=== PATIENT | female | born 1955 | race Caucasian/White ===

== ENCOUNTER 2024-08-21 20:14 | Inpatient (IN) | payer MEDICARE, SELFPAY ==
[2024-08-21 22:00] VITALS: BP 147/74; PULSE 80; RESP 16; TEMP 36; O2SAT 95; BMI 28.9
[2024-08-21] MEDS: hydrOXYzine HCL 25 MG TABLET PO (23:09)
[2024-08-21] MEDS: traZODone HCL 50 MG TABLET PO (23:09)
[2024-08-21] MEDS: Acetaminophen 325 MG TABLET 650 MG PO (23:10)
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
[2024-08-22] MEDS: LORazepam 1 MG TABLET PO (04:49)
--- NOTE | 2024-08-22 06:00 | PC.NURSE ---
Patient delusional becoming agitated saying the demons are trying to make her vomit so that she will choke and stop breathing. Provider contacted and order obtained for Ativan 1mg PO. Given with + effect. Patient incontinent of urine, bed and clothing soaked, this was after sitting on the toilet for an extended period of time, Patient reports the demons were holding her down and she couldn't urinate on the toilet. Lying in bed @ present. Will continue to monitor.
[2024-08-22 08:15] LABS: MANUAL DIFF FLAG NO
[2024-08-22 08:18] LABS: Basophils Absolute Auto 0.1 X10*3/uL (0.0-0.2); Eosinophils Absolute Auto 0.2 X10*3/uL (0.0-0.4); Eosinophils Percent Auto 2.6 % (0-4); Hematocrit 39.6 % (37.0-47.0); Hemoglobin 13.7 g/dl (12.0-16.0); Imm Gran Abs Auto 0.01 X10*3/uL (0.00-0.03); Imm Gran Pct Auto 0.2 % (0.0-0.4); Lymphocytes Absolute Auto 1.3 X10*3/uL (1.2-4.9); Lymphocytes Percent Auto 22.8 % (20-40); Mean Corpuscular HGB Conc 34.6 g/dl (31.0-35.0); Mean Corpuscular Hemoglobin 34.1 pg (27.0-33.0); Mean Corpuscular Volume 98.5 fL (80.0-98.0); Mean Platelet Volume 9.8 fL (9.4-12.3); Monocytes Absolute Auto 0.7 X10*3/uL (0.1-1.2); Monocytes Percent Auto 11.6 % (2-11); Neutrophils Absolute Auto 3.6 x10*3/uL (2.0-8.3); Neutrophils Percent Auto 61.8 % (45-73); Platelet Count 291 X10*3/uL (160-400); Red Blood Count 4.02 X10*6/uL (4.20-5.50); Red Cell Distribution Width 12.3 % (11.0-16.0); White Blood Count 5.9 X10*3/uL (4.8-10.8)
[2024-08-22 08:34] LABS: Estimated Average Glucose 114 mg/dL; Hemoglobin A1C 123.7162 umol/L; Hemoglobin A1c % 5.6 % (<6.0)
[2024-08-22 08:40] LABS: Alanine Aminotransferase 32 U/L (0-31); Alkaline Phosphatase 76 U/L (39-117); Anion Gap 12 (12-20); Aspartate Amino Transferase 27 U/L (5-31); Bilirubin Direct 0.2 mg/dL (0.0-0.5); Bilirubin Total 0.4 mg/dL (0.0-1.0); Blood Urea Nitrogen 18 mg/dL (9-16); Calcium 9.7 mg/dL (8.4-10.2); Carbon Dioxide 24 mmol/L (22-29); Chloride 106 mmol/L (96-108); Cholesterol 128 mg/dL (<200); Creatinine Clr Calc Pharmacy 78.1; Estimated Glomerular Filt Rate > 60; Glucose Fasting 116 mg/dL (60-99); HDL Cholesterol 42 mg/dL (>40); LDL Cholesterol Calculated 69 mg/dL (<100); Potassium 3.5 mmol/L (3.3-5.1); Sodium 138 mmol/L (135-145); Total Protein 7.1 g/dL (6.5-8.0); Triglycerides 85 mg/dL (<150)
[2024-08-22 08:54] LABS: Free T4 (Free Thyroxine) 1.26 ng/dL (0.71-1.85); Thyroid Stimulating Hormone 0.57 uIU/mL (0.32-4.0)
[2024-08-22 09:07] VITALS: BP 141/74; PULSE 89; RESP 17; TEMP 36; O2SAT 96
[2024-08-22 09:08] LABS: Folate 14.7 ng/mL (> or = 4.0); Vitamin B12 973 pg/mL (200-900)
[2024-08-22] MEDS: buPROPion HCL 75 MG TABLET PO (10:00)
[2024-08-22] MEDS: Apixaban 5 MG TABLET PO ×2 (10:00→20:45)
[2024-08-22] MEDS: Gabapentin 100 MG CAPSULE PO ×3 (10:00→20:45)
[2024-08-22] MEDS: carvediloL 25 MG TABLET PO ×2 (10:01→20:47)
[2024-08-22] MEDS: amLODIPine Besylate 5 MG TABLET PO (10:01)
[2024-08-22] MEDS: amantadine HCL 100 MG CAPSULE PO (10:01)
[2024-08-22] MEDS: hydroCHLOROthiazide 25 MG TABLET PO (10:02)
[2024-08-22] MEDS: valACYclovir HCL 500 MG TABLET PO (10:02)
[2024-08-22] MEDS: lisinopriL 40 MG TABLET PO (10:04)
[2024-08-22] MEDS: ARIPiprazole 15 MG TABLET PO (10:18)
[2024-08-22] MEDS: hydrOXYzine HCL 25 MG TABLET PO ×2 (15:09→20:45)
--- NOTE | 2024-08-22 18:49 | HO.PSYADMNOT ---
HPI Date of Service: 08/22/24 Chief Complaint: Unspecified Psychosis HPI Narrative: per [facility] records, pt with h/o bipolar disorder, COPD, HTN, obesity, paroxysmal afib, was admitted to medical service 07/29 for encephalopathy. per family report she had been taking her medications as pre usual and had been in her usual state of health until being diagnosed with UTI and being started on nitrofurantoin (07/21). since then she has become confused and paranoid. on 08/20 [facility] consult F/U, pt was religiously preoccupied and talking about the boogie man, the devil, and a staff person who carries a bull whip and who would be coming to crack [her] back with the whip. reported she could hear people chattering in [place]. at some point also reported she possesses superpowers. she reported poor sleep due to fears of being killed by the devil. on attempted interview by MD, pt declined to be interviewed. the remainder of the information in this evaluation is taken from the woefully wanting records provided by [facility] (no initial psych consult provided, no initial ED note provided). Past Psychiatric History: bipolar disorder Medical Evaluation Reviewed: Yes [facility] Medical History (Updated 08/22/24 @ 22:07 by Suresh Jauregui MD) Hallucinations Anxiety Bipolar disorder Urinary tract infection Urinary retention Incontinence Obesity Constipation COPD (chronic obstructive pulmonary disease) Coronary artery disease Atrial fibrillation Family History: per [facility] records, none. 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 alcohol - none currently Trauma History: unknown Diagnostics Vital Signs (24Hr): Vital Signs - 24 hr 08/21/24 22:00 08/22/24 09:07 Temperature 96.8 F 96.8 F Pulse Rate 80 89 Respiratory Rate 16 17 Blood Pressure 147/74 H 141/74 H Pulse Oximetry 95 96 Oxygen Delivery Method Room Air Room Air BMI result Body Mass Index 28.9 Labs 08/22/24 08:00 08/22/24 08:00 Labs: Laboratory Results - last 48 hr 08/22/24 08:00 WBC 5.9 RBC 4.02 L Hgb 13.7 Hct 39.6 MCV 98.5 H MCH 34.1 H MCHC 34.6 RDW 12.3 Plt Count 291 MPV 9.8 Immature Gran % (Auto) 0.2 Neut % (Auto) 61.8 Lymph % (Auto) 22.8 [place] % (Auto) 11.6 H Eos % (Auto) 2.6 Baso % (Auto) 1.0 Lymph # (Auto) 1.3 [place] # (Auto) 0.7 Eos # (Auto) 0.2 Baso # (Auto) 0.1 Abs Immat Gran (auto) 0.01 Absolute Neuts (auto) 3.6 Absolute Nucleated RBC 0.000 Nucleated RBC % (auto) 0.0 Sodium 138 Potassium 3.5 Chloride 106 Carbon Dioxide 24 Anion Gap 12 BUN 18 H Creatinine 0.72 Estim Creat Clear Calc 78.1 Estimated GFR > 60 Fasting Glucose 116 H Estimat Average Glucose 114 Hemoglobin A1c % 5.6 Calcium 9.7 Total Bilirubin 0.4 Direct Bilirubin 0.2 AST 27 ALT 32 H Alkaline Phosphatase 76 Total Protein 7.1 Albumin 4.0 Triglycerides 85 Cholesterol 128 LDL Cholesterol, Calc 69 HDL Cholesterol 42 Vitamin B12 973 H Folate 14.7 TSH 0.57 Free T4 1.26 Meds/Allergies Meds Home Medications ?Medication ?Instructions ?Recorded ?Confirmed ?Type albuterol sulfate 90 mcg/actuation 90 mcg inhalation Q4H PRN 08/22/24 08/22/24 History aerosol inhaler sob/wheezing amantadine HCl 100 mg capsule 100 mg PO DAILY 08/22/24 08/22/24 History amlodipine 5 mg tablet 5 mg PO DAILY 08/22/24 08/22/24 History apixaban 5 mg tablet (Eliquis) 5 mg PO BID 08/22/24 08/22/24 History aripiprazole 15 mg tablet 15 mg PO DAILY 08/22/24 08/22/24 History bupropion HCl 75 mg tablet 75 mg PO DAILY 08/22/24 08/22/24 History carvedilol 25 mg tablet 25 mg PO BID 08/22/24 08/22/24 History chlorthalidone 25 mg tablet 25 mg PO DAILY 08/22/24 08/22/24 History clonidine HCl 0.2 mg tablet 0.2 mg PO BID 08/22/24 08/22/24 History gabapentin 100 mg capsule 100 mg PO TID 08/22/24 08/22/24 History lisinopril 40 mg tablet 40 mg PO DAILY 08/22/24 08/22/24 History simvastatin 10 mg tablet 10 mg PO BEDTIME 08/22/24 08/22/24 History tamsulosin 0.4 mg capsule 0.4 mg PO DAILY 08/22/24 08/22/24 History valacyclovir 500 mg tablet 500 mg PO DAILY 08/22/24 08/22/24 History Allergies Allergies Allergy/AdvReac Type Severity Reaction Status Date / Time Penicillins [PCN] Allergy Severe Anaphylaxis Verified 08/22/24 04:12 bee venom protein (honey bee) Allergy Anaphylaxis Verified 08/22/24 04:04 codeine Allergy Unknown Verified 08/22/24 04:07 Iodinated Contrast Media Allergy Numbness Verified 08/22/24 04:11 [Contrast Dye] lanolin Allergy Rash Verified 08/22/24 04:11 latex Allergy Rash Verified 08/22/24 04:11 Sulfa (Sulfonamide Allergy Unknown Verified 08/22/24 04:11 Antibiotics) tramadol AdvReac Nausea and Verified 08/22/24 04:11 Vomiting Mental Status Exam Mental Status Exam Narrative: lying in bed resting. declined interview. adequately dressed and groomed in [facility]. not cooperative. no PMA/PMR. speech terse, nml rate, decr amount, nml loudness. thoughts linear and logical in brief interaction. affect constricted, normo-intense, non-labile. mood, SI/HI/AVH unable to be assessed. Assessment & Plan Assessment & Plan (1) Delirium: Status: Acute Code(s): R41.0 - Disorientation, unspecified (2) Unspecified psychosis: Status: Acute Code(s): F29 - Unspecified psychosis not due to a substance or known physiological condition Plan continue medications from [facility]. hospitalist consult. observation, supportive care. Patient educated on: other Reason for continued inpatient stay Substantial Risk for: inability to function Statement Statement: I have reviewed the history and physical and performed a pertinent examination on my patient. No changes have occurred unless specified. If the History and Physical was not performed prior to admission, the Hospitalist's service will be consulted for completing the admission physical. Time Spent With Patient Time: Total time managing care of this patient today _55___ minutes.
[2024-08-22 20:00] VITALS: BP 140/70; PULSE 94; RESP 18; TEMP 36.1; O2SAT 99
[2024-08-22] MEDS: Acetaminophen 325 MG TABLET 650 MG PO (20:45)
[2024-08-22] MEDS: traZODone HCL 50 MG TABLET PO (20:45)
[2024-08-22] MEDS: Tamsulosin HCL 0.4 MG CAPSULE PO (20:45)
[2024-08-22] MEDS: Atorvastatin Calcium 10 MG TABLET PO (20:45)
[2024-08-22] MEDS: Albuterol Sulfate 90 MCG 8 GM INHALER 1 PUFF INHALE (20:54)
[2024-08-23 07:50] VITALS: BP 128/74; PULSE 80; RESP 18; TEMP 36.6; O2SAT 98
[2024-08-23] MEDS: hydroCHLOROthiazide 25 MG TABLET PO (08:27)
[2024-08-23] MEDS: amLODIPine Besylate 5 MG TABLET PO (08:27)
[2024-08-23] MEDS: valACYclovir HCL 500 MG TABLET PO (08:27)
[2024-08-23] MEDS: amantadine HCL 100 MG CAPSULE PO (08:27)
[2024-08-23] MEDS: buPROPion HCL 75 MG TABLET PO (08:27)
[2024-08-23] MEDS: carvediloL 25 MG TABLET PO ×2 (08:27→20:34)
[2024-08-23] MEDS: ARIPiprazole 15 MG TABLET PO (08:28)
[2024-08-23] MEDS: lisinopriL 40 MG TABLET PO (08:28)
[2024-08-23] MEDS: Apixaban 5 MG TABLET PO ×2 (08:28→20:33)
[2024-08-23] MEDS: Gabapentin 100 MG CAPSULE PO ×3 (08:28→20:34)
[2024-08-23] MEDS: hydrOXYzine HCL 25 MG TABLET PO ×2 (11:13→20:34)
--- NOTE | 2024-08-23 15:03 | P.PNPSI_ITS ---
Subjective Subjective Date of Service: 08/23/24 Reason For Visit: Unspecified Psychosis Interim History: lying in bed, c/o severe anxiety, reports panic attack earlier this morning. wearing sunglasses in a dimly lit room. states she is anxious about light. per staff, appears to have fungal infection in intertriginous spaces. Mental Status Exam Mental Status Exam Narrative: lying in bed resting. adequately dressed and groomed in [place]. cooperative. no PMA/PMR. speech terse, nml rate, decr amount, nml loudness. thoughts linear and illogical. affect constricted, normo-intense, non-labile. mood anxious, no SI/HI/AVH expressed. Diagnostics Vital Signs (24Hr): Vital Signs - 24 hr 08/22/24 20:00 08/23/24 07:50 Temperature 97 F 97.9 F Pulse Rate 94 80 Respiratory Rate 18 18 Blood Pressure 140/70 H 128/74 Pulse Oximetry 99 98 Oxygen Delivery Method Room Air Room Air BMI result Body Mass Index 28.9 Labs 08/22/24 08:00 08/22/24 08:00 Labs: Laboratory Results - last 48 hr 08/22/24 08:00 WBC 5.9 RBC 4.02 L Hgb 13.7 Hct 39.6 MCV 98.5 H MCH 34.1 H MCHC 34.6 RDW 12.3 Plt Count 291 MPV 9.8 Immature Gran % (Auto) 0.2 Neut % (Auto) 61.8 Lymph % (Auto) 22.8 [place] % (Auto) 11.6 H Eos % (Auto) 2.6 Baso % (Auto) 1.0 Lymph # (Auto) 1.3 [place] # (Auto) 0.7 Eos # (Auto) 0.2 Baso # (Auto) 0.1 Abs Immat Gran (auto) 0.01 Absolute Neuts (auto) 3.6 Absolute Nucleated RBC 0.000 Nucleated RBC % (auto) 0.0 Sodium 138 Potassium 3.5 Chloride 106 Carbon Dioxide 24 Anion Gap 12 BUN 18 H Creatinine 0.72 Estim Creat Clear Calc 78.1 Estimated GFR > 60 Fasting Glucose 116 H Estimat Average Glucose 114 Hemoglobin A1c % 5.6 Calcium 9.7 Total Bilirubin 0.4 Direct Bilirubin 0.2 AST 27 ALT 32 H Alkaline Phosphatase 76 Total Protein 7.1 Albumin 4.0 Triglycerides 85 Cholesterol 128 LDL Cholesterol, Calc 69 HDL Cholesterol 42 Vitamin B12 973 H Folate 14.7 TSH 0.57 Free T4 1.26 Medications Medications Current Medications Acetaminophen (Acetaminophen 325 Mg Tablet) 650 mg PO Q6H PRN PRN Reason: Headache/Pain Mild Scale (1-3) Last Admin: 08/22/24 20:45 Dose: 650 mg Al Hydroxide/Mg Hydroxide (Magnesium Hydrox/Alum Hydrox 30 Ml Oral.Susp) 30 ml PO Q6H PRN PRN Reason: Heartburn/Nausea Albuterol Sulfate (Albuterol Sulfate 90 Mcg 8 Gm Inhaler) 1 puff INHALE RQ4H PRN PRN Reason: Shortness of Breath Last Admin: 08/22/24 20:54 Dose: 1 puff Amantadine HCl (Amantadine Hcl 100 Mg Capsule) 100 mg PO DAILY COUNT INCLUDES THE [facility] Last Admin: 08/23/24 08:27 Dose: 100 mg Amlodipine Besylate (Amlodipine Besylate 5 Mg Tablet) 5 mg PO DAILY COUNT INCLUDES THE [facility]; Protocol Last Admin: 08/23/24 08:27 Dose: 5 mg Apixaban (Apixaban 5 Mg Tablet) 5 mg PO BID COUNT INCLUDES THE [facility] Last Admin: 08/23/24 08:28 Dose: 5 mg Aripiprazole (Aripiprazole 15 Mg Tablet) 15 mg PO DAILY COUNT INCLUDES THE [facility] Last Admin: 08/23/24 08:28 Dose: 15 mg Atorvastatin Calcium (Atorvastatin Calcium 10 Mg Tablet) 10 mg PO BEDTIME COUNT INCLUDES THE [facility] Last Admin: 08/22/24 20:45 Dose: 10 mg Bupropion HCl (Bupropion Hcl 75 Mg Tablet) 75 mg PO DAILY COUNT INCLUDES THE [facility] Last Admin: 08/23/24 08:27 Dose: 75 mg Carvedilol (Carvedilol 25 Mg Tablet) 25 mg PO BID COUNT INCLUDES THE [facility]; Protocol Last Admin: 08/23/24 08:27 Dose: 25 mg Gabapentin (Gabapentin 100 Mg Capsule) 100 mg PO TID COUNT INCLUDES THE [facility] Last Admin: 08/23/24 14:34 Dose: 100 mg Hydrochlorothiazide (Hydrochlorothiazide 25 Mg Tablet) 25 mg PO DAILY COUNT INCLUDES THE [facility]; Protocol Last Admin: 08/23/24 08:27 Dose: 25 mg Hydroxyzine HCl (Hydroxyzine Hcl 25 Mg Tablet) 25 mg PO Q6H PRN PRN Reason: Anxiety Last Admin: 08/23/24 11:13 Dose: 25 mg Lisinopril (Lisinopril 40 Mg Tablet) 40 mg PO DAILY COUNT INCLUDES THE [facility]; Protocol Last Admin: 08/23/24 08:28 Dose: 40 mg Magnesium Hydroxide (Milk Of Magnesia 30 Ml Oral.Susp) 30 ml PO DAILY PRN PRN Reason: Constipation Nystatin (Nystatin Powder 15 Gm Bottle) 1 appl TOPICAL BID COUNT INCLUDES THE [facility]; Protocol Last Admin: 08/23/24 14:04 Dose: Not Given Tamsulosin HCl (Tamsulosin Hcl 0.4 Mg Capsule) 0.4 mg PO BEDTIME ROB Last Admin: 08/22/24 20:45 Dose: 0.4 mg Trazodone HCl (Trazodone Hcl 50 Mg Tablet) 50 mg PO BEDTIME MRX1 PRN PRN Reason: Insomnia Last Admin: 08/22/24 20:45 Dose: 50 mg Valacyclovir HCl (Valacyclovir Hcl 500 Mg Tablet) 500 mg PO DAILY COUNT INCLUDES THE [facility] Last Admin: 08/23/24 08:27 Dose: 500 mg Allergies Allergies Allergy/AdvReac Type Severity Reaction Status Date / Time Penicillins [PCN] Allergy Severe Anaphylaxis Verified 08/22/24 04:12 bee venom protein (honey bee) Allergy Anaphylaxis Verified 08/22/24 04:04 codeine Allergy Unknown Verified 08/22/24 04:07 Iodinated Contrast Media Allergy Numbness Verified 08/22/24 04:11 [Contrast Dye] lanolin Allergy Rash Verified 08/22/24 04:11 latex Allergy Rash Verified 08/22/24 04:11 Sulfa (Sulfonamide Allergy Unknown Verified 08/22/24 04:11 Antibiotics) tramadol AdvReac Nausea and Verified 08/22/24 04:11 Vomiting Assessment & Plan Assessment & Plan (1) Delirium: Status: Acute Code(s): R41.0 - Disorientation, unspecified (2) Unspecified psychosis: Status: Acute Code(s): F29 - Unspecified psychosis not due to a substance or known physiological condition Plan 08/22: continue medications from [facility]. hospitalist consult. observation, supportive care. 08/23: continue current mgmt. PRNs for anxiety. hospitalist consult pending. Reason for continued inpatient stay Substantial Risk for: inability to function Time Spent With Patient Time: Total time managing care of this patient today ____ minutes.
[2024-08-23 18:22] LABS: Appearance Urine Clear; Color Urine Yellow; Glucose Urine UA Negative (Negative); Leukocyte Esterase Urine Moderate (2+) (Negative); Nitrite Urine Negative (Negative); PH 5.5 (5.0-9.0); Specific Gravity - Urine 1.015 (1.005-1.025); UMIC TRIGGER UACC YES; Urine Blood Moderate (2+) (Negative); Urine Ketones Negative (Negative); Urine Protein Negative (Neg-Trace)
[2024-08-23 18:34] LABS: Bacteria Urine None Seen (None Seen); Granular Casts Urine Present; Hyaline Casts Urine >20 /LPF (0-2); UACC Culture Trigger YES
[2024-08-23 20:00] VITALS: BP 122/90; PULSE 80; RESP 18; TEMP 36.1; O2SAT 97
[2024-08-23] MEDS: Atorvastatin Calcium 10 MG TABLET PO (20:33)
[2024-08-23] MEDS: Acetaminophen 325 MG TABLET 650 MG PO (20:34)
[2024-08-23] MEDS: Tamsulosin HCL 0.4 MG CAPSULE PO (20:34)
[2024-08-23] MEDS: traZODone HCL 50 MG TABLET PO (20:34)
[2024-08-24 08:05] VITALS: BP 141/79; PULSE 96; RESP 18; TEMP 36.6; O2SAT 96
[2024-08-24] MEDS: valACYclovir HCL 500 MG TABLET PO (08:22)
[2024-08-24] MEDS: Apixaban 5 MG TABLET PO ×2 (08:22→20:57)
[2024-08-24] MEDS: buPROPion HCL 75 MG TABLET PO (08:22)
[2024-08-24] MEDS: amantadine HCL 100 MG CAPSULE PO (08:22)
[2024-08-24] MEDS: Gabapentin 100 MG CAPSULE PO ×3 (08:22→20:57)
[2024-08-24] MEDS: carvediloL 25 MG TABLET PO ×2 (08:23→20:57)
[2024-08-24] MEDS: amLODIPine Besylate 5 MG TABLET PO (08:23)
[2024-08-24] MEDS: lisinopriL 40 MG TABLET PO (08:23)
[2024-08-24] MEDS: hydroCHLOROthiazide 25 MG TABLET PO (08:23)
[2024-08-24] MEDS: ARIPiprazole 15 MG TABLET PO (08:23)
[2024-08-24] MEDS: Nystatin Powder 15 GM BOTTLE 1 APPL TOPICAL (08:29)
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
[2024-08-24] MEDS: hydrOXYzine HCL 25 MG TABLET PO ×2 (09:34→21:49)
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
[2024-08-24 20:00] VITALS: BP 115/57; PULSE 84; RESP 18; TEMP 36.2; O2SAT 97
[2024-08-24] MEDS: HaloperidoL 5 MG TABLET PO (20:57)
[2024-08-24] MEDS: traZODone HCL 50 MG TABLET PO ×2 (20:57→23:36)
[2024-08-24] MEDS: Atorvastatin Calcium 10 MG TABLET PO (20:57)
[2024-08-24] MEDS: Tamsulosin HCL 0.4 MG CAPSULE PO (20:57)
[2024-08-24] MEDS: Acetaminophen 325 MG TABLET 650 MG PO (21:49)
[2024-08-25 08:00] VITALS: RESP 16
--- NOTE | 2024-08-25 09:27 | HO.PSYCHPN ---
Subjective Subjective Date of Service: 08/25/24 Reason For Visit: Unspecified Psychosis Subjective Notes: Conditional Voluntary Interim History: Pt slept about 7hrs. She has been up in the morning, self dialoguing very paranoid and suspicious. She initially yelled at this contract technical writer and refused to speak with me stating you're full of shit, don't come close to me, I know what you are doing. Later in the day, pt appeared calmer and agreed to medication she declined in the morning. Pt tells this contract technical writer that she is afraid people are trying to take away her special rogers. She reports she has a very high IQ, 181 She reports she is also able to levitate and she hear what others are talking about in other building. She reports there are 2 women who are harrasing her and ask her to join he devil, which she refuses to do but reports does not know how to stop them. She denies SI/HI. She reports she used to live with . She reports she had a psychiatrist in the community but does not remember the name. Diagnostics Vital Signs (24Hr): Vital Signs - 24 hr 08/24/24 20:00 Temperature 97.1 F Pulse Rate 84 Respiratory Rate 18 Blood Pressure 115/57 L Pulse Oximetry 97 Oxygen Delivery Method Room Air BMI result Body Mass Index 28.9 Labs 08/22/24 08:00 08/22/24 08:00 Labs: Laboratory Results - last 48 hr 08/23/24 17:36 Urine Color Yellow Urine Appearance Clear Urine pH 5.5 Ur Specific [place] 1.015 Urine Protein Negative Urine Glucose (UA) Negative Urine Ketones Negative Urine Blood Moderate (2+) H Urine Nitrite Negative Ur Leukocyte Esterase Moderate (2+) H Urine RBC 11-20 H Urine WBC 11-20 H Ur Squamous Epith Cells 3-5 Urine Bacteria None Seen Hyaline Casts >20 Granular Casts Present Medications Medications Current Medications Acetaminophen (Acetaminophen 325 Mg Tablet) 650 mg PO Q6H PRN PRN Reason: Headache/Pain Mild Scale (1-3) Last Admin: 08/24/24 21:49 Dose: 650 mg Al Hydroxide/Mg Hydroxide (Magnesium Hydrox/Alum Hydrox 30 Ml Oral.Susp) 30 ml PO Q6H PRN PRN Reason: Heartburn/Nausea Albuterol Sulfate (Albuterol Sulfate 90 Mcg 8 Gm Inhaler) 1 puff INHALE RQ4H PRN PRN Reason: Shortness of Breath Last Admin: 08/22/24 20:54 Dose: 1 puff Amantadine HCl (Amantadine Hcl 100 Mg Capsule) 100 mg PO DAILY [facility] Last Admin: 08/24/24 08:22 Dose: 100 mg Amlodipine Besylate (Amlodipine Besylate 5 Mg Tablet) 5 mg PO DAILY [facility]; Protocol Last Admin: 08/24/24 08:23 Dose: 5 mg Apixaban (Apixaban 5 Mg Tablet) 5 mg PO BID [facility] Last Admin: 08/24/24 20:57 Dose: 5 mg Aripiprazole (Aripiprazole 15 Mg Tablet) 15 mg PO DAILY [facility] Last Admin: 08/24/24 08:23 Dose: 15 mg Atorvastatin Calcium (Atorvastatin Calcium 10 Mg Tablet) 10 mg PO BEDTIME [facility] Last Admin: 08/24/24 20:57 Dose: 10 mg Bupropion HCl (Bupropion Hcl 75 Mg Tablet) 75 mg PO DAILY [facility] Last Admin: 08/24/24 08:22 Dose: 75 mg Carvedilol (Carvedilol 25 Mg Tablet) 25 mg PO BID [facility]; Protocol Last Admin: 08/24/24 20:57 Dose: 25 mg Gabapentin (Gabapentin 100 Mg Capsule) 100 mg PO TID [facility] Last Admin: 08/24/24 20:57 Dose: 100 mg Haloperidol (Haloperidol 5 Mg Tablet) 5 mg PO BEDTIME [facility] Last Admin: 08/24/24 20:57 Dose: 5 mg Hydrochlorothiazide (Hydrochlorothiazide 25 Mg Tablet) 25 mg PO DAILY [facility]; Protocol Last Admin: 08/24/24 08:23 Dose: 25 mg Hydroxyzine HCl (Hydroxyzine Hcl 25 Mg Tablet) 25 mg PO Q6H PRN PRN Reason: Anxiety Last Admin: 08/24/24 21:49 Dose: 25 mg Lisinopril (Lisinopril 40 Mg Tablet) 40 mg PO DAILY [facility]; Protocol Last Admin: 08/24/24 08:23 Dose: 40 mg Magnesium Hydroxide (Milk Of Magnesia 30 Ml Oral.Susp) 30 ml PO DAILY PRN PRN Reason: Constipation Nystatin (Nystatin Powder 15 Gm Bottle) 1 appl TOPICAL BID [facility]; Protocol Last Admin: 08/24/24 21:31 Dose: Not Given Tamsulosin HCl (Tamsulosin Hcl 0.4 Mg Capsule) 0.4 mg PO BEDTIME [facility] Last Admin: 08/24/24 20:57 Dose: 0.4 mg Trazodone HCl (Trazodone Hcl 50 Mg Tablet) 50 mg PO BEDTIME MRX1 PRN PRN Reason: Insomnia Last Admin: 08/24/24 23:36 Dose: 50 mg Valacyclovir HCl (Valacyclovir Hcl 500 Mg Tablet) 500 mg PO DAILY [facility] Last Admin: 08/24/24 08:22 Dose: 500 mg Allergies Allergies Allergy/AdvReac Type Severity Reaction Status Date / Time Penicillins [PCN] Allergy Severe Anaphylaxis Verified 08/22/24 04:12 bee venom protein (honey bee) Allergy Anaphylaxis Verified 08/22/24 04:04 codeine Allergy Unknown Verified 08/22/24 04:07 Iodinated Contrast Media Allergy Numbness Verified 08/22/24 04:11 [Contrast Dye] lanolin Allergy Rash Verified 08/22/24 04:11 latex Allergy Rash Verified 08/22/24 04:11 Sulfa (Sulfonamide Allergy Unknown Verified 08/22/24 04:11 Antibiotics) tramadol AdvReac Nausea and Verified 08/22/24 04:11 Vomiting Assessment & Plan Assessment & Plan (1) Medical clearance for psychiatric admission: Status: Acute Code(s): Z00.8 - Encounter for other general examination Assessment and Plan: 69 yo f with a pmhx significant for bipolar, HTN, anemia, chronic hyponatremia (baseline 132-136), paroxysmal a fib on eliquis, COPD, CAD, urinary retention, admitted to [facility] for psychosis after being treated for a UTI with nitrofurantion on 07/21/24. Transferred here from [facility]. Refused to meet to discuss medical history and clearance for the floor. She stated, get out before I scream . bipolar/psychosis/mood disorder - plan per psych HTN - continue amlodipine 5mg QD, carvidelol 25mg BID, lisinopril 40mg QD anemia - H+H stable chronic hyponatremia - Na normal here, avoid chlorthalidone in prev med list p. a fib - continue eliquis and carvidelol UTI - negative cx 08/22 here, no tx needed at this time (2) Unspecified psychosis: Status: Acute Code(s): F29 - Unspecified psychosis not due to a substance or known physiological condition (3) Delirium: Status: Acute Code(s): R41.0 - Disorientation, unspecified (4) Schizoaffective disorder: Status: Acute Code(s): F25.9 - Schizoaffective disorder, unspecified Plan 08/22: continue medications from [facility]. hospitalist consult. observation, supportive care. 08/23: continue current mgmt. PRNs for anxiety. hospitalist consult pending. 08/24: psychotic, aggressive. add haldol 5 QHS and haldol 2 mg PRNs. medical consult appreciated. collateral from family. 08/25 pt presents with paranoid/persecutory delusions, auditory hallucinations and some grandiose delusions of having special power. will dc wellbutrin as it exacerbates psychosis. will increase haldol 5mg po qhs and will add 2.5mg po daily. increase abilify 20mg po daily. seems like amantadine for parkinsonian symptoms-wih higher potency antipsychotic like haldol will add low dose cogentin. Noted UA- shows UTI, will start ceftin 250mg po BID x 7 days. Pending collateral information. Reason for continued inpatient stay Substantial Risk for: inability to function Time Spent With Patient Time: Total time managing care of this patient today ____ minutes.
[2024-08-25] MEDS: Gabapentin 100 MG CAPSULE PO ×2 (13:35→20:56)
[2024-08-25] MEDS: ARIPiprazole 15 MG TABLET PO (13:35)
[2024-08-25 15:40] VITALS: BP 99/55; PULSE 71; RESP 18; TEMP 36; O2SAT 96
[2024-08-25 20:00] VITALS: BP 116/57; PULSE 93; RESP 18; TEMP 36; O2SAT 94
[2024-08-25] MEDS: Atorvastatin Calcium 10 MG TABLET PO (20:55)
[2024-08-25] MEDS: carvediloL 25 MG TABLET PO (20:55)
[2024-08-25] MEDS: HaloperidoL 5 MG TABLET PO (20:56)
[2024-08-25] MEDS: Benztropine Mesylate 0.5 MG TABLET PO (20:56)
[2024-08-25] MEDS: Apixaban 5 MG TABLET PO (20:56)
[2024-08-25] MEDS: traZODone HCL 50 MG TABLET PO (20:56)
[2024-08-25] MEDS: Tamsulosin HCL 0.4 MG CAPSULE PO (20:56)
[2024-08-25] MEDS: cefuroxime axetiL 250 MG TABLET PO (20:56)
[2024-08-25] MEDS: hydrOXYzine HCL 25 MG TABLET PO (20:56)
[2024-08-26 08:42] VITALS: BP 131/60; PULSE 98; RESP 18; TEMP 36.4; O2SAT 95
[2024-08-26] MEDS: cefuroxime axetiL 250 MG TABLET PO (08:45)
[2024-08-26] MEDS: Apixaban 5 MG TABLET PO ×2 (08:45→20:18)
[2024-08-26] MEDS: hydroCHLOROthiazide 25 MG TABLET PO (08:45)
[2024-08-26] MEDS: Gabapentin 100 MG CAPSULE PO ×3 (08:45→20:18)
[2024-08-26] MEDS: Benztropine Mesylate 0.5 MG TABLET PO (08:45)
[2024-08-26] MEDS: amLODIPine Besylate 5 MG TABLET PO (08:46)
[2024-08-26] MEDS: carvediloL 25 MG TABLET PO ×2 (08:46→20:17)
[2024-08-26] MEDS: valACYclovir HCL 500 MG TABLET PO (08:46)
[2024-08-26] MEDS: ARIPiprazole 20 MG TABLET PO (08:46)
[2024-08-26] MEDS: lisinopriL 40 MG TABLET PO (08:46)
[2024-08-26] MEDS: HaloperidoL 0.5 MG TABLET 2.5 MG PO (08:47)
[2024-08-26] MEDS: Nystatin Powder 15 GM BOTTLE 1 APPL TOPICAL (08:49)
--- NOTE | 2024-08-26 09:03 | HO.PSYCHPN ---
Subjective Subjective Date of Service: 08/26/24 Reason For Visit: Unspecified Psychosis Subjective Notes: Conditional Voluntary Interim History: Pt slept most of the night. She is less hostile and paranoid towards staff here but continues to be distressed and overwhelmed by degree of visual and auditory hallucinations of women who she reports look like devils, and are trying to hurt her. She reports today voices telling her to find name that rhythms with purple. She is repeating out loud purple, purple hoping voices will stop. She denies SI/HI. Medication Compliance: Yes Side effects from medications: Yes (EPS) Review of Systems Review of Systems Yes Unobtainable due to mental status Mental Status Exam Mental Status Exam Narrative: Appearance: wearing hospital gown, fair hygiene, wearing sunglasses, in NAD Behavior: less guarded towards this sign writer letterer or painter Psychomotor: bilat cogwheel and rigidity. Speech: clear, normal rate/rhythm/volume, spontaneous TP: mostly linear TC: hearing voices of women who are telling her to join [employer]. Mood: not good Affect: constricted SI: denies HI: denies VH/AH: hearing voices of women, seeing them- which she describes as having patches on eyes and scary looking Delusion: paranoid, persecutory delusions Insight/judgment: limited x 2. Memory/cog: alert, oriented x 3. Diagnostics Vital Signs (24Hr): Vital Signs - 24 hr 08/25/24 15:40 08/25/24 20:00 08/26/24 08:42 Temperature 96.8 F 96.8 F 97.5 F Pulse Rate 71 93 98 Respiratory Rate 18 18 18 Blood Pressure 99/55 L 116/57 L 131/60 Pulse Oximetry 96 94 95 Oxygen Delivery Method Room Air Room Air Room Air BMI result Body Mass Index 28.9 Labs 08/22/24 08:00 08/22/24 08:00 Medications Medications Current Medications Acetaminophen (Acetaminophen 325 Mg Tablet) 650 mg PO Q6H PRN PRN Reason: Headache/Pain Mild Scale (1-3) Last Admin: 08/24/24 21:49 Dose: 650 mg Al Hydroxide/Mg Hydroxide (Magnesium Hydrox/Alum Hydrox 30 Ml Oral.Susp) 30 ml PO Q6H PRN PRN Reason: Heartburn/Nausea Albuterol Sulfate (Albuterol Sulfate 90 Mcg 8 Gm Inhaler) 1 puff INHALE RQ4H PRN PRN Reason: Shortness of Breath Last Admin: 08/22/24 20:54 Dose: 1 puff Amlodipine Besylate (Amlodipine Besylate 5 Mg Tablet) 5 mg PO DAILY [facility]; Protocol Last Admin: 08/26/24 08:46 Dose: 5 mg Apixaban (Apixaban 5 Mg Tablet) 5 mg PO BID [facility] Last Admin: 08/26/24 08:45 Dose: 5 mg Aripiprazole (Aripiprazole 20 Mg Tablet) 20 mg PO DAILY [facility] Last Admin: 08/26/24 08:46 Dose: 20 mg Atorvastatin Calcium (Atorvastatin Calcium 10 Mg Tablet) 10 mg PO BEDTIME [facility] Last Admin: 08/25/24 20:55 Dose: 10 mg Benztropine Mesylate (Benztropine Mesylate 0.5 Mg Tablet) 0.5 mg PO BID [facility] Last Admin: 08/26/24 08:45 Dose: 0.5 mg Carvedilol (Carvedilol 25 Mg Tablet) 25 mg PO BID [facility]; Protocol Last Admin: 08/26/24 08:46 Dose: 25 mg Cefuroxime Axetil (Cefuroxime Axetil 250 Mg Tablet) 250 mg PO Q12H [facility] Stop: 09/01/24 09:01 Last Admin: 08/26/24 08:45 Dose: 250 mg Gabapentin (Gabapentin 100 Mg Capsule) 100 mg PO TID [facility] Last Admin: 08/26/24 08:45 Dose: 100 mg Haloperidol (Haloperidol 5 Mg Tablet) 5 mg PO BEDTIME [facility] Last Admin: 08/25/24 20:56 Dose: 5 mg Haloperidol (Haloperidol 0.5 Mg Tablet) 2.5 mg PO DAILY [facility] Last Admin: 08/26/24 08:47 Dose: 2.5 mg Hydrochlorothiazide (Hydrochlorothiazide 25 Mg Tablet) 25 mg PO DAILY [facility]; Protocol Last Admin: 08/26/24 08:45 Dose: 25 mg Hydroxyzine HCl (Hydroxyzine Hcl 25 Mg Tablet) 25 mg PO Q6H PRN PRN Reason: Anxiety Last Admin: 08/25/24 20:56 Dose: 25 mg Lisinopril (Lisinopril 40 Mg Tablet) 40 mg PO DAILY [facility]; Protocol Last Admin: 08/26/24 08:46 Dose: 40 mg Magnesium Hydroxide (Milk Of Magnesia 30 Ml Oral.Susp) 30 ml PO DAILY PRN PRN Reason: Constipation Nystatin (Nystatin Powder 15 Gm Bottle) 1 appl TOPICAL BID [facility]; Protocol Last Admin: 08/26/24 08:49 Dose: 1 appl Tamsulosin HCl (Tamsulosin Hcl 0.4 Mg Capsule) 0.4 mg PO BEDTIME [facility] Last Admin: 08/25/24 20:56 Dose: 0.4 mg Trazodone HCl (Trazodone Hcl 50 Mg Tablet) 50 mg PO BEDTIME MRX1 PRN PRN Reason: Insomnia Last Admin: 08/25/24 20:56 Dose: 50 mg Valacyclovir HCl (Valacyclovir Hcl 500 Mg Tablet) 500 mg PO DAILY [facility] Last Admin: 08/26/24 08:46 Dose: 500 mg Allergies Allergies Allergy/AdvReac Type Severity Reaction Status Date / Time Penicillins [PCN] Allergy Severe Anaphylaxis Verified 08/22/24 04:12 bee venom protein (honey bee) Allergy Anaphylaxis Verified 08/22/24 04:04 codeine Allergy Unknown Verified 08/22/24 04:07 Iodinated Contrast Media Allergy Numbness Verified 08/22/24 04:11 [Contrast Dye] lanolin Allergy Rash Verified 08/22/24 04:11 latex Allergy Rash Verified 08/22/24 04:11 Sulfa (Sulfonamide Allergy Unknown Verified 08/22/24 04:11 Antibiotics) tramadol AdvReac Nausea and Verified 08/22/24 04:11 Vomiting Assessment & Plan Assessment & Plan (1) Schizoaffective disorder: Status: Acute Code(s): F25.9 - Schizoaffective disorder, unspecified Plan 08/22: continue medications from [facility]. hospitalist consult. observation, supportive care. 08/23: continue current mgmt. PRNs for anxiety. hospitalist consult pending. 08/24: psychotic, aggressive. add haldol 5 QHS and haldol 2 mg PRNs. medical consult appreciated. collateral from family. 08/25 pt presents with paranoid/persecutory delusions, auditory hallucinations and some grandiose delusions of having special power. will dc wellbutrin as it exacerbates psychosis. will increase haldol 5mg po qhs and will add 2.5mg po daily. increase abilify 20mg po daily. seems like amantadine for parkinsonian symptoms-wih higher potency antipsychotic like haldol will add low dose cogentin. Noted UA- shows UTI, will start ceftin 250mg po BID x 7 days. Pending collateral information. 08/26- pt with significant bilat cogwheel and rigidity with haldol. will d/c haldol, although risperidone also high potency antipsychotic will switch to risperidone. will continue abilify for now. Reason for continued inpatient stay Substantial Risk for: inability to function Time Spent With Patient Time: Total time managing care of this patient today ____ minutes.
[2024-08-26] MEDS: Acetaminophen 325 MG TABLET 650 MG PO ×2 (09:10→20:18)
[2024-08-26] MEDS: clonazePAM 0.5 MG TABLET PO (10:53)
[2024-08-26] MEDS: Benztropine Mesylate 1 MG TABLET PO (10:53)
[2024-08-26 11:40] LABS: COVID-19 Test Negative (Negative); IDNOW Serial# 152EDE1D
[2024-08-26 20:00] VITALS: BP 127/59; PULSE 83; RESP 18; TEMP 36.6; O2SAT 96
[2024-08-26] MEDS: traZODone HCL 50 MG TABLET PO (20:17)
[2024-08-26] MEDS: Atorvastatin Calcium 10 MG TABLET PO (20:18)
[2024-08-26] MEDS: Tamsulosin HCL 0.4 MG CAPSULE PO (20:18)
[2024-08-26] MEDS: risperiDONE 1 MG TABLET PO (20:18)
[2024-08-27 08:00] VITALS: RESP 18
--- NOTE | 2024-08-27 09:14 | HO.PSYCHPN ---
Subjective Subjective Date of Service: 08/27/24 Reason For Visit: Unspecified Psychosis Subjective Notes: Conditional Voluntary Interim History: Pt slept through the night. This morning she presents as increasingly more paranoid, hearing voices and distress about it. She declined medications in the morning. She is more suspicious about this field underwriter, stating you lied to me, you're in a different team. She reports hearing voices of daughter, who she believes has been locked in a room here on the unit. She keep yelling her daughter's name, telling her to come out and promising she will protected with her special rogers. She denies SI/HI. Medication Compliance: Intermittent Side effects from medications: No Attending Groups: No Mental Status Exam Mental Status Exam Narrative: Appearance: wearing hospital gown, fair hygiene, wearing sunglasses, in NAD Behavior: less guarded towards this field underwriter Psychomotor: bilat cogwheel and rigidity. Speech: clear, normal rate/rhythm/volume, spontaneous TP: mostly linear TC: hearing voices of women who are telling her to join [employer]. Mood: not good Affect: constricted SI: denies HI: denies VH/AH: hearing voices of women, seeing them- which she describes as having patches on eyes and scary looking Delusion: paranoid, persecutory delusions Insight/judgment: limited x 2. Memory/cog: alert, oriented x 3. Diagnostics Vital Signs (24Hr): Vital Signs - 24 hr 08/26/24 20:00 Temperature 98 F Pulse Rate 83 Respiratory Rate 18 Blood Pressure 127/59 L Pulse Oximetry 96 Oxygen Delivery Method Room Air BMI result Body Mass Index 28.9 Labs 08/22/24 08:00 08/22/24 08:00 Labs: Laboratory Results - last 48 hr 08/26/24 11:05 COVID-19 (LEXY) Negative COVID-19 Clin Com See Note Medications Medications Current Medications Acetaminophen (Acetaminophen 325 Mg Tablet) 650 mg PO Q6H PRN PRN Reason: Headache/Pain Mild Scale (1-3) Last Admin: 08/26/24 20:18 Dose: 650 mg Al Hydroxide/Mg Hydroxide (Magnesium Hydrox/Alum Hydrox 30 Ml Oral.Susp) 30 ml PO Q6H PRN PRN Reason: Heartburn/Nausea Albuterol Sulfate (Albuterol Sulfate 90 Mcg 8 Gm Inhaler) 1 puff INHALE RQ4H PRN PRN Reason: Shortness of Breath Last Admin: 08/22/24 20:54 Dose: 1 puff Amlodipine Besylate (Amlodipine Besylate 5 Mg Tablet) 5 mg PO DAILY [facility]; Protocol Last Admin: 08/26/24 08:46 Dose: 5 mg Apixaban (Apixaban 5 Mg Tablet) 5 mg PO BID [facility] Last Admin: 08/26/24 20:18 Dose: 5 mg Aripiprazole (Aripiprazole 20 Mg Tablet) 20 mg PO DAILY [facility] Last Admin: 08/26/24 08:46 Dose: 20 mg Atorvastatin Calcium (Atorvastatin Calcium 10 Mg Tablet) 10 mg PO BEDTIME [facility] Last Admin: 08/26/24 20:18 Dose: 10 mg Carvedilol (Carvedilol 25 Mg Tablet) 25 mg PO BID [facility]; Protocol Last Admin: 08/26/24 20:17 Dose: 25 mg Gabapentin (Gabapentin 100 Mg Capsule) 100 mg PO TID [facility] Last Admin: 08/26/24 20:18 Dose: 100 mg Hydrochlorothiazide (Hydrochlorothiazide 25 Mg Tablet) 25 mg PO DAILY [facility]; Protocol Last Admin: 08/26/24 08:45 Dose: 25 mg Hydroxyzine HCl (Hydroxyzine Hcl 25 Mg Tablet) 25 mg PO Q6H PRN PRN Reason: Anxiety Last Admin: 08/25/24 20:56 Dose: 25 mg Lisinopril (Lisinopril 40 Mg Tablet) 40 mg PO DAILY [facility]; Protocol Last Admin: 08/26/24 08:46 Dose: 40 mg Magnesium Hydroxide (Milk Of Magnesia 30 Ml Oral.Susp) 30 ml PO DAILY PRN PRN Reason: Constipation Nystatin (Nystatin Powder 15 Gm Bottle) 1 appl TOPICAL BID [facility]; Protocol Last Admin: 08/26/24 20:18 Dose: Not Given Risperidone (Risperidone 1 Mg Tablet) 1 mg PO BID [facility] Last Admin: 08/26/24 20:18 Dose: 1 mg Tamsulosin HCl (Tamsulosin Hcl 0.4 Mg Capsule) 0.4 mg PO BEDTIME [facility] Last Admin: 08/26/24 20:18 Dose: 0.4 mg Trazodone HCl (Trazodone Hcl 50 Mg Tablet) 50 mg PO BEDTIME MRX1 PRN PRN Reason: Insomnia Last Admin: 08/26/24 20:17 Dose: 50 mg Valacyclovir HCl (Valacyclovir Hcl 500 Mg Tablet) 500 mg PO DAILY [facility] Last Admin: 08/26/24 08:46 Dose: 500 mg Allergies Allergies Allergy/AdvReac Type Severity Reaction Status Date / Time Penicillins [PCN] Allergy Severe Anaphylaxis Verified 08/22/24 04:12 bee venom protein (honey bee) Allergy Anaphylaxis Verified 08/22/24 04:04 codeine Allergy Unknown Verified 08/22/24 04:07 Iodinated Contrast Media Allergy Numbness Verified 08/22/24 04:11 [Contrast Dye] lanolin Allergy Rash Verified 08/22/24 04:11 latex Allergy Rash Verified 08/22/24 04:11 Sulfa (Sulfonamide Allergy Unknown Verified 08/22/24 04:11 Antibiotics) tramadol AdvReac Nausea and Verified 08/22/24 04:11 Vomiting Assessment & Plan Assessment & Plan (1) Schizoaffective disorder: Status: Acute Code(s): F25.9 - Schizoaffective disorder, unspecified Plan 08/22: continue medications from [facility]. hospitalist consult. observation, supportive care. 08/23: continue current mgmt. PRNs for anxiety. hospitalist consult pending. 08/24: psychotic, aggressive. add haldol 5 QHS and haldol 2 mg PRNs. medical consult appreciated. collateral from family. 08/25 pt presents with paranoid/persecutory delusions, auditory hallucinations and some grandiose delusions of having special power. will dc wellbutrin as it exacerbates psychosis. will increase haldol 5mg po qhs and will add 2.5mg po daily. increase abilify 20mg po daily. seems like amantadine for parkinsonian symptoms-wih higher potency antipsychotic like haldol will add low dose cogentin. Noted UA- shows UTI, will start ceftin 250mg po BID x 7 days. Pending collateral information. 08/26- pt with significant bilat cogwheel and rigidity with haldol. will d/c haldol, although risperidone also high potency antipsychotic will switch to risperidone. will continue abilify for now. 08/27 increased risperidone 2mg po BID. continue abilify 20mg po daily. Reason for continued inpatient stay Substantial Risk for: inability to function Time Spent With Patient Time: Total time managing care of this patient today ____ minutes.
[2024-08-27] MEDS: ARIPiprazole 20 MG TABLET PO (15:57)
[2024-08-27] MEDS: Gabapentin 100 MG CAPSULE PO ×2 (15:57→20:51)
[2024-08-27] MEDS: clonazePAM 0.5 MG TABLET PO ×2 (15:57→20:51)
[2024-08-27 20:00] VITALS: BP 137/65; PULSE 86; RESP 18; TEMP 36; O2SAT 97
[2024-08-27] MEDS: risperiDONE 2 MG TABLET PO (20:51)
[2024-08-27] MEDS: Atorvastatin Calcium 10 MG TABLET PO (20:51)
[2024-08-27] MEDS: traZODone HCL 50 MG TABLET PO ×2 (20:51→23:37)
[2024-08-27] MEDS: carvediloL 25 MG TABLET PO (20:51)
[2024-08-27] MEDS: Apixaban 5 MG TABLET PO (20:51)
[2024-08-27] MEDS: Tamsulosin HCL 0.4 MG CAPSULE PO (20:51)
[2024-08-27] MEDS: Acetaminophen 325 MG TABLET 650 MG PO (23:36)
[2024-08-27] MEDS: hydrOXYzine HCL 25 MG TABLET PO (23:37)
[2024-08-28 08:00] VITALS: BP 130/64; PULSE 82; RESP 18; TEMP 36.9; O2SAT 97
[2024-08-28 09:00] VITALS: BP 130/64; PULSE 82
[2024-08-28] MEDS: carvediloL 25 MG TABLET PO ×2 (09:00→21:15)
[2024-08-28 09:01] VITALS: BP 130/64
[2024-08-28] MEDS: lisinopriL 40 MG TABLET PO (09:01)
[2024-08-28] MEDS: valACYclovir HCL 500 MG TABLET PO (09:01)
[2024-08-28] MEDS: clonazePAM 0.5 MG TABLET PO ×2 (09:01→21:15)
[2024-08-28] MEDS: amLODIPine Besylate 5 MG TABLET PO (09:01)
[2024-08-28] MEDS: Gabapentin 100 MG CAPSULE PO ×3 (09:01→21:15)
[2024-08-28] MEDS: hydroCHLOROthiazide 25 MG TABLET PO (09:01)
[2024-08-28] MEDS: Apixaban 5 MG TABLET PO ×2 (09:02→21:14)
[2024-08-28] MEDS: risperiDONE 2 MG TABLET PO ×2 (09:02→21:15)
[2024-08-28] MEDS: ARIPiprazole 20 MG TABLET PO (09:02)
[2024-08-28] MEDS: Nystatin Powder 15 GM BOTTLE 1 APPL TOPICAL (09:06)
--- NOTE | 2024-08-28 10:08 | HO.PSYCHPN ---
Subjective Subjective Date of Service: 08/28/24 Reason For Visit: Unspecified Psychosis Subjective Notes: Conditional Voluntary Interim History: Pt slept through the night. She continues to present internally preoccupied. Hearing voices, paranoid. She has accepted medications, refused only sporadically. No behavioral concerns. Medication Compliance: Intermittent Side effects from medications: Yes (mild parkinsonism) Review of Systems Review of Systems Yes Unobtainable due to mental status Mental Status Exam Mental Status Exam Narrative: Appearance: wearing hospital gown, fair hygiene, wearing sunglasses, in NAD Behavior: less guarded towards this television script writer Psychomotor: bilat cogwheel and rigidity. Speech: clear, normal rate/rhythm/volume, spontaneous TP: mostly linear TC: hearing voices of women who are telling her to join [employer]. Mood: not good Affect: constricted SI: denies HI: denies VH/AH: hearing voices of women, seeing them- which she describes as having patches on eyes and scary looking Delusion: paranoid, persecutory delusions Insight/judgment: limited x 2. Memory/cog: alert, oriented x 3. Diagnostics Vital Signs (24Hr): Vital Signs - 24 hr 08/27/24 20:00 08/28/24 08:00 08/28/24 09:00 Temperature 96.8 F 98.4 F Pulse Rate 86 82 82 Respiratory Rate 18 18 Blood Pressure 137/65 130/64 130/64 Pulse Oximetry 97 97 Oxygen Delivery Method Room Air Room Air 08/28/24 09:01 08/28/24 09:01 08/28/24 09:01 Temperature Pulse Rate Respiratory Rate Blood Pressure 130/64 130/64 130/64 Pulse Oximetry Oxygen Delivery Method BMI result Body Mass Index 28.9 Labs 08/22/24 08:00 08/22/24 08:00 Labs: Laboratory Results - last 48 hr 08/26/24 11:05 COVID-19 (LEXY) Negative COVID-19 Clin Com See Note Medications Medications Current Medications Acetaminophen (Acetaminophen 325 Mg Tablet) 650 mg PO Q6H PRN PRN Reason: Headache/Pain Mild Scale (1-3) Last Admin: 08/27/24 23:36 Dose: 650 mg Al Hydroxide/Mg Hydroxide (Magnesium Hydrox/Alum Hydrox 30 Ml Oral.Susp) 30 ml PO Q6H PRN PRN Reason: Heartburn/Nausea Albuterol Sulfate (Albuterol Sulfate 90 Mcg 8 Gm Inhaler) 1 puff INHALE RQ4H PRN PRN Reason: Shortness of Breath Last Admin: 08/22/24 20:54 Dose: 1 puff Amlodipine Besylate (Amlodipine Besylate 5 Mg Tablet) 5 mg PO DAILY [facility]; Protocol Last Admin: 08/28/24 09:01 Dose: 5 mg Apixaban (Apixaban 5 Mg Tablet) 5 mg PO BID [facility] Last Admin: 08/28/24 09:02 Dose: 5 mg Aripiprazole (Aripiprazole 20 Mg Tablet) 20 mg PO DAILY [facility] Last Admin: 08/28/24 09:02 Dose: 20 mg Atorvastatin Calcium (Atorvastatin Calcium 10 Mg Tablet) 10 mg PO BEDTIME [facility] Last Admin: 08/27/24 20:51 Dose: 10 mg Carvedilol (Carvedilol 25 Mg Tablet) 25 mg PO BID [facility]; Protocol Last Admin: 08/28/24 09:00 Dose: 25 mg Clonazepam (Clonazepam 0.5 Mg Tablet) 0.5 mg PO BID [facility] Last Admin: 08/28/24 09:01 Dose: 0.5 mg Gabapentin (Gabapentin 100 Mg Capsule) 100 mg PO TID [facility] Last Admin: 08/28/24 09:01 Dose: 100 mg Hydrochlorothiazide (Hydrochlorothiazide 25 Mg Tablet) 25 mg PO DAILY [facility]; Protocol Last Admin: 08/28/24 09:01 Dose: 25 mg Hydroxyzine HCl (Hydroxyzine Hcl 25 Mg Tablet) 25 mg PO Q6H PRN PRN Reason: Anxiety Last Admin: 08/27/24 23:37 Dose: 25 mg Lisinopril (Lisinopril 40 Mg Tablet) 40 mg PO DAILY [facility]; Protocol Last Admin: 08/28/24 09:01 Dose: 40 mg Magnesium Hydroxide (Milk Of Magnesia 30 Ml Oral.Susp) 30 ml PO DAILY PRN PRN Reason: Constipation Nystatin (Nystatin Powder 15 Gm Bottle) 1 appl TOPICAL BID [facility]; Protocol Last Admin: 08/28/24 09:06 Dose: 1 appl Risperidone (Risperidone 2 Mg Tablet) 2 mg PO BID [facility] Last Admin: 08/28/24 09:02 Dose: 2 mg Tamsulosin HCl (Tamsulosin Hcl 0.4 Mg Capsule) 0.4 mg PO BEDTIME [facility] Last Admin: 08/27/24 20:51 Dose: 0.4 mg Trazodone HCl (Trazodone Hcl 50 Mg Tablet) 50 mg PO BEDTIME MRX1 PRN PRN Reason: Insomnia Last Admin: 08/27/24 23:37 Dose: 50 mg Valacyclovir HCl (Valacyclovir Hcl 500 Mg Tablet) 500 mg PO DAILY [facility] Last Admin: 08/28/24 09:01 Dose: 500 mg Allergies Allergies Allergy/AdvReac Type Severity Reaction Status Date / Time Penicillins [PCN] Allergy Severe Anaphylaxis Verified 08/22/24 04:12 bee venom protein (honey bee) Allergy Anaphylaxis Verified 08/22/24 04:04 codeine Allergy Unknown Verified 08/22/24 04:07 Iodinated Contrast Media Allergy Numbness Verified 08/22/24 04:11 [Contrast Dye] lanolin Allergy Rash Verified 08/22/24 04:11 latex Allergy Rash Verified 08/22/24 04:11 Sulfa (Sulfonamide Allergy Unknown Verified 08/22/24 04:11 Antibiotics) tramadol AdvReac Nausea and Verified 08/22/24 04:11 Vomiting Assessment & Plan Assessment & Plan (1) Schizoaffective disorder: Status: Acute Code(s): F25.9 - Schizoaffective disorder, unspecified Plan 08/22: continue medications from [facility]. hospitalist consult. observation, supportive care. 08/23: continue current mgmt. PRNs for anxiety. hospitalist consult pending. 08/24: psychotic, aggressive. add haldol 5 QHS and haldol 2 mg PRNs. medical consult appreciated. collateral from family. 08/25 pt presents with paranoid/persecutory delusions, auditory hallucinations and some grandiose delusions of having special power. will dc wellbutrin as it exacerbates psychosis. will increase haldol 5mg po qhs and will add 2.5mg po daily. increase abilify 20mg po daily. seems like amantadine for parkinsonian symptoms-wih higher potency antipsychotic like haldol will add low dose cogentin. Noted UA- shows UTI, will start ceftin 250mg po BID x 7 days. Pending collateral information. 08/26- pt with significant bilat cogwheel and rigidity with haldol. will d/c haldol, although risperidone also high potency antipsychotic will switch to risperidone. will continue abilify for now. 08/27 increased risperidone 2mg po BID. continue abilify 20mg po daily. 08/28 continue tx. Reason for continued inpatient stay Substantial Risk for: inability to function Time Spent With Patient Time: Total time managing care of this patient today ____ minutes.
[2024-08-28] MEDS: Acetaminophen 325 MG TABLET 650 MG PO (15:00)
[2024-08-28 20:00] VITALS: BP 144/70; PULSE 91; RESP 18; TEMP 36; O2SAT 99
[2024-08-28] MEDS: Atorvastatin Calcium 10 MG TABLET PO (21:14)
[2024-08-28] MEDS: Tamsulosin HCL 0.4 MG CAPSULE PO (21:15)
[2024-08-28] MEDS: traZODone HCL 50 MG TABLET PO (21:15)
--- NOTE | 2024-08-29 06:34 | P.PNPSI_ITS ---
Subjective Subjective Date of Service: 08/29/24 Reason For Visit: Unspecified Psychosis Interim History: The nursing staff reported the patient had been visible in the unit, self dialogue in, paranoid. On interview the patient remains distressful and paranoid. We are going to increase Risperdal. She had EPS with Haldol in the past Mental Status Exam Mental Status Exam Patient Appearance: Appropriate Patient Orientation: Person and Situation Level of Consciousness: Awake Patient Behavior: Guarded and Passive Mood Description: Withdrawn Affect Description: Constricted Patient Cognition Impaired: Yes Ability to Follow Directions: Fair Speech Pattern: Impoverished Hallucinations: Auditory Delusions: Paranoid Ideation Thought Process: Distracted and Slowed Thinking Thought Content: positive for [place] and positive for Poverty of Content Judgement: Poor Diagnostics Vital Signs (24Hr): Vital Signs - 24 hr 08/28/24 08:00 08/28/24 09:00 08/28/24 09:01 Temperature 98.4 F Pulse Rate 82 82 Respiratory Rate 18 Blood Pressure 130/64 130/64 130/64 Pulse Oximetry 97 Oxygen Delivery Method Room Air 08/28/24 09:01 08/28/24 09:01 08/28/24 20:00 Temperature 96.8 F Pulse Rate 91 Respiratory Rate 18 Blood Pressure 130/64 130/64 144/70 H Pulse Oximetry 99 Oxygen Delivery Method Room Air BMI result Body Mass Index 28.9 Labs 08/22/24 08:00 08/22/24 08:00 Medications Medications Current Medications Acetaminophen (Acetaminophen 325 Mg Tablet) 650 mg PO Q6H PRN PRN Reason: Headache/Pain Mild Scale (1-3) Last Admin: 08/28/24 15:00 Dose: 650 mg Al Hydroxide/Mg Hydroxide (Magnesium Hydrox/Alum Hydrox 30 Ml Oral.Susp) 30 ml PO Q6H PRN PRN Reason: Heartburn/Nausea Albuterol Sulfate (Albuterol Sulfate 90 Mcg 8 Gm Inhaler) 1 puff INHALE RQ4H PRN PRN Reason: Shortness of Breath Last Admin: 08/22/24 20:54 Dose: 1 puff Amlodipine Besylate (Amlodipine Besylate 5 Mg Tablet) 5 mg PO DAILY [facility]; Protocol Last Admin: 08/28/24 09:01 Dose: 5 mg Apixaban (Apixaban 5 Mg Tablet) 5 mg PO BID [facility] Last Admin: 08/28/24 21:14 Dose: 5 mg Aripiprazole (Aripiprazole 20 Mg Tablet) 20 mg PO DAILY [facility] Last Admin: 08/28/24 09:02 Dose: 20 mg Atorvastatin Calcium (Atorvastatin Calcium 10 Mg Tablet) 10 mg PO BEDTIME [facility] Last Admin: 08/28/24 21:14 Dose: 10 mg Carvedilol (Carvedilol 25 Mg Tablet) 25 mg PO BID [facility]; Protocol Last Admin: 08/28/24 21:15 Dose: 25 mg Clonazepam (Clonazepam 0.5 Mg Tablet) 0.5 mg PO BID [facility] Last Admin: 08/28/24 21:15 Dose: 0.5 mg Gabapentin (Gabapentin 100 Mg Capsule) 100 mg PO TID [facility] Last Admin: 08/28/24 21:15 Dose: 100 mg Hydrochlorothiazide (Hydrochlorothiazide 25 Mg Tablet) 25 mg PO DAILY [facility]; Protocol Last Admin: 08/28/24 09:01 Dose: 25 mg Hydroxyzine HCl (Hydroxyzine Hcl 25 Mg Tablet) 25 mg PO Q6H PRN PRN Reason: Anxiety Last Admin: 08/27/24 23:37 Dose: 25 mg Lisinopril (Lisinopril 40 Mg Tablet) 40 mg PO DAILY [facility]; Protocol Last Admin: 08/28/24 09:01 Dose: 40 mg Magnesium Hydroxide (Milk Of Magnesia 30 Ml Oral.Susp) 30 ml PO DAILY PRN PRN Reason: Constipation Nystatin (Nystatin Powder 15 Gm Bottle) 1 appl TOPICAL BID [facility]; Protocol Last Admin: 08/28/24 21:20 Dose: Not Given Risperidone (Risperidone 2 Mg Tablet) 2 mg PO BID [facility] Last Admin: 08/28/24 21:15 Dose: 2 mg Tamsulosin HCl (Tamsulosin Hcl 0.4 Mg Capsule) 0.4 mg PO BEDTIME [facility] Last Admin: 08/28/24 21:15 Dose: 0.4 mg Trazodone HCl (Trazodone Hcl 50 Mg Tablet) 50 mg PO BEDTIME MRX1 PRN PRN Reason: Insomnia Last Admin: 08/28/24 21:15 Dose: 50 mg Valacyclovir HCl (Valacyclovir Hcl 500 Mg Tablet) 500 mg PO DAILY [facility] Last Admin: 08/28/24 09:01 Dose: 500 mg Allergies Allergies Allergy/AdvReac Type Severity Reaction Status Date / Time Penicillins [PCN] Allergy Severe Anaphylaxis Verified 08/22/24 04:12 bee venom protein (honey bee) Allergy Anaphylaxis Verified 08/22/24 04:04 codeine Allergy Unknown Verified 08/22/24 04:07 Iodinated Contrast Media Allergy Numbness Verified 08/22/24 04:11 [Contrast Dye] lanolin Allergy Rash Verified 08/22/24 04:11 latex Allergy Rash Verified 08/22/24 04:11 Sulfa (Sulfonamide Allergy Unknown Verified 08/22/24 04:11 Antibiotics) tramadol AdvReac Nausea and Verified 08/22/24 04:11 Vomiting Assessment & Plan Assessment & Plan (1) Schizoaffective disorder: Status: Acute Code(s): F25.9 - Schizoaffective disorder, unspecified Plan 08/22: [facility]. hospitalist consult. observation, supportive care. 08/23: continue current mgmt. PRNs for anxiety. hospitalist consult pending. 08/24: psychotic, aggressive. add haldol 5 QHS and haldol 2 mg PRNs. medical consult appreciated. collateral from family. 08/25 pt presents with paranoid/persecutory delusions, auditory hallucinations and some grandiose delusions of having special power. will dc wellbutrin as it exacerbates psychosis. will increase haldol 5mg po qhs and will add 2.5mg po daily. increase abilify 20mg po daily. seems like amantadine for parkinsonian symptoms-wih higher potency antipsychotic like haldol will add low dose cogentin. Noted UA- shows UTI, will start ceftin 250mg po BID x 7 days. Pending collateral information. 08/26- pt with significant bilat cogwheel and rigidity with haldol. will d/c haldol, although risperidone also high potency antipsychotic will switch to risperidone. will continue abilify for now. 08/27 increased risperidone 2mg po BID. continue abilify 20mg po daily. 08/28 we are going to increase Risperdal to 2 mg in the morning and 3 mg at night we will assess for EPS tomorrow morning. Reason for continued inpatient stay Substantial Risk for: inability to function, rapid decompensation and med/psych decompensation Time Spent With Patient Time: Total time managing care of this patient today __20__ minutes.
[2024-08-29 08:00] VITALS: BP 112/61; PULSE 79; RESP 18; TEMP 36; O2SAT 97
[2024-08-29 09:21] VITALS: BP 112/61; PULSE 79
[2024-08-29] MEDS: hydroCHLOROthiazide 25 MG TABLET PO (09:21)
[2024-08-29] MEDS: Gabapentin 100 MG CAPSULE PO ×3 (09:21→20:40)
[2024-08-29] MEDS: Apixaban 5 MG TABLET PO ×2 (09:21→20:39)
[2024-08-29] MEDS: carvediloL 25 MG TABLET PO ×2 (09:21→20:40)
[2024-08-29 09:22] VITALS: BP 112/61
[2024-08-29] MEDS: amLODIPine Besylate 5 MG TABLET PO (09:22)
[2024-08-29] MEDS: ARIPiprazole 20 MG TABLET PO (09:22)
[2024-08-29] MEDS: lisinopriL 40 MG TABLET PO (09:22)
[2024-08-29] MEDS: valACYclovir HCL 500 MG TABLET PO (09:22)
[2024-08-29] MEDS: risperiDONE 2 MG TABLET PO (09:23)
[2024-08-29] MEDS: clonazePAM 0.5 MG TABLET PO ×2 (09:23→20:40)
[2024-08-29] MEDS: Nystatin Powder 15 GM BOTTLE 1 APPL TOPICAL ×2 (09:30→20:40)
[2024-08-29] MEDS: Acetaminophen 325 MG TABLET 650 MG PO (10:53)
[2024-08-29 20:00] VITALS: BP 100/68; PULSE 84; RESP 18; TEMP 36; O2SAT 97
[2024-08-29] MEDS: Atorvastatin Calcium 10 MG TABLET PO (20:39)
[2024-08-29] MEDS: risperiDONE 3 MG TABLET PO (20:40)
[2024-08-29] MEDS: traZODone HCL 50 MG TABLET PO (20:41)
[2024-08-29] MEDS: Tamsulosin HCL 0.4 MG CAPSULE PO (20:41)
--- NOTE | 2024-08-30 06:22 | P.PNPSI_ITS ---
Subjective Subjective Date of Service: 08/30/24 Reason For Visit: Unspecified Psychosis Subjective Notes: Conditional Voluntary Interim History: The nursing staff reported the patient was compliant with risperidone 2 mg in the morning and 3 at night. She needed encouragement to take her medications. On interview the patient remains disorganized at times but easily redirectable. Mental Status Exam Mental Status Exam Patient Appearance: Appropriate Patient Orientation: Person Level of Consciousness: Awake Patient Behavior: Guarded and Passive Mood Description: Withdrawn Affect Description: Constricted Patient Cognition Impaired: Yes Ability to Follow Directions: Fair Speech Pattern: Clear Hallucinations: None Delusions: Paranoid Ideation Thought Process: Distracted Thought Content: positive for [place] and positive for Poverty of Content Judgement: Poor Diagnostics Vital Signs (24Hr): Vital Signs - 24 hr 08/29/24 08:00 08/29/24 09:21 08/29/24 09:21 Temperature 96.8 F Pulse Rate 79 79 Respiratory Rate 18 Blood Pressure 112/61 112/61 112/61 Pulse Oximetry 97 Oxygen Delivery Method Room Air 08/29/24 09:22 08/29/24 09:22 08/29/24 20:00 Temperature 96.8 F Pulse Rate 84 Respiratory Rate 18 Blood Pressure 112/61 112/61 100/68 Pulse Oximetry 97 Oxygen Delivery Method Room Air BMI result Body Mass Index 28.9 Labs 08/22/24 08:00 08/22/24 08:00 Medications Medications Current Medications Acetaminophen (Acetaminophen 325 Mg Tablet) 650 mg PO Q6H PRN PRN Reason: Headache/Pain Mild Scale (1-3) Last Admin: 08/29/24 10:53 Dose: 650 mg Al Hydroxide/Mg Hydroxide (Magnesium Hydrox/Alum Hydrox 30 Ml Oral.Susp) 30 ml PO Q6H PRN PRN Reason: Heartburn/Nausea Albuterol Sulfate (Albuterol Sulfate 90 Mcg 8 Gm Inhaler) 1 puff INHALE RQ4H PRN PRN Reason: Shortness of Breath Last Admin: 08/22/24 20:54 Dose: 1 puff Amlodipine Besylate (Amlodipine Besylate 5 Mg Tablet) 5 mg PO DAILY [facility]; Protocol Last Admin: 08/29/24 09:22 Dose: 5 mg Apixaban (Apixaban 5 Mg Tablet) 5 mg PO BID [facility] Last Admin: 08/29/24 20:39 Dose: 5 mg Aripiprazole (Aripiprazole 20 Mg Tablet) 20 mg PO DAILY [facility] Last Admin: 08/29/24 09:22 Dose: 20 mg Atorvastatin Calcium (Atorvastatin Calcium 10 Mg Tablet) 10 mg PO BEDTIME ROB Last Admin: 08/29/24 20:39 Dose: 10 mg Carvedilol (Carvedilol 25 Mg Tablet) 25 mg PO BID [facility]; Protocol Last Admin: 08/29/24 20:40 Dose: 25 mg Clonazepam (Clonazepam 0.5 Mg Tablet) 0.5 mg PO BID ROB Last Admin: 08/29/24 20:40 Dose: 0.5 mg Gabapentin (Gabapentin 100 Mg Capsule) 100 mg PO TID ROB Last Admin: 08/29/24 20:40 Dose: 100 mg Hydrochlorothiazide (Hydrochlorothiazide 25 Mg Tablet) 25 mg PO DAILY [facility]; Protocol Last Admin: 08/29/24 09:21 Dose: 25 mg Hydroxyzine HCl (Hydroxyzine Hcl 25 Mg Tablet) 25 mg PO Q6H PRN PRN Reason: Anxiety Last Admin: 08/27/24 23:37 Dose: 25 mg Lisinopril (Lisinopril 40 Mg Tablet) 40 mg PO DAILY [facility]; Protocol Last Admin: 08/29/24 09:22 Dose: 40 mg Magnesium Hydroxide (Milk Of Magnesia 30 Ml Oral.Susp) 30 ml PO DAILY PRN PRN Reason: Constipation Nystatin (Nystatin Powder 15 Gm Bottle) 1 appl TOPICAL BID [facility]; Protocol Last Admin: 08/29/24 20:40 Dose: 1 appl Risperidone (Risperidone 2 Mg Tablet) 2 mg PO DAILY [facility] Last Admin: 08/29/24 09:23 Dose: 2 mg Risperidone (Risperidone 3 Mg Tablet) 3 mg PO BEDTIME ROB Last Admin: 08/29/24 20:40 Dose: 3 mg Tamsulosin HCl (Tamsulosin Hcl 0.4 Mg Capsule) 0.4 mg PO BEDTIME ROB Last Admin: 08/29/24 20:41 Dose: 0.4 mg Trazodone HCl (Trazodone Hcl 50 Mg Tablet) 50 mg PO BEDTIME MRX1 PRN PRN Reason: Insomnia Last Admin: 08/29/24 20:41 Dose: 50 mg Valacyclovir HCl (Valacyclovir Hcl 500 Mg Tablet) 500 mg PO DAILY [facility] Last Admin: 08/29/24 09:22 Dose: 500 mg Allergies Allergies Allergy/AdvReac Type Severity Reaction Status Date / Time Penicillins [PCN] Allergy Severe Anaphylaxis Verified 08/22/24 04:12 bee venom protein (honey bee) Allergy Anaphylaxis Verified 08/22/24 04:04 codeine Allergy Unknown Verified 08/22/24 04:07 Iodinated Contrast Media Allergy Numbness Verified 08/22/24 04:11 [Contrast Dye] lanolin Allergy Rash Verified 08/22/24 04:11 latex Allergy Rash Verified 08/22/24 04:11 Sulfa (Sulfonamide Allergy Unknown Verified 08/22/24 04:11 Antibiotics) tramadol AdvReac Nausea and Verified 08/22/24 04:11 Vomiting Assessment & Plan Assessment & Plan (1) Schizoaffective disorder: Status: Acute Code(s): F25.9 - Schizoaffective disorder, unspecified Plan 08/22: continue medications from [facility]. hospitalist consult. observation, supportive care. 08/23: continue current mgmt. PRNs for anxiety. hospitalist consult pending. 08/24: psychotic, aggressive. add haldol 5 QHS and haldol 2 mg PRNs. medical consult appreciated. collateral from family. 08/25 pt presents with paranoid/persecutory delusions, auditory hallucinations and some grandiose delusions of having special power. will dc wellbutrin as it exacerbates psychosis. will increase haldol 5mg po qhs and will add 2.5mg po daily. increase abilify 20mg po daily. seems like amantadine for parkinsonian symptoms-wih higher potency antipsychotic like haldol will add low dose cogentin. Noted UA- shows UTI, will start ceftin 250mg po BID x 7 days. Pending collateral information. 08/26- pt with significant bilat cogwheel and rigidity with haldol. will d/c haldol, although risperidone also high potency antipsychotic will switch to risperidone. will continue abilify for now. 08/27 increased risperidone 2mg po BID. continue abilify 20mg po daily. 08/29 we are going to increase Risperdal to 2 mg in the morning and 3 mg at night we will assess for EPS tomorrow morning. 08/30 continue same treatment Reason for continued inpatient stay Substantial Risk for: inability to function, rapid decompensation and med/psych decompensation Time Spent With Patient Time: Total time managing care of this patient today _20___ minutes.
[2024-08-30] MEDS: Gabapentin 100 MG CAPSULE PO ×3 (10:27→20:19)
[2024-08-30 10:28] VITALS: BP 123/58; PULSE 95; RESP 18; TEMP 36.2; O2SAT 95
[2024-08-30] MEDS: carvediloL 25 MG TABLET PO ×2 (10:28→20:19)
[2024-08-30] MEDS: ARIPiprazole 20 MG TABLET PO (10:28)
[2024-08-30] MEDS: clonazePAM 0.5 MG TABLET PO ×2 (10:28→20:20)
[2024-08-30] MEDS: Apixaban 5 MG TABLET PO ×2 (10:29→20:19)
[2024-08-30] MEDS: lisinopriL 40 MG TABLET PO (10:29)
[2024-08-30] MEDS: hydroCHLOROthiazide 25 MG TABLET PO (10:30)
[2024-08-30] MEDS: valACYclovir HCL 500 MG TABLET PO (10:30)
[2024-08-30] MEDS: amLODIPine Besylate 5 MG TABLET PO (10:30)
[2024-08-30] MEDS: risperiDONE 2 MG TABLET PO (10:30)
[2024-08-30] MEDS: Nystatin Powder 15 GM BOTTLE 1 APPL TOPICAL ×2 (10:31→20:20)
[2024-08-30 20:00] VITALS: BP 104/57; PULSE 79; RESP 18; TEMP 36; O2SAT 97
[2024-08-30] MEDS: Atorvastatin Calcium 10 MG TABLET PO (20:19)
[2024-08-30] MEDS: risperiDONE 3 MG TABLET PO (20:20)
[2024-08-30] MEDS: Tamsulosin HCL 0.4 MG CAPSULE PO (20:20)
[2024-08-30] MEDS: traZODone HCL 50 MG TABLET PO (20:20)
[2024-08-30] MEDS: Acetaminophen 325 MG TABLET 650 MG PO (20:20)
--- NOTE | 2024-08-31 11:26 | PC.NURSE ---
Pt refused morning vitals and meds. Dr Abby MD made aware.
[2024-08-31] MEDS: Gabapentin 100 MG CAPSULE PO ×2 (14:44→20:16)
--- NOTE | 2024-08-31 16:36 | HO.PSYCHPN ---
Subjective Subjective Date of Service: 08/31/24 Reason For Visit: Unspecified Psychosis Subjective Notes: Conditional Voluntary Interim History: Pt intermittantky refusing meds feels she does not need or has side effects Medication Compliance: No Mental Status Exam Mental Status Exam Patient Appearance: Appropriate Patient Orientation: Person Level of Consciousness: Awake Patient Behavior: Guarded and Passive Mood Description: Withdrawn Affect Description: Constricted Patient Cognition Impaired: Yes Ability to Follow Directions: Fair Speech Pattern: Clear Hallucinations: None Delusions: Paranoid Ideation Thought Process: Distracted Thought Content: positive for [place] and positive for Poverty of Content Judgement: Poor Diagnostics Vital Signs (24Hr): Vital Signs - 24 hr 08/30/24 20:00 Temperature 96.8 F Pulse Rate 79 Respiratory Rate 18 Blood Pressure 104/57 L Pulse Oximetry 97 Oxygen Delivery Method Room Air BMI result Body Mass Index 28.9 Labs 08/22/24 08:00 08/22/24 08:00 Medications Medications Current Medications Acetaminophen (Acetaminophen 325 Mg Tablet) 650 mg PO Q6H PRN PRN Reason: Headache/Pain Mild Scale (1-3) Last Admin: 08/30/24 20:20 Dose: 650 mg Al Hydroxide/Mg Hydroxide (Magnesium Hydrox/Alum Hydrox 30 Ml Oral.Susp) 30 ml PO Q6H PRN PRN Reason: Heartburn/Nausea Albuterol Sulfate (Albuterol Sulfate 90 Mcg 8 Gm Inhaler) 1 puff INHALE RQ4H PRN PRN Reason: Shortness of Breath Last Admin: 08/22/24 20:54 Dose: 1 puff Amlodipine Besylate (Amlodipine Besylate 5 Mg Tablet) 5 mg PO DAILY [facility]; Protocol Last Admin: 08/31/24 09:48 Dose: Not Given Apixaban (Apixaban 5 Mg Tablet) 5 mg PO BID [facility] Last Admin: 08/31/24 09:48 Dose: Not Given Aripiprazole (Aripiprazole 20 Mg Tablet) 20 mg PO DAILY [facility] Last Admin: 08/31/24 09:49 Dose: Not Given Atorvastatin Calcium (Atorvastatin Calcium 10 Mg Tablet) 10 mg PO BEDTIME [facility] Last Admin: 08/30/24 20:19 Dose: 10 mg Carvedilol (Carvedilol 25 Mg Tablet) 25 mg PO BID [facility]; Protocol Last Admin: 08/31/24 09:50 Dose: Not Given Clonazepam (Clonazepam 0.5 Mg Tablet) 0.5 mg PO BID [facility] Last Admin: 08/31/24 09:49 Dose: Not Given Gabapentin (Gabapentin 100 Mg Capsule) 100 mg PO TID ROB Last Admin: 08/31/24 14:44 Dose: 100 mg Hydrochlorothiazide (Hydrochlorothiazide 25 Mg Tablet) 25 mg PO DAILY [facility]; Protocol Last Admin: 08/31/24 09:44 Dose: Not Given Hydroxyzine HCl (Hydroxyzine Hcl 25 Mg Tablet) 25 mg PO Q6H PRN PRN Reason: Anxiety Last Admin: 08/27/24 23:37 Dose: 25 mg Lisinopril (Lisinopril 40 Mg Tablet) 40 mg PO DAILY [facility]; Protocol Last Admin: 08/31/24 09:44 Dose: Not Given Magnesium Hydroxide (Milk Of Magnesia 30 Ml Oral.Susp) 30 ml PO DAILY PRN PRN Reason: Constipation Nystatin (Nystatin Powder 15 Gm Bottle) 1 appl TOPICAL BID [facility]; Protocol Last Admin: 08/31/24 09:44 Dose: Not Given Risperidone (Risperidone 2 Mg Tablet) 2 mg PO DAILY [facility] Last Admin: 08/31/24 09:50 Dose: Not Given Risperidone (Risperidone 3 Mg Tablet) 3 mg PO BEDTIME ROB Last Admin: 08/30/24 20:20 Dose: 3 mg Tamsulosin HCl (Tamsulosin Hcl 0.4 Mg Capsule) 0.4 mg PO BEDTIME ROB Last Admin: 08/30/24 20:20 Dose: 0.4 mg Trazodone HCl (Trazodone Hcl 50 Mg Tablet) 50 mg PO BEDTIME MRX1 PRN PRN Reason: Insomnia Last Admin: 08/30/24 20:20 Dose: 50 mg Valacyclovir HCl (Valacyclovir Hcl 500 Mg Tablet) 500 mg PO DAILY [facility] Last Admin: 08/31/24 09:50 Dose: Not Given Allergies Allergies Allergy/AdvReac Type Severity Reaction Status Date / Time Penicillins [PCN] Allergy Severe Anaphylaxis Verified 08/22/24 04:12 bee venom protein (honey bee) Allergy Anaphylaxis Verified 08/22/24 04:04 codeine Allergy Unknown Verified 08/22/24 04:07 Iodinated Contrast Media Allergy Numbness Verified 08/22/24 04:11 [Contrast Dye] lanolin Allergy Rash Verified 08/22/24 04:11 latex Allergy Rash Verified 08/22/24 04:11 Sulfa (Sulfonamide Allergy Unknown Verified 08/22/24 04:11 Antibiotics) tramadol AdvReac Nausea and Verified 08/22/24 04:11 Vomiting Assessment & Plan Assessment & Plan (1) Schizoaffective disorder: Status: Acute Code(s): F25.9 - Schizoaffective disorder, unspecified Plan 08/22: continue medications from [facility]. hospitalist consult. observation, supportive care. 08/23: continue current mgmt. PRNs for anxiety. hospitalist consult pending. 08/24: psychotic, aggressive. add haldol 5 QHS and haldol 2 mg PRNs. medical consult appreciated. collateral from family. 08/25 pt presents with paranoid/persecutory delusions, auditory hallucinations and some grandiose delusions of having special power. will dc wellbutrin as it exacerbates psychosis. will increase haldol 5mg po qhs and will add 2.5mg po daily. increase abilify 20mg po daily. seems like amantadine for parkinsonian symptoms-wih higher potency antipsychotic like haldol will add low dose cogentin. Noted UA- shows UTI, will start ceftin 250mg po BID x 7 days. Pending collateral information. 08/26- pt with significant bilat cogwheel and rigidity with haldol. will d/c haldol, although risperidone also high potency antipsychotic will switch to risperidone. will continue abilify for now. 08/27 increased risperidone 2mg po BID. continue abilify 20mg po daily. 08/29 we are going to increase Risperdal to 2 mg in the morning and 3 mg at night we will assess for EPS tomorrow morning. 08/30 continue same treatment 08/31/24 isolated withdrawn woukld consider mcneal Reason for continued inpatient stay Substantial Risk for: inability to function, rapid decompensation and med/psych decompensation Time Spent With Patient Time: Total time managing care of this patient today ____ minutes.
[2024-08-31] MEDS: Nystatin Powder 15 GM BOTTLE 1 APPL TOPICAL (16:37)
[2024-08-31 20:00] VITALS: BP 136/68; PULSE 88; RESP 18; TEMP 36.8; O2SAT 98
[2024-08-31] MEDS: Atorvastatin Calcium 10 MG TABLET PO (20:13)
[2024-08-31] MEDS: Apixaban 5 MG TABLET PO (20:13)
[2024-08-31] MEDS: carvediloL 25 MG TABLET PO (20:16)
[2024-08-31] MEDS: clonazePAM 0.5 MG TABLET PO (20:16)
[2024-08-31] MEDS: traZODone HCL 50 MG TABLET PO (20:16)
[2024-08-31] MEDS: risperiDONE 3 MG TABLET PO (20:17)
[2024-08-31] MEDS: Tamsulosin HCL 0.4 MG CAPSULE PO (20:17)
[2024-08-31] MEDS: Acetaminophen 325 MG TABLET 650 MG PO (20:32)
[2024-09-01 07:59] VITALS: BP 112/53; PULSE 99; RESP 20; TEMP 36.8; O2SAT 97
[2024-09-01] MEDS: Apixaban 5 MG TABLET PO ×2 (08:03→20:34)
[2024-09-01] MEDS: hydroCHLOROthiazide 25 MG TABLET PO (08:03)
[2024-09-01] MEDS: ARIPiprazole 20 MG TABLET PO (08:03)
[2024-09-01] MEDS: clonazePAM 0.5 MG TABLET PO (08:03)
[2024-09-01] MEDS: carvediloL 25 MG TABLET PO ×2 (08:03→20:31)
[2024-09-01] MEDS: risperiDONE 2 MG TABLET PO (08:03)
[2024-09-01] MEDS: lisinopriL 40 MG TABLET PO (08:04)
[2024-09-01] MEDS: amLODIPine Besylate 5 MG TABLET PO (08:04)
[2024-09-01] MEDS: valACYclovir HCL 500 MG TABLET PO (08:05)
[2024-09-01] MEDS: Nystatin Powder 15 GM BOTTLE 1 APPL TOPICAL ×2 (08:05→20:34)
[2024-09-01] MEDS: Gabapentin 100 MG CAPSULE PO ×3 (08:05→20:31)
--- NOTE | 2024-09-01 08:43 | HO.PSYCHPN ---
Subjective Subjective Date of Service: 09/01/24 Reason For Visit: Unspecified Psychosis Subjective Notes: Conditional Voluntary Interim History: Pt slept about 6 hrs. She continues to present with severe paranoid delusions and hallucinations, fearful that someone may be trying to harm her children. Also thinking devil trying to steal her rogers. She declined medications in the morning but later asked for them. Family meeting held to discuss changes in medications, including d/c abilify keeping risperidone and adding depakote. Medication Compliance: Intermittent Side effects from medications: No Attending Groups: No Review of Systems Review of Systems Yes Unobtainable due to mental status Mental Status Exam Mental Status Exam Narrative: Appearance: wearing hospital gown, fair hygiene, wearing sunglasses, in NAD Behavior: less guarded towards this specifications writer Psychomotor: bilat cogwheel and rigidity. Speech: clear, normal rate/rhythm/volume, spontaneous TP: mostly linear TC: hearing voices of women who are telling her to join [employer]. Mood: not good Affect: constricted SI: denies HI: denies VH/AH: hearing voices of women, seeing them- which she describes as having patches on eyes and scary looking Delusion: paranoid, persecutory delusions Insight/judgment: limited x 2. Memory/cog: alert, oriented x 3. Diagnostics Vital Signs (24Hr): Vital Signs - 24 hr 08/31/24 20:00 09/01/24 07:59 Temperature 98.2 F 98.2 F Pulse Rate 88 99 Respiratory Rate 18 20 Blood Pressure 136/68 112/53 L Pulse Oximetry 98 97 Oxygen Delivery Method Room Air BMI result Body Mass Index 28.9 Labs 08/22/24 08:00 09/01/24 17:27 Medications Medications Current Medications Acetaminophen (Acetaminophen 325 Mg Tablet) 650 mg PO Q6H PRN PRN Reason: Headache/Pain Mild Scale (1-3) Last Admin: 08/31/24 20:32 Dose: 650 mg Al Hydroxide/Mg Hydroxide (Magnesium Hydrox/Alum Hydrox 30 Ml Oral.Susp) 30 ml PO Q6H PRN PRN Reason: Heartburn/Nausea Albuterol Sulfate (Albuterol Sulfate 90 Mcg 8 Gm Inhaler) 1 puff INHALE RQ4H PRN PRN Reason: Shortness of Breath Last Admin: 08/22/24 20:54 Dose: 1 puff Amlodipine Besylate (Amlodipine Besylate 5 Mg Tablet) 5 mg PO DAILY [facility]; Protocol Last Admin: 09/01/24 08:04 Dose: 5 mg Apixaban (Apixaban 5 Mg Tablet) 5 mg PO BID [facility] Last Admin: 09/01/24 08:03 Dose: 5 mg Aripiprazole (Aripiprazole 20 Mg Tablet) 20 mg PO DAILY [facility] Last Admin: 09/01/24 08:03 Dose: 20 mg Atorvastatin Calcium (Atorvastatin Calcium 10 Mg Tablet) 10 mg PO BEDTIME ROB Last Admin: 08/31/24 20:13 Dose: 10 mg Carvedilol (Carvedilol 25 Mg Tablet) 25 mg PO BID [facility]; Protocol Last Admin: 09/01/24 08:03 Dose: 25 mg Clonazepam (Clonazepam 0.5 Mg Tablet) 0.5 mg PO BID [facility] Last Admin: 09/01/24 08:03 Dose: 0.5 mg Gabapentin (Gabapentin 100 Mg Capsule) 100 mg PO TID ROB Last Admin: 09/01/24 08:05 Dose: 100 mg Hydrochlorothiazide (Hydrochlorothiazide 25 Mg Tablet) 25 mg PO DAILY [facility]; Protocol Last Admin: 09/01/24 08:03 Dose: 25 mg Hydroxyzine HCl (Hydroxyzine Hcl 25 Mg Tablet) 25 mg PO Q6H PRN PRN Reason: Anxiety Last Admin: 08/27/24 23:37 Dose: 25 mg Lisinopril (Lisinopril 40 Mg Tablet) 40 mg PO DAILY [facility]; Protocol Last Admin: 09/01/24 08:04 Dose: 40 mg Magnesium Hydroxide (Milk Of Magnesia 30 Ml Oral.Susp) 30 ml PO DAILY PRN PRN Reason: Constipation Nystatin (Nystatin Powder 15 Gm Bottle) 1 appl TOPICAL BID [facility]; Protocol Last Admin: 09/01/24 08:05 Dose: 1 appl Risperidone (Risperidone 2 Mg Tablet) 2 mg PO DAILY [facility] Last Admin: 09/01/24 08:03 Dose: 2 mg Risperidone (Risperidone 3 Mg Tablet) 3 mg PO BEDTIME ROB Last Admin: 08/31/24 20:17 Dose: 3 mg Tamsulosin HCl (Tamsulosin Hcl 0.4 Mg Capsule) 0.4 mg PO BEDTIME ROB Last Admin: 08/31/24 20:17 Dose: 0.4 mg Trazodone HCl (Trazodone Hcl 50 Mg Tablet) 50 mg PO BEDTIME MRX1 PRN PRN Reason: Insomnia Last Admin: 08/31/24 20:16 Dose: 50 mg Valacyclovir HCl (Valacyclovir Hcl 500 Mg Tablet) 500 mg PO DAILY [facility] Last Admin: 09/01/24 08:05 Dose: 500 mg Allergies Allergies Allergy/AdvReac Type Severity Reaction Status Date / Time Penicillins [PCN] Allergy Severe Anaphylaxis Verified 08/22/24 04:12 bee venom protein (honey bee) Allergy Anaphylaxis Verified 08/22/24 04:04 codeine Allergy Unknown Verified 08/22/24 04:07 Iodinated Contrast Media Allergy Numbness Verified 08/22/24 04:11 [Contrast Dye] lanolin Allergy Rash Verified 08/22/24 04:11 latex Allergy Rash Verified 08/22/24 04:11 Sulfa (Sulfonamide Allergy Unknown Verified 08/22/24 04:11 Antibiotics) tramadol AdvReac Nausea and Verified 08/22/24 04:11 Vomiting Assessment & Plan Assessment & Plan (1) Schizoaffective disorder: Status: Acute Code(s): F25.9 - Schizoaffective disorder, unspecified Plan 08/22: continue medications from [facility]. hospitalist consult. observation, supportive care. 08/23: continue current mgmt. PRNs for anxiety. hospitalist consult pending. 08/24: psychotic, aggressive. add haldol 5 QHS and haldol 2 mg PRNs. medical consult appreciated. collateral from family. 08/25 pt presents with paranoid/persecutory delusions, auditory hallucinations and some grandiose delusions of having special power. will dc wellbutrin as it exacerbates psychosis. will increase haldol 5mg po qhs and will add 2.5mg po daily. increase abilify 20mg po daily. seems like amantadine for parkinsonian symptoms-wih higher potency antipsychotic like haldol will add low dose cogentin. Noted UA- shows UTI, will start ceftin 250mg po BID x 7 days. Pending collateral information. 08/26- pt with significant bilat cogwheel and rigidity with haldol. will d/c haldol, although risperidone also high potency antipsychotic will switch to risperidone. will continue abilify for now. 08/27 increased risperidone 2mg po BID. continue abilify 20mg po daily. 08/29 we are going to increase Risperdal to 2 mg in the morning and 3 mg at night we will assess for EPS tomorrow morning. 08/30 continue same treatment 08/31/24 isolated withdrawn would consider mcneal 09/01/2024 d/c abilify, continue risperidone, add depakote 250mg po daily and 500mg po qhs. Reason for continued inpatient stay Substantial Risk for: inability to function Time Spent With Patient Time: Total time managing care of this patient today ____ minutes.
[2024-09-01] MEDS: LORazepam 1 MG TABLET PO (12:06)
[2024-09-01 18:01] LABS: Alanine Aminotransferase 35 U/L (0-31); Albumin Level 4.4 g/dL (3.5-5.0); Alkaline Phosphatase 90 U/L (39-117); Anion Gap 16 (12-20); Aspartate Amino Transferase 46 U/L (5-31); Bilirubin Total 0.4 mg/dL (0.0-1.0); Blood Urea Nitrogen 22 mg/dL (9-16); Calcium 10.4 mg/dL (8.4-10.2); Carbon Dioxide 29 mmol/L (22-29); Chloride 97 mmol/L (96-108); Creatinine Clr Calc Pharmacy 61.1; Estimated Glomerular Filt Rate > 60; Glucose Random 118 mg/dL (60-115); Potassium 3.9 mmol/L (3.3-5.1); Sodium 138 mmol/L (135-145); Total Protein 7.9 g/dL (6.5-8.0)
[2024-09-01 20:00] VITALS: BP 112/65; PULSE 100; RESP 20; TEMP 36.9; O2SAT 95
[2024-09-01 20:31] VITALS: BP 112/65; PULSE 100
[2024-09-01] MEDS: Divalproex Sodium 500 MG TABLET.DR PO (20:31)
[2024-09-01] MEDS: traZODone HCL 50 MG TABLET PO (20:34)
[2024-09-01] MEDS: Atorvastatin Calcium 10 MG TABLET PO (20:34)
[2024-09-01] MEDS: hydrOXYzine HCL 25 MG TABLET PO (20:34)
[2024-09-01] MEDS: risperiDONE 3 MG TABLET PO (20:34)
[2024-09-01] MEDS: Tamsulosin HCL 0.4 MG CAPSULE PO (20:35)
[2024-09-02] MEDS: traZODone HCL 50 MG TABLET PO ×2 (03:17→20:21)
[2024-09-02] MEDS: hydrOXYzine HCL 25 MG TABLET PO ×3 (03:18→20:21)
[2024-09-02 08:00] VITALS: BP 115/57; PULSE 85; RESP 18; TEMP 36.2; O2SAT 95
[2024-09-02] MEDS: Nystatin Powder 15 GM BOTTLE 1 APPL TOPICAL ×2 (10:31→20:26)
[2024-09-02] MEDS: Gabapentin 100 MG CAPSULE PO ×3 (11:10→20:22)
[2024-09-02 11:11] VITALS: BP 115/57
[2024-09-02] MEDS: amLODIPine Besylate 5 MG TABLET PO (11:11)
[2024-09-02] MEDS: valACYclovir HCL 500 MG TABLET PO (11:11)
[2024-09-02 11:12] VITALS: BP 115/57
[2024-09-02] MEDS: lisinopriL 40 MG TABLET PO (11:12)
[2024-09-02] MEDS: Apixaban 5 MG TABLET PO ×2 (11:12→20:21)
[2024-09-02] MEDS: risperiDONE 2 MG TABLET PO (11:12)
[2024-09-02 11:13] VITALS: BP 115/57; PULSE 84
[2024-09-02] MEDS: carvediloL 25 MG TABLET PO ×2 (11:13→20:22)
[2024-09-02] MEDS: hydroCHLOROthiazide 25 MG TABLET PO (11:13)
[2024-09-02] MEDS: Divalproex Sodium 250 MG TABLET.DR PO (11:15)
--- NOTE | 2024-09-02 11:39 | HO.PSYCHPN ---
Subjective Subjective Date of Service: 09/02/24 Reason For Visit: Unspecified Psychosis Subjective Notes: Conditional Voluntary Interim History: Pt slept through the night. She took night time medication but this morning initially declined them, later agreed to take them. She continues to hear voices, very paranoid and suspicious and also paranoid about the staff. She tells this designer/writer she can't trust me anymore. She does continue to talk with this designer/writer and eventually does agree to the medications. Pt has been seen self dialoguing. Less intrusive but still very symptomatic. Diagnostics Vital Signs (24Hr): Vital Signs - 24 hr 09/01/24 20:00 09/01/24 20:31 09/02/24 08:00 Temperature 98.4 F 97.1 F Pulse Rate 100 100 85 Respiratory Rate 20 18 Blood Pressure 112/65 112/65 115/57 L Pulse Oximetry 95 95 Oxygen Delivery Method Room Air Room Air 09/02/24 11:11 09/02/24 11:12 09/02/24 11:13 Temperature Pulse Rate Respiratory Rate Blood Pressure 115/57 L 115/57 L 115/57 L Pulse Oximetry Oxygen Delivery Method 09/02/24 11:13 Temperature Pulse Rate 84 Respiratory Rate Blood Pressure 115/57 L Pulse Oximetry Oxygen Delivery Method BMI result Body Mass Index 28.9 Labs 08/22/24 08:00 09/01/24 17:27 Labs: Laboratory Results - last 48 hr 09/01/24 17:27 Hold Purple Top SEE NOTE Sodium 138 Potassium 3.9 Chloride 97 Carbon Dioxide 29 Anion Gap 16 BUN 22 H Creatinine 0.92 Estim Creat Clear Calc 61.1 Estimated GFR > 60 Random Glucose 118 H Calcium 10.4 H D Total Bilirubin 0.4 AST 46 H ALT 35 H Alkaline Phosphatase 90 Total Protein 7.9 Albumin 4.4 Hold Yellow Top See Note Medications Medications Current Medications Acetaminophen (Acetaminophen 325 Mg Tablet) 650 mg PO Q6H PRN PRN Reason: Headache/Pain Mild Scale (1-3) Last Admin: 08/31/24 20:32 Dose: 650 mg Al Hydroxide/Mg Hydroxide (Magnesium Hydrox/Alum Hydrox 30 Ml Oral.Susp) 30 ml PO Q6H PRN PRN Reason: Heartburn/Nausea Albuterol Sulfate (Albuterol Sulfate 90 Mcg 8 Gm Inhaler) 1 puff INHALE RQ4H PRN PRN Reason: Shortness of Breath Last Admin: 08/22/24 20:54 Dose: 1 puff Amlodipine Besylate (Amlodipine Besylate 5 Mg Tablet) 5 mg PO DAILY [facility]; Protocol Last Admin: 09/02/24 11:11 Dose: 5 mg Apixaban (Apixaban 5 Mg Tablet) 5 mg PO BID ROB Last Admin: 09/02/24 11:12 Dose: 5 mg Atorvastatin Calcium (Atorvastatin Calcium 10 Mg Tablet) 10 mg PO BEDTIME [facility] Last Admin: 09/01/24 20:34 Dose: 10 mg Carvedilol (Carvedilol 25 Mg Tablet) 25 mg PO BID [facility]; Protocol Last Admin: 09/02/24 11:13 Dose: 25 mg Divalproex Sodium (Divalproex Sodium 500 Mg Tablet.Dr) 500 mg PO BEDTIME ROB Last Admin: 09/01/24 20:31 Dose: 500 mg Divalproex Sodium (Divalproex Sodium 250 Mg Tablet.Dr) 250 mg PO DAILY [facility] Last Admin: 09/02/24 11:15 Dose: 250 mg Gabapentin (Gabapentin 100 Mg Capsule) 100 mg PO TID ROB Last Admin: 09/02/24 11:10 Dose: 100 mg Hydrochlorothiazide (Hydrochlorothiazide 25 Mg Tablet) 25 mg PO DAILY [facility]; Protocol Last Admin: 09/02/24 11:13 Dose: 25 mg Hydroxyzine HCl (Hydroxyzine Hcl 25 Mg Tablet) 25 mg PO Q6H PRN PRN Reason: Anxiety Last Admin: 09/02/24 03:18 Dose: 25 mg Lisinopril (Lisinopril 40 Mg Tablet) 40 mg PO DAILY [facility]; Protocol Last Admin: 09/02/24 11:12 Dose: 40 mg Magnesium Hydroxide (Milk Of Magnesia 30 Ml Oral.Susp) 30 ml PO DAILY PRN PRN Reason: Constipation Nystatin (Nystatin Powder 15 Gm Bottle) 1 appl TOPICAL BID ROB; Protocol Last Admin: 09/02/24 10:31 Dose: 1 appl Risperidone (Risperidone 2 Mg Tablet) 2 mg PO DAILY [facility] Last Admin: 09/02/24 11:12 Dose: 2 mg Risperidone (Risperidone 3 Mg Tablet) 3 mg PO BEDTIME ROB Last Admin: 09/01/24 20:34 Dose: 3 mg Tamsulosin HCl (Tamsulosin Hcl 0.4 Mg Capsule) 0.4 mg PO BEDTIME ROB Last Admin: 09/01/24 20:35 Dose: 0.4 mg Trazodone HCl (Trazodone Hcl 50 Mg Tablet) 50 mg PO BEDTIME MRX1 PRN PRN Reason: Insomnia Last Admin: 09/02/24 03:17 Dose: 50 mg Valacyclovir HCl (Valacyclovir Hcl 500 Mg Tablet) 500 mg PO DAILY [facility] Last Admin: 09/02/24 11:11 Dose: 500 mg Allergies Allergies Allergy/AdvReac Type Severity Reaction Status Date / Time Penicillins [PCN] Allergy Severe Anaphylaxis Verified 08/22/24 04:12 bee venom protein (honey bee) Allergy Anaphylaxis Verified 08/22/24 04:04 codeine Allergy Unknown Verified 08/22/24 04:07 Iodinated Contrast Media Allergy Numbness Verified 08/22/24 04:11 [Contrast Dye] lanolin Allergy Rash Verified 08/22/24 04:11 latex Allergy Rash Verified 08/22/24 04:11 Sulfa (Sulfonamide Allergy Unknown Verified 08/22/24 04:11 Antibiotics) tramadol AdvReac Nausea and Verified 08/22/24 04:11 Vomiting Assessment & Plan Assessment & Plan (1) Schizoaffective disorder: Status: Acute Code(s): F25.9 - Schizoaffective disorder, unspecified Plan 08/22: continue medications from [facility]. hospitalist consult. observation, supportive care. 08/23: continue current mgmt. PRNs for anxiety. hospitalist consult pending. 08/24: psychotic, aggressive. add haldol 5 QHS and haldol 2 mg PRNs. medical consult appreciated. collateral from family. 08/25 pt presents with paranoid/persecutory delusions, auditory hallucinations and some grandiose delusions of having special power. will dc wellbutrin as it exacerbates psychosis. will increase haldol 5mg po qhs and will add 2.5mg po daily. increase abilify 20mg po daily. seems like amantadine for parkinsonian symptoms-wih higher potency antipsychotic like haldol will add low dose cogentin. Noted UA- shows UTI, will start ceftin 250mg po BID x 7 days. Pending collateral information. 08/26- pt with significant bilat cogwheel and rigidity with haldol. will d/c haldol, although risperidone also high potency antipsychotic will switch to risperidone. will continue abilify for now. 08/27 increased risperidone 2mg po BID. continue abilify 20mg po daily. 08/29 we are going to increase Risperdal to 2 mg in the morning and 3 mg at night we will assess for EPS tomorrow morning. 08/30 continue same treatment 08/31/24 isolated withdrawn would consider mcneal 09/01/2024 d/c abilify, continue risperidone, add depakote 250mg po daily and 500mg po qhs. 09/02 continue tx. Reason for continued inpatient stay Substantial Risk for: inability to function Time Spent With Patient Time: Total time managing care of this patient today ____ minutes.
[2024-09-02] MEDS: Acetaminophen 325 MG TABLET 650 MG PO (15:25)
[2024-09-02 20:00] VITALS: BP 98/57; PULSE 79; RESP 16; TEMP 36.4; O2SAT 98
[2024-09-02] MEDS: Tamsulosin HCL 0.4 MG CAPSULE PO (20:21)
[2024-09-02] MEDS: risperiDONE 3 MG TABLET PO (20:21)
[2024-09-02] MEDS: Divalproex Sodium 500 MG TABLET.DR PO (20:21)
[2024-09-02 20:22] VITALS: BP 98/57; PULSE 79
[2024-09-02] MEDS: Atorvastatin Calcium 10 MG TABLET PO (20:22)
[2024-09-03] MEDS: traZODone HCL 50 MG TABLET PO (01:12)
[2024-09-03 13:37] VITALS: BP 130/65; PULSE 80; RESP 18; TEMP 36.8; O2SAT 97
[2024-09-03] MEDS: valACYclovir HCL 500 MG TABLET PO (13:37)
[2024-09-03] MEDS: lisinopriL 40 MG TABLET PO (13:38)
[2024-09-03] MEDS: risperiDONE 2 MG TABLET PO (13:38)
[2024-09-03] MEDS: Apixaban 5 MG TABLET PO (13:38)
[2024-09-03] MEDS: carvediloL 25 MG TABLET PO (13:39)
[2024-09-03] MEDS: Gabapentin 100 MG CAPSULE PO (13:39)
[2024-09-03] MEDS: hydroCHLOROthiazide 25 MG TABLET PO (13:39)
--- NOTE | 2024-09-03 17:56 | P.PNPSI_ITS ---
Subjective Subjective Date of Service: 09/03/24 Reason For Visit: Unspecified Psychosis Subjective Notes: Conditional Voluntary Interim History: Pt slept through the night. In the morning, increased paranoid delusions, hearing voices, talking back to them. She declined medications in the morning but later agreed to take them. She is guarded with this typewriter repairer and asked to go away after asking for secrete code. May consider switching to prolixin given limited therapeutic benefit with risperidone 5mg/day after almost 2 weeks. Review of Systems Review of Systems Yes Unobtainable due to mental status Mental Status Exam Mental Status Exam Narrative: Appearance: wearing hospital gown, fair hygiene, wearing sunglasses, in NAD Behavior: less guarded towards this typewriter repairer Psychomotor: bilat cogwheel and rigidity. Speech: clear, normal rate/rhythm/volume, spontaneous TP: mostly linear TC: hearing voices of women who are telling her to join [employer]. Mood: not good Affect: constricted SI: denies HI: denies VH/AH: hearing voices of women, seeing them- which she describes as having patches on eyes and scary looking Delusion: paranoid, persecutory delusions Insight/judgment: limited x 2. Memory/cog: alert, oriented x 3. Diagnostics Vital Signs (24Hr): Vital Signs - 24 hr 09/02/24 20:00 09/02/24 20:22 09/03/24 13:37 Temperature 97.6 F 98.2 F Pulse Rate 79 79 80 Respiratory Rate 16 18 Blood Pressure 98/57 L 98/57 L 130/65 Pulse Oximetry 98 97 Oxygen Delivery Method Room Air Room Air BMI result Body Mass Index 28.9 Labs 08/22/24 08:00 09/01/24 17:27 Labs: Laboratory Results - last 48 hr 09/01/24 17:27 Sodium 138 Potassium 3.9 Chloride 97 Carbon Dioxide 29 Anion Gap 16 BUN 22 H Creatinine 0.92 Estim Creat Clear Calc 61.1 Estimated GFR > 60 Random Glucose 118 H Calcium 10.4 H D Total Bilirubin 0.4 AST 46 H ALT 35 H Alkaline Phosphatase 90 Total Protein 7.9 Albumin 4.4 Hold Yellow Top See Note Medications Medications Current Medications Acetaminophen (Acetaminophen 325 Mg Tablet) 650 mg PO Q6H PRN PRN Reason: Headache/Pain Mild Scale (1-3) Last Admin: 09/02/24 15:25 Dose: 650 mg Al Hydroxide/Mg Hydroxide (Magnesium Hydrox/Alum Hydrox 30 Ml Oral.Susp) 30 ml PO Q6H PRN PRN Reason: Heartburn/Nausea Albuterol Sulfate (Albuterol Sulfate 90 Mcg 8 Gm Inhaler) 1 puff INHALE RQ4H PRN PRN Reason: Shortness of Breath Last Admin: 08/22/24 20:54 Dose: 1 puff Amlodipine Besylate (Amlodipine Besylate 5 Mg Tablet) 5 mg PO DAILY [facility]; Protocol Last Admin: 09/03/24 10:49 Dose: Not Given Apixaban (Apixaban 5 Mg Tablet) 5 mg PO BID [facility] Last Admin: 09/03/24 13:38 Dose: 5 mg Atorvastatin Calcium (Atorvastatin Calcium 10 Mg Tablet) 10 mg PO BEDTIME [facility] Last Admin: 09/02/24 20:22 Dose: 10 mg Carvedilol (Carvedilol 25 Mg Tablet) 25 mg PO BID [facility]; Protocol Last Admin: 09/03/24 13:39 Dose: 25 mg Divalproex Sodium (Divalproex Sodium 500 Mg Tablet.Dr) 500 mg PO BEDTIME [facility] Last Admin: 09/02/24 20:21 Dose: 500 mg Divalproex Sodium (Divalproex Sodium 250 Mg Tablet.Dr) 250 mg PO DAILY [facility] Last Admin: 09/03/24 10:50 Dose: Not Given Fluphenazine HCl (Fluphenazine Hcl 5 Mg Tablet) 5 mg PO BID [facility] Gabapentin (Gabapentin 100 Mg Capsule) 100 mg PO TID [facility] Last Admin: 09/03/24 14:53 Dose: Not Given Hydrochlorothiazide (Hydrochlorothiazide 25 Mg Tablet) 25 mg PO DAILY [facility]; Protocol Last Admin: 09/03/24 13:39 Dose: 25 mg Hydroxyzine HCl (Hydroxyzine Hcl 25 Mg Tablet) 25 mg PO Q6H PRN PRN Reason: Anxiety Last Admin: 09/02/24 20:21 Dose: 25 mg Lisinopril (Lisinopril 40 Mg Tablet) 40 mg PO DAILY [facility]; Protocol Last Admin: 09/03/24 13:38 Dose: 40 mg Magnesium Hydroxide (Milk Of Magnesia 30 Ml Oral.Susp) 30 ml PO DAILY PRN PRN Reason: Constipation Nystatin (Nystatin Powder 15 Gm Bottle) 1 appl TOPICAL BID [facility]; Protocol Last Admin: 09/03/24 10:51 Dose: Not Given Tamsulosin HCl (Tamsulosin Hcl 0.4 Mg Capsule) 0.4 mg PO BEDTIME [facility] Last Admin: 09/02/24 20:21 Dose: 0.4 mg Trazodone HCl (Trazodone Hcl 50 Mg Tablet) 50 mg PO BEDTIME MRX1 PRN PRN Reason: Insomnia Last Admin: 09/03/24 01:12 Dose: 50 mg Valacyclovir HCl (Valacyclovir Hcl 500 Mg Tablet) 500 mg PO DAILY [facility] Last Admin: 09/03/24 13:37 Dose: 500 mg Allergies Allergies Allergy/AdvReac Type Severity Reaction Status Date / Time Penicillins [PCN] Allergy Severe Anaphylaxis Verified 08/22/24 04:12 bee venom protein (honey bee) Allergy Anaphylaxis Verified 08/22/24 04:04 codeine Allergy Unknown Verified 08/22/24 04:07 Iodinated Contrast Media Allergy Numbness Verified 08/22/24 04:11 [Contrast Dye] lanolin Allergy Rash Verified 08/22/24 04:11 latex Allergy Rash Verified 08/22/24 04:11 Sulfa (Sulfonamide Allergy Unknown Verified 08/22/24 04:11 Antibiotics) tramadol AdvReac Nausea and Verified 08/22/24 04:11 Vomiting Assessment & Plan Assessment & Plan (1) Schizoaffective disorder: Status: Acute Code(s): F25.9 - Schizoaffective disorder, unspecified Plan 08/22: continue medications from [facility]. hospitalist consult. observation, supportive care. 08/23: continue current mgmt. PRNs for anxiety. hospitalist consult pending. 08/24: psychotic, aggressive. add haldol 5 QHS and haldol 2 mg PRNs. medical consult appreciated. collateral from family. 08/25 pt presents with paranoid/persecutory delusions, auditory hallucinations and some grandiose delusions of having special power. will dc wellbutrin as it exacerbates psychosis. will increase haldol 5mg po qhs and will add 2.5mg po daily. increase abilify 20mg po daily. seems like amantadine for parkinsonian symptoms-wih higher potency antipsychotic like haldol will add low dose cogentin. Noted UA- shows UTI, will start ceftin 250mg po BID x 7 days. Pending collateral information. 10/16- pt with significant bilat cogwheel and rigidity with haldol. will d/c haldol, although risperidone also high potency antipsychotic will switch to risperidone. will continue abilify for now. 08/27 increased risperidone 2mg po BID. continue abilify 20mg po daily. 08/29 we are going to increase Risperdal to 2 mg in the morning and 3 mg at night we will assess for EPS tomorrow morning. 08/30 continue same treatment 08/31/24 isolated withdrawn would consider mcneal 09/01/2024 d/c abilify, continue risperidone, add depakote 250mg po daily and 500mg po qhs. 09/02 continue tx. 09/03 switch risperidone to prolixin 5mg po BID, continue depakote. will check depakote level in few days with ammonia and lft. Reason for continued inpatient stay Substantial Risk for: inability to function Time Spent With Patient Time: Total time managing care of this patient today ____ minutes.
[2024-09-03 20:00] VITALS: RESP 18
[2024-09-04] MEDS: traZODone HCL 50 MG TABLET PO ×2 (01:47→20:52)
[2024-09-04] MEDS: hydrOXYzine HCL 25 MG TABLET PO ×2 (01:47→17:46)
[2024-09-04] MEDS: Acetaminophen 325 MG TABLET 650 MG PO ×2 (06:42→16:19)
[2024-09-04 07:55] VITALS: BP 128/58; PULSE 87; RESP 18; TEMP 36.9; O2SAT 96
[2024-09-04] MEDS: lisinopriL 40 MG TABLET PO (09:43)
[2024-09-04] MEDS: fluPHENAZine HCl 5 MG TABLET PO ×2 (09:44→20:53)
[2024-09-04] MEDS: hydroCHLOROthiazide 25 MG TABLET PO (09:44)
[2024-09-04] MEDS: Gabapentin 100 MG CAPSULE PO (09:45)
[2024-09-04] MEDS: Apixaban 5 MG TABLET PO ×2 (09:45→20:53)
[2024-09-04] MEDS: amLODIPine Besylate 5 MG TABLET PO (09:45)
[2024-09-04] MEDS: carvediloL 25 MG TABLET PO ×2 (09:45→20:52)
[2024-09-04] MEDS: valACYclovir HCL 500 MG TABLET PO (09:45)
[2024-09-04] MEDS: Divalproex Sodium 250 MG TABLET.DR PO (09:53)
[2024-09-04] MEDS: Gabapentin 100 MG CAPSULE 200 MG PO ×2 (14:32→20:52)
[2024-09-04] MEDS: Lidocaine 4 % Patch ADH..PATCH 1 PATCH TRANSDERMA (14:33)
--- NOTE | 2024-09-04 18:31 | P.PNPSI_ITS ---
Subjective Subjective Date of Service: 09/04/24 Reason For Visit: Unspecified Psychosis Subjective Notes: Conditional Voluntary Interim History: Pt slept through the night. She was talking to someone who is not there. She was slightly calmer, but continued with paranoid delusions. She denies SI/HI. discussed with son switching to prolixin. Review of Systems Review of Systems Yes Unobtainable due to mental status Mental Status Exam Mental Status Exam Narrative: Appearance: wearing hospital gown, fair hygiene, wearing sunglasses, in NAD Behavior: less guarded towards this sheet writer Psychomotor: bilat cogwheel and rigidity. Speech: clear, normal rate/rhythm/volume, spontaneous TP: mostly linear TC: hearing voices of women who are telling her to join [employer] Mood: not good Affect: constricted SI: denies HI: denies VH/AH: hearing voices of women, seeing them- which she describes as having patches on eyes and scary looking Delusion: paranoid, persecutory delusions Insight/judgment: limited x 2. Memory/cog: alert, oriented x 3. Diagnostics Vital Signs (24Hr): Vital Signs - 24 hr 09/03/24 20:00 09/04/24 07:55 Temperature 98.4 F Pulse Rate 87 Respiratory Rate 18 18 Blood Pressure 128/58 L Pulse Oximetry 96 Oxygen Delivery Method Room Air BMI result Body Mass Index 28.9 Labs 08/22/24 08:00 09/01/24 17:27 Medications Medications Current Medications Acetaminophen (Acetaminophen 325 Mg Tablet) 650 mg PO Q6H PRN PRN Reason: Headache/Pain Mild Scale (1-3) Last Admin: 09/04/24 16:19 Dose: 650 mg Al Hydroxide/Mg Hydroxide (Magnesium Hydrox/Alum Hydrox 30 Ml Oral.Susp) 30 ml PO Q6H PRN PRN Reason: Heartburn/Nausea Albuterol Sulfate (Albuterol Sulfate 90 Mcg 8 Gm Inhaler) 1 puff INHALE RQ4H PRN PRN Reason: Shortness of Breath Last Admin: 08/22/24 20:54 Dose: 1 puff Amlodipine Besylate (Amlodipine Besylate 5 Mg Tablet) 5 mg PO DAILY [facility]; Protocol Last Admin: 09/04/24 09:45 Dose: 5 mg Apixaban (Apixaban 5 Mg Tablet) 5 mg PO BID [facility] Last Admin: 09/04/24 09:45 Dose: 5 mg Atorvastatin Calcium (Atorvastatin Calcium 10 Mg Tablet) 10 mg PO BEDTIME [facility] Last Admin: 09/03/24 20:31 Dose: Not Given Benztropine Mesylate (Benztropine Mesylate 0.5 Mg Tablet) 0.5 mg PO BID ROB Carvedilol (Carvedilol 25 Mg Tablet) 25 mg PO BID [facility]; Protocol Last Admin: 09/04/24 09:45 Dose: 25 mg Clonazepam (Clonazepam 0.5 Mg Tablet) 0.5 mg PO BID [facility] Divalproex Sodium (Divalproex Sodium 500 Mg Tablet.Dr) 500 mg PO BEDTIME [facility] Last Admin: 09/03/24 20:32 Dose: Not Given Divalproex Sodium (Divalproex Sodium 250 Mg Tablet.Dr) 250 mg PO DAILY [facility] Last Admin: 09/04/24 09:53 Dose: 250 mg Fluphenazine HCl (Fluphenazine Hcl 5 Mg Tablet) 5 mg PO BID [facility] Last Admin: 09/04/24 09:44 Dose: 5 mg Gabapentin (Gabapentin 100 Mg Capsule) 200 mg PO TID [facility] Last Admin: 09/04/24 14:32 Dose: 200 mg Hydrochlorothiazide (Hydrochlorothiazide 25 Mg Tablet) 25 mg PO DAILY [facility]; Protocol Last Admin: 09/04/24 09:44 Dose: 25 mg Hydroxyzine HCl (Hydroxyzine Hcl 25 Mg Tablet) 25 mg PO Q6H PRN PRN Reason: Anxiety Last Admin: 09/04/24 17:46 Dose: 25 mg Lidocaine (Lidocaine 4 % Patch Adh..Patch) 1 patch TRANSDERMA DAILY [facility]; Protocol Last Admin: 09/04/24 14:33 Dose: 1 patch Lisinopril (Lisinopril 40 Mg Tablet) 40 mg PO DAILY [facility]; Protocol Last Admin: 09/04/24 09:43 Dose: 40 mg Magnesium Hydroxide (Milk Of Magnesia 30 Ml Oral.Susp) 30 ml PO DAILY PRN PRN Reason: Constipation Nystatin (Nystatin Powder 15 Gm Bottle) 1 appl TOPICAL BID [facility]; Protocol Last Admin: 09/04/24 09:53 Dose: Not Given Tamsulosin HCl (Tamsulosin Hcl 0.4 Mg Capsule) 0.4 mg PO BEDTIME [facility] Last Admin: 09/03/24 20:32 Dose: Not Given Trazodone HCl (Trazodone Hcl 50 Mg Tablet) 50 mg PO BEDTIME MRX1 PRN PRN Reason: Insomnia Last Admin: 09/04/24 01:47 Dose: 50 mg Valacyclovir HCl (Valacyclovir Hcl 500 Mg Tablet) 500 mg PO DAILY [facility] Last Admin: 09/04/24 09:45 Dose: 500 mg Allergies Allergies Allergy/AdvReac Type Severity Reaction Status Date / Time Penicillins [PCN] Allergy Severe Anaphylaxis Verified 08/22/24 04:12 bee venom protein (honey bee) Allergy Anaphylaxis Verified 08/22/24 04:04 codeine Allergy Unknown Verified 08/22/24 04:07 Iodinated Contrast Media Allergy Numbness Verified 08/22/24 04:11 [Contrast Dye] lanolin Allergy Rash Verified 08/22/24 04:11 latex Allergy Rash Verified 08/22/24 04:11 Sulfa (Sulfonamide Allergy Unknown Verified 08/22/24 04:11 Antibiotics) tramadol AdvReac Nausea and Verified 08/22/24 04:11 Vomiting Assessment & Plan Assessment & Plan (1) Schizoaffective disorder: Status: Acute Code(s): F25.9 - Schizoaffective disorder, unspecified Plan 08/22: continue medications from [facility]. hospitalist consult. observation, supportive care. 08/23: continue current mgmt. PRNs for anxiety. hospitalist consult pending. 08/24: psychotic, aggressive. add haldol 5 QHS and haldol 2 mg PRNs. medical consult appreciated. collateral from family. 08/25 pt presents with paranoid/persecutory delusions, auditory hallucinations and some grandiose delusions of having special power. will dc wellbutrin as it exacerbates psychosis. will increase haldol 5mg po qhs and will add 2.5mg po daily. increase abilify 20mg po daily. seems like amantadine for parkinsonian symptoms-wih higher potency antipsychotic like haldol will add low dose cogentin. Noted UA- shows UTI, will start ceftin 250mg po BID x 7 days. Pending collateral information. 08/26- pt with significant bilat cogwheel and rigidity with haldol. will d/c haldol, although risperidone also high potency antipsychotic will switch to risperidone. will continue abilify for now. 08/27 increased risperidone 2mg po BID. continue abilify 20mg po daily. 08/29 we are going to increase Risperdal to 2 mg in the morning and 3 mg at night we will assess for EPS tomorrow morning. 08/30 continue same treatment 08/31/24 isolated withdrawn would consider mcneal 09/01/2024 d/c abilify, continue risperidone, add depakote 250mg po daily and 500mg po qhs. 09/02 continue tx. 09/03 switch risperidone to prolixin 5mg po BID, continue depakote. will check depakote level in few days with ammonia and lft. 09/04 d/c risperidon and start prolixin 5mg po BID. continue depakote. Reason for continued inpatient stay Substantial Risk for: inability to function Time Spent With Patient Time: Total time managing care of this patient today ____ minutes.
[2024-09-04 20:00] VITALS: BP 122/58; PULSE 81; RESP 16; TEMP 36.1; O2SAT 97
[2024-09-04 20:52] VITALS: BP 122/58; PULSE 81
[2024-09-04] MEDS: Atorvastatin Calcium 10 MG TABLET PO (20:52)
[2024-09-04] MEDS: Benztropine Mesylate 0.5 MG TABLET PO (20:53)
[2024-09-04] MEDS: Tamsulosin HCL 0.4 MG CAPSULE PO (20:53)
[2024-09-04] MEDS: clonazePAM 0.5 MG TABLET PO (20:53)
[2024-09-04] MEDS: Divalproex Sodium 500 MG TABLET.DR PO (20:53)
[2024-09-05 08:11] LABS: Ammonia 47 umol/L (13-55)
[2024-09-05 08:19] LABS: Parathyroid Hormone Intact 37.4 pg/mL (8.7-77.1)
[2024-09-05 08:34] LABS: Vitamin D 25-OH Total 47.2 ng/mL (>30)
--- NOTE | 2024-09-05 17:35 | PC.NURSE ---
pt alert and visible in milieu, She refused meds on several attempts this am after asking for a password . She later stated she needed her meds and stated she would take them if they were brought to her. MATERIALS DIRECTOR aware and some meds ordered as one time doses. Pt then stating she would not take anything from staff. Pt given a bit more time and stated she would take meds. She again refused as this RN did not know the secret knock . In the am and again in the afternoon 2 RN's each attempted without success.
[2024-09-05 20:00] VITALS: BP 103/56; PULSE 84; RESP 16; TEMP 36.4; O2SAT 96
--- NOTE | 2024-09-05 20:07 | P.PNPSI_ITS ---
Subjective Subjective Date of Service: 09/05/24 Reason For Visit: Unspecified Psychosis Subjective Notes: Conditional Voluntary Interim History: Pt slept most of the night. Appears less internally preoccupied, able to talk about her chronic neck pain and additional interventions. No SI/HI. She is taking medications as prescribed. She is visible, had visit from family. Diagnostics Vital Signs (24Hr): Vital Signs - 24 hr 09/04/24 20:52 Pulse Rate 81 Blood Pressure 122/58 L BMI result Body Mass Index 28.9 Labs 08/22/24 08:00 09/01/24 17:27 Labs: Laboratory Results - last 48 hr 09/05/24 07:42 Ammonia 47 25-OH Vitamin D Total 47.2 PTH Intact 37.4 Valproic Acid 56.0 Medications Medications Current Medications Acetaminophen (Acetaminophen 325 Mg Tablet) 650 mg PO Q6H PRN PRN Reason: Headache/Pain Mild Scale (1-3) Last Admin: 09/04/24 16:19 Dose: 650 mg Al Hydroxide/Mg Hydroxide (Magnesium Hydrox/Alum Hydrox 30 Ml Oral.Susp) 30 ml PO Q6H PRN PRN Reason: Heartburn/Nausea Albuterol Sulfate (Albuterol Sulfate 90 Mcg 8 Gm Inhaler) 1 puff INHALE RQ4H PRN PRN Reason: Shortness of Breath Last Admin: 08/22/24 20:54 Dose: 1 puff Amlodipine Besylate (Amlodipine Besylate 5 Mg Tablet) 5 mg PO DAILY [facility]; Protocol Last Admin: 09/05/24 10:57 Dose: Not Given Apixaban (Apixaban 5 Mg Tablet) 5 mg PO BID [facility] Last Admin: 09/05/24 10:58 Dose: Not Given Atorvastatin Calcium (Atorvastatin Calcium 10 Mg Tablet) 10 mg PO BEDTIME [facility] Last Admin: 09/04/24 20:52 Dose: 10 mg Benztropine Mesylate (Benztropine Mesylate 0.5 Mg Tablet) 0.5 mg PO BID [facility] Last Admin: 09/05/24 10:58 Dose: Not Given Carvedilol (Carvedilol 25 Mg Tablet) 25 mg PO BID [facility]; Protocol Last Admin: 09/05/24 10:58 Dose: Not Given Clonazepam (Clonazepam 0.5 Mg Tablet) 0.5 mg PO BID [facility] Last Admin: 09/05/24 10:58 Dose: Not Given Divalproex Sodium (Divalproex Sodium 500 Mg Tablet.Dr) 500 mg PO BEDTIME [facility] Last Admin: 09/04/24 20:53 Dose: 500 mg Divalproex Sodium (Divalproex Sodium 250 Mg Tablet.Dr) 250 mg PO DAILY [facility] Last Admin: 09/05/24 10:59 Dose: Not Given Fluphenazine HCl (Fluphenazine Hcl 5 Mg Tablet) 5 mg PO BID [facility] Last Admin: 09/05/24 10:59 Dose: Not Given Gabapentin (Gabapentin 100 Mg Capsule) 200 mg PO TID [facility] Last Admin: 09/05/24 17:04 Dose: Not Given Hydrochlorothiazide (Hydrochlorothiazide 25 Mg Tablet) 25 mg PO DAILY [facility]; Protocol Last Admin: 09/05/24 11:02 Dose: Not Given Hydroxyzine HCl (Hydroxyzine Hcl 25 Mg Tablet) 25 mg PO Q6H PRN PRN Reason: Anxiety Last Admin: 09/04/24 17:46 Dose: 25 mg Lidocaine (Lidocaine 4 % Patch Adh..Patch) 1 patch TRANSDERMA DAILY [facility]; Protocol Last Admin: 09/05/24 11:02 Dose: Not Given Lisinopril (Lisinopril 40 Mg Tablet) 40 mg PO DAILY [facility]; Protocol Last Admin: 09/05/24 11:03 Dose: Not Given Magnesium Hydroxide (Milk Of Magnesia 30 Ml Oral.Susp) 30 ml PO DAILY PRN PRN Reason: Constipation Nystatin (Nystatin Powder 15 Gm Bottle) 1 appl TOPICAL BID [facility]; Protocol Last Admin: 09/05/24 11:03 Dose: Not Given Tamsulosin HCl (Tamsulosin Hcl 0.4 Mg Capsule) 0.4 mg PO BEDTIME [facility] Last Admin: 09/04/24 20:53 Dose: 0.4 mg Trazodone HCl (Trazodone Hcl 50 Mg Tablet) 50 mg PO BEDTIME MRX1 PRN PRN Reason: Insomnia Last Admin: 09/04/24 20:52 Dose: 50 mg Valacyclovir HCl (Valacyclovir Hcl 500 Mg Tablet) 500 mg PO DAILY [facility] Last Admin: 09/05/24 11:03 Dose: Not Given Allergies Allergies Allergy/AdvReac Type Severity Reaction Status Date / Time Penicillins [PCN] Allergy Severe Anaphylaxis Verified 08/22/24 04:12 bee venom protein (honey bee) Allergy Anaphylaxis Verified 08/22/24 04:04 codeine Allergy Unknown Verified 08/22/24 04:07 Iodinated Contrast Media Allergy Numbness Verified 08/22/24 04:11 [Contrast Dye] lanolin Allergy Rash Verified 08/22/24 04:11 latex Allergy Rash Verified 08/22/24 04:11 Sulfa (Sulfonamide Allergy Unknown Verified 08/22/24 04:11 Antibiotics) tramadol AdvReac Nausea and Verified 08/22/24 04:11 Vomiting Assessment & Plan Assessment & Plan (1) Schizoaffective disorder: Status: Acute Code(s): F25.9 - Schizoaffective disorder, unspecified Plan 08/22: continue medications from [facility]. hospitalist consult. observation, supportive care. 08/23: continue current mgmt. PRNs for anxiety. hospitalist consult pending. 08/24: psychotic, aggressive. add haldol 5 QHS and haldol 2 mg PRNs. medical consult appreciated. collateral from family. 08/25 pt presents with paranoid/persecutory delusions, auditory hallucinations and some grandiose delusions of having special power. will dc wellbutrin as it exacerbates psychosis. will increase haldol 5mg po qhs and will add 2.5mg po daily. increase abilify 20mg po daily. seems like amantadine for parkinsonian symptoms-wih higher potency antipsychotic like haldol will add low dose cogentin. Noted UA- shows UTI, will start ceftin 250mg po BID x 7 days. Pending collateral information. 08/26- pt with significant bilat cogwheel and rigidity with haldol. will d/c haldol, although risperidone also high potency antipsychotic will switch to risperidone. will continue abilify for now. 08/27 increased risperidone 2mg po BID. continue abilify 20mg po daily. 08/29 we are going to increase Risperdal to 2 mg in the morning and 3 mg at night we will assess for EPS tomorrow morning. 08/30 continue same treatment 08/31/24 isolated withdrawn would consider mcneal 09/01/2024 d/c abilify, continue risperidone, add depakote 250mg po daily and 500mg po qhs. 09/02 continue tx. 09/03 switch risperidone to prolixin 5mg po BID, continue depakote. will check depakote level in few days with ammonia and lft. 09/04 continue tx. 09/05 continue tx. Reason for continued inpatient stay Substantial Risk for: inability to function Time Spent With Patient Time: Total time managing care of this patient today ____ minutes.
[2024-09-05] MEDS: clonazePAM 0.5 MG TABLET PO (21:43)
[2024-09-05] MEDS: Tamsulosin HCL 0.4 MG CAPSULE PO (21:46)
[2024-09-05] MEDS: traZODone HCL 50 MG TABLET PO (21:47)
[2024-09-05] MEDS: Gabapentin 100 MG CAPSULE 200 MG PO (21:47)
[2024-09-05 21:48] VITALS: BP 103/54; PULSE 84
[2024-09-05] MEDS: carvediloL 25 MG TABLET PO (21:48)
[2024-09-05] MEDS: Benztropine Mesylate 0.5 MG TABLET PO (21:48)
[2024-09-05] MEDS: Atorvastatin Calcium 10 MG TABLET PO (21:48)
[2024-09-05] MEDS: Divalproex Sodium 500 MG TABLET.DR PO (21:48)
[2024-09-05] MEDS: Apixaban 5 MG TABLET PO (21:48)
[2024-09-05] MEDS: fluPHENAZine HCl 5 MG TABLET PO (21:50)
[2024-09-05] MEDS: hydrOXYzine HCL 25 MG TABLET PO (21:50)
[2024-09-05] MEDS: Nystatin Powder 15 GM BOTTLE 1 APPL TOPICAL (21:51)
[2024-09-06] MEDS: traZODone HCL 50 MG TABLET PO ×2 (02:21→20:28)
[2024-09-06 07:52] VITALS: BP 126/59; PULSE 81; RESP 18; TEMP 36.9; O2SAT 95
[2024-09-06] MEDS: Benztropine Mesylate 0.5 MG TABLET PO ×2 (08:11→20:27)
[2024-09-06] MEDS: amLODIPine Besylate 5 MG TABLET PO (08:11)
[2024-09-06] MEDS: Gabapentin 100 MG CAPSULE 200 MG PO ×3 (08:11→20:30)
[2024-09-06] MEDS: fluPHENAZine HCl 5 MG TABLET PO ×2 (08:12→20:27)
[2024-09-06] MEDS: lisinopriL 40 MG TABLET PO (08:12)
[2024-09-06] MEDS: hydroCHLOROthiazide 25 MG TABLET PO (08:12)
[2024-09-06] MEDS: Divalproex Sodium 250 MG TABLET.DR PO (08:12)
[2024-09-06] MEDS: carvediloL 25 MG TABLET PO ×2 (08:12→20:31)
[2024-09-06] MEDS: valACYclovir HCL 500 MG TABLET PO (08:12)
[2024-09-06] MEDS: clonazePAM 0.5 MG TABLET PO ×2 (08:12→20:27)
[2024-09-06] MEDS: Apixaban 5 MG TABLET PO ×2 (08:12→20:31)
[2024-09-06] MEDS: Lidocaine 4 % Patch ADH..PATCH 1 PATCH TRANSDERMA (08:15)
[2024-09-06] MEDS: Nystatin Powder 15 GM BOTTLE 1 APPL TOPICAL ×2 (08:18→20:32)
[2024-09-06] MEDS: hydrOXYzine HCL 25 MG TABLET PO ×2 (10:54→20:28)
[2024-09-06] MEDS: Acetaminophen 325 MG TABLET 650 MG PO (13:06)
[2024-09-06 20:00] VITALS: BP 101/56; PULSE 69; RESP 16; TEMP 36.7; O2SAT 99
[2024-09-06] MEDS: Tamsulosin HCL 0.4 MG CAPSULE PO (20:30)
[2024-09-06 20:31] VITALS: BP 101/56; PULSE 69
[2024-09-06] MEDS: Atorvastatin Calcium 10 MG TABLET PO (20:31)
[2024-09-06] MEDS: Divalproex Sodium 500 MG TABLET.DR PO (20:31)
[2024-09-07] MEDS: traZODone HCL 50 MG TABLET PO ×2 (01:04→20:51)
[2024-09-07 08:34] LABS: Ammonia 40 umol/L (13-55)
[2024-09-07 08:38] VITALS: BP 110/67; PULSE 76; RESP 18; TEMP 36.8; O2SAT 93
--- NOTE | 2024-09-07 08:39 | P.PNPSI_ITS ---
Subjective Subjective Date of Service: 09/06/24 Reason For Visit: Unspecified Psychosis Subjective Notes: Conditional Voluntary Interim History: Pt slept through the night. Pt is less paranoid, less voices, still with delusional content and idea of having some superpowers. Bilat edema, on hydrochlothiazide. will continue monitor. left VM to son Ryan with call back number. Diagnostics Vital Signs (24Hr): Vital Signs - 24 hr 09/06/24 20:00 09/06/24 20:31 09/07/24 08:38 Temperature 98.1 F 98.2 F Pulse Rate 69 69 76 Respiratory Rate 16 18 Blood Pressure 101/56 L 101/56 L 110/67 Pulse Oximetry 99 93 Oxygen Delivery Method Room Air BMI result Body Mass Index 28.9 Labs 08/22/24 08:00 09/01/24 17:27 Labs: Laboratory Results - last 48 hr 09/07/24 08:08 Ammonia 40 Medications Medications Current Medications Acetaminophen (Acetaminophen 325 Mg Tablet) 650 mg PO Q6H PRN PRN Reason: Headache/Pain Mild Scale (1-3) Last Admin: 09/06/24 13:06 Dose: 650 mg Al Hydroxide/Mg Hydroxide (Magnesium Hydrox/Alum Hydrox 30 Ml Oral.Susp) 30 ml PO Q6H PRN PRN Reason: Heartburn/Nausea Albuterol Sulfate (Albuterol Sulfate 90 Mcg 8 Gm Inhaler) 1 puff INHALE RQ4H PRN PRN Reason: Shortness of Breath Last Admin: 08/22/24 20:54 Dose: 1 puff Amlodipine Besylate (Amlodipine Besylate 5 Mg Tablet) 5 mg PO DAILY [facility]; Protocol Last Admin: 09/06/24 08:11 Dose: 5 mg Apixaban (Apixaban 5 Mg Tablet) 5 mg PO BID [facility] Last Admin: 09/06/24 20:31 Dose: 5 mg Atorvastatin Calcium (Atorvastatin Calcium 10 Mg Tablet) 10 mg PO BEDTIME [facility] Last Admin: 09/06/24 20:31 Dose: 10 mg Benztropine Mesylate (Benztropine Mesylate 0.5 Mg Tablet) 0.5 mg PO BID [facility] Last Admin: 09/06/24 20:27 Dose: 0.5 mg Carvedilol (Carvedilol 25 Mg Tablet) 25 mg PO BID [facility]; Protocol Last Admin: 09/06/24 20:31 Dose: 25 mg Clonazepam (Clonazepam 0.5 Mg Tablet) 0.5 mg PO BID [facility] Last Admin: 09/06/24 20:27 Dose: 0.5 mg Divalproex Sodium (Divalproex Sodium 500 Mg Tablet.Dr) 500 mg PO BEDTIME [facility] Last Admin: 09/06/24 20:31 Dose: 500 mg Divalproex Sodium (Divalproex Sodium 250 Mg Tablet.Dr) 250 mg PO DAILY [facility] Last Admin: 09/06/24 08:12 Dose: 250 mg Fluphenazine HCl (Fluphenazine Hcl 5 Mg Tablet) 5 mg PO BID [facility] Last Admin: 09/06/24 20:27 Dose: 5 mg Gabapentin (Gabapentin 100 Mg Capsule) 200 mg PO TID [facility] Last Admin: 09/06/24 20:30 Dose: 200 mg Hydrochlorothiazide (Hydrochlorothiazide 25 Mg Tablet) 25 mg PO DAILY [facility]; Protocol Last Admin: 09/06/24 08:12 Dose: 25 mg Hydroxyzine HCl (Hydroxyzine Hcl 25 Mg Tablet) 25 mg PO Q6H PRN PRN Reason: Anxiety Last Admin: 09/06/24 20:28 Dose: 25 mg Lidocaine (Lidocaine 4 % Patch Adh..Patch) 1 patch TRANSDERMA DAILY [facility]; Protocol Last Admin: 09/06/24 08:15 Dose: 1 patch Lisinopril (Lisinopril 40 Mg Tablet) 40 mg PO DAILY [facility]; Protocol Last Admin: 09/06/24 08:12 Dose: 40 mg Magnesium Hydroxide (Milk Of Magnesia 30 Ml Oral.Susp) 30 ml PO DAILY PRN PRN Reason: Constipation Nystatin (Nystatin Powder 15 Gm Bottle) 1 appl TOPICAL BID [facility]; Protocol Last Admin: 09/06/24 20:32 Dose: 1 appl Tamsulosin HCl (Tamsulosin Hcl 0.4 Mg Capsule) 0.4 mg PO BEDTIME [facility] Last Admin: 09/06/24 20:30 Dose: 0.4 mg Trazodone HCl (Trazodone Hcl 50 Mg Tablet) 50 mg PO BEDTIME MRX1 PRN PRN Reason: Insomnia Last Admin: 09/07/24 01:04 Dose: 50 mg Valacyclovir HCl (Valacyclovir Hcl 500 Mg Tablet) 500 mg PO DAILY [facility] Last Admin: 09/06/24 08:12 Dose: 500 mg Allergies Allergies Allergy/AdvReac Type Severity Reaction Status Date / Time Penicillins [PCN] Allergy Severe Anaphylaxis Verified 08/22/24 04:12 bee venom protein (honey bee) Allergy Anaphylaxis Verified 08/22/24 04:04 codeine Allergy Unknown Verified 08/22/24 04:07 Iodinated Contrast Media Allergy Numbness Verified 08/22/24 04:11 [Contrast Dye] lanolin Allergy Rash Verified 08/22/24 04:11 latex Allergy Rash Verified 08/22/24 04:11 Sulfa (Sulfonamide Allergy Unknown Verified 08/22/24 04:11 Antibiotics) tramadol AdvReac Nausea and Verified 08/22/24 04:11 Vomiting Assessment & Plan Assessment & Plan (1) Schizoaffective disorder: Status: Acute Code(s): F25.9 - Schizoaffective disorder, unspecified Plan 08/22: continue medications from [facility]. hospitalist consult. observation, supportive care. 08/23: continue current mgmt. PRNs for anxiety. hospitalist consult pending. 08/24: psychotic, aggressive. add haldol 5 QHS and haldol 2 mg PRNs. medical consult appreciated. collateral from family. 08/25 pt presents with paranoid/persecutory delusions, auditory hallucinations and some grandiose delusions of having special power. will dc wellbutrin as it exacerbates psychosis. will increase haldol 5mg po qhs and will add 2.5mg po daily. increase abilify 20mg po daily. seems like amantadine for parkinsonian symptoms-wih higher potency antipsychotic like haldol will add low dose cogentin. Noted UA- shows UTI, will start ceftin 250mg po BID x 7 days. Pending collateral information. 08/26- pt with significant bilat cogwheel and rigidity with haldol. will d/c haldol, although risperidone also high potency antipsychotic will switch to risperidone. will continue abilify for now. 08/27 increased risperidone 2mg po BID. continue abilify 20mg po daily. 08/29 we are going to increase Risperdal to 2 mg in the morning and 3 mg at night we will assess for EPS tomorrow morning. 08/30 continue same treatment 08/31/24 isolated withdrawn would consider mcneal 09/01/2024 d/c abilify, continue risperidone, add depakote 250mg po daily and 500mg po qhs. 09/02 continue tx. 09/03 switch risperidone to prolixin 5mg po BID, continue depakote. will check depakote level in few days with ammonia and lft. 09/04 continue tx. 09/05 continue tx. 09/06 continue tx. Reason for continued inpatient stay Substantial Risk for: inability to function Time Spent With Patient Time: Total time managing care of this patient today ____ minutes.
[2024-09-07 08:41] LABS: Valproate 65.7 mcg/mL (50.0-100.0)
[2024-09-07] MEDS: lisinopriL 40 MG TABLET PO (08:43)
[2024-09-07] MEDS: hydroCHLOROthiazide 25 MG TABLET PO (08:43)
[2024-09-07] MEDS: Gabapentin 100 MG CAPSULE 200 MG PO ×3 (08:44→20:55)
[2024-09-07] MEDS: carvediloL 25 MG TABLET PO ×2 (08:44→20:57)
[2024-09-07] MEDS: Benztropine Mesylate 0.5 MG TABLET PO ×2 (08:44→20:55)
[2024-09-07] MEDS: clonazePAM 0.5 MG TABLET PO ×2 (08:44→20:51)
[2024-09-07] MEDS: valACYclovir HCL 500 MG TABLET PO (08:44)
[2024-09-07] MEDS: Apixaban 5 MG TABLET PO ×2 (08:44→20:57)
[2024-09-07] MEDS: fluPHENAZine HCl 5 MG TABLET PO ×2 (08:44→20:51)
[2024-09-07] MEDS: Divalproex Sodium 250 MG TABLET.DR PO (08:44)
[2024-09-07] MEDS: Lidocaine 4 % Patch ADH..PATCH 1 PATCH TRANSDERMA (08:48)
[2024-09-07] MEDS: amLODIPine Besylate 5 MG TABLET PO (10:30)
[2024-09-07] MEDS: Nystatin Powder 15 GM BOTTLE 1 APPL TOPICAL ×2 (10:31→20:58)
[2024-09-07] MEDS: OLANZapine ODT 10 MG TAB.RAPDIS TRANSLINGU (15:30)
[2024-09-07 20:00] VITALS: BP 98/58; PULSE 69; RESP 16; TEMP 36.6; O2SAT 95
--- NOTE | 2024-09-07 20:22 | P.PNPSI_ITS ---
Subjective Subjective Date of Service: 08/31/24 Reason For Visit: Unspecified Psychosis Subjective Notes: Conditional Voluntary Interim History: Pt slept through the night.seemed more paranoid today and hearing voices. received prn olanzapine. She was mostly sitting in common area hearing voices, asked for head phones to block voices of course with no effect. will increase prolixin. no overt parkisonism at this point. 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 Speech: clear, normal rate/rhythm/volume, spontaneous TP: mostly linear TC: hearing voices of women who are telling her to join [employer]. Mood: not good Affect: constricted SI: denies HI: denies VH/AH: hearing voices of women, seeing them- which she describes as having patches on eyes and scary looking Delusion: paranoid, persecutory delusions Insight/judgment: limited x 2. Memory/cog: alert, oriented x 3. Diagnostics Vital Signs (24Hr): Vital Signs - 24 hr 09/06/24 20:31 09/07/24 08:38 Temperature 98.2 F Pulse Rate 69 76 Respiratory Rate 18 Blood Pressure 101/56 L 110/67 Pulse Oximetry 93 BMI result Body Mass Index 28.9 Labs 08/22/24 08:00 09/01/24 17:27 Labs: Laboratory Results - last 48 hr 09/07/24 08:08 Ammonia 40 Valproic Acid 65.7 Medications Medications Current Medications Acetaminophen (Acetaminophen 325 Mg Tablet) 650 mg PO Q6H PRN PRN Reason: Headache/Pain Mild Scale (1-3) Last Admin: 09/06/24 13:06 Dose: 650 mg Al Hydroxide/Mg Hydroxide (Magnesium Hydrox/Alum Hydrox 30 Ml Oral.Susp) 30 ml PO Q6H PRN PRN Reason: Heartburn/Nausea Albuterol Sulfate (Albuterol Sulfate 90 Mcg 8 Gm Inhaler) 1 puff INHALE RQ4H PRN PRN Reason: Shortness of Breath Last Admin: 08/22/24 20:54 Dose: 1 puff Amlodipine Besylate (Amlodipine Besylate 5 Mg Tablet) 5 mg PO DAILY [facility]; Protocol Last Admin: 09/07/24 10:30 Dose: 5 mg Apixaban (Apixaban 5 Mg Tablet) 5 mg PO BID [facility] Last Admin: 09/07/24 08:44 Dose: 5 mg Atorvastatin Calcium (Atorvastatin Calcium 10 Mg Tablet) 10 mg PO BEDTIME [facility] Last Admin: 09/06/24 20:31 Dose: 10 mg Benztropine Mesylate (Benztropine Mesylate 0.5 Mg Tablet) 0.5 mg PO BID [facility] Last Admin: 09/07/24 08:44 Dose: 0.5 mg Carvedilol (Carvedilol 25 Mg Tablet) 25 mg PO BID [facility]; Protocol Last Admin: 09/07/24 08:44 Dose: 25 mg Clonazepam (Clonazepam 0.5 Mg Tablet) 0.5 mg PO BID [facility] Last Admin: 09/07/24 08:44 Dose: 0.5 mg Divalproex Sodium (Divalproex Sodium 500 Mg Tablet.Dr) 500 mg PO BEDTIME [facility] Last Admin: 09/06/24 20:31 Dose: 500 mg Divalproex Sodium (Divalproex Sodium 250 Mg Tablet.Dr) 250 mg PO DAILY [facility] Last Admin: 09/07/24 08:44 Dose: 250 mg Fluphenazine HCl (Fluphenazine Hcl 5 Mg Tablet) 5 mg PO BID [facility] Last Admin: 09/07/24 08:44 Dose: 5 mg Gabapentin (Gabapentin 100 Mg Capsule) 200 mg PO TID [facility] Last Admin: 09/07/24 15:30 Dose: 200 mg Hydrochlorothiazide (Hydrochlorothiazide 25 Mg Tablet) 25 mg PO DAILY [facility]; Protocol Last Admin: 09/07/24 08:43 Dose: 25 mg Hydroxyzine HCl (Hydroxyzine Hcl 25 Mg Tablet) 25 mg PO Q6H PRN PRN Reason: Anxiety Last Admin: 09/06/24 20:28 Dose: 25 mg Lidocaine (Lidocaine 4 % Patch Adh..Patch) 1 patch TRANSDERMA DAILY [facility]; Protocol Last Admin: 09/07/24 08:48 Dose: 1 patch Lisinopril (Lisinopril 40 Mg Tablet) 40 mg PO DAILY [facility]; Protocol Last Admin: 09/07/24 08:43 Dose: 40 mg Magnesium Hydroxide (Milk Of Magnesia 30 Ml Oral.Susp) 30 ml PO DAILY PRN PRN Reason: Constipation Nystatin (Nystatin Powder 15 Gm Bottle) 1 appl TOPICAL BID [facility]; Protocol Last Admin: 09/07/24 10:31 Dose: 1 appl Olanzapine (Olanzapine Odt 10 Mg Tab.Rapdis) 10 mg TRANSLINGU Q6H PRN PRN Reason: agitation Last Admin: 09/07/24 15:30 Dose: 10 mg Tamsulosin HCl (Tamsulosin Hcl 0.4 Mg Capsule) 0.4 mg PO BEDTIME [facility] Last Admin: 09/06/24 20:30 Dose: 0.4 mg Trazodone HCl (Trazodone Hcl 50 Mg Tablet) 50 mg PO BEDTIME MRX1 PRN PRN Reason: Insomnia Last Admin: 09/07/24 01:04 Dose: 50 mg Valacyclovir HCl (Valacyclovir Hcl 500 Mg Tablet) 500 mg PO DAILY [facility] Last Admin: 09/07/24 08:44 Dose: 500 mg Allergies Allergies Allergy/AdvReac Type Severity Reaction Status Date / Time Penicillins [PCN] Allergy Severe Anaphylaxis Verified 08/22/24 04:12 bee venom protein (honey bee) Allergy Anaphylaxis Verified 08/22/24 04:04 codeine Allergy Unknown Verified 08/22/24 04:07 Iodinated Contrast Media Allergy Numbness Verified 08/22/24 04:11 [Contrast Dye] lanolin Allergy Rash Verified 08/22/24 04:11 latex Allergy Rash Verified 08/22/24 04:11 Sulfa (Sulfonamide Allergy Unknown Verified 08/22/24 04:11 Antibiotics) tramadol AdvReac Nausea and Verified 08/22/24 04:11 Vomiting Assessment & Plan Assessment & Plan (1) Schizoaffective disorder: Status: Acute Code(s): F25.9 - Schizoaffective disorder, unspecified Plan 08/22: continue medications from [facility]. hospitalist consult. observation, supportive care. 08/23: continue current mgmt. PRNs for anxiety. hospitalist consult pending. 08/24: psychotic, aggressive. add haldol 5 QHS and haldol 2 mg PRNs. medical consult appreciated. collateral from family. 08/25 pt presents with paranoid/persecutory delusions, auditory hallucinations and some grandiose delusions of having special power. will dc wellbutrin as it exacerbates psychosis. will increase haldol 5mg po qhs and will add 2.5mg po daily. increase abilify 20mg po daily. seems like amantadine for parkinsonian symptoms-wih higher potency antipsychotic like haldol will add low dose cogentin. Noted UA- shows UTI, will start ceftin 250mg po BID x 7 days. Pending collateral information. 08/26- pt with significant bilat cogwheel and rigidity with haldol. will d/c haldol, although risperidone also high potency antipsychotic will switch to risperidone. will continue abilify for now. 08/27 increased risperidone 2mg po BID. continue abilify 20mg po daily. 08/29 we are going to increase Risperdal to 2 mg in the morning and 3 mg at night we will assess for EPS tomorrow morning. 08/30 continue same treatment 08/31/24 isolated withdrawn would consider mcneal 09/01/2024 d/c abilify, continue risperidone, add depakote 250mg po daily and 500mg po qhs. 09/02 continue tx. 09/03 switch risperidone to prolixin 5mg po BID, continue depakote. will check depakote level in few days with ammonia and lft. 09/04 continue tx. 09/05 continue tx. 09/06 continue tx. 09/07 hospitalist consult- edema venous statis. Reason for continued inpatient stay Substantial Risk for: inability to function Time Spent With Patient Time: Total time managing care of this patient today ____ minutes.
[2024-09-07] MEDS: hydrOXYzine HCL 25 MG TABLET PO (20:51)
[2024-09-07] MEDS: Tamsulosin HCL 0.4 MG CAPSULE PO (20:56)
[2024-09-07 20:57] VITALS: BP 98/58; PULSE 69
[2024-09-07] MEDS: Divalproex Sodium 500 MG TABLET.DR PO (20:57)
[2024-09-07] MEDS: Atorvastatin Calcium 10 MG TABLET PO (20:57)
[2024-09-08] MEDS: hydrOXYzine HCL 25 MG TABLET PO (06:42)
[2024-09-08 08:38] VITALS: BP 124/83; PULSE 79; RESP 18; TEMP 36.8; O2SAT 94
[2024-09-08] MEDS: lisinopriL 40 MG TABLET PO (08:38)
[2024-09-08] MEDS: Apixaban 5 MG TABLET PO ×2 (08:39→20:21)
[2024-09-08] MEDS: clonazePAM 0.5 MG TABLET PO ×2 (08:39→20:20)
[2024-09-08] MEDS: valACYclovir HCL 500 MG TABLET PO (08:39)
[2024-09-08] MEDS: fluPHENAZine HCl 5 MG TABLET PO (08:39)
[2024-09-08] MEDS: amLODIPine Besylate 5 MG TABLET PO (08:39)
[2024-09-08] MEDS: carvediloL 25 MG TABLET PO ×2 (08:39→20:21)
[2024-09-08] MEDS: hydroCHLOROthiazide 25 MG TABLET PO (08:39)
[2024-09-08] MEDS: Divalproex Sodium 250 MG TABLET.DR PO (08:39)
[2024-09-08] MEDS: Benztropine Mesylate 0.5 MG TABLET PO ×2 (08:39→20:20)
[2024-09-08] MEDS: Gabapentin 100 MG CAPSULE 200 MG PO ×3 (08:39→20:20)
[2024-09-08] MEDS: Nystatin Powder 15 GM BOTTLE 1 APPL TOPICAL ×2 (08:40→20:20)
[2024-09-08] MEDS: Lidocaine 4 % Patch ADH..PATCH 1 PATCH TRANSDERMA (08:40)
[2024-09-08] MEDS: OLANZapine ODT 10 MG TAB.RAPDIS TRANSLINGU (12:02)
[2024-09-08] MEDS: Acetaminophen 325 MG TABLET 650 MG PO (12:02)
--- NOTE | 2024-09-08 16:23 | HO.PSYCHPN ---
Subjective Subjective Date of Service: 09/08/24 Reason For Visit: Unspecified Psychosis Subjective Notes: Conditional Voluntary Interim History: Pt slept through the night. Pt reports neck pain. She continues to hear voices and paranoid delusions. No SI/HI. Appears calmer but still quite symptomatic. No behavioral concerns. Medication Compliance: Yes Side effects from medications: No Review of Systems Review of Systems Yes Unobtainable due to mental status Mental Status Exam Mental Status Exam Narrative: Appearance: wearing hospital gown, fair hygiene, wearing sunglasses, in NAD Behavior: less guarded towards this ticket writer Psychomotor: bilat cogwheel and rigidity. Speech: clear, normal rate/rhythm/volume, spontaneous TP: mostly linear TC: hearing voices of women who are telling her to join [employer]. Mood: not good Affect: constricted SI: denies HI: denies VH/AH: hearing voices of women, seeing them- which she describes as having patches on eyes and scary looking Delusion: paranoid, persecutory delusions Insight/judgment: limited x 2. Memory/cog: alert, oriented x 3. Diagnostics Vital Signs (24Hr): Vital Signs - 24 hr 09/07/24 20:00 09/07/24 20:57 09/08/24 08:38 Temperature 97.8 F 98.2 F Pulse Rate 69 69 79 Respiratory Rate 16 18 Blood Pressure 98/58 L 98/58 L 124/83 Pulse Oximetry 95 94 Oxygen Delivery Method Room Air Room Air BMI result Body Mass Index 28.9 Labs 09/08/24 18:02 09/08/24 18:02 Labs: Laboratory Results - last 48 hr 09/07/24 08:08 Ammonia 40 Valproic Acid 65.7 Medications Medications Current Medications Acetaminophen (Acetaminophen 325 Mg Tablet) 650 mg PO Q6H PRN PRN Reason: Headache/Pain Mild Scale (1-3) Last Admin: 09/08/24 12:02 Dose: 650 mg Al Hydroxide/Mg Hydroxide (Magnesium Hydrox/Alum Hydrox 30 Ml Oral.Susp) 30 ml PO Q6H PRN PRN Reason: Heartburn/Nausea Albuterol Sulfate (Albuterol Sulfate 90 Mcg 8 Gm Inhaler) 1 puff INHALE RQ4H PRN PRN Reason: Shortness of Breath Last Admin: 08/22/24 20:54 Dose: 1 puff Amlodipine Besylate (Amlodipine Besylate 5 Mg Tablet) 5 mg PO DAILY [facility]; Protocol Last Admin: 09/08/24 08:39 Dose: 5 mg Apixaban (Apixaban 5 Mg Tablet) 5 mg PO BID [facility] Last Admin: 09/08/24 08:39 Dose: 5 mg Atorvastatin Calcium (Atorvastatin Calcium 10 Mg Tablet) 10 mg PO BEDTIME [facility] Last Admin: 09/07/24 20:57 Dose: 10 mg Benztropine Mesylate (Benztropine Mesylate 0.5 Mg Tablet) 0.5 mg PO BID [facility] Last Admin: 09/08/24 08:39 Dose: 0.5 mg Carvedilol (Carvedilol 25 Mg Tablet) 25 mg PO BID [facility]; Protocol Last Admin: 09/08/24 08:39 Dose: 25 mg Clonazepam (Clonazepam 0.5 Mg Tablet) 0.5 mg PO BID [facility] Last Admin: 09/08/24 08:39 Dose: 0.5 mg Divalproex Sodium (Divalproex Sodium 500 Mg Tablet.Dr) 500 mg PO BEDTIME [facility] Last Admin: 09/07/24 20:57 Dose: 500 mg Divalproex Sodium (Divalproex Sodium 250 Mg Tablet.Dr) 250 mg PO DAILY [facility] Last Admin: 09/08/24 08:39 Dose: 250 mg Fluphenazine HCl (Fluphenazine Hcl 5 Mg Tablet) 5 mg PO BID [facility] Last Admin: 09/08/24 08:39 Dose: 5 mg Gabapentin (Gabapentin 100 Mg Capsule) 200 mg PO TID [facility] Last Admin: 09/08/24 14:26 Dose: 200 mg Hydrochlorothiazide (Hydrochlorothiazide 25 Mg Tablet) 25 mg PO DAILY [facility]; Protocol Last Admin: 09/08/24 08:39 Dose: 25 mg Hydroxyzine HCl (Hydroxyzine Hcl 25 Mg Tablet) 25 mg PO Q6H PRN PRN Reason: Anxiety Last Admin: 09/08/24 06:42 Dose: 25 mg Lidocaine (Lidocaine 4 % Patch Adh..Patch) 1 patch TRANSDERMA DAILY [facility]; Protocol Last Admin: 09/08/24 08:40 Dose: 1 patch Lisinopril (Lisinopril 40 Mg Tablet) 40 mg PO DAILY [facility]; Protocol Last Admin: 09/08/24 08:38 Dose: 40 mg Magnesium Hydroxide (Milk Of Magnesia 30 Ml Oral.Susp) 30 ml PO DAILY PRN PRN Reason: Constipation Nystatin (Nystatin Powder 15 Gm Bottle) 1 appl TOPICAL BID [facility]; Protocol Last Admin: 09/08/24 08:40 Dose: 1 appl Olanzapine (Olanzapine Odt 10 Mg Tab.Rapdis) 10 mg TRANSLINGU Q6H PRN PRN Reason: agitation Last Admin: 09/08/24 12:02 Dose: 10 mg Tamsulosin HCl (Tamsulosin Hcl 0.4 Mg Capsule) 0.4 mg PO BEDTIME [facility] Last Admin: 09/07/24 20:56 Dose: 0.4 mg Trazodone HCl (Trazodone Hcl 50 Mg Tablet) 50 mg PO BEDTIME MRX1 PRN PRN Reason: Insomnia Last Admin: 09/07/24 20:51 Dose: 50 mg Valacyclovir HCl (Valacyclovir Hcl 500 Mg Tablet) 500 mg PO DAILY [facility] Last Admin: 09/08/24 08:39 Dose: 500 mg Allergies Allergies Allergy/AdvReac Type Severity Reaction Status Date / Time Penicillins [PCN] Allergy Severe Anaphylaxis Verified 08/22/24 04:12 bee venom protein (honey bee) Allergy Anaphylaxis Verified 08/22/24 04:04 codeine Allergy Unknown Verified 08/22/24 04:07 Iodinated Contrast Media Allergy Numbness Verified 08/22/24 04:11 [Contrast Dye] lanolin Allergy Rash Verified 08/22/24 04:11 latex Allergy Rash Verified 08/22/24 04:11 Sulfa (Sulfonamide Allergy Unknown Verified 08/22/24 04:11 Antibiotics) tramadol AdvReac Nausea and Verified 08/22/24 04:11 Vomiting Assessment & Plan Assessment & Plan (1) Schizoaffective disorder: Status: Acute Code(s): F25.9 - Schizoaffective disorder, unspecified Plan 08/22[facility]. observation, supportive care. 08/23: continue current mgmt. PRNs for anxiety. hospitalist consult pending. 08/24: psychotic, aggressive. add haldol 5 QHS and haldol 2 mg PRNs. medical consult appreciated. collateral from family. 08/25 pt presents with paranoid/persecutory delusions, auditory hallucinations and some grandiose delusions of having special power. will dc wellbutrin as it exacerbates psychosis. will increase haldol 5mg po qhs and will add 2.5mg po daily. increase abilify 20mg po daily. seems like amantadine for parkinsonian symptoms-wih higher potency antipsychotic like haldol will add low dose cogentin. Noted UA- shows UTI, will start ceftin 250mg po BID x 7 days. Pending collateral information. 08/26- pt with significant bilat cogwheel and rigidity with haldol. will d/c haldol, although risperidone also high potency antipsychotic will switch to risperidone. will continue abilify for now. 08/27 increased risperidone 2mg po BID. continue abilify 20mg po daily. 08/29 we are going to increase Risperdal to 2 mg in the morning and 3 mg at night we will assess for EPS tomorrow morning. 08/30 continue same treatment 08/31/24 isolated withdrawn would consider mcneal 09/01/2024 d/c abilify, continue risperidone, add depakote 250mg po daily and 500mg po qhs. 09/02 continue tx. 09/03 switch risperidone to prolixin 5mg po BID, continue depakote. will check depakote level in few days with ammonia and lft. 09/04 continue tx. 09/05 continue tx. 09/06 continue tx. 09/07 hospitalist consult- edema venous statis. 09/08 continue tx. Reason for continued inpatient stay Substantial Risk for: inability to function Time Spent With Patient Time: Total time managing care of this patient today ____ minutes.
[2024-09-08 18:07] LABS: MANUAL DIFF FLAG NO
[2024-09-08 18:13] LABS: Basophils Percent Auto 0.3 % (0-2); Eosinophils Absolute Auto 0.2 X10*3/uL (0.0-0.4); Hematocrit 32.1 % (37.0-47.0); Hemoglobin 11.1 g/dl (12.0-16.0); Imm Gran Abs Auto 0.03 X10*3/uL (0.00-0.03); Imm Gran Pct Auto 0.4 % (0.0-0.4); Lymphocytes Absolute Auto 1.6 X10*3/uL (1.2-4.9); Lymphocytes Percent Auto 21.1 % (20-40); Mean Corpuscular HGB Conc 34.6 g/dl (31.0-35.0); Mean Corpuscular Hemoglobin 34.3 pg (27.0-33.0); Mean Corpuscular Volume 99.1 fL (80.0-98.0); Mean Platelet Volume 10.3 fL (9.4-12.3); Monocytes Absolute Auto 0.7 X10*3/uL (0.1-1.2); Monocytes Percent Auto 8.8 % (2-11); Neutrophils Percent Auto 66.4 % (45-73); Platelet Count 188 X10*3/uL (160-400); Red Blood Count 3.24 X10*6/uL (4.20-5.50); Red Cell Distribution Width 11.6 % (11.0-16.0); White Blood Count 7.6 X10*3/uL (4.8-10.8)
[2024-09-08 18:29] LABS: Alanine Aminotransferase 20 U/L (0-31); Albumin Level 3.5 g/dL (3.5-5.0); Alkaline Phosphatase 74 U/L (39-117); Anion Gap 18 (12-20); Aspartate Amino Transferase 26 U/L (5-31); Bilirubin Total 0.2 mg/dL (0.0-1.0); Blood Urea Nitrogen 23 mg/dL (9-16); Calcium 9.3 mg/dL (8.4-10.2); Carbon Dioxide 30 mmol/L (22-29); Chloride 96 mmol/L (96-108); Creatinine Clr Calc Pharmacy 54.1; Estimated Glomerular Filt Rate 52; Glucose Random 128 mg/dL (60-115); Potassium 3.5 mmol/L (3.3-5.1); Sodium 140 mmol/L (135-145); Total Protein 6.4 g/dL (6.5-8.0)
[2024-09-08 20:00] VITALS: BP 112/64; PULSE 70; RESP 17; TEMP 36.6; O2SAT 95
[2024-09-08] MEDS: fluPHENAZine HCl 5 MG TABLET 10 MG PO (20:20)
[2024-09-08] MEDS: Tamsulosin HCL 0.4 MG CAPSULE PO (20:20)
[2024-09-08] MEDS: Atorvastatin Calcium 10 MG TABLET PO (20:20)
[2024-09-08 20:21] VITALS: BP 112/64; PULSE 70
[2024-09-08] MEDS: Divalproex Sodium 500 MG TABLET.DR PO (20:21)
[2024-09-09 08:00] VITALS: BP 126/64; PULSE 69; RESP 18; TEMP 36.5; O2SAT 95
[2024-09-09 08:22] LABS: Valproate 75.7 mcg/mL (50.0-100.0)
[2024-09-09] MEDS: Lidocaine 4 % Patch ADH..PATCH 1 PATCH TRANSDERMA ×2 (08:33→10:13)
[2024-09-09] MEDS: lisinopriL 40 MG TABLET PO (08:34)
[2024-09-09] MEDS: Apixaban 5 MG TABLET PO ×2 (08:34→21:21)
[2024-09-09] MEDS: clonazePAM 0.5 MG TABLET PO ×2 (08:34→21:21)
[2024-09-09] MEDS: valACYclovir HCL 500 MG TABLET PO (08:34)
[2024-09-09] MEDS: Gabapentin 100 MG CAPSULE 200 MG PO ×2 (08:34→21:21)
[2024-09-09] MEDS: carvediloL 25 MG TABLET PO (08:34)
[2024-09-09] MEDS: amLODIPine Besylate 5 MG TABLET PO (08:34)
[2024-09-09] MEDS: Benztropine Mesylate 0.5 MG TABLET PO ×2 (08:34→21:21)
[2024-09-09] MEDS: Divalproex Sodium 250 MG TABLET.DR PO (08:34)
[2024-09-09] MEDS: Acetaminophen 325 MG TABLET 650 MG PO (08:35)
[2024-09-09] MEDS: hydroCHLOROthiazide 25 MG TABLET PO (08:35)
[2024-09-09] MEDS: fluPHENAZine HCl 5 MG TABLET PO (08:35)
[2024-09-09 09:05] LABS: Ammonia 25 umol/L (13-55)
[2024-09-09] MEDS: oxyCODONE HCl Immed Release 5 MG TABLET PO (10:12)
[2024-09-09] MEDS: NaPROXEN 500 MG TABLET PO (11:52)
[2024-09-09 20:00] VITALS: BP 92/55; PULSE 66; RESP 18; TEMP 36.4; O2SAT 96
[2024-09-09] MEDS: Atorvastatin Calcium 10 MG TABLET PO (21:21)
[2024-09-09] MEDS: Divalproex Sodium 500 MG TABLET.DR PO (21:22)
[2024-09-09] MEDS: fluPHENAZine HCl 5 MG TABLET 10 MG PO (21:22)
[2024-09-09] MEDS: Tamsulosin HCL 0.4 MG CAPSULE PO (21:23)
[2024-09-09] MEDS: Nystatin Powder 15 GM BOTTLE 1 APPL TOPICAL (21:23)
[2024-09-09] MEDS: traZODone HCL 50 MG TABLET PO (21:23)
--- NOTE | 2024-09-09 21:31 | P.PNPSI_ITS ---
Subjective Subjective Date of Service: 09/09/24 Reason For Visit: Unspecified Psychosis Interim History: Pt slept through the night. Pt reports neck pain. She continues to hear voices and paranoid delusions. No SI/HI. Appears calmer but still quite symptomatic. No behavioral concerns. 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 Speech: clear, normal rate/rhythm/volume, spontaneous TP: mostly linear TC: hearing voices of women who are telling her to join [employer]. Mood: not good Affect: constricted SI: denies HI: denies VH/AH: hearing voices of women, seeing them- which she describes as having patches on eyes and scary looking Delusion: paranoid, persecutory delusions Insight/judgment: limited x 2. Memory/cog: alert, oriented x 3. Diagnostics Vital Signs (24Hr): Vital Signs - 24 hr 09/09/24 08:00 Temperature 97.7 F Pulse Rate 69 Respiratory Rate 18 Blood Pressure 126/64 Pulse Oximetry 95 Oxygen Delivery Method Room Air BMI result Body Mass Index 28.9 Labs 09/08/24 18:02 09/08/24 18:02 Labs: Laboratory Results - last 48 hr 09/08/24 09/09/24 18:02 07:53 WBC 7.6 RBC 3.24 L Hgb 11.1 L Hct 32.1 L MCV 99.1 H MCH 34.3 H MCHC 34.6 RDW 11.6 Plt Count 188 D MPV 10.3 Immature Gran % (Auto) 0.4 Neut % (Auto) 66.4 Lymph % (Auto) 21.1 [place] % (Auto) 8.8 Eos % (Auto) 3.0 Baso % (Auto) 0.3 Lymph # (Auto) 1.6 [place] # (Auto) 0.7 Eos # (Auto) 0.2 Baso # (Auto) 0.0 Abs Immat Gran (auto) 0.03 Absolute Neuts (auto) 5.0 Absolute Nucleated RBC 0.000 Nucleated RBC % (auto) 0.0 Sodium 140 Potassium 3.5 Chloride 96 Carbon Dioxide 30 H Anion Gap 18 BUN 23 H Creatinine 1.04 Estim Creat Clear Calc 54.1 Estimated GFR 52 Random Glucose 128 H Calcium 9.3 D Total Bilirubin 0.2 AST 26 ALT 20 Alkaline Phosphatase 74 Ammonia 25 Total Protein 6.4 L Albumin 3.5 Valproic Acid 75.7 Medications Medications Current Medications Acetaminophen (Acetaminophen 325 Mg Tablet) 650 mg PO Q6H PRN PRN Reason: Headache/Pain Mild Scale (1-3) Last Admin: 09/09/24 08:35 Dose: 650 mg Al Hydroxide/Mg Hydroxide (Magnesium Hydrox/Alum Hydrox 30 Ml Oral.Susp) 30 ml PO Q6H PRN PRN Reason: Heartburn/Nausea Albuterol Sulfate (Albuterol Sulfate 90 Mcg 8 Gm Inhaler) 1 puff INHALE RQ4H PRN PRN Reason: Shortness of Breath Last Admin: 08/22/24 20:54 Dose: 1 puff Amlodipine Besylate (Amlodipine Besylate 5 Mg Tablet) 5 mg PO DAILY [facility]; Protocol Last Admin: 09/09/24 08:34 Dose: 5 mg Apixaban (Apixaban 5 Mg Tablet) 5 mg PO BID [facility] Last Admin: 09/09/24 08:34 Dose: 5 mg Atorvastatin Calcium (Atorvastatin Calcium 10 Mg Tablet) 10 mg PO BEDTIME [facility] Last Admin: 09/08/24 20:20 Dose: 10 mg Benztropine Mesylate (Benztropine Mesylate 0.5 Mg Tablet) 0.5 mg PO BID [facility] Last Admin: 09/09/24 08:34 Dose: 0.5 mg Carvedilol (Carvedilol 25 Mg Tablet) 25 mg PO BID [facility]; Protocol Last Admin: 09/09/24 08:34 Dose: 25 mg Clonazepam (Clonazepam 0.5 Mg Tablet) 0.5 mg PO BID [facility] Last Admin: 09/09/24 08:34 Dose: 0.5 mg Divalproex Sodium (Divalproex Sodium 500 Mg Tablet.) 500 mg PO BEDTIME [facility] Last Admin: 09/08/24 20:21 Dose: 500 mg Divalproex Sodium (Divalproex Sodium 250 Mg Tablet.Dr) 250 mg PO DAILY [facility] Last Admin: 09/09/24 08:34 Dose: 250 mg Fluphenazine HCl (Fluphenazine Hcl 5 Mg Tablet) 5 mg PO DAILY [facility] Last Admin: 09/09/24 08:35 Dose: 5 mg Fluphenazine HCl (Fluphenazine Hcl 5 Mg Tablet) 10 mg PO BEDTIME [facility] Last Admin: 09/08/24 20:20 Dose: 10 mg Gabapentin (Gabapentin 100 Mg Capsule) 200 mg PO TID [facility] Last Admin: 09/09/24 17:40 Dose: Not Given Hydrochlorothiazide (Hydrochlorothiazide 25 Mg Tablet) 25 mg PO DAILY [facility]; Protocol Last Admin: 09/09/24 08:35 Dose: 25 mg Hydroxyzine HCl (Hydroxyzine Hcl 25 Mg Tablet) 25 mg PO Q6H PRN PRN Reason: Anxiety Last Admin: 09/08/24 06:42 Dose: 25 mg Lidocaine (Lidocaine 4 % Patch Adh..Patch) 1 patch TRANSDERMA DAILY [facility]; Protocol Last Admin: 09/09/24 08:33 Dose: 1 patch Lidocaine (Lidocaine 4 % Patch Adh..Patch) 1 patch TRANSDERMA DAILY [facility]; Protocol Last Admin: 09/09/24 10:13 Dose: 1 patch Lisinopril (Lisinopril 40 Mg Tablet) 40 mg PO DAILY [facility]; Protocol Last Admin: 09/09/24 08:34 Dose: 40 mg Magnesium Hydroxide (Milk Of Magnesia 30 Ml Oral.Susp) 30 ml PO DAILY PRN PRN Reason: Constipation Nystatin (Nystatin Powder 15 Gm Bottle) 1 appl TOPICAL BID [facility]; Protocol Last Admin: 09/09/24 09:43 Dose: Not Given Olanzapine (Olanzapine Odt 10 Mg Tab.Rapdis) 10 mg TRANSLINGU Q6H PRN PRN Reason: agitation Last Admin: 09/08/24 12:02 Dose: 10 mg Tamsulosin HCl (Tamsulosin Hcl 0.4 Mg Capsule) 0.4 mg PO BEDTIME [facility] Last Admin: 09/08/24 20:20 Dose: 0.4 mg Trazodone HCl (Trazodone Hcl 50 Mg Tablet) 50 mg PO BEDTIME MRX1 PRN PRN Reason: Insomnia Last Admin: 09/07/24 20:51 Dose: 50 mg Valacyclovir HCl (Valacyclovir Hcl 500 Mg Tablet) 500 mg PO DAILY [facility] Last Admin: 09/09/24 08:34 Dose: 500 mg Allergies Allergies Allergy/AdvReac Type Severity Reaction Status Date / Time Penicillins [PCN] Allergy Severe Anaphylaxis Verified 08/22/24 04:12 bee venom protein (honey bee) Allergy Anaphylaxis Verified 08/22/24 04:04 codeine Allergy Unknown Verified 08/22/24 04:07 Iodinated Contrast Media Allergy Numbness Verified 08/22/24 04:11 [Contrast Dye] lanolin Allergy Rash Verified 08/22/24 04:11 latex Allergy Rash Verified 08/22/24 04:11 Sulfa (Sulfonamide Allergy Unknown Verified 08/22/24 04:11 Antibiotics) tramadol AdvReac Nausea and Verified 08/22/24 04:11 Vomiting Assessment & Plan Assessment & Plan (1) Schizoaffective disorder: Status: Acute Code(s): F25.9 - Schizoaffective disorder, unspecified Plan 08/22: continue medications from [facility]. hospitalist consult. observation, supportive care. 08/23: continue current mgmt. PRNs for anxiety. hospitalist consult pending. 08/24: psychotic, aggressive. add haldol 5 QHS and haldol 2 mg PRNs. medical consult appreciated. collateral from family. 08/25 pt presents with paranoid/persecutory delusions, auditory hallucinations and some grandiose delusions of having special power. will dc wellbutrin as it exacerbates psychosis. will increase haldol 5mg po qhs and will add 2.5mg po daily. increase abilify 20mg po daily. seems like amantadine for parkinsonian symptoms-wih higher potency antipsychotic like haldol will add low dose cogentin. Noted UA- shows UTI, will start ceftin 250mg po BID x 7 days. Pending collateral information. 08/26- pt with significant bilat cogwheel and rigidity with haldol. will d/c haldol, although risperidone also high potency antipsychotic will switch to risperidone. will continue abilify for now. 08/27 increased risperidone 2mg po BID. continue abilify 20mg po daily. 08/29 we are going to increase Risperdal to 2 mg in the morning and 3 mg at night we will assess for EPS tomorrow morning. 08/30 continue same treatment 08/31/24 isolated withdrawn would consider mcneal 09/01/2024 d/c abilify, continue risperidone, add depakote 250mg po daily and 500mg po qhs. 09/02 continue tx. 09/03 switch risperidone to prolixin 5mg po BID, continue depakote. will check depakote level in few days with ammonia and lft. 09/04 continue tx. 09/05 continue tx. 09/06 continue tx. 09/07 hospitalist consult- edema venous statis. 09/08 continue tx. Reason for continued inpatient stay Substantial Risk for: inability to function Time Spent With Patient Time: Total time managing care of this patient today ____ minutes.
[2024-09-10 07:00] VITALS: BMI 30.5
[2024-09-10 07:54] VITALS: BP 120/58; PULSE 79; RESP 18; TEMP 36.4; O2SAT 94
[2024-09-10] MEDS: clonazePAM 0.5 MG TABLET PO ×2 (09:00→20:32)
[2024-09-10] MEDS: valACYclovir HCL 500 MG TABLET PO (09:00)
[2024-09-10] MEDS: carvediloL 25 MG TABLET PO (09:00)
[2024-09-10] MEDS: Benztropine Mesylate 0.5 MG TABLET PO ×2 (09:01→20:31)
[2024-09-10] MEDS: fluPHENAZine HCl 5 MG TABLET PO (09:01)
[2024-09-10] MEDS: hydroCHLOROthiazide 25 MG TABLET PO (09:01)
[2024-09-10] MEDS: lisinopriL 40 MG TABLET PO (09:01)
[2024-09-10] MEDS: amLODIPine Besylate 5 MG TABLET PO (09:01)
[2024-09-10] MEDS: Gabapentin 100 MG CAPSULE 200 MG PO ×3 (09:02→20:33)
[2024-09-10] MEDS: Apixaban 5 MG TABLET PO ×2 (09:02→20:31)
[2024-09-10] MEDS: Divalproex Sodium 250 MG TABLET.DR PO (09:02)
[2024-09-10] MEDS: Acetaminophen 325 MG TABLET 650 MG PO (09:05)
[2024-09-10] MEDS: Lidocaine 4 % Patch ADH..PATCH 1 PATCH TRANSDERMA ×2 (09:10→09:13)
[2024-09-10] MEDS: hydrOXYzine HCL 25 MG TABLET PO (11:18)
[2024-09-10] MEDS: Nystatin Powder 15 GM BOTTLE 1 APPL TOPICAL ×2 (11:18→20:33)
--- NOTE | 2024-09-10 13:49 | P.PNPSI_ITS ---
Subjective Subjective Date of Service: 09/10/24 Reason For Visit: Unspecified Psychosis Interim History: met with patient; discussed with team pt sitting outside; she says she's having a good day today, but that yesterday she was upset, anxious. Pt said she is still having a lot of worries today. She reiterated that yesterday was a bad day but when mentioned that patient did not take a medication yesterday she was able to say maybe that was the reason. Patient otherwise kind of rambling to herself and to others at the same time Mental Status Exam Mental Status Exam Narrative: Appearance: wearing casual attire, unkempt but fair hygiene, wearing sunglasses, in NAD Behavior: less guarded, cooperative, calm Psychomotor: bilat cogwheel and rigidity; uses walker. Speech: clear, normal rate/rhythm/volume, spontaneous TP: mostly goal oriented and can be linear but wanders often to tangential as well TC: hearing voices of women who are telling her to join [facility]. Mood: Better Affect: constricted SI: denies HI: denies VH/AH: hearing voices; seeing shadows of people Delusion: paranoid, persecutory delusions Insight/judgment: limited x 2. Memory/cog: alert, oriented x 3. Diagnostics Vital Signs (24Hr): Vital Signs - 24 hr 09/09/24 20:00 09/10/24 07:54 Temperature 97.5 F 97.5 F Pulse Rate 66 79 Respiratory Rate 18 18 Blood Pressure 92/55 L 120/58 L Pulse Oximetry 96 94 Oxygen Delivery Method Room Air Room Air BMI result Body Mass Index 28.9 Labs 09/08/24 18:02 09/08/24 18:02 Labs: Laboratory Results - last 48 hr 09/08/24 09/09/24 18:02 07:53 WBC 7.6 RBC 3.24 L Hgb 11.1 L Hct 32.1 L MCV 99.1 H MCH 34.3 H MCHC 34.6 RDW 11.6 Plt Count 188 D MPV 10.3 Immature Gran % (Auto) 0.4 Neut % (Auto) 66.4 Lymph % (Auto) 21.1 [place] % (Auto) 8.8 Eos % (Auto) 3.0 Baso % (Auto) 0.3 Lymph # (Auto) 1.6 [place]ruff # (Auto) 0.7 Eos # (Auto) 0.2 Baso # (Auto) 0.0 Abs Immat Gran (auto) 0.03 Absolute Neuts (auto) 5.0 Absolute Nucleated RBC 0.000 Nucleated RBC % (auto) 0.0 Sodium 140 Potassium 3.5 Chloride 96 Carbon Dioxide 30 H Anion Gap 18 BUN 23 H Creatinine 1.04 Estim Creat Clear Calc 54.1 Estimated GFR 52 Random Glucose 128 H Calcium 9.3 D Total Bilirubin 0.2 AST 26 ALT 20 Alkaline Phosphatase 74 Ammonia 25 Total Protein 6.4 L Albumin 3.5 Valproic Acid 75.7 Medications Medications Current Medications Acetaminophen (Acetaminophen 325 Mg Tablet) 650 mg PO Q6H PRN PRN Reason: Headache/Pain Mild Scale (1-3) Last Admin: 09/10/24 09:05 Dose: 650 mg Al Hydroxide/Mg Hydroxide (Magnesium Hydrox/Alum Hydrox 30 Ml Oral.Susp) 30 ml PO Q6H PRN PRN Reason: Heartburn/Nausea Albuterol Sulfate (Albuterol Sulfate 90 Mcg 8 Gm Inhaler) 1 puff INHALE RQ4H PRN PRN Reason: Shortness of Breath Last Admin: 08/22/24 20:54 Dose: 1 puff Amlodipine Besylate (Amlodipine Besylate 5 Mg Tablet) 5 mg PO DAILY [facility]; Protocol Last Admin: 09/10/24 09:01 Dose: 5 mg Apixaban (Apixaban 5 Mg Tablet) 5 mg PO BID [facility] Last Admin: 09/10/24 09:02 Dose: 5 mg Atorvastatin Calcium (Atorvastatin Calcium 10 Mg Tablet) 10 mg PO BEDTIME [facility] Last Admin: 09/09/24 21:21 Dose: 10 mg Benztropine Mesylate (Benztropine Mesylate 0.5 Mg Tablet) 0.5 mg PO BID [facility] Last Admin: 09/10/24 09:01 Dose: 0.5 mg Carvedilol (Carvedilol 25 Mg Tablet) 25 mg PO BID [facility]; Protocol Last Admin: 09/10/24 09:00 Dose: 25 mg Clonazepam (Clonazepam 0.5 Mg Tablet) 0.5 mg PO BID [facility] Last Admin: 09/10/24 09:00 Dose: 0.5 mg Divalproex Sodium (Divalproex Sodium 500 Mg Tablet.Dr) 500 mg PO BEDTIME [facility] Last Admin: 09/09/24 21:22 Dose: 500 mg Divalproex Sodium (Divalproex Sodium 250 Mg Tablet.Dr) 250 mg PO DAILY [facility] Last Admin: 09/10/24 09:02 Dose: 250 mg Fluphenazine HCl (Fluphenazine Hcl 5 Mg Tablet) 5 mg PO DAILY [facility] Last Admin: 09/10/24 09:01 Dose: 5 mg Fluphenazine HCl (Fluphenazine Hcl 5 Mg Tablet) 10 mg PO BEDTIME [facility] Last Admin: 09/09/24 21:22 Dose: 10 mg Gabapentin (Gabapentin 100 Mg Capsule) 200 mg PO TID [facility] Last Admin: 09/10/24 09:02 Dose: 200 mg Hydrochlorothiazide (Hydrochlorothiazide 25 Mg Tablet) 25 mg PO DAILY [facility]; Protocol Last Admin: 09/10/24 09:01 Dose: 25 mg Hydroxyzine HCl (Hydroxyzine Hcl 25 Mg Tablet) 25 mg PO Q6H PRN PRN Reason: Anxiety Last Admin: 09/10/24 11:18 Dose: 25 mg Lidocaine (Lidocaine 4 % Patch Adh..Patch) 1 patch TRANSDERMA DAILY [facility]; Protocol Last Admin: 09/10/24 09:10 Dose: 1 patch Lidocaine (Lidocaine 4 % Patch Adh..Patch) 1 patch TRANSDERMA DAILY [facility]; Protocol Last Admin: 09/10/24 09:13 Dose: 1 patch Lisinopril (Lisinopril 40 Mg Tablet) 40 mg PO DAILY [facility]; Protocol Last Admin: 09/10/24 09:01 Dose: 40 mg Magnesium Hydroxide (Milk Of Magnesia 30 Ml Oral.Susp) 30 ml PO DAILY PRN PRN Reason: Constipation Nystatin (Nystatin Powder 15 Gm Bottle) 1 appl TOPICAL BID [facility]; Protocol Last Admin: 09/10/24 11:18 Dose: 1 appl Olanzapine (Olanzapine Odt 10 Mg Tab.Rapdis) 10 mg TRANSLINGU Q6H PRN PRN Reason: agitation Last Admin: 09/08/24 12:02 Dose: 10 mg Tamsulosin HCl (Tamsulosin Hcl 0.4 Mg Capsule) 0.4 mg PO BEDTIME [facility] Last Admin: 09/09/24 21:23 Dose: 0.4 mg Trazodone HCl (Trazodone Hcl 50 Mg Tablet) 50 mg PO BEDTIME MRX1 PRN PRN Reason: Insomnia Last Admin: 09/09/24 21:23 Dose: 50 mg Valacyclovir HCl (Valacyclovir Hcl 500 Mg Tablet) 500 mg PO DAILY [facility] Last Admin: 09/10/24 09:00 Dose: 500 mg Allergies Allergies Allergy/AdvReac Type Severity Reaction Status Date / Time Penicillins [PCN] Allergy Severe Anaphylaxis Verified 08/22/24 04:12 bee venom protein (honey bee) Allergy Anaphylaxis Verified 08/22/24 04:04 codeine Allergy Unknown Verified 08/22/24 04:07 Iodinated Contrast Media Allergy Numbness Verified 08/22/24 04:11 [Contrast Dye] lanolin Allergy Rash Verified 08/22/24 04:11 latex Allergy Rash Verified 08/22/24 04:11 Sulfa (Sulfonamide Allergy Unknown Verified 08/22/24 04:11 Antibiotics) tramadol AdvReac Nausea and Verified 08/22/24 04:11 Vomiting Assessment & Plan Assessment & Plan (1) Schizoaffective disorder: Status: Acute Code(s): F25.9 - Schizoaffective disorder, unspecified Plan 08/22: continue medications from [facility]. hospitalist consult. observation, supportive care. 08/23: continue current mgmt. PRNs for anxiety. hospitalist consult pending. 08/24: psychotic, aggressive. add haldol 5 QHS and haldol 2 mg PRNs. medical consult appreciated. collateral from family. 08/25 pt presents with paranoid/persecutory delusions, auditory hallucinations and some grandiose delusions of having special power. will dc wellbutrin as it exacerbates psychosis. will increase haldol 5mg po qhs and will add 2.5mg po daily. increase abilify 20mg po daily. seems like amantadine for parkinsonian symptoms-wih higher potency antipsychotic like haldol will add low dose cogentin. Noted UA- shows UTI, will start ceftin 250mg po BID x 7 days. Pending collateral information. 08/26- pt with significant bilat cogwheel and rigidity with haldol. will d/c haldol, although risperidone also high potency antipsychotic will switch to risperidone. will continue abilify for now. 08/27 increased risperidone 2mg po BID. continue abilify 20mg po daily. 08/29 we are going to increase Risperdal to 2 mg in the morning and 3 mg at night we will assess for EPS tomorrow morning. 08/30 continue same treatment 08/31/24 isolated withdrawn would consider mcneal 09/01/2024 d/c abilify, continue risperidone, add depakote 250mg po daily and 500mg po qhs. 09/02 continue tx. 09/03 switch risperidone to prolixin 5mg po BID, continue depakote. will check depakote level in few days with ammonia and lft. 09/04 continue tx. 09/05 continue tx. 09/06 continue tx. 09/07 hospitalist consult- edema venous statis. 09/08 continue tx. 09/09 pt sitting outside; she says she's having a good day today, but that yesterday she was upset, anxious. Pt said she is still having a lot of worries today. She reiterated that yesterday was a bad day but when mentioned that patient did not take a medication yesterday she was able to say maybe that was the reason. Patient otherwise kind of rambling to herself and to others at the same time -continue tx plan Patient educated on: diagnosis and medication risk/benefits Informed Consent: understands, does not understand and further education needed Reason for continued inpatient stay Substantial Risk for: inability to function Time Spent With Patient Time: Total time managing care of this patient today ____ minutes.
[2024-09-10 20:00] VITALS: BP 94/55; PULSE 65; RESP 15; TEMP 36; O2SAT 100
[2024-09-10] MEDS: Atorvastatin Calcium 10 MG TABLET PO (20:31)
[2024-09-10] MEDS: Divalproex Sodium 500 MG TABLET.DR PO (20:32)
[2024-09-10] MEDS: fluPHENAZine HCl 5 MG TABLET 10 MG PO (20:32)
[2024-09-10] MEDS: traZODone HCL 50 MG TABLET PO (20:35)
[2024-09-10] MEDS: Tamsulosin HCL 0.4 MG CAPSULE PO (20:35)
[2024-09-11 08:00] VITALS: BP 126/60; PULSE 84; RESP 18; TEMP 36.4; O2SAT 96
[2024-09-11] MEDS: carvediloL 25 MG TABLET PO ×2 (08:28→20:42)
[2024-09-11] MEDS: lisinopriL 40 MG TABLET PO (08:28)
[2024-09-11] MEDS: Divalproex Sodium 250 MG TABLET.DR PO (08:28)
[2024-09-11] MEDS: Benztropine Mesylate 0.5 MG TABLET PO ×2 (08:29→20:41)
[2024-09-11] MEDS: fluPHENAZine HCl 5 MG TABLET PO ×2 (08:29→15:36)
[2024-09-11] MEDS: Gabapentin 100 MG CAPSULE 200 MG PO ×3 (08:29→20:41)
[2024-09-11] MEDS: clonazePAM 0.5 MG TABLET PO ×2 (08:29→20:42)
[2024-09-11] MEDS: valACYclovir HCL 500 MG TABLET PO (08:29)
[2024-09-11] MEDS: amLODIPine Besylate 5 MG TABLET PO (08:29)
[2024-09-11] MEDS: Apixaban 5 MG TABLET PO ×2 (08:29→20:41)
[2024-09-11] MEDS: Lidocaine 4 % Patch ADH..PATCH 1 PATCH TRANSDERMA ×2 (08:30)
[2024-09-11] MEDS: hydroCHLOROthiazide 25 MG TABLET PO (08:30)
[2024-09-11] MEDS: Acetaminophen 325 MG TABLET 650 MG PO (08:37)
--- NOTE | 2024-09-11 14:47 | HO.PSYCHPN ---
Subjective Subjective Date of Service: 09/11/24 Reason For Visit: Unspecified Psychosis Interim History: Met with patient; discussed with team pt very agitated today, with paranoid delusions that people are trying to hurt her; both AH and VH (of shadows). Pt threatened to kill her roommate, thinking her roommate was persecuting her. Pt later had only vague memories of event and was tearful, apologetic, but confused whether or not she was really been persecuted; she said it helped when staff did reality testing. Pt agreed to prn Fluphenazine. Mental Status Exam Mental Status Exam Narrative: Appearance: wearing casual attire, unkempt but fair hygiene, wearing sunglasses, in NAD Behavior: Agitated, threatening, paranoid, tearful Psychomotor: bilat cogwheel and rigidity; uses walker. Speech: clear, normal rate/rhythm/volume, spontaneous TP: mostly goal oriented and can be linear but wanders often to tangential as well TC: hearing voices, paranoid delusions that people are out to get her Mood: Scared Affect: constricted, tearful SI: denies HI: Made verbal threat to kill her roommate VH/AH: hearing voices; seeing shadows of people Delusion: paranoid, persecutory delusions Insight/judgment: limited x 2. Memory/cog: alert, oriented x 3. Diagnostics Vital Signs (24Hr): Vital Signs - 24 hr 09/10/24 20:00 09/11/24 08:00 Temperature 96.8 F 97.6 F Pulse Rate 65 84 Respiratory Rate 15 18 Blood Pressure 94/55 L 126/60 Pulse Oximetry 100 96 Oxygen Delivery Method Room Air Room Air BMI result Body Mass Index 30.5 Labs 09/08/24 18:02 09/08/24 18:02 Medications Medications Current Medications Acetaminophen (Acetaminophen 325 Mg Tablet) 650 mg PO Q6H PRN PRN Reason: Headache/Pain Mild Scale (1-3) Last Admin: 09/11/24 08:37 Dose: 650 mg Al Hydroxide/Mg Hydroxide (Magnesium Hydrox/Alum Hydrox 30 Ml Oral.Susp) 30 ml PO Q6H PRN PRN Reason: Heartburn/Nausea Albuterol Sulfate (Albuterol Sulfate 90 Mcg 8 Gm Inhaler) 1 puff INHALE RQ4H PRN PRN Reason: Shortness of Breath Last Admin: 08/22/24 20:54 Dose: 1 puff Amlodipine Besylate (Amlodipine Besylate 5 Mg Tablet) 5 mg PO DAILY [facility]; Protocol Last Admin: 09/11/24 08:29 Dose: 5 mg Apixaban (Apixaban 5 Mg Tablet) 5 mg PO BID [facility] Last Admin: 09/11/24 08:29 Dose: 5 mg Atorvastatin Calcium (Atorvastatin Calcium 10 Mg Tablet) 10 mg PO BEDTIME [facility] Last Admin: 09/10/24 20:31 Dose: 10 mg Benztropine Mesylate (Benztropine Mesylate 0.5 Mg Tablet) 0.5 mg PO BID [facility] Last Admin: 09/11/24 08:29 Dose: 0.5 mg Carvedilol (Carvedilol 25 Mg Tablet) 25 mg PO BID [facility]; Protocol Last Admin: 09/11/24 08:28 Dose: 25 mg Clonazepam (Clonazepam 0.5 Mg Tablet) 0.5 mg PO BID [facility] Last Admin: 09/11/24 08:29 Dose: 0.5 mg Divalproex Sodium (Divalproex Sodium 500 Mg Tablet.Dr) 500 mg PO BEDTIME [facility] Last Admin: 09/10/24 20:32 Dose: 500 mg Divalproex Sodium (Divalproex Sodium 250 Mg Tablet.Dr) 250 mg PO DAILY [facility] Last Admin: 09/11/24 08:28 Dose: 250 mg Fluphenazine HCl (Fluphenazine Hcl 5 Mg Tablet) 5 mg PO DAILY [facility] Last Admin: 09/11/24 08:29 Dose: 5 mg Fluphenazine HCl (Fluphenazine Hcl 5 Mg Tablet) 10 mg PO BEDTIME [facility] Last Admin: 09/10/24 20:32 Dose: 10 mg Fluphenazine HCl (Fluphenazine Hcl 5 Mg Tablet) 5 mg PO DAILY PRN PRN Reason: aggresssion/psychosis Gabapentin (Gabapentin 100 Mg Capsule) 200 mg PO TID [facility] Last Admin: 09/11/24 14:32 Dose: 200 mg Hydrochlorothiazide (Hydrochlorothiazide 25 Mg Tablet) 25 mg PO DAILY [facility]; Protocol Last Admin: 09/11/24 08:30 Dose: 25 mg Hydroxyzine HCl (Hydroxyzine Hcl 25 Mg Tablet) 25 mg PO Q6H PRN PRN Reason: Anxiety Last Admin: 09/10/24 11:18 Dose: 25 mg Lidocaine (Lidocaine 4 % Patch Adh..Patch) 1 patch TRANSDERMA DAILY [facility]; Protocol Last Admin: 09/11/24 08:30 Dose: 1 patch Lidocaine (Lidocaine 4 % Patch Adh..Patch) 1 patch TRANSDERMA DAILY [facility]; Protocol Last Admin: 09/11/24 08:30 Dose: 1 patch Lisinopril (Lisinopril 40 Mg Tablet) 40 mg PO DAILY [facility]; Protocol Last Admin: 09/11/24 08:28 Dose: 40 mg Magnesium Hydroxide (Milk Of Magnesia 30 Ml Oral.Susp) 30 ml PO DAILY PRN PRN Reason: Constipation Nystatin (Nystatin Powder 15 Gm Bottle) 1 appl TOPICAL BID [facility]; Protocol Last Admin: 09/10/24 20:33 Dose: 1 appl Olanzapine (Olanzapine Odt 10 Mg Tab.Rapdis) 10 mg TRANSLINGU Q6H PRN PRN Reason: agitation Last Admin: 09/08/24 12:02 Dose: 10 mg Tamsulosin HCl (Tamsulosin Hcl 0.4 Mg Capsule) 0.4 mg PO BEDTIME [facility] Last Admin: 09/10/24 20:35 Dose: 0.4 mg Trazodone HCl (Trazodone Hcl 50 Mg Tablet) 50 mg PO BEDTIME MRX1 PRN PRN Reason: Insomnia Last Admin: 09/10/24 20:35 Dose: 50 mg Valacyclovir HCl (Valacyclovir Hcl 500 Mg Tablet) 500 mg PO DAILY [facility] Last Admin: 09/11/24 08:29 Dose: 500 mg Allergies Allergies Allergy/AdvReac Type Severity Reaction Status Date / Time Penicillins [PCN] Allergy Severe Anaphylaxis Verified 08/22/24 04:12 bee venom protein (honey bee) Allergy Anaphylaxis Verified 08/22/24 04:04 codeine Allergy Unknown Verified 08/22/24 04:07 Iodinated Contrast Media Allergy Numbness Verified 08/22/24 04:11 [Contrast Dye] lanolin Allergy Rash Verified 08/22/24 04:11 latex Allergy Rash Verified 08/22/24 04:11 Sulfa (Sulfonamide Allergy Unknown Verified 08/22/24 04:11 Antibiotics) tramadol AdvReac Nausea and Verified 08/22/24 04:11 Vomiting Assessment & Plan Assessment & Plan (1) Schizoaffective disorder: Status: Acute Code(s): F25.9 - Schizoaffective disorder, unspecified Plan HOSPITAL COURSE: 08/22: continue medications from [facility]. hospitalist consult. observation, supportive care. 08/23: continue current mgmt. PRNs for anxiety. hospitalist consult pending. 08/24: psychotic, aggressive. add haldol 5 QHS and haldol 2 mg PRNs. medical consult appreciated. collateral from family. 08/25 pt presents with paranoid/persecutory delusions, auditory hallucinations and some grandiose delusions of having special power. will dc wellbutrin as it exacerbates psychosis. will increase haldol 5mg po qhs and will add 2.5mg po daily. increase abilify 20mg po daily. seems like amantadine for parkinsonian symptoms-wih higher potency antipsychotic like haldol will add low dose cogentin. Noted UA- shows UTI, will start ceftin 250mg po BID x 7 days. Pending collateral information. 08/26- pt with significant bilat cogwheel and rigidity with haldol. will d/c haldol, although risperidone also high potency antipsychotic will switch to risperidone. will continue abilify for now. 08/27 increased risperidone 2mg po BID. continue abilify 20mg po daily. 08/29 we are going to increase Risperdal to 2 mg in the morning and 3 mg at night we will assess for EPS tomorrow morning. 08/30 continue same treatment 08/31/24 isolated withdrawn would consider mcneal 09/01/2024 d/c abilify, continue risperidone, add depakote 250mg po daily and 500mg po qhs. 09/03 switch risperidone to prolixin 5mg po BID, continue depakote. will check depakote level in few days with ammonia and lft. 09/07 hospitalist consult- edema venous statis. 09/08 continue tx. 09/09 pt sitting outside; she says she's having a good day today, but that yesterday she was upset, anxious. Pt said she is still having a lot of worries today. She reiterated that yesterday was a bad day but when mentioned that patient did not take a medication yesterday she was able to say maybe that was the reason. Patient otherwise kind of rambling to herself and to others at the same time -continue tx plan 09/11 pt very agitated today, with paranoid delusions that people are trying to hurt her; both AH and VH (of shadows). Pt threatened to kill her roommate, thinking her roommate was persecuting her. Pt later had only vague memories of event and was tearful, apologetic, but confused whether or not she was really been persecuted; she said it helped when staff did reality testing. Pt agreed to prn Fluphenazine. -check labs and recent Depakote level WNL; ammonia WNL -patient on fluphenazine; will add p.r.n. to see if it helps with agitation, psychosis; if so and if she needs consistently, will consider increasing scheduled dose -patient moved a single Plan: -Patient moved to single room Continue fluphenazine 5 mg daily Continue fluphenazine 10 mg q.h.s. ADDING fluphenazine 5 mg daily p.r.n. for agitation/psychosis ADDING clonazepam 0.25 mg b.i.d. p.r.n. for agitation/anxiety Continue clonazepam 0.5 mg b.i.d. Continue Depakote 500 mg q.h.s. Continue Depakote 250 mg daily Continue Gabapentin 200 mg t.i.d. Continue Cogentin 0.5 mg b.i.d. Patient educated on: diagnosis, medication risk/benefits and therapeutic strategies Informed Consent: understands, does not understand and further education needed Reason for continued inpatient stay Substantial Risk for: inability to function Time Spent With Patient Time: Total time managing care of this patient today ____ minutes.
[2024-09-11 20:00] VITALS: BP 101/53; PULSE 75; RESP 18; TEMP 36.8; O2SAT 95
[2024-09-11] MEDS: Atorvastatin Calcium 10 MG TABLET PO (20:41)
[2024-09-11] MEDS: fluPHENAZine HCl 5 MG TABLET 10 MG PO (20:42)
[2024-09-11] MEDS: Divalproex Sodium 500 MG TABLET.DR PO (20:42)
[2024-09-11] MEDS: Nystatin Powder 15 GM BOTTLE 1 APPL TOPICAL (20:42)
[2024-09-11] MEDS: Tamsulosin HCL 0.4 MG CAPSULE PO (20:43)
[2024-09-11] MEDS: traZODone HCL 50 MG TABLET PO (22:43)
[2024-09-11] MEDS: hydrOXYzine HCL 25 MG TABLET PO (22:43)
[2024-09-12 08:00] VITALS: BP 122/63; PULSE 70; RESP 18; TEMP 36.6; O2SAT 98
--- NOTE | 2024-09-12 08:05 | HO.PSYCHPN ---
Subjective Subjective Date of Service: 09/12/24 Reason For Visit: Unspecified Psychosis Diagnostics Vital Signs (24Hr): Vital Signs - 24 hr 09/11/24 20:00 Temperature 98.2 F Pulse Rate 75 Respiratory Rate 18 Blood Pressure 101/53 L Pulse Oximetry 95 Oxygen Delivery Method Room Air BMI result Body Mass Index 30.5 Labs 09/08/24 18:02 09/08/24 18:02 Medications Medications Current Medications Acetaminophen (Acetaminophen 325 Mg Tablet) 650 mg PO Q6H PRN PRN Reason: Headache/Pain Mild Scale (1-3) Last Admin: 09/11/24 08:37 Dose: 650 mg Al Hydroxide/Mg Hydroxide (Magnesium Hydrox/Alum Hydrox 30 Ml Oral.Susp) 30 ml PO Q6H PRN PRN Reason: Heartburn/Nausea Albuterol Sulfate (Albuterol Sulfate 90 Mcg 8 Gm Inhaler) 1 puff INHALE RQ4H PRN PRN Reason: Shortness of Breath Last Admin: 08/22/24 20:54 Dose: 1 puff Amlodipine Besylate (Amlodipine Besylate 5 Mg Tablet) 5 mg PO DAILY [facility]; Protocol Last Admin: 09/11/24 08:29 Dose: 5 mg Apixaban (Apixaban 5 Mg Tablet) 5 mg PO BID [facility] Last Admin: 09/11/24 20:41 Dose: 5 mg Atorvastatin Calcium (Atorvastatin Calcium 10 Mg Tablet) 10 mg PO BEDTIME ROB Last Admin: 09/11/24 20:41 Dose: 10 mg Benztropine Mesylate (Benztropine Mesylate 0.5 Mg Tablet) 0.5 mg PO BID [facility] Last Admin: 09/11/24 20:41 Dose: 0.5 mg Carvedilol (Carvedilol 25 Mg Tablet) 25 mg PO BID [facility]; Protocol Last Admin: 09/11/24 20:42 Dose: 25 mg Clonazepam (Clonazepam 0.5 Mg Tablet) 0.5 mg PO BID [facility] Last Admin: 09/11/24 20:42 Dose: 0.5 mg Clonazepam (Clonazepam 0.125 Mg Tab.Rapdis) 0.25 mg PO BID PRN PRN Reason: mod-severe anxiety Last Admin: 09/11/24 16:25 Dose: 0.25 mg Divalproex Sodium (Divalproex Sodium 500 Mg Tablet.Dr) 500 mg PO BEDTIME ROB Last Admin: 09/11/24 20:42 Dose: 500 mg Divalproex Sodium (Divalproex Sodium 250 Mg Tablet.Dr) 250 mg PO DAILY ROB Last Admin: 09/11/24 08:28 Dose: 250 mg Fluphenazine HCl (Fluphenazine Hcl 5 Mg Tablet) 5 mg PO DAILY ROB Last Admin: 09/11/24 08:29 Dose: 5 mg Fluphenazine HCl (Fluphenazine Hcl 5 Mg Tablet) 10 mg PO BEDTIME ROB Last Admin: 09/11/24 20:42 Dose: 10 mg Fluphenazine HCl (Fluphenazine Hcl 5 Mg Tablet) 5 mg PO DAILY PRN PRN Reason: aggresssion/psychosis Gabapentin (Gabapentin 100 Mg Capsule) 200 mg PO TID ROB Last Admin: 09/11/24 20:41 Dose: 200 mg Hydrochlorothiazide (Hydrochlorothiazide 25 Mg Tablet) 25 mg PO DAILY ROB; Protocol Last Admin: 09/11/24 08:30 Dose: 25 mg Hydroxyzine HCl (Hydroxyzine Hcl 25 Mg Tablet) 25 mg PO Q6H PRN PRN Reason: Anxiety Last Admin: 09/11/24 22:43 Dose: 25 mg Lidocaine (Lidocaine 4 % Patch Adh..Patch) 1 patch TRANSDERMA DAILY ROB; Protocol Last Admin: 09/11/24 08:30 Dose: 1 patch Lidocaine (Lidocaine 4 % Patch Adh..Patch) 1 patch TRANSDERMA DAILY ROB; Protocol Last Admin: 09/11/24 08:30 Dose: 1 patch Lisinopril (Lisinopril 40 Mg Tablet) 40 mg PO DAILY ROB; Protocol Last Admin: 09/11/24 08:28 Dose: 40 mg Magnesium Hydroxide (Milk Of Magnesia 30 Ml Oral.Susp) 30 ml PO DAILY PRN PRN Reason: Constipation Nystatin (Nystatin Powder 15 Gm Bottle) 1 appl TOPICAL BID ROB; Protocol Last Admin: 09/11/24 20:42 Dose: 1 appl Olanzapine (Olanzapine Odt 10 Mg Tab.Rapdis) 10 mg TRANSLINGU Q6H PRN PRN Reason: agitation Last Admin: 09/08/24 12:02 Dose: 10 mg Tamsulosin HCl (Tamsulosin Hcl 0.4 Mg Capsule) 0.4 mg PO BEDTIME ROB Last Admin: 09/11/24 20:43 Dose: 0.4 mg Trazodone HCl (Trazodone Hcl 50 Mg Tablet) 50 mg PO BEDTIME MRX1 PRN PRN Reason: Insomnia Last Admin: 09/11/24 22:43 Dose: 50 mg Valacyclovir HCl (Valacyclovir Hcl 500 Mg Tablet) 500 mg PO DAILY ROB Last Admin: 09/11/24 08:29 Dose: 500 mg Allergies Allergies Allergy/AdvReac Type Severity Reaction Status Date / Time Penicillins [PCN] Allergy Severe Anaphylaxis Verified 08/22/24 04:12 bee venom protein (honey bee) Allergy Anaphylaxis Verified 08/22/24 04:04 codeine Allergy Unknown Verified 08/22/24 04:07 Iodinated Contrast Media Allergy Numbness Verified 08/22/24 04:11 [Contrast Dye] lanolin Allergy Rash Verified 08/22/24 04:11 latex Allergy Rash Verified 08/22/24 04:11 Sulfa (Sulfonamide Allergy Unknown Verified 08/22/24 04:11 Antibiotics) tramadol AdvReac Nausea and Verified 08/22/24 04:11 Vomiting Assessment & Plan Assessment & Plan (1) Schizoaffective disorder: Status: Acute Code(s): F25.9 - Schizoaffective disorder, unspecified Plan 08/22: continue medications from [facility]. hospitalist consult. observation, supportive care. 08/23: continue current mgmt. PRNs for anxiety. hospitalist consult pending. 08/24: psychotic, aggressive. add haldol 5 QHS and haldol 2 mg PRNs. medical consult appreciated. collateral from family. 08/25 pt presents with paranoid/persecutory delusions, auditory hallucinations and some grandiose delusions of having special power. will dc wellbutrin as it exacerbates psychosis. will increase haldol 5mg po qhs and will add 2.5mg po daily. increase abilify 20mg po daily. seems like amantadine for parkinsonian symptoms-wih higher potency antipsychotic like haldol will add low dose cogentin. Noted UA- shows UTI, will start ceftin 250mg po BID x 7 days. Pending collateral information. 08/26- pt with significant bilat cogwheel and rigidity with haldol. will d/c haldol, although risperidone also high potency antipsychotic will switch to risperidone. will continue abilify for now. 08/27 increased risperidone 2mg po BID. continue abilify 20mg po daily. 08/29 we are going to increase Risperdal to 2 mg in the morning and 3 mg at night we will assess for EPS tomorrow morning. 08/30 continue same treatment 08/31/24 isolated withdrawn would consider mcneal 09/01/2024 d/c abilify, continue risperidone, add depakote 250mg po daily and 500mg po qhs. 09/02 continue tx. 09/03 switch risperidone to prolixin 5mg po BID, continue depakote. will check depakote level in few days with ammonia and lft. 09/04 continue tx. 09/05 continue tx. 09/06 continue tx. 09/07 hospitalist consult- edema venous statis. 09/08 continue tx. Time Spent With Patient Time: Total time managing care of this patient today ____ minutes.
[2024-09-12] MEDS: Lidocaine 4 % Patch ADH..PATCH 1 PATCH TRANSDERMA ×2 (08:58→08:59)
[2024-09-12] MEDS: carvediloL 25 MG TABLET PO ×2 (09:00→21:18)
[2024-09-12] MEDS: fluPHENAZine HCl 5 MG TABLET PO (09:00)
[2024-09-12] MEDS: Divalproex Sodium 250 MG TABLET.DR PO (09:00)
--- NOTE | 2024-09-12 09:00 | HO.PSYCHPN ---
Subjective Subjective Date of Service: 09/12/24 Reason For Visit: Unspecified Psychosis Interim History: Met with patient; discussed with team Patient?quite?paranoid?today,?thinks?people?are?after?her,?complaining?of?AH. ?Agrees?to?increase?fluphenazine. Mental Status Exam Mental Status Exam Narrative: Appearance: wearing casual attire, unkempt but fair hygiene, wearing sunglasses, in NAD Behavior: Calm?but?anxious Psychomotor: bilat cogwheel and rigidity; uses walker. Speech: clear, normal rate/rhythm/volume, spontaneous TP: mostly goal oriented and can be linear but wanders often to tangential as well TC: hearing voices, paranoid delusions that people are out to get her Mood: Scared Affect: constricted, tearful SI: denies HI: ?None VH/AH: hearing voices; Delusion: paranoid, persecutory delusions Insight/judgment: limited x 2. Memory/cog: alert, oriented x 3. Diagnostics Vital Signs (24Hr): Vital Signs - 24 hr 09/11/24 20:00 09/12/24 08:00 Temperature 98.2 F 97.9 F Pulse Rate 75 70 Respiratory Rate 18 18 Blood Pressure 101/53 L 122/63 Pulse Oximetry 95 98 Oxygen Delivery Method Room Air Room Air BMI result Body Mass Index 30.5 Labs 09/08/24 18:02 09/08/24 18:02 Medications Medications Current Medications Acetaminophen (Acetaminophen 325 Mg Tablet) 650 mg PO Q6H PRN PRN Reason: Headache/Pain Mild Scale (1-3) Last Admin: 09/11/24 08:37 Dose: 650 mg Al Hydroxide/Mg Hydroxide (Magnesium Hydrox/Alum Hydrox 30 Ml Oral.Susp) 30 ml PO Q6H PRN PRN Reason: Heartburn/Nausea Albuterol Sulfate (Albuterol Sulfate 90 Mcg 8 Gm Inhaler) 1 puff INHALE RQ4H PRN PRN Reason: Shortness of Breath Last Admin: 08/22/24 20:54 Dose: 1 puff Amlodipine Besylate (Amlodipine Besylate 5 Mg Tablet) 5 mg PO DAILY ROB; Protocol Last Admin: 09/11/24 08:29 Dose: 5 mg Apixaban (Apixaban 5 Mg Tablet) 5 mg PO BID [facility] Last Admin: 09/11/24 20:41 Dose: 5 mg Atorvastatin Calcium (Atorvastatin Calcium 10 Mg Tablet) 10 mg PO BEDTIME [facility] Last Admin: 09/11/24 20:41 Dose: 10 mg Benztropine Mesylate (Benztropine Mesylate 0.5 Mg Tablet) 0.5 mg PO BID [facility] Last Admin: 09/11/24 20:41 Dose: 0.5 mg Carvedilol (Carvedilol 25 Mg Tablet) 25 mg PO BID [facility]; Protocol Last Admin: 09/11/24 20:42 Dose: 25 mg Clonazepam (Clonazepam 0.5 Mg Tablet) 0.5 mg PO BID [facility] Last Admin: 09/11/24 20:42 Dose: 0.5 mg Clonazepam (Clonazepam 0.125 Mg Tab.Rapdis) 0.25 mg PO BID PRN PRN Reason: mod-severe anxiety Last Admin: 09/11/24 16:25 Dose: 0.25 mg Divalproex Sodium (Divalproex Sodium 500 Mg Tablet.) 500 mg PO BEDTIME [facility] Last Admin: 09/11/24 20:42 Dose: 500 mg Divalproex Sodium (Divalproex Sodium 250 Mg Tablet.Dr) 250 mg PO DAILY [facility] Last Admin: 09/11/24 08:28 Dose: 250 mg Fluphenazine HCl (Fluphenazine Hcl 5 Mg Tablet) 5 mg PO DAILY [facility] Last Admin: 09/11/24 08:29 Dose: 5 mg Fluphenazine HCl (Fluphenazine Hcl 5 Mg Tablet) 10 mg PO BEDTIME [facility] Last Admin: 09/11/24 20:42 Dose: 10 mg Fluphenazine HCl (Fluphenazine Hcl 5 Mg Tablet) 5 mg PO DAILY PRN PRN Reason: aggresssion/psychosis Gabapentin (Gabapentin 100 Mg Capsule) 200 mg PO TID [facility] Last Admin: 09/11/24 20:41 Dose: 200 mg Hydrochlorothiazide (Hydrochlorothiazide 25 Mg Tablet) 25 mg PO DAILY [facility]; Protocol Last Admin: 09/11/24 08:30 Dose: 25 mg Hydroxyzine HCl (Hydroxyzine Hcl 25 Mg Tablet) 25 mg PO Q6H PRN PRN Reason: Anxiety Last Admin: 09/11/24 22:43 Dose: 25 mg Lidocaine (Lidocaine 4 % Patch Adh..Patch) 1 patch TRANSDERMA DAILY [facility]; Protocol Last Admin: 09/11/24 08:30 Dose: 1 patch Lidocaine (Lidocaine 4 % Patch Adh..Patch) 1 patch TRANSDERMA DAILY [facility]; Protocol Last Admin: 09/11/24 08:30 Dose: 1 patch Lisinopril (Lisinopril 40 Mg Tablet) 40 mg PO DAILY [facility]; Protocol Last Admin: 09/11/24 08:28 Dose: 40 mg Magnesium Hydroxide (Milk Of Magnesia 30 Ml Oral.Susp) 30 ml PO DAILY PRN PRN Reason: Constipation Nystatin (Nystatin Powder 15 Gm Bottle) 1 appl TOPICAL BID ROB; Protocol Last Admin: 09/11/24 20:42 Dose: 1 appl Olanzapine (Olanzapine Odt 10 Mg Tab.Rapdis) 10 mg TRANSLINGU Q6H PRN PRN Reason: agitation Last Admin: 09/08/24 12:02 Dose: 10 mg Tamsulosin HCl (Tamsulosin Hcl 0.4 Mg Capsule) 0.4 mg PO BEDTIME ROB Last Admin: 09/11/24 20:43 Dose: 0.4 mg Trazodone HCl (Trazodone Hcl 50 Mg Tablet) 50 mg PO BEDTIME MRX1 PRN PRN Reason: Insomnia Last Admin: 09/11/24 22:43 Dose: 50 mg Valacyclovir HCl (Valacyclovir Hcl 500 Mg Tablet) 500 mg PO DAILY [facility] Last Admin: 09/11/24 08:29 Dose: 500 mg Allergies Allergies Allergy/AdvReac Type Severity Reaction Status Date / Time Penicillins [PCN] Allergy Severe Anaphylaxis Verified 08/22/24 04:12 bee venom protein (honey bee) Allergy Anaphylaxis Verified 08/22/24 04:04 codeine Allergy Unknown Verified 08/22/24 04:07 Iodinated Contrast Media Allergy Numbness Verified 08/22/24 04:11 [Contrast Dye] lanolin Allergy Rash Verified 08/22/24 04:11 latex Allergy Rash Verified 08/22/24 04:11 Sulfa (Sulfonamide Allergy Unknown Verified 08/22/24 04:11 Antibiotics) tramadol AdvReac Nausea and Verified 08/22/24 04:11 Vomiting Assessment & Plan Assessment & Plan (1) Schizoaffective disorder: Status: Acute Code(s): F25.9 - Schizoaffective disorder, unspecified Plan HOSPITAL COURSE: 08/22: [facility] hospitalist consult. observation, supportive care. 08/23: continue current mgmt. PRNs for anxiety. hospitalist consult pending. 08/24: psychotic, aggressive. add haldol 5 QHS and haldol 2 mg PRNs. medical consult appreciated. collateral from family. 08/25 pt presents with paranoid/persecutory delusions, auditory hallucinations and some grandiose delusions of having special power. will dc wellbutrin as it exacerbates psychosis. will increase haldol 5mg po qhs and will add 2.5mg po daily. increase abilify 20mg po daily. seems like amantadine for parkinsonian symptoms-wih higher potency antipsychotic like haldol will add low dose cogentin. Noted UA- shows UTI, will start ceftin 250mg po BID x 7 days. Pending collateral information. 08/26- pt with significant bilat cogwheel and rigidity with haldol. will d/c haldol, although risperidone also high potency antipsychotic will switch to risperidone. will continue abilify for now. 08/27 increased risperidone 2mg po BID. continue abilify 20mg po daily. 08/29 we are going to increase Risperdal to 2 mg in the morning and 3 mg at night we will assess for EPS tomorrow morning. 08/30 continue same treatment 08/31/24 isolated withdrawn would consider mcneal 09/01/2024 d/c abilify, continue risperidone, add depakote 250mg po daily and 500mg po qhs. 09/03 switch risperidone to prolixin 5mg po BID, continue depakote. will check depakote level in few days with ammonia and lft. 09/07 hospitalist consult- edema venous statis. 09/08 continue tx. 09/09 pt sitting outside; she says she's having a good day today, but that yesterday she was upset, anxious. Pt said she is still having a lot of worries today. She reiterated that yesterday was a bad day but when mentioned that patient did not take a medication yesterday she was able to say maybe that was the reason. Patient otherwise kind of rambling to herself and to others at the same time -continue tx plan 09/11 pt very agitated today, with paranoid delusions that people are trying to hurt her; both AH and VH (of shadows). Pt threatened to kill her roommate, thinking her roommate was persecuting her. Pt later had only vague memories of event and was tearful, apologetic, but confused whether or not she was really been persecuted; she said it helped when staff did reality testing. Pt agreed to prn Fluphenazine. -check labs and recent Depakote level WNL; ammonia WNL -patient on fluphenazine; will add p.r.n. to see if it helps with agitation, psychosis; if so and if she needs consistently, will consider increasing scheduled dose -patient moved a single 09/12?not?agitated?or?threatening?today?but?remains?with?AH?and?paranoid?delusions?that?she?is?being?persecuted Fluphenazine?p.r.n.?seem?to?help?yesterday?so?would?like?to?increase.??Patient?agrees Plan: -Patient moved to single room INCREASE TO fluphenazine 10mg BID continue fluphenazine 5 mg daily p.r.n. for agitation/psychosis continue clonazepam 0.25 mg b.i.d. p.r.n. for agitation/anxiety Continue clonazepam 0.5 mg b.i.d. Continue Depakote 500 mg q.h.s. Continue Depakote 250 mg daily Continue Gabapentin 200 mg t.i.d. Continue Cogentin 0.5 mg b.i.d. Patient educated on: diagnosis and medication risk/benefits Informed Consent: understands and further education needed Reason for continued inpatient stay Substantial Risk for: inability to function Time Spent With Patient Time: Total time managing care of this patient today ____ minutes.
[2024-09-12] MEDS: hydroCHLOROthiazide 25 MG TABLET PO (09:01)
[2024-09-12] MEDS: lisinopriL 40 MG TABLET PO (09:01)
[2024-09-12] MEDS: amLODIPine Besylate 5 MG TABLET PO (09:01)
[2024-09-12] MEDS: clonazePAM 0.5 MG TABLET PO ×2 (09:01→20:29)
[2024-09-12] MEDS: valACYclovir HCL 500 MG TABLET PO (09:01)
[2024-09-12] MEDS: Apixaban 5 MG TABLET PO ×2 (09:01→20:28)
[2024-09-12] MEDS: Benztropine Mesylate 0.5 MG TABLET PO ×2 (09:02→20:28)
[2024-09-12] MEDS: Gabapentin 100 MG CAPSULE 200 MG PO ×3 (09:02→20:30)
[2024-09-12] MEDS: Acetaminophen 325 MG TABLET 650 MG PO ×2 (09:08→20:30)
[2024-09-12 20:00] VITALS: BP 115/68; PULSE 77; RESP 18; TEMP 36.5; O2SAT 97
[2024-09-12] MEDS: Atorvastatin Calcium 10 MG TABLET PO (20:28)
[2024-09-12] MEDS: Divalproex Sodium 500 MG TABLET.DR PO (20:29)
[2024-09-12] MEDS: fluPHENAZine HCl 5 MG TABLET 10 MG PO (20:30)
[2024-09-12] MEDS: Nystatin Powder 15 GM BOTTLE 1 APPL TOPICAL (20:30)
[2024-09-12] MEDS: Tamsulosin HCL 0.4 MG CAPSULE PO (20:30)
[2024-09-12] MEDS: traZODone HCL 50 MG TABLET PO (20:30)
[2024-09-12] MEDS: Albuterol Sulfate 90 MCG 8 GM INHALER 1 PUFF INHALE (20:35)
[2024-09-13 08:16] VITALS: BP 132/71; PULSE 77; RESP 16; TEMP 37.4; O2SAT 95
[2024-09-13] MEDS: fluPHENAZine HCl 5 MG TABLET PO ×2 (08:19→10:26)
[2024-09-13] MEDS: lisinopriL 40 MG TABLET PO (08:19)
[2024-09-13] MEDS: Gabapentin 100 MG CAPSULE 200 MG PO ×3 (08:19→21:13)
[2024-09-13] MEDS: carvediloL 25 MG TABLET PO ×2 (08:19→21:14)
[2024-09-13] MEDS: Apixaban 5 MG TABLET PO ×2 (08:19→21:14)
[2024-09-13] MEDS: fluPHENAZine HCl 5 MG TABLET 10 MG PO ×2 (08:20→21:14)
[2024-09-13] MEDS: Benztropine Mesylate 0.5 MG TABLET PO ×2 (08:20→21:14)
[2024-09-13] MEDS: valACYclovir HCL 500 MG TABLET PO (08:20)
[2024-09-13] MEDS: hydroCHLOROthiazide 25 MG TABLET PO (08:20)
[2024-09-13] MEDS: clonazePAM 0.5 MG TABLET PO ×2 (08:20→21:15)
[2024-09-13] MEDS: Lidocaine 4 % Patch ADH..PATCH 1 PATCH TRANSDERMA ×2 (08:21)
[2024-09-13] MEDS: Acetaminophen 325 MG TABLET 650 MG PO (08:30)
[2024-09-13] MEDS: Divalproex Sodium 250 MG TABLET.DR PO (08:30)
[2024-09-13] MEDS: amLODIPine Besylate 5 MG TABLET PO (08:31)
[2024-09-13] MEDS: hydrOXYzine HCL 25 MG TABLET PO (13:49)
[2024-09-13] MEDS: Nystatin Powder 15 GM BOTTLE 1 APPL TOPICAL (13:56)
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
[2024-09-13 20:00] VITALS: BP 133/61; PULSE 76; RESP 16; TEMP 36.3; O2SAT 96
--- NOTE | 2024-09-13 20:46 | P.EN_ITS ---
Event Note Date of Service: 09/14/24 Event Note: Pt is a 69-year-old female admitted to [facility] with hospitalist consult for bilateral lower leg edema. Attempted to see pt this evening where she is initially seen resting comfortably on her back in bed. Pt immediately becomes agitated when approached and repeatedly screams loudly for me to leave the room. She is not amenable to interview or examination. Spoke with nursing who report pt has been seen ambulating today on the unit without difficulty or complaining of SOB, PERRY, or cough. No reports of lower leg pain. Based on these reports, low suspicion for new onset CHF. Will attempt to see pt again in the morning to evaluate for need for imaging, labs, or cocervative treatment. Time Spent With Patient Time: Total time managing care of this patient today ____ minutes.
[2024-09-13 21:14] VITALS: BP 133/61; PULSE 76
[2024-09-13] MEDS: Atorvastatin Calcium 10 MG TABLET PO (21:14)
[2024-09-13] MEDS: Tamsulosin HCL 0.4 MG CAPSULE PO (21:14)
[2024-09-13] MEDS: Divalproex Sodium 500 MG TABLET.DR PO (21:14)
[2024-09-13] MEDS: traZODone HCL 50 MG TABLET PO (21:15)
[2024-09-13] MEDS: OLANZapine ODT 10 MG TAB.RAPDIS TRANSLINGU (21:16)
[2024-09-14 08:00] VITALS: BP 139/67; PULSE 73; RESP 18; TEMP 37.1; O2SAT 93
[2024-09-14] MEDS: Gabapentin 100 MG CAPSULE 200 MG PO ×3 (08:27→21:08)
[2024-09-14] MEDS: valACYclovir HCL 500 MG TABLET PO (08:27)
[2024-09-14] MEDS: clonazePAM 0.5 MG TABLET PO ×2 (08:27→21:08)
[2024-09-14] MEDS: hydroCHLOROthiazide 25 MG TABLET PO (08:27)
[2024-09-14] MEDS: carvediloL 25 MG TABLET PO ×2 (08:27→21:08)
[2024-09-14] MEDS: fluPHENAZine HCl 5 MG TABLET 10 MG PO ×2 (08:27→21:07)
[2024-09-14] MEDS: Benztropine Mesylate 0.5 MG TABLET PO ×2 (08:28→21:08)
[2024-09-14] MEDS: lisinopriL 40 MG TABLET PO (08:28)
[2024-09-14] MEDS: Divalproex Sodium 250 MG TABLET.DR PO (08:28)
[2024-09-14] MEDS: Apixaban 5 MG TABLET PO ×2 (08:28→21:07)
[2024-09-14] MEDS: amLODIPine Besylate 5 MG TABLET PO (08:28)
[2024-09-14] MEDS: Lidocaine 4 % Patch ADH..PATCH 1 PATCH TRANSDERMA ×2 (08:32)
[2024-09-14] MEDS: Acetaminophen 325 MG TABLET 650 MG PO (08:36)
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
[2024-09-14 13:04] LABS: Influenza A PCR NEGATIVE (Negative); Influenza B PCR NEGATIVE (Negative); Resp Syncy Virus RNA Qual PCR NEGATIVE (Negative); SARS COV2 PCR INHOUSE NEGATIVE (Negative)
[2024-09-14] MEDS: fluPHENAZine HCl 5 MG TABLET PO (14:38)
[2024-09-14 20:00] VITALS: BP 105/56; PULSE 75; RESP 18; TEMP 36.4; O2SAT 96
[2024-09-14] MEDS: Tamsulosin HCL 0.4 MG CAPSULE PO (21:07)
[2024-09-14] MEDS: Atorvastatin Calcium 10 MG TABLET PO (21:07)
[2024-09-14] MEDS: Divalproex Sodium 500 MG TABLET.DR PO (21:08)
[2024-09-14] MEDS: Nystatin Powder 15 GM BOTTLE 1 APPL TOPICAL (21:10)
[2024-09-15 09:48] VITALS: BP 119/59; PULSE 72; RESP 18; TEMP 36.9; O2SAT 95
[2024-09-15] MEDS: fluPHENAZine HCl 5 MG TABLET 10 MG PO ×2 (09:50→21:20)
[2024-09-15] MEDS: valACYclovir HCL 500 MG TABLET PO (09:51)
[2024-09-15] MEDS: hydroCHLOROthiazide 25 MG TABLET PO (09:51)
[2024-09-15] MEDS: Gabapentin 100 MG CAPSULE 200 MG PO ×3 (09:51→21:19)
[2024-09-15] MEDS: Apixaban 5 MG TABLET PO ×2 (09:52→21:18)
[2024-09-15] MEDS: carvediloL 25 MG TABLET PO ×2 (09:52→21:22)
[2024-09-15] MEDS: amLODIPine Besylate 5 MG TABLET PO (09:52)
[2024-09-15] MEDS: Benztropine Mesylate 0.5 MG TABLET PO ×2 (09:52→21:19)
[2024-09-15] MEDS: Divalproex Sodium 250 MG TABLET.DR PO (09:52)
[2024-09-15] MEDS: Nystatin Powder 15 GM BOTTLE 1 APPL TOPICAL ×2 (09:53→21:31)
[2024-09-15] MEDS: lisinopriL 40 MG TABLET PO (09:53)
[2024-09-15] MEDS: Lidocaine 4 % Patch ADH..PATCH 1 PATCH TRANSDERMA ×2 (09:53→10:05)
--- NOTE | 2024-09-15 10:21 | P.PNPSI_ITS ---
Subjective Subjective Reason For Visit: Unspecified Psychosis Diagnostics Vital Signs (24Hr): Vital Signs - 24 hr 09/14/24 20:00 09/15/24 09:48 Temperature 97.6 F 98.5 F Pulse Rate 75 72 Respiratory Rate 18 18 Blood Pressure 105/56 L 119/59 L Pulse Oximetry 96 95 Oxygen Delivery Method Room Air Room Air BMI result Body Mass Index 30.5 Labs 09/08/24 18:02 09/08/24 18:02 Labs: Laboratory Results - last 48 hr 09/14/24 12:08 Influenza Type A (PCR) NEGATIVE Influenza Type B (PCR) NEGATIVE RSV RNA Qual (PCR) NEGATIVE SARS-CoV-2 RNA (RT-PCR) NEGATIVE Medications Medications Current Medications Acetaminophen (Acetaminophen 325 Mg Tablet) 650 mg PO Q6H PRN PRN Reason: Headache/Pain Mild Scale (1-3) Last Admin: 09/14/24 08:36 Dose: 650 mg Al Hydroxide/Mg Hydroxide (Magnesium Hydrox/Alum Hydrox 30 Ml Oral.Susp) 30 ml PO Q6H PRN PRN Reason: Heartburn/Nausea Albuterol Sulfate (Albuterol Sulfate 90 Mcg 8 Gm Inhaler) 1 puff INHALE RQ4H PRN PRN Reason: Shortness of Breath Last Admin: 09/12/24 20:35 Dose: 1 puff Amlodipine Besylate (Amlodipine Besylate 5 Mg Tablet) 5 mg PO DAILY [facility]; Protocol Last Admin: 09/15/24 09:52 Dose: 5 mg Apixaban (Apixaban 5 Mg Tablet) 5 mg PO BID [facility] Last Admin: 09/15/24 09:52 Dose: 5 mg Atorvastatin Calcium (Atorvastatin Calcium 10 Mg Tablet) 10 mg PO BEDTIME ROB Last Admin: 09/14/24 21:07 Dose: 10 mg Benztropine Mesylate (Benztropine Mesylate 0.5 Mg Tablet) 0.5 mg PO BID [facility] Last Admin: 09/15/24 09:52 Dose: 0.5 mg Carvedilol (Carvedilol 25 Mg Tablet) 25 mg PO BID [facility]; Protocol Last Admin: 09/15/24 09:52 Dose: 25 mg Clonazepam (Clonazepam 0.5 Mg Tablet) 0.5 mg PO BID [facility] Last Admin: 09/14/24 21:08 Dose: 0.5 mg Clonazepam (Clonazepam 0.125 Mg Tab.Rapdis) 0.25 mg PO BID PRN PRN Reason: mod-severe anxiety Last Admin: 09/13/24 13:49 Dose: 0.25 mg Divalproex Sodium (Divalproex Sodium 500 Mg Tablet.Dr) 500 mg PO BEDTIME ROB Last Admin: 09/14/24 21:08 Dose: 500 mg Divalproex Sodium (Divalproex Sodium 250 Mg Tablet.Dr) 250 mg PO DAILY [facility] Last Admin: 09/15/24 09:52 Dose: 250 mg Fluphenazine HCl (Fluphenazine Hcl 5 Mg Tablet) 5 mg PO DAILY PRN PRN Reason: aggresssion/psychosis Last Admin: 09/14/24 14:38 Dose: 5 mg Fluphenazine HCl (Fluphenazine Hcl 5 Mg Tablet) 10 mg PO BID [facility] Last Admin: 09/15/24 09:50 Dose: 10 mg Fluphenazine HCl (Fluphenazine Hcl 2.5 Mg Tablet) 2.5 mg PO QID PRN PRN Reason: psychosis Gabapentin (Gabapentin 100 Mg Capsule) 200 mg PO TID [facility] Last Admin: 09/15/24 09:51 Dose: 200 mg Hydrochlorothiazide (Hydrochlorothiazide 25 Mg Tablet) 25 mg PO DAILY [facility]; Protocol Last Admin: 09/15/24 09:51 Dose: 25 mg Lidocaine (Lidocaine 4 % Patch Adh..Patch) 1 patch TRANSDERMA DAILY [facility]; Protocol Last Admin: 09/15/24 09:53 Dose: 1 patch Lidocaine (Lidocaine 4 % Patch Adh..Patch) 1 patch TRANSDERMA DAILY [facility]; Protocol Last Admin: 09/15/24 10:05 Dose: 1 patch Lisinopril (Lisinopril 40 Mg Tablet) 40 mg PO DAILY [facility]; Protocol Last Admin: 09/15/24 09:53 Dose: 40 mg Magnesium Hydroxide (Milk Of Magnesia 30 Ml Oral.Susp) 30 ml PO DAILY PRN PRN Reason: Constipation Nystatin (Nystatin Powder 15 Gm Bottle) 1 appl TOPICAL BID [facility]; Protocol Last Admin: 09/15/24 09:53 Dose: 1 appl Olanzapine (Olanzapine Odt 10 Mg Tab.Rapdis) 10 mg TRANSLINGU Q6H PRN PRN Reason: agitation Last Admin: 09/13/24 21:16 Dose: 10 mg Tamsulosin HCl (Tamsulosin Hcl 0.4 Mg Capsule) 0.4 mg PO BEDTIME ROB Last Admin: 09/14/24 21:07 Dose: 0.4 mg Trazodone HCl (Trazodone Hcl 50 Mg Tablet) 50 mg PO BEDTIME MRX1 PRN PRN Reason: Insomnia Last Admin: 09/13/24 21:15 Dose: 50 mg Valacyclovir HCl (Valacyclovir Hcl 500 Mg Tablet) 500 mg PO DAILY [facility] Last Admin: 09/15/24 09:51 Dose: 500 mg Allergies Allergies Allergy/AdvReac Type Severity Reaction Status Date / Time Penicillins [PCN] Allergy Severe Anaphylaxis Verified 08/22/24 04:12 bee venom protein (honey bee) Allergy Anaphylaxis Verified 08/22/24 04:04 codeine Allergy Unknown Verified 08/22/24 04:07 Iodinated Contrast Media Allergy Numbness Verified 08/22/24 04:11 [Contrast Dye] lanolin Allergy Rash Verified 08/22/24 04:11 latex Allergy Rash Verified 08/22/24 04:11 Sulfa (Sulfonamide Allergy Unknown Verified 08/22/24 04:11 Antibiotics) tramadol AdvReac Nausea and Verified 08/22/24 04:11 Vomiting Assessment & Plan Assessment & Plan (1) Bilateral lower extremity edema: Status: Acute Code(s): R60.0 - Localized edema (2) Sore throat: Status: Acute Code(s): J02.9 - Acute pharyngitis, unspecified (3) Headache: Status: Acute Code(s): R51.9 - Headache, unspecified Plan Patient is a 69-year-old female with a past medical history significant for bipolar disorder, COPD, hypertension, obesity, paroxysmal AFib on Eliquis, ?CHF, on maksim psych for delirium and psychosis, consulted for bilateral LE edema. Blood pressures have been labile, reluctant to increase diuretic. Mild 1+ pitting edema. We will start with compression stockings and monitoring I's and O's. bilateral LE edema - monitor I's and O's - add compression stockings New onset headache and sore throat - COVID/flu/RSV test - Tylenol as needed for headache Thank you for allowing me to participate in the pt's care. Please contact the medical team if any questions or concerns. Time Spent With Patient Time: Total time managing care of this patient today ____ minutes.
[2024-09-15] MEDS: clonazePAM 0.5 MG TABLET PO ×2 (10:38→21:19)
[2024-09-15 20:00] VITALS: BP 112/58; PULSE 76; RESP 18; TEMP 37.1; O2SAT 96
[2024-09-15] MEDS: Atorvastatin Calcium 10 MG TABLET PO (21:18)
[2024-09-15] MEDS: Divalproex Sodium 500 MG TABLET.DR PO (21:18)
[2024-09-15] MEDS: OLANZapine ODT 10 MG TAB.RAPDIS TRANSLINGU (21:18)
[2024-09-15] MEDS: Tamsulosin HCL 0.4 MG CAPSULE PO (21:19)
[2024-09-15] MEDS: traZODone HCL 50 MG TABLET PO (21:19)
[2024-09-15 21:22] VITALS: BP 112/58; PULSE 76
[2024-09-16 08:00] VITALS: BP 109/56; PULSE 68; RESP 16; TEMP 36.2; O2SAT 97
[2024-09-16 09:33] VITALS: BP 109/56; PULSE 68
[2024-09-16] MEDS: carvediloL 25 MG TABLET PO ×2 (09:33→21:04)
[2024-09-16 09:34] VITALS: BP 109/56
[2024-09-16] MEDS: hydroCHLOROthiazide 25 MG TABLET PO (09:34)
[2024-09-16] MEDS: clonazePAM 0.5 MG TABLET PO ×2 (09:35→21:03)
[2024-09-16] MEDS: Gabapentin 100 MG CAPSULE 200 MG PO ×3 (09:35→21:03)
[2024-09-16] MEDS: valACYclovir HCL 500 MG TABLET PO (09:35)
[2024-09-16] MEDS: Apixaban 5 MG TABLET PO ×2 (09:37→21:03)
[2024-09-16] MEDS: Benztropine Mesylate 0.5 MG TABLET PO ×2 (09:37→21:03)
[2024-09-16] MEDS: Divalproex Sodium 250 MG TABLET.DR PO (09:37)
[2024-09-16 09:38] VITALS: BP 109/56
[2024-09-16] MEDS: lisinopriL 40 MG TABLET PO (09:38)
[2024-09-16] MEDS: amLODIPine Besylate 5 MG TABLET PO (09:38)
[2024-09-16] MEDS: fluPHENAZine HCl 5 MG TABLET 10 MG PO ×2 (09:40→21:04)
[2024-09-16] MEDS: Acetaminophen 325 MG TABLET 650 MG PO (11:56)
[2024-09-16] MEDS: Lidocaine 4 % Patch ADH..PATCH 1 PATCH TRANSDERMA ×2 (11:58→12:24)
[2024-09-16] MEDS: Nystatin Powder 15 GM BOTTLE 1 APPL TOPICAL ×2 (16:48→21:13)
[2024-09-16 20:00] VITALS: BP 111/56; PULSE 74; RESP 16; TEMP 36.3; O2SAT 94
[2024-09-16 21:04] VITALS: BP 111/56; PULSE 74
[2024-09-16] MEDS: Divalproex Sodium 500 MG TABLET.DR PO (21:04)
[2024-09-16] MEDS: traZODone HCL 50 MG TABLET PO (21:04)
[2024-09-16] MEDS: Atorvastatin Calcium 10 MG TABLET PO (21:07)
[2024-09-16] MEDS: Tamsulosin HCL 0.4 MG CAPSULE PO (21:07)
[2024-09-17 09:42] VITALS: BP 110/56; PULSE 76; RESP 20; TEMP 36.6; O2SAT 93
[2024-09-17] MEDS: fluPHENAZine HCl 5 MG TABLET 10 MG PO ×2 (09:45→20:28)
[2024-09-17] MEDS: hydroCHLOROthiazide 25 MG TABLET PO (09:46)
[2024-09-17] MEDS: valACYclovir HCL 500 MG TABLET PO (09:46)
[2024-09-17] MEDS: carvediloL 25 MG TABLET PO ×2 (09:46→20:27)
[2024-09-17] MEDS: Divalproex Sodium 250 MG TABLET.DR PO (09:46)
[2024-09-17] MEDS: lisinopriL 40 MG TABLET PO (09:46)
[2024-09-17] MEDS: Gabapentin 100 MG CAPSULE 200 MG PO ×3 (09:46→20:30)
[2024-09-17] MEDS: amLODIPine Besylate 5 MG TABLET PO (09:47)
[2024-09-17] MEDS: clonazePAM 0.5 MG TABLET PO ×2 (09:47→20:31)
[2024-09-17] MEDS: Apixaban 5 MG TABLET PO ×2 (09:47→20:31)
[2024-09-17] MEDS: Benztropine Mesylate 0.5 MG TABLET PO ×2 (09:47→21:47)
[2024-09-17] MEDS: Lidocaine 4 % Patch ADH..PATCH 1 PATCH TRANSDERMA ×2 (09:51→09:52)
[2024-09-17] MEDS: Nystatin Powder 15 GM BOTTLE 1 APPL TOPICAL (10:40)
--- NOTE | 2024-09-17 11:18 | P.PNPSI_ITS ---
Subjective Subjective Date of Service: 09/14/24 Reason For Visit: Unspecified Psychosis Interim History: Late?entry?note?for?patient?seen?on?09/14;?discussed?with?team P atient?again?more?fearful?today?about?paranoid?delusions,?that?someone?is?after? her.??Patient?knocking Doors,?saying ...??I?know?your?in?there. Mental Status Exam Mental Status Exam Narrative: Appearance: wearing casual attire, unkempt but fair hygiene, wearing sunglasses, in NAD Behavior: ?Anxious Psychomotor: ?Some?psychomotor?agitation;?bilat cogwheel and rigidity; uses walker. Speech: clear, normal rate/rhythm/volume, spontaneous TP: mostly goal oriented and can be linear but wanders often to tangential as well TC: hearing voices, paranoid delusions that people are out to get her Mood: anxious Affect: constricted SI: denies HI: ?None VH/AH: hearing voices Delusion: paranoid, persecutory delusions Insight/judgment: limited x 2. Memory/cog: alert, oriented x 3. Diagnostics Vital Signs (24Hr): Vital Signs - 24 hr 09/16/24 20:00 09/16/24 21:04 09/17/24 09:42 Temperature 97.4 F 98 F Pulse Rate 74 74 76 Respiratory Rate 16 20 Blood Pressure 111/56 L 111/56 L 110/56 L Pulse Oximetry 94 93 Oxygen Delivery Method Room Air Room Air BMI result Body Mass Index 30.5 Labs 09/08/24 18:02 09/08/24 18:02 Medications Medications Current Medications Acetaminophen (Acetaminophen 325 Mg Tablet) 650 mg PO Q6H PRN PRN Reason: Headache/Pain Mild Scale (1-3) Last Admin: 09/16/24 11:56 Dose: 650 mg Al Hydroxide/Mg Hydroxide (Magnesium Hydrox/Alum Hydrox 30 Ml Oral.Susp) 30 ml PO Q6H PRN PRN Reason: Heartburn/Nausea Albuterol Sulfate (Albuterol Sulfate 90 Mcg 8 Gm Inhaler) 1 puff INHALE RQ4H PRN PRN Reason: Shortness of Breath Last Admin: 09/12/24 20:35 Dose: 1 puff Amlodipine Besylate (Amlodipine Besylate 5 Mg Tablet) 5 mg PO DAILY [facility]; Protocol Last Admin: 09/17/24 09:47 Dose: 5 mg Apixaban (Apixaban 5 Mg Tablet) 5 mg PO BID [facility] Last Admin: 09/17/24 09:47 Dose: 5 mg Atorvastatin Calcium (Atorvastatin Calcium 10 Mg Tablet) 10 mg PO BEDTIME [facility] Last Admin: 09/16/24 21:07 Dose: 10 mg Benztropine Mesylate (Benztropine Mesylate 0.5 Mg Tablet) 0.5 mg PO BID [facility] Last Admin: 09/17/24 09:47 Dose: 0.5 mg Carvedilol (Carvedilol 25 Mg Tablet) 25 mg PO BID [facility]; Protocol Last Admin: 09/17/24 09:46 Dose: 25 mg Clonazepam (Clonazepam 0.5 Mg Tablet) 0.5 mg PO BID [facility] Last Admin: 09/17/24 09:47 Dose: 0.5 mg Clonazepam (Clonazepam 0.125 Mg Tab.Rapdis) 0.25 mg PO BID PRN PRN Reason: mod-severe anxiety Last Admin: 09/13/24 13:49 Dose: 0.25 mg Divalproex Sodium (Divalproex Sodium 500 Mg Tablet.Dr) 500 mg PO BEDTIME [facility] Last Admin: 09/16/24 21:04 Dose: 500 mg Divalproex Sodium (Divalproex Sodium 250 Mg Tablet.Dr) 250 mg PO DAILY [facility] Last Admin: 09/17/24 09:46 Dose: 250 mg Fluphenazine HCl (Fluphenazine Hcl 5 Mg Tablet) 5 mg PO DAILY PRN PRN Reason: aggresssion/psychosis Last Admin: 09/14/24 14:38 Dose: 5 mg Fluphenazine HCl (Fluphenazine Hcl 5 Mg Tablet) 10 mg PO BID [facility] Last Admin: 09/17/24 09:45 Dose: 10 mg Fluphenazine HCl (Fluphenazine Hcl 2.5 Mg Tablet) 2.5 mg PO QID PRN PRN Reason: psychosis Gabapentin (Gabapentin 100 Mg Capsule) 200 mg PO TID [facility] Last Admin: 09/17/24 09:46 Dose: 200 mg Hydrochlorothiazide (Hydrochlorothiazide 25 Mg Tablet) 25 mg PO DAILY [facility]; Protocol Last Admin: 09/17/24 09:46 Dose: 25 mg Lidocaine (Lidocaine 4 % Patch Adh..Patch) 1 patch TRANSDERMA DAILY [facility]; Protocol Last Admin: 09/17/24 09:51 Dose: 1 patch Lidocaine (Lidocaine 4 % Patch Adh..Patch) 1 patch TRANSDERMA DAILY [facility]; Protocol Last Admin: 09/17/24 09:52 Dose: 1 patch Lisinopril (Lisinopril 40 Mg Tablet) 40 mg PO DAILY [facility]; Protocol Last Admin: 09/17/24 09:46 Dose: 40 mg Magnesium Hydroxide (Milk Of Magnesia 30 Ml Oral.Susp) 30 ml PO DAILY PRN PRN Reason: Constipation Nystatin (Nystatin Powder 15 Gm Bottle) 1 appl TOPICAL BID [facility]; Protocol Last Admin: 09/17/24 10:40 Dose: 1 appl Olanzapine (Olanzapine Odt 10 Mg Tab.Rapdis) 10 mg TRANSLINGU Q6H PRN PRN Reason: agitation Last Admin: 09/15/24 21:18 Dose: 10 mg Tamsulosin HCl (Tamsulosin Hcl 0.4 Mg Capsule) 0.4 mg PO BEDTIME ROB Last Admin: 09/16/24 21:07 Dose: 0.4 mg Trazodone HCl (Trazodone Hcl 50 Mg Tablet) 50 mg PO BEDTIME MRX1 PRN PRN Reason: Insomnia Last Admin: 09/16/24 21:04 Dose: 50 mg Valacyclovir HCl (Valacyclovir Hcl 500 Mg Tablet) 500 mg PO DAILY [facility] Last Admin: 09/17/24 09:46 Dose: 500 mg Allergies Allergies Allergy/AdvReac Type Severity Reaction Status Date / Time Penicillins [PCN] Allergy Severe Anaphylaxis Verified 08/22/24 04:12 bee venom protein (honey bee) Allergy Anaphylaxis Verified 08/22/24 04:04 codeine Allergy Unknown Verified 08/22/24 04:07 Iodinated Contrast Media Allergy Numbness Verified 08/22/24 04:11 [Contrast Dye] lanolin Allergy Rash Verified 08/22/24 04:11 latex Allergy Rash Verified 08/22/24 04:11 Sulfa (Sulfonamide Allergy Unknown Verified 08/22/24 04:11 Antibiotics) tramadol AdvReac Nausea and Verified 08/22/24 04:11 Vomiting Assessment & Plan Assessment & Plan (1) Schizoaffective disorder: Status: Acute Code(s): F25.9 - Schizoaffective disorder, unspecified Plan HOSPITAL COURSE: 08/22: continue medications from [facility]. hospitalist consult. observation, supportive care. 08/23: continue current mgmt. PRNs for anxiety. hospitalist consult pending. 08/24: psychotic, aggressive. add haldol 5 QHS and haldol 2 mg PRNs. medical consult appreciated. collateral from family. 08/25 pt presents with paranoid/persecutory delusions, auditory hallucinations and some grandiose delusions of having special power. will dc wellbutrin as it exacerbates psychosis. will increase haldol 5mg po qhs and will add 2.5mg po daily. increase abilify 20mg po daily. seems like amantadine for parkinsonian symptoms-wih higher potency antipsychotic like haldol will add low dose cogentin. Noted UA- shows UTI, will start ceftin 250mg po BID x 7 days. Pending collateral information. 08/26- pt with significant bilat cogwheel and rigidity with haldol. will d/c haldol, although risperidone also high potency antipsychotic will switch to risperidone. will continue abilify for now. 08/27 increased risperidone 2mg po BID. continue abilify 20mg po daily. 08/29 we are going to increase Risperdal to 2 mg in the morning and 3 mg at night we will assess for EPS tomorrow morning. 08/30 continue same treatment 08/31/24 isolated withdrawn would consider mcneal 09/01/2024 d/c abilify, continue risperidone, add depakote 250mg po daily and 500mg po qhs. 09/03 switch risperidone to prolixin 5mg po BID, continue depakote. will check depakote level in few days with ammonia and lft. 09/07 hospitalist consult- edema venous statis. 09/08 continue tx. 09/09 pt sitting outside; she says she's having a good day today, but that yesterday she was upset, anxious. Pt said she is still having a lot of worries today. She reiterated that yesterday was a bad day but when mentioned that patient did not take a medication yesterday she was able to say maybe that was the reason. Patient otherwise kind of rambling to herself and to others at the same time -continue tx plan 09/11 pt very agitated today, with paranoid delusions that people are trying to hurt her; both AH and VH (of shadows). Pt threatened to kill her roommate, thinking her roommate was persecuting her. Pt later had only vague memories of event and was tearful, apologetic, but confused whether or not she was really been persecuted; she said it helped when staff did reality testing. Pt agreed to prn Fluphenazine. -check labs and recent Depakote level WNL; ammonia WNL -patient on fluphenazine; will add p.r.n. to see if it helps with agitation, psychosis; if so and if she needs consistently, will consider increasing scheduled dose -patient moved a single 11/12?not?agitated?or?threatening?today?but?remains?with?AH?and?paranoid?delusions ?that?she?is?being?persecuted F luphenazine?p.r.n.?seem?to?help?yesterday?so?would?like?to?increase.??Patient?ag garth 09/13 Patient?less?agitated;?not?expressing?paranoid?delusions?as?much.??Seems?to?be?m ore?calm.??Slept?at?night Nurse?reports?bilateral?lower?limb?edema;?will?add?Hospitalist consult 11/14?more?paranoid?delusions?and?AH?today;?will?continue?with?current?regimen?as? fluphenazine?just?increase.? -hospitalist?order?Steve?stockings Plan: -Patient moved to single room Continue fluphenazine 10mg BID continue fluphenazine 5 mg daily p.r.n. for agitation/psychosis continue clonazepam 0.25 mg b.i.d. p.r.n. for agitation/anxiety Continue clonazepam 0.5 mg b.i.d. Continue Depakote 500 mg q.h.s. Continue Depakote 250 mg daily Continue Gabapentin 200 mg t.i.d. Continue Cogentin 0.5 mg b.i.d. Patient educated on: diagnosis and medication risk/benefits Informed Consent: understands, does not understand and further education needed Reason for continued inpatient stay Substantial Risk for: inability to function Time Spent With Patient Time: Total time managing care of this patient today ____ minutes.
--- NOTE | 2024-09-17 11:55 | HO.PSYCHPN ---
Subjective Subjective Date of Service: 09/15/24 Reason For Visit: Unspecified Psychosis Interim History: Late?entry?note?for?patient?seen?on?09/15;?discussed?with?team Patient?doing?better,?not?talking?about?paranoid?delusions?or?AH.??Overall?presents?as?less?anxious Patient?wearing?Steve?stockings?and?tells?development writer?that?she?has?to?go?lie?down?to?elevate?her?feet. Mental Status Exam Mental Status Exam Narrative: Appearance: wearing casual attire, unkempt but fair hygiene, wearing sunglasses, in NAD Behavior: More?Calm Psychomotor: bilat cogwheel and rigidity; uses walker. Speech: clear, normal rate/rhythm/volume, spontaneous TP: mostly goal oriented and can be linear but wanders often to tangential as well TC: ?No?expressed?paranoid?delusions?today Mood: Okay Affect: constricted SI: denies HI: ?None VH/AH: ?Currently?no?AH; Delusion: ?Currently?no?paranoid/persecutory?delusions Insight/judgment: limited x 2. Memory/cog: alert, oriented x 3. Diagnostics Vital Signs (24Hr): Vital Signs - 24 hr 09/16/24 20:00 09/16/24 21:04 09/17/24 09:42 Temperature 97.4 F 98 F Pulse Rate 74 74 76 Respiratory Rate 16 20 Blood Pressure 111/56 L 111/56 L 110/56 L Pulse Oximetry 94 93 Oxygen Delivery Method Room Air Room Air BMI result Body Mass Index 30.5 Labs 09/08/24 18:02 09/08/24 18:02 Medications Medications Current Medications Acetaminophen (Acetaminophen 325 Mg Tablet) 650 mg PO Q6H PRN PRN Reason: Headache/Pain Mild Scale (1-3) Last Admin: 09/16/24 11:56 Dose: 650 mg Al Hydroxide/Mg Hydroxide (Magnesium Hydrox/Alum Hydrox 30 Ml Oral.Susp) 30 ml PO Q6H PRN PRN Reason: Heartburn/Nausea Albuterol Sulfate (Albuterol Sulfate 90 Mcg 8 Gm Inhaler) 1 puff INHALE RQ4H PRN PRN Reason: Shortness of Breath Last Admin: 09/12/24 20:35 Dose: 1 puff Amlodipine Besylate (Amlodipine Besylate 5 Mg Tablet) 5 mg PO DAILY [facility]; Protocol Last Admin: 09/17/24 09:47 Dose: 5 mg Apixaban (Apixaban 5 Mg Tablet) 5 mg PO BID [facility] Last Admin: 09/17/24 09:47 Dose: 5 mg Atorvastatin Calcium (Atorvastatin Calcium 10 Mg Tablet) 10 mg PO BEDTIME [facility] Last Admin: 09/16/24 21:07 Dose: 10 mg Benztropine Mesylate (Benztropine Mesylate 0.5 Mg Tablet) 0.5 mg PO BID [facility] Last Admin: 09/17/24 09:47 Dose: 0.5 mg Carvedilol (Carvedilol 25 Mg Tablet) 25 mg PO BID [facility]; Protocol Last Admin: 09/17/24 09:46 Dose: 25 mg Clonazepam (Clonazepam 0.5 Mg Tablet) 0.5 mg PO BID [facility] Last Admin: 09/17/24 09:47 Dose: 0.5 mg Clonazepam (Clonazepam 0.125 Mg Tab.Rapdis) 0.25 mg PO BID PRN PRN Reason: mod-severe anxiety Last Admin: 09/13/24 13:49 Dose: 0.25 mg Divalproex Sodium (Divalproex Sodium 500 Mg Tablet.) 500 mg PO BEDTIME [facility] Last Admin: 09/16/24 21:04 Dose: 500 mg Divalproex Sodium (Divalproex Sodium 250 Mg Tablet.Dr) 250 mg PO DAILY [facility] Last Admin: 09/17/24 09:46 Dose: 250 mg Fluphenazine HCl (Fluphenazine Hcl 5 Mg Tablet) 5 mg PO DAILY PRN PRN Reason: aggresssion/psychosis Last Admin: 09/14/24 14:38 Dose: 5 mg Fluphenazine HCl (Fluphenazine Hcl 5 Mg Tablet) 10 mg PO BID [facility] Last Admin: 09/17/24 09:45 Dose: 10 mg Fluphenazine HCl (Fluphenazine Hcl 2.5 Mg Tablet) 2.5 mg PO QID PRN PRN Reason: psychosis Gabapentin (Gabapentin 100 Mg Capsule) 200 mg PO TID [facility] Last Admin: 09/17/24 09:46 Dose: 200 mg Hydrochlorothiazide (Hydrochlorothiazide 25 Mg Tablet) 25 mg PO DAILY [facility]; Protocol Last Admin: 09/17/24 09:46 Dose: 25 mg Lidocaine (Lidocaine 4 % Patch Adh..Patch) 1 patch TRANSDERMA DAILY [facility]; Protocol Last Admin: 09/17/24 09:51 Dose: 1 patch Lidocaine (Lidocaine 4 % Patch Adh..Patch) 1 patch TRANSDERMA DAILY [facility]; Protocol Last Admin: 09/17/24 09:52 Dose: 1 patch Lisinopril (Lisinopril 40 Mg Tablet) 40 mg PO DAILY [facility]; Protocol Last Admin: 09/17/24 09:46 Dose: 40 mg Magnesium Hydroxide (Milk Of Magnesia 30 Ml Oral.Susp) 30 ml PO DAILY PRN PRN Reason: Constipation Nystatin (Nystatin Powder 15 Gm Bottle) 1 appl TOPICAL BID [facility]; Protocol Last Admin: 09/17/24 10:40 Dose: 1 appl Olanzapine (Olanzapine Odt 10 Mg Tab.Rapdis) 10 mg TRANSLINGU Q6H PRN PRN Reason: agitation Last Admin: 09/15/24 21:18 Dose: 10 mg Tamsulosin HCl (Tamsulosin Hcl 0.4 Mg Capsule) 0.4 mg PO BEDTIME [facility] Last Admin: 09/16/24 21:07 Dose: 0.4 mg Trazodone HCl (Trazodone Hcl 50 Mg Tablet) 50 mg PO BEDTIME MRX1 PRN PRN Reason: Insomnia Last Admin: 09/16/24 21:04 Dose: 50 mg Valacyclovir HCl (Valacyclovir Hcl 500 Mg Tablet) 500 mg PO DAILY [facility] Last Admin: 09/17/24 09:46 Dose: 500 mg Allergies Allergies Allergy/AdvReac Type Severity Reaction Status Date / Time Penicillins [PCN] Allergy Severe Anaphylaxis Verified 08/22/24 04:12 bee venom protein (honey bee) Allergy Anaphylaxis Verified 08/22/24 04:04 codeine Allergy Unknown Verified 08/22/24 04:07 Iodinated Contrast Media Allergy Numbness Verified 08/22/24 04:11 [Contrast Dye] lanolin Allergy Rash Verified 08/22/24 04:11 latex Allergy Rash Verified 08/22/24 04:11 Sulfa (Sulfonamide Allergy Unknown Verified 08/22/24 04:11 Antibiotics) tramadol AdvReac Nausea and Verified 08/22/24 04:11 Vomiting Assessment & Plan Assessment & Plan (1) Schizoaffective disorder: Status: Acute Code(s): F25.9 - Schizoaffective disorder, unspecified Plan HOSPITAL COURSE: 08/22: continue medications from [facility]. hospitalist consult. observation, supportive care. 08/23: continue current mgmt. PRNs for anxiety. hospitalist consult pending. 08/24: psychotic, aggressive. add haldol 5 QHS and haldol 2 mg PRNs. medical consult appreciated. collateral from family. 08/25 pt presents with paranoid/persecutory delusions, auditory hallucinations and some grandiose delusions of having special power. will dc wellbutrin as it exacerbates psychosis. will increase haldol 5mg po qhs and will add 2.5mg po daily. increase abilify 20mg po daily. seems like amantadine for parkinsonian symptoms-wih higher potency antipsychotic like haldol will add low dose cogentin. Noted UA- shows UTI, will start ceftin 250mg po BID x 7 days. Pending collateral information. 08/26- pt with significant bilat cogwheel and rigidity with haldol. will d/c haldol, although risperidone also high potency antipsychotic will switch to risperidone. will continue abilify for now. 08/27 increased risperidone 2mg po BID. continue abilify 20mg po daily. 08/29 we are going to increase Risperdal to 2 mg in the morning and 3 mg at night we will assess for EPS tomorrow morning. 08/30 continue same treatment 08/31/24 isolated withdrawn would consider mcneal 09/01/2024 d/c abilify, continue risperidone, add depakote 250mg po daily and 500mg po qhs. 09/03 switch risperidone to prolixin 5mg po BID, continue depakote. will check depakote level in few days with ammonia and lft. 09/07 hospitalist consult- edema venous statis. 09/08 continue tx. 09/09 pt sitting outside; she says she's having a good day today, but that yesterday she was upset, anxious. Pt said she is still having a lot of worries today. She reiterated that yesterday was a bad day but when mentioned that patient did not take a medication yesterday she was able to say maybe that was the reason. Patient otherwise kind of rambling to herself and to others at the same time -continue tx plan 11/1 pt very agitated today, with paranoid delusions that people are trying to hurt her; both AH and VH (of shadows). Pt threatened to kill her roommate, thinking her roommate was persecuting her. Pt later had only vague memories of event and was tearful, apologetic, but confused whether or not she was really been persecuted; she said it helped when staff did reality testing. Pt agreed to prn Fluphenazine. -check labs and recent Depakote level WNL; ammonia WNL -patient on fluphenazine; will add p.r.n. to see if it helps with agitation, psychosis; if so and if she needs consistently, will consider increasing scheduled dose -patient moved a single 09/12?not?agitated?or?threatening?today?but?remains?with?AH?and?paranoid?delusions?that?she?is?being?persecuted Fluphenazine?p.r.n.?seem?to?help?yesterday?so?would?like?to?increase.??Patient?agrees 09/13 Patient?less?agitated;?not?expressing?paranoid?delusions?as?much.??Seems?to?be?more?calm.??Slept?at?night Nurse?reports?bilateral?lower?limb?edema;?will?add?Hospitalist consult 09/14?more?paranoid?delusions?and?AH?today;?will?continue?with?current?regimen?as?fluphenazine?just?increase.? -hospitalist?order?Steve?stockings 09/15?no?expressed?paranoid?delusions,?no?AH?today;?more?calm.??Perhaps?increased?fluphenazine?dose?is?working.?? Continue?current?regimen Plan: -Patient moved to single room Continue fluphenazine 10mg BID continue fluphenazine 5 mg daily p.r.n. for agitation/psychosis continue clonazepam 0.25 mg b.i.d. p.r.n. for agitation/anxiety Continue clonazepam 0.5 mg b.i.d. Continue Depakote 500 mg q.h.s. Continue Depakote 250 mg daily Continue Gabapentin 200 mg t.i.d. Continue Cogentin 0.5 mg b.i.d. Patient educated on: diagnosis, medication risk/benefits and medical condition Informed Consent: understands, does not understand and further education needed Reason for continued inpatient stay Substantial Risk for: inability to function Time Spent With Patient Time: Total time managing care of this patient today ____ minutes.
--- NOTE | 2024-09-17 11:58 | P.PNPSI_ITS ---
Subjective Subjective Date of Service: 09/16/24 Reason For Visit: Unspecified Psychosis Interim History: Late?entry?note?for?patient?seen?on?09/16;?discussed?with?team Patient?again?more?calm;?no?expressed?paranoid?delusions?or?AH.? Cooperative?and?in?good?behavioral?control Mental Status Exam Mental Status Exam Narrative: Appearance: wearing casual attire, unkempt but fair hygiene, wearing sunglasses, in NAD Behavior: More?Calm Psychomotor: bilat cogwheel and rigidity; uses walker. Speech: clear, normal rate/rhythm/volume, spontaneous TP: mostly goal oriented and can be linear but wanders often to tangential as well TC: ?No?expressed?paranoid?delusions?today Mood: Okay Affect: constricted SI: denies HI: ?None VH/AH: ?Currently?no?AH; Delusion: ?Currently?no?paranoid/persecutory?delusions Insight/judgment: limited x 2. Memory/cog: alert, oriented x 3. Diagnostics Vital Signs (24Hr): Vital Signs - 24 hr 09/16/24 20:00 09/16/24 21:04 09/17/24 09:42 Temperature 97.4 F 98 F Pulse Rate 74 74 76 Respiratory Rate 16 20 Blood Pressure 111/56 L 111/56 L 110/56 L Pulse Oximetry 94 93 Oxygen Delivery Method Room Air Room Air BMI result Body Mass Index 30.5 Labs 09/08/24 18:02 09/08/24 18:02 Medications Medications Current Medications Acetaminophen (Acetaminophen 325 Mg Tablet) 650 mg PO Q6H PRN PRN Reason: Headache/Pain Mild Scale (1-3) Last Admin: 09/16/24 11:56 Dose: 650 mg Al Hydroxide/Mg Hydroxide (Magnesium Hydrox/Alum Hydrox 30 Ml Oral.Susp) 30 ml PO Q6H PRN PRN Reason: Heartburn/Nausea Albuterol Sulfate (Albuterol Sulfate 90 Mcg 8 Gm Inhaler) 1 puff INHALE RQ4H PRN PRN Reason: Shortness of Breath Last Admin: 09/12/24 20:35 Dose: 1 puff Amlodipine Besylate (Amlodipine Besylate 5 Mg Tablet) 5 mg PO DAILY [facility]; Protocol Last Admin: 09/17/24 09:47 Dose: 5 mg Apixaban (Apixaban 5 Mg Tablet) 5 mg PO BID [facility] Last Admin: 09/17/24 09:47 Dose: 5 mg Atorvastatin Calcium (Atorvastatin Calcium 10 Mg Tablet) 10 mg PO BEDTIME [facility] Last Admin: 09/16/24 21:07 Dose: 10 mg Benztropine Mesylate (Benztropine Mesylate 0.5 Mg Tablet) 0.5 mg PO BID [facility] Last Admin: 09/17/24 09:47 Dose: 0.5 mg Carvedilol (Carvedilol 25 Mg Tablet) 25 mg PO BID [facility]; Protocol Last Admin: 09/17/24 09:46 Dose: 25 mg Clonazepam (Clonazepam 0.5 Mg Tablet) 0.5 mg PO BID [facility] Last Admin: 09/17/24 09:47 Dose: 0.5 mg Clonazepam (Clonazepam 0.125 Mg Tab.Rapdis) 0.25 mg PO BID PRN PRN Reason: mod-severe anxiety Last Admin: 09/13/24 13:49 Dose: 0.25 mg Divalproex Sodium (Divalproex Sodium 500 Mg Tablet.Dr) 500 mg PO BEDTIME [facility] Last Admin: 09/16/24 21:04 Dose: 500 mg Divalproex Sodium (Divalproex Sodium 250 Mg Tablet.Dr) 250 mg PO DAILY [facility] Last Admin: 09/17/24 09:46 Dose: 250 mg Fluphenazine HCl (Fluphenazine Hcl 5 Mg Tablet) 5 mg PO DAILY PRN PRN Reason: aggresssion/psychosis Last Admin: 09/14/24 14:38 Dose: 5 mg Fluphenazine HCl (Fluphenazine Hcl 5 Mg Tablet) 10 mg PO BID [facility] Last Admin: 09/17/24 09:45 Dose: 10 mg Fluphenazine HCl (Fluphenazine Hcl 2.5 Mg Tablet) 2.5 mg PO QID PRN PRN Reason: psychosis Gabapentin (Gabapentin 100 Mg Capsule) 200 mg PO TID [facility] Last Admin: 09/17/24 09:46 Dose: 200 mg Hydrochlorothiazide (Hydrochlorothiazide 25 Mg Tablet) 25 mg PO DAILY [facility]; Protocol Last Admin: 09/17/24 09:46 Dose: 25 mg Lidocaine (Lidocaine 4 % Patch Adh..Patch) 1 patch TRANSDERMA DAILY [facility]; Protocol Last Admin: 09/17/24 09:51 Dose: 1 patch Lidocaine (Lidocaine 4 % Patch Adh..Patch) 1 patch TRANSDERMA DAILY [facility]; Protocol Last Admin: 09/17/24 09:52 Dose: 1 patch Lisinopril (Lisinopril 40 Mg Tablet) 40 mg PO DAILY [facility]; Protocol Last Admin: 09/17/24 09:46 Dose: 40 mg Magnesium Hydroxide (Milk Of Magnesia 30 Ml Oral.Susp) 30 ml PO DAILY PRN PRN Reason: Constipation Nystatin (Nystatin Powder 15 Gm Bottle) 1 appl TOPICAL BID [facility]; Protocol Last Admin: 09/17/24 10:40 Dose: 1 appl Olanzapine (Olanzapine Odt 10 Mg Tab.Rapdis) 10 mg TRANSLINGU Q6H PRN PRN Reason: agitation Last Admin: 09/15/24 21:18 Dose: 10 mg Tamsulosin HCl (Tamsulosin Hcl 0.4 Mg Capsule) 0.4 mg PO BEDTIME [facility] Last Admin: 09/16/24 21:07 Dose: 0.4 mg Trazodone HCl (Trazodone Hcl 50 Mg Tablet) 50 mg PO BEDTIME MRX1 PRN PRN Reason: Insomnia Last Admin: 09/16/24 21:04 Dose: 50 mg Valacyclovir HCl (Valacyclovir Hcl 500 Mg Tablet) 500 mg PO DAILY [facility] Last Admin: 09/17/24 09:46 Dose: 500 mg Allergies Allergies Allergy/AdvReac Type Severity Reaction Status Date / Time Penicillins [PCN] Allergy Severe Anaphylaxis Verified 08/22/24 04:12 bee venom protein (honey bee) Allergy Anaphylaxis Verified 08/22/24 04:04 codeine Allergy Unknown Verified 08/22/24 04:07 Iodinated Contrast Media Allergy Numbness Verified 08/22/24 04:11 [Contrast Dye] lanolin Allergy Rash Verified 08/22/24 04:11 latex Allergy Rash Verified 08/22/24 04:11 Sulfa (Sulfonamide Allergy Unknown Verified 08/22/24 04:11 Antibiotics) tramadol AdvReac Nausea and Verified 08/22/24 04:11 Vomiting Assessment & Plan Assessment & Plan (1) Schizoaffective disorder: Status: Acute Code(s): F25.9 - Schizoaffective disorder, unspecified Plan HOSPITAL COURSE: 08/22: continue medications from [facility]. hospitalist consult. observation, supportive care. 08/23: continue current mgmt. PRNs for anxiety. hospitalist consult pending. 08/24: psychotic, aggressive. add haldol 5 QHS and haldol 2 mg PRNs. medical consult appreciated. collateral from family. 08/25 pt presents with paranoid/persecutory delusions, auditory hallucinations and some grandiose delusions of having special power. will dc wellbutrin as it exacerbates psychosis. will increase haldol 5mg po qhs and will add 2.5mg po daily. increase abilify 20mg po daily. seems like amantadine for parkinsonian symptoms-wi higher potency antipsychotic like haldol will add low dose cogentin. Noted UA- shows UTI, will start ceftin 250mg po BID x 7 days. Pending collateral information. 08/26- pt with significant bilat cogwheel and rigidity with haldol. will d/c haldol, although risperidone also high potency antipsychotic will switch to risperidone. will continue abilify for now. 08/27 increased risperidone 2mg po BID. continue abilify 20mg po daily. 08/29 we are going to increase Risperdal to 2 mg in the morning and 3 mg at night we will assess for EPS tomorrow morning. 08/30 continue same treatment 08/31/24 isolated withdrawn would consider mcneal 09/01/2024 d/c abilify, continue risperidone, add depakote 250mg po daily and 500mg po qhs. 09/03 switch risperidone to prolixin 5mg po BID, continue depakote. will check depakote level in few days with ammonia and lft. 09/07 hospitalist consult- edema venous statis. 09/08 continue tx. 09/09 pt sitting outside; she says she's having a good day today, but that yesterday she was upset, anxious. Pt said she is still having a lot of worries today. She reiterated that yesterday was a bad day but when mentioned that patient did not take a medication yesterday she was able to say maybe that was the reason. Patient otherwise kind of rambling to herself and to others at the same time -continue tx plan 09/11 pt very agitated today, with paranoid delusions that people are trying to hurt her; both AH and [facility]H (of shadows). Pt threatened to kill her roommate, thinking her roommate was persecuting her. Pt later had only vague memories of event and was tearful, apologetic, but confused whether or not she was really been persecuted; she said it helped when staff did reality testing. Pt agreed to prn Fluphenazine. -check labs and recent Depakote level WNL; ammonia WNL -patient on fluphenazine; will add p.r.n. to see if it helps with agitation, psychosis; if so and if she needs consistently, will consider increasing scheduled dose -patient moved a single 11/12?not?agitated?or?threatening?today?but?remains?with?AH?and?paranoid?delusions ?that?she?is?being?persecuted F luphenazine?p.r.n.?seem?to?help?yesterday?so?would?like?to?increase.??Patient?ag garth 09/13 Patient?less?agitated;?not?expressing?paranoid?delusions?as?much.??Seems?to?be?m ore?calm.??Slept?at?night Nurse?reports?bilateral?lower?limb?edema;?will?add?Hospitalist consult 11/14?more?paranoid?delusions?and?AH?today;?will?continue?with?current?regimen?as? fluphenazine?just?increase.? -hospitalist?order?Steve?stockings 11/15?no?expressed?paranoid?delusions,?no?AH?today;?more?calm.??Perhaps?increased? fluphenazine?dose?is?working.?? Continue?current?regimen 11/16?again?no?paranoid?delusions?are?AH;?in?good?behavioral/impulse?control;?cont inue?current?treatment?plan Plan: -Patient moved to single room Continue fluphenazine 10mg BID continue fluphenazine 5 mg daily p.r.n. for agitation/psychosis continue clonazepam 0.25 mg b.i.d. p.r.n. for agitation/anxiety Continue clonazepam 0.5 mg b.i.d. Continue Depakote 500 mg q.h.s. Continue Depakote 250 mg daily Continue Gabapentin 200 mg t.i.d. Continue Cogentin 0.5 mg b.i.d. Reason for continued inpatient stay Substantial Risk for: inability to function Time Spent With Patient Time: Total time managing care of this patient today ____ minutes.
[2024-09-17 13:39] VITALS: BMI 31.2
--- NOTE | 2024-09-17 14:29 | PM.EVENT ---
Event Note Date of Service: 09/17/24 Event Note: Pt with continued bilateral LE edema, using compression stockings as directed. still having pain. PE: extremities: BLE 1+ pitting edema, pain with exam, difficult to assess plan: discontinue amlodipine due to adverse effect of edema. continue compression stockings. monitor LE edema. discontinue Is and Os as it is difficult to track on psych floor. if no improvement after above changes will decrease lisinopril to 20mg QD. Time Spent With Patient Time: Total time managing care of this patient today 10 minutes.
--- NOTE | 2024-09-17 16:13 | HO.PSYCHPN ---
Subjective Subjective Date of Service: 09/17/24 Reason For Visit: Unspecified Psychosis Subjective Notes: Conditional Voluntary Interim History: Pt sleeping through the night. She reports she less voices, but at times continues to talk too someone who is not there. She reports neck pain, back pain at times difficult to manage. She denies SI/HI. Review of Systems Review of Systems Yes Unobtainable due to mental status Constitutional: Denies chills, Denies fatigue, Reports headache(s) and Denies weakness Eyes: Denies change in vision Reports headache(s), Reports nasal discharge and Reports sore throat Cardiovascular: Denies rapid heart rate, Reports leg edema and Denies dyspnea Respiratory: Denies cough, Denies dyspnea and Denies wheezing Gastrointestinal: Denies constipation, Denies diarrhea, Denies nausea and Denies vomiting Skin/Breast: Denies rash Reports headache(s) and Denies weakness Endocrine: Denies fatigue Allergic/Immunologic: Denies wheezing Mental Status Exam Mental Status Exam Narrative: Appearance: wearing casual attire, unkempt but fair hygiene, wearing sunglasses, in NAD Behavior: More?Calm Psychomotor: bilat cogwheel and rigidity; uses walker. Speech: clear, normal rate/rhythm/volume, spontaneous TP: mostly goal oriented and can be linear but wanders often to tangential as well TC: ?No?expressed?paranoid?delusions?today Mood: Okay Affect: constricted SI: denies HI: ?None VH/AH: ?Currently?no?AH; Delusion: ?Currently?no?paranoid/persecutory?delusions Insight/judgment: limited x 2. Memory/cog: alert, oriented x 3. Diagnostics Vital Signs (24Hr): Vital Signs - 24 hr 09/16/24 20:00 09/16/24 21:04 09/17/24 09:42 Temperature 97.4 F 98 F Pulse Rate 74 74 76 Respiratory Rate 16 20 Blood Pressure 111/56 L 111/56 L 110/56 L Pulse Oximetry 94 93 Oxygen Delivery Method Room Air Room Air BMI result Body Mass Index 31.2 Labs 09/08/24 18:02 09/08/24 18:02 Medications Medications Current Medications Acetaminophen (Acetaminophen 325 Mg Tablet) 650 mg PO Q6H PRN PRN Reason: Headache/Pain Mild Scale (1-3) Last Admin: 09/16/24 11:56 Dose: 650 mg Al Hydroxide/Mg Hydroxide (Magnesium Hydrox/Alum Hydrox 30 Ml Oral.Susp) 30 ml PO Q6H PRN PRN Reason: Heartburn/Nausea Albuterol Sulfate (Albuterol Sulfate 90 Mcg 8 Gm Inhaler) 1 puff INHALE RQ4H PRN PRN Reason: Shortness of Breath Last Admin: 09/12/24 20:35 Dose: 1 puff Amlodipine Besylate (Amlodipine Besylate 5 Mg Tablet) 5 mg PO DAILY [facility]; Protocol Last Admin: 09/17/24 09:47 Dose: 5 mg Apixaban (Apixaban 5 Mg Tablet) 5 mg PO BID [facility] Last Admin: 09/17/24 09:47 Dose: 5 mg Atorvastatin Calcium (Atorvastatin Calcium 10 Mg Tablet) 10 mg PO BEDTIME [facility] Last Admin: 09/16/24 21:07 Dose: 10 mg Benztropine Mesylate (Benztropine Mesylate 0.5 Mg Tablet) 0.5 mg PO BID [facility] Last Admin: 09/17/24 09:47 Dose: 0.5 mg Carvedilol (Carvedilol 25 Mg Tablet) 25 mg PO BID [facility]; Protocol Last Admin: 09/17/24 09:46 Dose: 25 mg Clonazepam (Clonazepam 0.5 Mg Tablet) 0.5 mg PO BID [facility] Last Admin: 09/17/24 09:47 Dose: 0.5 mg Clonazepam (Clonazepam 0.125 Mg Tab.Rapdis) 0.25 mg PO BID PRN PRN Reason: mod-severe anxiety Last Admin: 09/13/24 13:49 Dose: 0.25 mg Divalproex Sodium (Divalproex Sodium 500 Mg Tablet.Dr) 500 mg PO BEDTIME [facility] Last Admin: 09/16/24 21:04 Dose: 500 mg Divalproex Sodium (Divalproex Sodium 250 Mg Tablet.Dr) 250 mg PO DAILY [facility] Last Admin: 09/17/24 09:46 Dose: 250 mg Fluphenazine HCl (Fluphenazine Hcl 5 Mg Tablet) 5 mg PO DAILY PRN PRN Reason: aggresssion/psychosis Last Admin: 09/14/24 14:38 Dose: 5 mg Fluphenazine HCl (Fluphenazine Hcl 5 Mg Tablet) 10 mg PO BID [facility] Last Admin: 09/17/24 09:45 Dose: 10 mg Fluphenazine HCl (Fluphenazine Hcl 2.5 Mg Tablet) 2.5 mg PO QID PRN PRN Reason: psychosis Gabapentin (Gabapentin 100 Mg Capsule) 200 mg PO TID [facility] Last Admin: 09/17/24 15:37 Dose: 200 mg Hydrochlorothiazide (Hydrochlorothiazide 25 Mg Tablet) 25 mg PO DAILY [facility]; Protocol Last Admin: 09/17/24 09:46 Dose: 25 mg Lidocaine (Lidocaine 4 % Patch Adh..Patch) 1 patch TRANSDERMA DAILY [facility]; Protocol Last Admin: 09/17/24 09:51 Dose: 1 patch Lidocaine (Lidocaine 4 % Patch Adh..Patch) 1 patch TRANSDERMA DAILY [facility]; Protocol Last Admin: 09/17/24 09:52 Dose: 1 patch Lisinopril (Lisinopril 40 Mg Tablet) 40 mg PO DAILY [facility]; Protocol Last Admin: 09/17/24 09:46 Dose: 40 mg Magnesium Hydroxide (Milk Of Magnesia 30 Ml Oral.Susp) 30 ml PO DAILY PRN PRN Reason: Constipation Nystatin (Nystatin Powder 15 Gm Bottle) 1 appl TOPICAL BID [facility]; Protocol Last Admin: 09/17/24 10:40 Dose: 1 appl Olanzapine (Olanzapine Odt 10 Mg Tab.Rapdis) 10 mg TRANSLINGU Q6H PRN PRN Reason: agitation Last Admin: 09/15/24 21:18 Dose: 10 mg Tamsulosin HCl (Tamsulosin Hcl 0.4 Mg Capsule) 0.4 mg PO BEDTIME [facility] Last Admin: 09/16/24 21:07 Dose: 0.4 mg Trazodone HCl (Trazodone Hcl 50 Mg Tablet) 50 mg PO BEDTIME MRX1 PRN PRN Reason: Insomnia Last Admin: 09/16/24 21:04 Dose: 50 mg Valacyclovir HCl (Valacyclovir Hcl 500 Mg Tablet) 500 mg PO DAILY [facility] Last Admin: 09/17/24 09:46 Dose: 500 mg Allergies Allergies Allergy/AdvReac Type Severity Reaction Status Date / Time Penicillins [PCN] Allergy Severe Anaphylaxis Verified 08/22/24 04:12 bee venom protein (honey bee) Allergy Anaphylaxis Verified 08/22/24 04:04 codeine Allergy Unknown Verified 08/22/24 04:07 Iodinated Contrast Media Allergy Numbness Verified 08/22/24 04:11 [Contrast Dye] lanolin Allergy Rash Verified 08/22/24 04:11 latex Allergy Rash Verified 08/22/24 04:11 Sulfa (Sulfonamide Allergy Unknown Verified 08/22/24 04:11 Antibiotics) tramadol AdvReac Nausea and Verified 08/22/24 04:11 Vomiting Assessment & Plan Assessment & Plan (1) Schizoaffective disorder: Status: Acute Code(s): F25.9 - Schizoaffective disorder, unspecified Plan HOSPITAL COURSE: 08/22: continue medications from [facility]. hospitalist consult. observation, supportive care. 08/23: continue current mgmt. PRNs for anxiety. hospitalist consult pending. 08/24: psychotic, aggressive. add haldol 5 QHS and haldol 2 mg PRNs. medical consult appreciated. collateral from family. 08/25 pt presents with paranoid/persecutory delusions, auditory hallucinations and some grandiose delusions of having special power. will dc wellbutrin as it exacerbates psychosis. will increase haldol 5mg po qhs and will add 2.5mg po daily. increase abilify 20mg po daily. seems like amantadine for parkinsonian symptoms-wih higher potency antipsychotic like haldol will add low dose cogentin. Noted UA- shows UTI, will start ceftin 250mg po BID x 7 days. Pending collateral information. 08/26- pt with significant bilat cogwheel and rigidity with haldol. will d/c haldol, although risperidone also high potency antipsychotic will switch to risperidone. will continue abilify for now. 08/27 increased risperidone 2mg po BID. continue abilify 20mg po daily. 08/29 we are going to increase Risperdal to 2 mg in the morning and 3 mg at night we will assess for EPS tomorrow morning. 08/30 continue same treatment 08/31/24 isolated withdrawn would consider mcneal 09/01/2024 d/c abilify, continue risperidone, add depakote 250mg po daily and 500mg po qhs. 09/03 switch risperidone to prolixin 5mg po BID, continue depakote. will check depakote level in few days with ammonia and lft. 09/07 hospitalist consult- edema venous statis. 09/08 continue tx. 09/09 pt sitting outside; she says she's having a good day today, but that yesterday she was upset, anxious. Pt said she is still having a lot of worries today. She reiterated that yesterday was a bad day but when mentioned that patient did not take a medication yesterday she was able to say maybe that was the reason. Patient otherwise kind of rambling to herself and to others at the same time -continue tx plan 09/11 pt very agitated today, with paranoid delusions that people are trying to hurt her; both AH and [facility] (of shadows). Pt threatened to kill her roommate, thinking her roommate was persecuting her. Pt later had only vague memories of event and was tearful, apologetic, but confused whether or not she was really been persecuted; she said it helped when staff did reality testing. Pt agreed to prn Fluphenazine. -check labs and recent Depakote level WNL; ammonia WNL -patient on fluphenazine; will add p.r.n. to see if it helps with agitation, psychosis; if so and if she needs consistently, will consider increasing scheduled dose -patient moved a single 09/12?not?agitated?or?threatening?today?but?remains?with?AH?and?paranoid?delusions?that?she?is?being?persecuted Fluphenazine?p.r.n.?seem?to?help?yesterday?so?would?like?to?increase.??Patient?agrees 09/13 Patient?less?agitated;?not?expressing?paranoid?delusions?as?much.??Seems?to?be?more?calm.??Slept?at?night Nurse?reports?bilateral?lower?limb?edema;?will?add?Hospitalist consult 09/14?more?paranoid?delusions?and?AH?today;?will?continue?with?current?regimen?as?fluphenazine?just?increase.? -hospitalist?order?Steve?stockings 09/15?no?expressed?paranoid?delusions,?no?AH?today;?more?calm.??Perhaps?increased?fluphenazine?dose?is?working.?? Continue?current?regimen 09/16?again?no?paranoid?delusions?are?AH;?in?good?behavioral/impulse?control;?continue?current?treatment?plan 09/17 continue tx. still residual paranoid delusions Plan: -Patient moved to single room Continue fluphenazine 10mg BID continue fluphenazine 5 mg daily p.r.n. for agitation/psychosis continue clonazepam 0.25 mg b.i.d. p.r.n. for agitation/anxiety Continue clonazepam 0.5 mg b.i.d. Continue Depakote 500 mg q.h.s. Continue Depakote 250 mg daily Continue Gabapentin 200 mg t.i.d. Continue Cogentin 0.5 mg b.i.d. Reason for continued inpatient stay Substantial Risk for: inability to function Time Spent With Patient Time: Total time managing care of this patient today ____ minutes.
[2024-09-17 20:00] VITALS: BP 125/63; PULSE 76; RESP 16; TEMP 36.4; O2SAT 95
[2024-09-17 20:27] VITALS: BP 125/63; PULSE 76
[2024-09-17] MEDS: Acetaminophen 325 MG TABLET 650 MG PO (20:28)
[2024-09-17] MEDS: Tamsulosin HCL 0.4 MG CAPSULE PO (20:30)
[2024-09-17] MEDS: Divalproex Sodium 500 MG TABLET.DR PO (20:31)
[2024-09-17] MEDS: Atorvastatin Calcium 10 MG TABLET PO (20:31)
[2024-09-18 08:56] VITALS: BP 98/55; PULSE 72; RESP 16; TEMP 36.6; O2SAT 94
[2024-09-18] MEDS: fluPHENAZine HCl 5 MG TABLET 10 MG PO ×2 (09:00→20:57)
[2024-09-18] MEDS: valACYclovir HCL 500 MG TABLET PO (09:00)
[2024-09-18] MEDS: Divalproex Sodium 250 MG TABLET.DR PO (09:00)
[2024-09-18] MEDS: Benztropine Mesylate 0.5 MG TABLET PO ×2 (09:01→20:56)
[2024-09-18] MEDS: hydroCHLOROthiazide 25 MG TABLET PO (09:01)
[2024-09-18] MEDS: Gabapentin 100 MG CAPSULE 200 MG PO ×3 (09:01→20:57)
[2024-09-18] MEDS: Apixaban 5 MG TABLET PO ×2 (09:02→20:57)
[2024-09-18] MEDS: Lidocaine 4 % Patch ADH..PATCH 1 PATCH TRANSDERMA ×2 (09:02→09:03)
[2024-09-18] MEDS: clonazePAM 0.5 MG TABLET PO ×2 (09:02→20:57)
[2024-09-18] MEDS: Nystatin Powder 15 GM BOTTLE 1 APPL TOPICAL ×2 (14:22→20:57)
[2024-09-18] MEDS: Acetaminophen 325 MG TABLET 650 MG PO (17:42)
--- NOTE | 2024-09-18 18:46 | P.PNPSI_ITS ---
Subjective Subjective Date of Service: 09/18/24 Reason For Visit: Unspecified Psychosis Subjective Notes: Conditional Voluntary Interim History: Pt sleeping through the night. She is calmer, less voices, still at times responding to internal stimuli. NO SI/HI. Sleeping through the night. Medication Compliance: Yes Review of Systems Review of Systems Yes Unobtainable due to mental status Constitutional: Denies chills, Denies fatigue, Reports headache(s) and Denies weakness Eyes: Denies change in vision Reports headache(s), Reports nasal discharge and Reports sore throat Cardiovascular: Denies rapid heart rate, Reports leg edema and Denies dyspnea Respiratory: Denies cough, Denies dyspnea and Denies wheezing Gastrointestinal: Denies constipation, Denies diarrhea, Denies nausea and Denies vomiting Skin/Breast: Denies rash Reports headache(s) and Denies weakness Endocrine: Denies fatigue Allergic/Immunologic: Denies wheezing Mental Status Exam Mental Status Exam Narrative: Appearance: wearing casual attire, unkempt but fair hygiene, wearing sunglasses, in NAD Behavior: More?Calm Psychomotor: bilat cogwheel and rigidity; uses walker. Speech: clear, normal rate/rhythm/volume, spontaneous TP: mostly goal oriented and can be linear but wanders often to tangential as well TC: ?No?expressed?paranoid?delusions?today Mood: Okay Affect: constricted SI: denies HI: ?None VH/AH: ?Currently?no?AH; Delusion: ?Currently?no?paranoid/persecutory?delusions Insight/judgment: limited x 2. Memory/cog: alert, oriented x 3. Diagnostics Vital Signs (24Hr): Vital Signs - 24 hr 09/17/24 20:00 09/17/24 20:27 09/18/24 08:56 Temperature 97.6 F 97.8 F Pulse Rate 76 76 72 Respiratory Rate 16 16 Blood Pressure 125/63 125/63 98/55 L Pulse Oximetry 95 94 Oxygen Delivery Method Room Air Room Air BMI result Body Mass Index 31.2 Labs 09/08/24 18:02 09/08/24 18:02 Medications Medications Current Medications Acetaminophen (Acetaminophen 325 Mg Tablet) 650 mg PO Q6H PRN PRN Reason: Headache/Pain Mild Scale (1-3) Last Admin: 09/18/24 17:42 Dose: 650 mg Al Hydroxide/Mg Hydroxide (Magnesium Hydrox/Alum Hydrox 30 Ml Oral.Susp) 30 ml PO Q6H PRN PRN Reason: Heartburn/Nausea Albuterol Sulfate (Albuterol Sulfate 90 Mcg 8 Gm Inhaler) 1 puff INHALE RQ4H PRN PRN Reason: Shortness of Breath Last Admin: 09/12/24 20:35 Dose: 1 puff Amlodipine Besylate (Amlodipine Besylate 5 Mg Tablet) 5 mg PO DAILY [facility]; Protocol Last Admin: 09/17/24 09:47 Dose: 5 mg Apixaban (Apixaban 5 Mg Tablet) 5 mg PO BID [facility] Last Admin: 09/18/24 09:02 Dose: 5 mg Atorvastatin Calcium (Atorvastatin Calcium 10 Mg Tablet) 10 mg PO BEDTIME [facility] Last Admin: 09/17/24 20:31 Dose: 10 mg Benztropine Mesylate (Benztropine Mesylate 0.5 Mg Tablet) 0.5 mg PO BID [facility] Last Admin: 09/18/24 09:01 Dose: 0.5 mg Carvedilol (Carvedilol 25 Mg Tablet) 25 mg PO BID [facility]; Protocol Last Admin: 09/18/24 09:02 Dose: Not Given Clonazepam (Clonazepam 0.5 Mg Tablet) 0.5 mg PO BID [facility] Last Admin: 09/18/24 09:02 Dose: 0.5 mg Clonazepam (Clonazepam 0.125 Mg Tab.Rapdis) 0.25 mg PO BID PRN PRN Reason: mod-severe anxiety Last Admin: 09/13/24 13:49 Dose: 0.25 mg Divalproex Sodium (Divalproex Sodium 500 Mg Tablet.) 500 mg PO BEDTIME [facility] Last Admin: 09/17/24 20:31 Dose: 500 mg Divalproex Sodium (Divalproex Sodium 250 Mg Tablet.) 250 mg PO DAILY [facility] Last Admin: 09/18/24 09:00 Dose: 250 mg Fluphenazine HCl (Fluphenazine Hcl 5 Mg Tablet) 5 mg PO DAILY PRN PRN Reason: aggresssion/psychosis Last Admin: 09/14/24 14:38 Dose: 5 mg Fluphenazine HCl (Fluphenazine Hcl 5 Mg Tablet) 10 mg PO BID [facility] Last Admin: 09/18/24 09:00 Dose: 10 mg Fluphenazine HCl (Fluphenazine Hcl 2.5 Mg Tablet) 2.5 mg PO QID PRN PRN Reason: psychosis Gabapentin (Gabapentin 100 Mg Capsule) 200 mg PO TID [facility] Last Admin: 09/18/24 17:41 Dose: 200 mg Hydrochlorothiazide (Hydrochlorothiazide 25 Mg Tablet) 25 mg PO DAILY [facility]; Protocol Last Admin: 09/18/24 09:01 Dose: 25 mg Lidocaine (Lidocaine 4 % Patch Adh..Patch) 1 patch TRANSDERMA DAILY [facility]; Protocol Last Admin: 09/18/24 09:02 Dose: 1 patch Lidocaine (Lidocaine 4 % Patch Adh..Patch) 1 patch TRANSDERMA DAILY [facility]; Protocol Last Admin: 09/18/24 09:03 Dose: 1 patch Lisinopril (Lisinopril 40 Mg Tablet) 40 mg PO DAILY [facility]; Protocol Last Admin: 09/18/24 09:03 Dose: Not Given Magnesium Hydroxide (Milk Of Magnesia 30 Ml Oral.Susp) 30 ml PO DAILY PRN PRN Reason: Constipation Nystatin (Nystatin Powder 15 Gm Bottle) 1 appl TOPICAL BID [facility]; Protocol Last Admin: 09/18/24 14:22 Dose: 1 appl Olanzapine (Olanzapine Odt 10 Mg Tab.Rapdis) 10 mg TRANSLINGU Q6H PRN PRN Reason: agitation Last Admin: 09/15/24 21:18 Dose: 10 mg Tamsulosin HCl (Tamsulosin Hcl 0.4 Mg Capsule) 0.4 mg PO BEDTIME [facility] Last Admin: 09/17/24 20:30 Dose: 0.4 mg Trazodone HCl (Trazodone Hcl 50 Mg Tablet) 50 mg PO BEDTIME MRX1 PRN PRN Reason: Insomnia Last Admin: 09/16/24 21:04 Dose: 50 mg Valacyclovir HCl (Valacyclovir Hcl 500 Mg Tablet) 500 mg PO DAILY [facility] Last Admin: 09/18/24 09:00 Dose: 500 mg Allergies Allergies Allergy/AdvReac Type Severity Reaction Status Date / Time Penicillins [PCN] Allergy Severe Anaphylaxis Verified 08/22/24 04:12 bee venom protein (honey bee) Allergy Anaphylaxis Verified 08/22/24 04:04 codeine Allergy Unknown Verified 08/22/24 04:07 Iodinated Contrast Media Allergy Numbness Verified 08/22/24 04:11 [Contrast Dye] lanolin Allergy Rash Verified 08/22/24 04:11 latex Allergy Rash Verified 08/22/24 04:11 Sulfa (Sulfonamide Allergy Unknown Verified 08/22/24 04:11 Antibiotics) tramadol AdvReac Nausea and Verified 08/22/24 04:11 Vomiting Assessment & Plan Assessment & Plan (1) Schizoaffective disorder: Status: Acute Code(s): F25.9 - Schizoaffective disorder, unspecified Plan HOSPITAL COURSE: 08/22: continue medications from [facility]. hospitalist consult. observation, supportive care. 08/23: continue current mgmt. PRNs for anxiety. hospitalist consult pending. 08/24: psychotic, aggressive. add haldol 5 QHS and haldol 2 mg PRNs. medical consult appreciated. collateral from family. 08/25 pt presents with paranoid/persecutory delusions, auditory hallucinations and some grandiose delusions of having special power. will dc wellbutrin as it exacerbates psychosis. will increase haldol 5mg po qhs and will add 2.5mg po daily. increase abilify 20mg po daily. seems like amantadine for parkinsonian symptoms-wih higher potency antipsychotic like haldol will add low dose cogentin. Noted UA- shows UTI, will start ceftin 250mg po BID x 7 days. Pending collateral information. 08/26- pt with significant bilat cogwheel and rigidity with haldol. will d/c haldol, although risperidone also high potency antipsychotic will switch to risperidone. will continue abilify for now. 08/27 increased risperidone 2mg po BID. continue abilify 20mg po daily. 08/29 we are going to increase Risperdal to 2 mg in the morning and 3 mg at night we will assess for EPS tomorrow morning. 08/30 continue same treatment 08/31/24 isolated withdrawn would consider mcneal 09/01/2024 d/c abilify, continue risperidone, add depakote 250mg po daily and 500mg po qhs. 09/03 switch risperidone to prolixin 5mg po BID, continue depakote. will check depakote level in few days with ammonia and lft. 09/07 hospitalist consult- edema venous statis. 09/08 continue tx. 09/09 pt sitting outside; she says she's having a good day today, but that yesterday she was upset, anxious. Pt said she is still having a lot of worries today. She reiterated that yesterday was a bad day but when mentioned that patient did not take a medication yesterday she was able to say maybe that was the reason. Patient otherwise kind of rambling to herself and to others at the same time -continue tx plan 09/11 pt very agitated today, with paranoid delusions that people are trying to hurt her; both AH and [facility] (of shadows). Pt threatened to kill her roommate, thinking her roommate was persecuting her. Pt later had only vague memories of event and was tearful, apologetic, but confused whether or not she was really been persecuted; she said it helped when staff did reality testing. Pt agreed to prn Fluphenazine. -check labs and recent Depakote level WNL; ammonia WNL -patient on fluphenazine; will add p.r.n. to see if it helps with agitation, psychosis; if so and if she needs consistently, will consider increasing scheduled dose -patient moved a single 11/12?not?agitated?or?threatening?today?but?remains?with?AH?and?paranoid?delusions ?that?she?is?being?persecuted F luphenazine?p.r.n.?seem?to?help?yesterday?so?would?like?to?increase.??Patient?ag garth 09/13 Patient?less?agitated;?not?expressing?paranoid?delusions?as?much.??Seems?to?be?m ore?calm.??Slept?at?night Nurse?reports?bilateral?lower?limb?edema;?will?add?Hospitalist consult 11/14?more?paranoid?delusions?and?AH?today;?will?continue?with?current?regimen?as? fluphenazine?just?increase.? -hospitalist?order?Steve?stockings 11/15?no?expressed?paranoid?delusions,?no?AH?today;?more?calm.??Perhaps?increased? fluphenazine?dose?is?working.?? Continue?current?regimen 11/16?again?no?paranoid?delusions?are?AH;?in?good?behavioral/impulse?control;?cont inue?current?treatment?plan 09/17 continue tx. still residual paranoid delusions 09/18 continue tx. Plan: -Patient moved to single room Continue fluphenazine 10mg BID continue fluphenazine 5 mg daily p.r.n. for agitation/psychosis continue clonazepam 0.25 mg b.i.d. p.r.n. for agitation/anxiety Continue clonazepam 0.5 mg b.i.d. Continue Depakote 500 mg q.h.s. Continue Depakote 250 mg daily Continue Gabapentin 200 mg t.i.d. Continue Cogentin 0.5 mg b.i.d. Reason for continued inpatient stay Substantial Risk for: inability to function Time Spent With Patient Time: Total time managing care of this patient today ____ minutes.
[2024-09-18 20:00] VITALS: BP 148/72; PULSE 97; RESP 16; TEMP 37.2; O2SAT 96
[2024-09-18 20:56] VITALS: BP 148/72; PULSE 97
[2024-09-18] MEDS: carvediloL 25 MG TABLET PO (20:56)
[2024-09-18] MEDS: Tamsulosin HCL 0.4 MG CAPSULE PO (20:56)
[2024-09-18] MEDS: Divalproex Sodium 500 MG TABLET.DR PO (20:56)
[2024-09-18] MEDS: Atorvastatin Calcium 10 MG TABLET PO (20:57)
[2024-09-19] MEDS: Acetaminophen 325 MG TABLET 650 MG PO ×2 (00:01→12:11)
--- NOTE | 2024-09-19 08:47 | HO.PSYCHPN ---
Subjective Subjective Date of Service: 09/19/24 Reason For Visit: Unspecified Psychosis Subjective Notes: Conditional Voluntary Interim History: Pt sleeping through the night. She reports doing well, still residual AH, some paranoid ideas, but calmer. neck drooping and pain. No SI/HI. Has seen family, pending family meeting and planning for dc. Review of Systems Review of Systems Yes Unobtainable due to mental status Constitutional: Denies chills, Denies fatigue, Reports headache(s) and Denies weakness Eyes: Denies change in vision Reports headache(s), Reports nasal discharge and Reports sore throat Cardiovascular: Denies rapid heart rate, Reports leg edema and Denies dyspnea Respiratory: Denies cough, Denies dyspnea and Denies wheezing Gastrointestinal: Denies constipation, Denies diarrhea, Denies nausea and Denies vomiting Skin/Breast: Denies rash Reports headache(s) and Denies weakness Endocrine: Denies fatigue Allergic/Immunologic: Denies wheezing Mental Status Exam Mental Status Exam Narrative: Appearance: wearing casual attire, unkempt but fair hygiene, wearing sunglasses, in NAD Behavior: More?Calm Psychomotor: bilat cogwheel and rigidity; uses walker. Speech: clear, normal rate/rhythm/volume, spontaneous TP: mostly goal oriented and can be linear but wanders often to tangential as well TC: ?No?expressed?paranoid?delusions?today Mood: Okay Affect: constricted SI: denies HI: ?None VH/AH: ?Currently?no?AH; Delusion: ?Currently?no?paranoid/persecutory?delusions Insight/judgment: limited x 2. Memory/cog: alert, oriented x 3. Diagnostics Vital Signs (24Hr): Vital Signs - 24 hr 09/18/24 08:56 09/18/24 20:00 09/18/24 20:56 Temperature 97.8 F 98.9 F Pulse Rate 72 97 97 Respiratory Rate 16 16 Blood Pressure 98/55 L 148/72 H 148/72 H Pulse Oximetry 94 96 Oxygen Delivery Method Room Air Room Air BMI result Body Mass Index 31.2 Labs 09/08/24 18:02 09/08/24 18:02 Medications Medications Current Medications Acetaminophen (Acetaminophen 325 Mg Tablet) 650 mg PO Q6H PRN PRN Reason: Headache/Pain Mild Scale (1-3) Last Admin: 09/19/24 00:01 Dose: 650 mg Al Hydroxide/Mg Hydroxide (Magnesium Hydrox/Alum Hydrox 30 Ml Oral.Susp) 30 ml PO Q6H PRN PRN Reason: Heartburn/Nausea Albuterol Sulfate (Albuterol Sulfate 90 Mcg 8 Gm Inhaler) 1 puff INHALE RQ4H PRN PRN Reason: Shortness of Breath Last Admin: 09/12/24 20:35 Dose: 1 puff Amlodipine Besylate (Amlodipine Besylate 5 Mg Tablet) 5 mg PO DAILY [facility]; Protocol Last Admin: 09/17/24 09:47 Dose: 5 mg Apixaban (Apixaban 5 Mg Tablet) 5 mg PO BID [facility] Last Admin: 09/18/24 20:57 Dose: 5 mg Atorvastatin Calcium (Atorvastatin Calcium 10 Mg Tablet) 10 mg PO BEDTIME [facility] Last Admin: 09/18/24 20:57 Dose: 10 mg Benztropine Mesylate (Benztropine Mesylate 0.5 Mg Tablet) 0.5 mg PO BID [facility] Last Admin: 09/18/24 20:56 Dose: 0.5 mg Carvedilol (Carvedilol 25 Mg Tablet) 25 mg PO BID [facility]; Protocol Last Admin: 09/18/24 20:56 Dose: 25 mg Clonazepam (Clonazepam 0.5 Mg Tablet) 0.5 mg PO BID [facility] Last Admin: 09/18/24 20:57 Dose: 0.5 mg Clonazepam (Clonazepam 0.125 Mg Tab.Rapdis) 0.25 mg PO BID PRN PRN Reason: mod-severe anxiety Last Admin: 09/19/24 00:02 Dose: 0.25 mg Divalproex Sodium (Divalproex Sodium 500 Mg Tablet.Dr) 500 mg PO BEDTIME [facility] Last Admin: 09/18/24 20:56 Dose: 500 mg Divalproex Sodium (Divalproex Sodium 250 Mg Tablet.Dr) 250 mg PO DAILY [facility] Last Admin: 09/18/24 09:00 Dose: 250 mg Fluphenazine HCl (Fluphenazine Hcl 5 Mg Tablet) 5 mg PO DAILY PRN PRN Reason: aggresssion/psychosis Last Admin: 09/14/24 14:38 Dose: 5 mg Fluphenazine HCl (Fluphenazine Hcl 5 Mg Tablet) 10 mg PO BID [facility] Last Admin: 09/18/24 20:57 Dose: 10 mg Fluphenazine HCl (Fluphenazine Hcl 2.5 Mg Tablet) 2.5 mg PO QID PRN PRN Reason: psychosis Gabapentin (Gabapentin 100 Mg Capsule) 200 mg PO TID [facility] Last Admin: 09/18/24 20:57 Dose: 200 mg Hydrochlorothiazide (Hydrochlorothiazide 25 Mg Tablet) 25 mg PO DAILY [facility]; Protocol Last Admin: 09/18/24 09:01 Dose: 25 mg Lidocaine (Lidocaine 4 % Patch Adh..Patch) 1 patch TRANSDERMA DAILY [facility]; Protocol Last Admin: 09/18/24 09:02 Dose: 1 patch Lidocaine (Lidocaine 4 % Patch Adh..Patch) 1 patch TRANSDERMA DAILY [facility]; Protocol Last Admin: 09/18/24 09:03 Dose: 1 patch Lisinopril (Lisinopril 40 Mg Tablet) 40 mg PO DAILY [facility]; Protocol Last Admin: 09/18/24 09:03 Dose: Not Given Magnesium Hydroxide (Milk Of Magnesia 30 Ml Oral.Susp) 30 ml PO DAILY PRN PRN Reason: Constipation Nystatin (Nystatin Powder 15 Gm Bottle) 1 appl TOPICAL BID [facility]; Protocol Last Admin: 09/18/24 20:57 Dose: 1 appl Olanzapine (Olanzapine Odt 10 Mg Tab.Rapdis) 10 mg TRANSLINGU Q6H PRN PRN Reason: agitation Last Admin: 09/15/24 21:18 Dose: 10 mg Tamsulosin HCl (Tamsulosin Hcl 0.4 Mg Capsule) 0.4 mg PO BEDTIME [facility] Last Admin: 09/18/24 20:56 Dose: 0.4 mg Trazodone HCl (Trazodone Hcl 50 Mg Tablet) 50 mg PO BEDTIME MRX1 PRN PRN Reason: Insomnia Last Admin: 09/16/24 21:04 Dose: 50 mg Valacyclovir HCl (Valacyclovir Hcl 500 Mg Tablet) 500 mg PO DAILY [facility] Last Admin: 09/18/24 09:00 Dose: 500 mg Allergies Allergies Allergy/AdvReac Type Severity Reaction Status Date / Time Penicillins [PCN] Allergy Severe Anaphylaxis Verified 08/22/24 04:12 bee venom protein (honey bee) Allergy Anaphylaxis Verified 08/22/24 04:04 codeine Allergy Unknown Verified 08/22/24 04:07 Iodinated Contrast Media Allergy Numbness Verified 08/22/24 04:11 [Contrast Dye] lanolin Allergy Rash Verified 08/22/24 04:11 latex Allergy Rash Verified 08/22/24 04:11 Sulfa (Sulfonamide Allergy Unknown Verified 08/22/24 04:11 Antibiotics) tramadol AdvReac Nausea and Verified 08/22/24 04:11 Vomiting Assessment & Plan Assessment & Plan (1) Schizoaffective disorder: Status: Acute Code(s): F25.9 - Schizoaffective disorder, unspecified Plan HOSPITAL COURSE: 08/22: continue medications from [facility]. hospitalist consult. observation, supportive care. 08/23: continue current mgmt. PRNs for anxiety. hospitalist consult pending. 08/24: psychotic, aggressive. add haldol 5 QHS and haldol 2 mg PRNs. medical consult appreciated. collateral from family. 08/25 pt presents with paranoid/persecutory delusions, auditory hallucinations and some grandiose delusions of having special power. will dc wellbutrin as it exacerbates psychosis. will increase haldol 5mg po qhs and will add 2.5mg po daily. increase abilify 20mg po daily. seems like amantadine for parkinsonian symptoms-wih higher potency antipsychotic like haldol will add low dose cogentin. Noted UA- shows UTI, will start ceftin 250mg po BID x 7 days. Pending collateral information. 08/26- pt with significant bilat cogwheel and rigidity with haldol. will d/c haldol, although risperidone also high potency antipsychotic will switch to risperidone. will continue abilify for now. 08/27 increased risperidone 2mg po BID. continue abilify 20mg po daily. 08/29 we are going to increase Risperdal to 2 mg in the morning and 3 mg at night we will assess for EPS tomorrow morning. 08/30 continue same treatment 08/31/24 isolated withdrawn would consider mcneal 09/01/2024 d/c abilify, continue risperidone, add depakote 250mg po daily and 500mg po qhs. 09/03 switch risperidone to prolixin 5mg po BID, continue depakote. will check depakote level in few days with ammonia and lft. 09/07 hospitalist consult- edema venous statis. 09/08 continue tx. 09/09 pt sitting outside; she says she's having a good day today, but that yesterday she was upset, anxious. Pt said she is still having a lot of worries today. She reiterated that yesterday was a bad day but when mentioned that patient did not take a medication yesterday she was able to say maybe that was the reason. Patient otherwise kind of rambling to herself and to others at the same time -continue tx plan 09/11 pt very agitated today, with paranoid delusions that people are trying to hurt her; both AH and VH (of shadows). Pt threatened to kill her roommate, thinking her roommate was persecuting her. Pt later had only vague memories of event and was tearful, apologetic, but confused whether or not she was really been persecuted; she said it helped when staff did reality testing. Pt agreed to prn Fluphenazine. -check labs and recent Depakote level WNL; ammonia WNL -patient on fluphenazine; will add p.r.n. to see if it helps with agitation, psychosis; if so and if she needs consistently, will consider increasing scheduled dose -patient moved a single 09/12?not?agitated?or?threatening?today?but?remains?with?AH?and?paranoid?delusions?that?she?is?being?persecuted Fluphenazine?p.r.n.?seem?to?help?yesterday?so?would?like?to?increase.??Patient?agrees 09/13 Patient?less?agitated;?not?expressing?paranoid?delusions?as?much.??Seems?to?be?more?calm.??Slept?at?night Nurse?reports?bilateral?lower?limb?edema;?will?add?Hospitalist consult 09/14?more?paranoid?delusions?and?AH?today;?will?continue?with?current?regimen?as?fluphenazine?just?increase.? -hospitalist?order?Steve?stockings 09/15?no?expressed?paranoid?delusions,?no?AH?today;?more?calm.??Perhaps?increased?fluphenazine?dose?is?working.?? Continue?current?regimen 09/16?again?no?paranoid?delusions?are?AH;?in?good?behavioral/impulse?control;?continue?current?treatment?plan 09/17 continue tx. still residual paranoid delusions 09/18 continue tx. 09/19 continue tx. Plan: -Patient moved to single room Continue fluphenazine 10mg BID continue fluphenazine 5 mg daily p.r.n. for agitation/psychosis continue clonazepam 0.25 mg b.i.d. p.r.n. for agitation/anxiety Continue clonazepam 0.5 mg b.i.d. Continue Depakote 500 mg q.h.s. Continue Depakote 250 mg daily Continue Gabapentin 200 mg t.i.d. Continue Cogentin 0.5 mg b.i.d. Reason for continued inpatient stay Substantial Risk for: inability to function Time Spent With Patient Time: Total time managing care of this patient today ____ minutes.
[2024-09-19 09:00] VITALS: BP 128/62; PULSE 95; RESP 18; TEMP 36.8; O2SAT 95
[2024-09-19] MEDS: Gabapentin 100 MG CAPSULE 200 MG PO ×3 (09:55→20:59)
[2024-09-19] MEDS: fluPHENAZine HCl 5 MG TABLET 10 MG PO ×2 (09:55→21:00)
[2024-09-19] MEDS: valACYclovir HCL 500 MG TABLET PO (09:55)
[2024-09-19] MEDS: hydroCHLOROthiazide 25 MG TABLET PO (09:56)
[2024-09-19] MEDS: Benztropine Mesylate 0.5 MG TABLET PO ×2 (09:56→20:59)
[2024-09-19] MEDS: Divalproex Sodium 250 MG TABLET.DR PO (09:56)
[2024-09-19] MEDS: carvediloL 25 MG TABLET PO ×2 (09:56→20:59)
[2024-09-19] MEDS: lisinopriL 40 MG TABLET PO (09:56)
[2024-09-19] MEDS: Apixaban 5 MG TABLET PO ×2 (09:56→20:59)
[2024-09-19] MEDS: clonazePAM 0.5 MG TABLET PO ×2 (09:56→20:59)
[2024-09-19] MEDS: Lidocaine 4 % Patch ADH..PATCH 1 PATCH TRANSDERMA ×2 (09:57→09:58)
[2024-09-19] MEDS: Nystatin Powder 15 GM BOTTLE 1 APPL TOPICAL ×2 (10:06→21:00)
[2024-09-19] MEDS: OLANZapine ODT 10 MG TAB.RAPDIS TRANSLINGU (12:13)
[2024-09-19 20:00] VITALS: BP 115/58; PULSE 73; RESP 16; TEMP 36.6; O2SAT 95
[2024-09-19 20:59] VITALS: BP 115/58; PULSE 73
[2024-09-19] MEDS: Divalproex Sodium 500 MG TABLET.DR PO (20:59)
[2024-09-19] MEDS: Atorvastatin Calcium 10 MG TABLET PO (20:59)
[2024-09-19] MEDS: Tamsulosin HCL 0.4 MG CAPSULE PO (20:59)
[2024-09-20 07:55] VITALS: BP 104/68; PULSE 86; RESP 18; TEMP 36.6; O2SAT 98
[2024-09-20] MEDS: lisinopriL 40 MG TABLET PO (09:11)
[2024-09-20] MEDS: Apixaban 5 MG TABLET PO ×2 (09:11→20:02)
[2024-09-20] MEDS: fluPHENAZine HCl 5 MG TABLET 10 MG PO ×2 (09:11→20:00)
[2024-09-20] MEDS: hydroCHLOROthiazide 25 MG TABLET PO (09:11)
[2024-09-20] MEDS: clonazePAM 0.5 MG TABLET PO ×2 (09:11→20:02)
[2024-09-20] MEDS: carvediloL 25 MG TABLET PO ×2 (09:12→20:00)
[2024-09-20] MEDS: Benztropine Mesylate 0.5 MG TABLET PO ×2 (09:12→20:01)
[2024-09-20] MEDS: valACYclovir HCL 500 MG TABLET PO (09:12)
[2024-09-20] MEDS: Divalproex Sodium 250 MG TABLET.DR PO (09:12)
[2024-09-20] MEDS: Lidocaine 4 % Patch ADH..PATCH 1 PATCH TRANSDERMA ×2 (09:16)
[2024-09-20] MEDS: Nystatin Powder 15 GM BOTTLE 1 APPL TOPICAL ×2 (09:17→22:29)
[2024-09-20] MEDS: Gabapentin 100 MG CAPSULE 200 MG PO ×3 (09:21→20:03)
[2024-09-20] MEDS: Acetaminophen 325 MG TABLET 650 MG PO (12:44)
--- NOTE | 2024-09-20 19:56 | HO.PSYCHPN ---
Subjective Subjective Date of Service: 09/20/24 Reason For Visit: Unspecified Psychosis Interim History: Pt sleeping through the night. She reports doing well, still residual AH, some paranoid ideas, but calmer. neck drooping and pain. No SI/HI. Has seen family, pending family meeting and planning for dc. Review of Systems Review of Systems Yes Unobtainable due to mental status Constitutional: Denies chills, Denies fatigue, Reports headache(s) and Denies weakness Eyes: Denies change in vision Reports headache(s), Reports nasal discharge and Reports sore throat Cardiovascular: Denies rapid heart rate, Reports leg edema and Denies dyspnea Respiratory: Denies cough, Denies dyspnea and Denies wheezing Gastrointestinal: Denies constipation, Denies diarrhea, Denies nausea and Denies vomiting Skin/Breast: Denies rash Reports headache(s) and Denies weakness Endocrine: Denies fatigue Allergic/Immunologic: Denies wheezing Mental Status Exam Mental Status Exam Narrative: Appearance: wearing casual attire, unkempt but fair hygiene, wearing sunglasses, in NAD Behavior: More?Calm Psychomotor: bilat cogwheel and rigidity; uses walker. Speech: clear, normal rate/rhythm/volume, spontaneous TP: mostly goal oriented and can be linear but wanders often to tangential as well TC: ?No?expressed?paranoid?delusions?today Mood: Okay Affect: constricted SI: denies HI: ?None VH/AH: ?Currently?no?AH; Delusion: ?Currently?no?paranoid/persecutory?delusions Insight/judgment: limited x 2. Memory/cog: alert, oriented x 3. Diagnostics Vital Signs (24Hr): Vital Signs - 24 hr 09/19/24 20:00 09/19/24 20:59 09/20/24 07:55 Temperature 97.8 F 97.9 F Pulse Rate 73 73 86 Respiratory Rate 16 18 Blood Pressure 115/58 L 115/58 L 104/68 Pulse Oximetry 95 98 Oxygen Delivery Method Room Air Room Air BMI result Body Mass Index 31.2 Labs 09/08/24 18:02 09/08/24 18:02 Medications Medications Current Medications Acetaminophen (Acetaminophen 325 Mg Tablet) 650 mg PO Q6H PRN PRN Reason: Headache/Pain Mild Scale (1-3) Last Admin: 09/20/24 12:44 Dose: 650 mg Al Hydroxide/Mg Hydroxide (Magnesium Hydrox/Alum Hydrox 30 Ml Oral.Susp) 30 ml PO Q6H PRN PRN Reason: Heartburn/Nausea Albuterol Sulfate (Albuterol Sulfate 90 Mcg 8 Gm Inhaler) 1 puff INHALE RQ4H PRN PRN Reason: Shortness of Breath Last Admin: 09/12/24 20:35 Dose: 1 puff Apixaban (Apixaban 5 Mg Tablet) 5 mg PO BID [facility] Last Admin: 09/20/24 09:11 Dose: 5 mg Atorvastatin Calcium (Atorvastatin Calcium 10 Mg Tablet) 10 mg PO BEDTIME [facility] Last Admin: 09/19/24 20:59 Dose: 10 mg Benztropine Mesylate (Benztropine Mesylate 0.5 Mg Tablet) 0.5 mg PO BID [facility] Last Admin: 09/20/24 09:12 Dose: 0.5 mg Carvedilol (Carvedilol 25 Mg Tablet) 25 mg PO BID [facility]; Protocol Last Admin: 09/20/24 09:12 Dose: 25 mg Clonazepam (Clonazepam 0.5 Mg Tablet) 0.5 mg PO BID [facility] Last Admin: 09/20/24 09:11 Dose: 0.5 mg Clonazepam (Clonazepam 0.125 Mg Tab.Rapdis) 0.25 mg PO BID PRN PRN Reason: mod-severe anxiety Last Admin: 09/19/24 00:02 Dose: 0.25 mg Divalproex Sodium (Divalproex Sodium 500 Mg Tablet.Dr) 500 mg PO BEDTIME [facility] Last Admin: 09/19/24 20:59 Dose: 500 mg Divalproex Sodium (Divalproex Sodium 250 Mg Tablet.Dr) 250 mg PO DAILY [facility] Last Admin: 09/20/24 09:12 Dose: 250 mg Fluphenazine HCl (Fluphenazine Hcl 5 Mg Tablet) 5 mg PO DAILY PRN PRN Reason: aggresssion/psychosis Last Admin: 09/14/24 14:38 Dose: 5 mg Fluphenazine HCl (Fluphenazine Hcl 5 Mg Tablet) 10 mg PO BID [facility] Last Admin: 09/20/24 09:11 Dose: 10 mg Fluphenazine HCl (Fluphenazine Hcl 2.5 Mg Tablet) 2.5 mg PO QID PRN PRN Reason: psychosis Gabapentin (Gabapentin 100 Mg Capsule) 200 mg PO TID [facility] Last Admin: 09/20/24 14:38 Dose: 200 mg Hydrochlorothiazide (Hydrochlorothiazide 25 Mg Tablet) 25 mg PO DAILY [facility]; Protocol Last Admin: 09/20/24 09:11 Dose: 25 mg Lidocaine (Lidocaine 4 % Patch Adh..Patch) 1 patch TRANSDERMA DAILY [facility]; Protocol Last Admin: 09/20/24 09:16 Dose: 1 patch Lidocaine (Lidocaine 4 % Patch Adh..Patch) 1 patch TRANSDERMA DAILY [facility]; Protocol Last Admin: 09/20/24 09:16 Dose: 1 patch Lisinopril (Lisinopril 40 Mg Tablet) 40 mg PO DAILY [facility]; Protocol Last Admin: 09/20/24 09:11 Dose: 40 mg Magnesium Hydroxide (Milk Of Magnesia 30 Ml Oral.Susp) 30 ml PO DAILY PRN PRN Reason: Constipation Nystatin (Nystatin Powder 15 Gm Bottle) 1 appl TOPICAL BID [facility]; Protocol Last Admin: 09/20/24 09:17 Dose: 1 appl Olanzapine (Olanzapine Odt 10 Mg Tab.Rapdis) 10 mg TRANSLINGU Q6H PRN PRN Reason: agitation Last Admin: 09/19/24 12:13 Dose: 10 mg Tamsulosin HCl (Tamsulosin Hcl 0.4 Mg Capsule) 0.4 mg PO BEDTIME [facility] Last Admin: 09/19/24 20:59 Dose: 0.4 mg Trazodone HCl (Trazodone Hcl 50 Mg Tablet) 50 mg PO BEDTIME MRX1 PRN PRN Reason: Insomnia Last Admin: 09/16/24 21:04 Dose: 50 mg Valacyclovir HCl (Valacyclovir Hcl 500 Mg Tablet) 500 mg PO DAILY [facility] Last Admin: 09/20/24 09:12 Dose: 500 mg Allergies Allergies Allergy/AdvReac Type Severity Reaction Status Date / Time Penicillins [PCN] Allergy Severe Anaphylaxis Verified 08/22/24 04:12 bee venom protein (honey bee) Allergy Anaphylaxis Verified 08/22/24 04:04 codeine Allergy Unknown Verified 08/22/24 04:07 Iodinated Contrast Media Allergy Numbness Verified 08/22/24 04:11 [Contrast Dye] lanolin Allergy Rash Verified 08/22/24 04:11 latex Allergy Rash Verified 08/22/24 04:11 Sulfa (Sulfonamide Allergy Unknown Verified 08/22/24 04:11 Antibiotics) tramadol AdvReac Nausea and Verified 08/22/24 04:11 Vomiting Assessment & Plan Assessment & Plan (1) Schizoaffective disorder: Status: Acute Code(s): F25.9 - Schizoaffective disorder, unspecified Plan HOSPITAL COURSE: 08/22: continue medications from [facility]. hospitalist consult. observation, supportive care. 08/23: continue current mgmt. PRNs for anxiety. hospitalist consult pending. 08/24: psychotic, aggressive. add haldol 5 QHS and haldol 2 mg PRNs. medical consult appreciated. collateral from family. 08/25 pt presents with paranoid/persecutory delusions, auditory hallucinations and some grandiose delusions of having special power. will dc wellbutrin as it exacerbates psychosis. will increase haldol 5mg po qhs and will add 2.5mg po daily. increase abilify 20mg po daily. seems like amantadine for parkinsonian symptoms-wih higher potency antipsychotic like haldol will add low dose cogentin. Noted UA- shows UTI, will start ceftin 250mg po BID x 7 days. Pending collateral information. 08/26- pt with significant bilat cogwheel and rigidity with haldol. will d/c haldol, although risperidone also high potency antipsychotic will switch to risperidone. will continue abilify for now. 08/27 increased risperidone 2mg po BID. continue abilify 20mg po daily. 08/29 we are going to increase Risperdal to 2 mg in the morning and 3 mg at night we will assess for EPS tomorrow morning. 08/30 continue same treatment 08/31/24 isolated withdrawn would consider mcneal 09/01/2024 d/c abilify, continue risperidone, add depakote 250mg po daily and 500mg po qhs. 09/03 switch risperidone to prolixin 5mg po BID, continue depakote. will check depakote level in few days with ammonia and lft. 09/07 hospitalist consult- edema venous statis. 09/08 continue tx. 09/09 pt sitting outside; she says she's having a good day today, but that yesterday she was upset, anxious. Pt said she is still having a lot of worries today. She reiterated that yesterday was a bad day but when mentioned that patient did not take a medication yesterday she was able to say maybe that was the reason. Patient otherwise kind of rambling to herself and to others at the same time -continue tx plan 09/11 pt very agitated today, with paranoid delusions that people are trying to hurt her; both AH and VH (of shadows). Pt threatened to kill her roommate, thinking her roommate was persecuting her. Pt later had only vague memories of event and was tearful, apologetic, but confused whether or not she was really been persecuted; she said it helped when staff did reality testing. Pt agreed to prn Fluphenazine. -check labs and recent Depakote level WNL; ammonia WNL -patient on fluphenazine; will add p.r.n. to see if it helps with agitation, psychosis; if so and if she needs consistently, will consider increasing scheduled dose -patient moved a single 09/12?not?agitated?or?threatening?today?but?remains?with?AH?and?paranoid?delusions?that?she?is?being?persecuted Fluphenazine?p.r.n.?seem?to?help?yesterday?so?would?like?to?increase.??Patient?agrees 09/13 Patient?less?agitated;?not?expressing?paranoid?delusions?as?much.??Seems?to?be?more?calm.??Slept?at?night Nurse?reports?bilateral?lower?limb?edema;?will?add?Hospitalist consult 09/14?more?paranoid?delusions?and?AH?today;?will?continue?with?current?regimen?as?fluphenazine?just?increase.? -hospitalist?order?Steve?stockings 09/15?no?expressed?paranoid?delusions,?no?AH?today;?more?calm.??Perhaps?increased?fluphenazine?dose?is?working.?? Continue?current?regimen 09/16?again?no?paranoid?delusions?are?AH;?in?good?behavioral/impulse?control;?continue?current?treatment?plan 09/17 continue tx. still residual paranoid delusions 09/18 continue tx. Plan: -Patient moved to single room Continue fluphenazine 10mg BID continue fluphenazine 5 mg daily p.r.n. for agitation/psychosis continue clonazepam 0.25 mg b.i.d. p.r.n. for agitation/anxiety Continue clonazepam 0.5 mg b.i.d. Continue Depakote 500 mg q.h.s. Continue Depakote 250 mg daily Continue Gabapentin 200 mg t.i.d. Continue Cogentin 0.5 mg b.i.d. Reason for continued inpatient stay Substantial Risk for: inability to function Time Spent With Patient Time: Total time managing care of this patient today ____ minutes.
[2024-09-20 20:00] VITALS: BP 104/50; PULSE 73; RESP 16; TEMP 36.4; O2SAT 95
[2024-09-20] MEDS: Tamsulosin HCL 0.4 MG CAPSULE PO (20:01)
[2024-09-20] MEDS: Atorvastatin Calcium 10 MG TABLET PO (20:02)
[2024-09-20] MEDS: Divalproex Sodium 500 MG TABLET.DR PO (20:02)
[2024-09-21 08:00] VITALS: BP 100/49; PULSE 79; RESP 16; TEMP 37.3; O2SAT 97
[2024-09-21] MEDS: lisinopriL 40 MG TABLET PO (08:00)
[2024-09-21] MEDS: Nystatin Powder 15 GM BOTTLE 1 APPL TOPICAL ×2 (09:00→20:28)
[2024-09-21 09:18] VITALS: BP 100/49
[2024-09-21] MEDS: Gabapentin 100 MG CAPSULE 200 MG PO ×3 (09:18→20:27)
[2024-09-21] MEDS: valACYclovir HCL 500 MG TABLET PO (09:18)
[2024-09-21] MEDS: hydroCHLOROthiazide 25 MG TABLET PO (09:18)
[2024-09-21] MEDS: fluPHENAZine HCl 5 MG TABLET 10 MG PO ×2 (09:19→20:27)
[2024-09-21] MEDS: clonazePAM 0.5 MG TABLET PO ×2 (09:19→20:27)
[2024-09-21 09:20] VITALS: BP 100/49; PULSE 79
[2024-09-21] MEDS: Apixaban 5 MG TABLET PO ×2 (09:20→20:27)
[2024-09-21] MEDS: Benztropine Mesylate 0.5 MG TABLET PO ×2 (09:20→20:27)
[2024-09-21] MEDS: carvediloL 25 MG TABLET PO ×2 (09:20→20:27)
[2024-09-21] MEDS: Divalproex Sodium 250 MG TABLET.DR PO (09:20)
[2024-09-21] MEDS: Lidocaine 4 % Patch ADH..PATCH 1 PATCH TRANSDERMA (11:55)
[2024-09-21] MEDS: Acetaminophen 325 MG TABLET 650 MG PO ×2 (14:56→20:40)
--- NOTE | 2024-09-21 16:55 | P.PNPSI_ITS ---
Subjective Subjective Date of Service: 09/21/24 Reason For Visit: Unspecified Psychosis Interim History: met with patient; discussed with team pt c/o neck pain which is chronic; says tylenol has been helping. Mental Status Exam Mental Status Exam Narrative: Appearance: wearing casual attire, unkempt but fair hygiene, wearing sunglasses, in NAD Behavior: Calm, cooperative Psychomotor: bilat cogwheel and rigidity; uses walker. Speech: clear, normal rate/rhythm/volume, spontaneous TP: mostly goal oriented and linear but wanders often to tangential as well TC: neck pain; otherwise remains without expressed?paranoid?delusions Mood: Okay Affect: constricted SI: denies HI: ?None VH/AH: ?Currently?no?AH; Delusion: ?Currently?no?paranoid/persecutory?delusions Insight/judgment: limited. Diagnostics Vital Signs (24Hr): Vital Signs - 24 hr 09/20/24 20:00 09/21/24 08:00 09/21/24 08:00 Temperature 97.5 F 99.1 F Pulse Rate 73 79 Respiratory Rate 16 16 Blood Pressure 104/50 L 100/49 L 100/49 L Pulse Oximetry 95 97 Oxygen Delivery Method Room Air Room Air 09/21/24 09:18 09/21/24 09:20 Temperature Pulse Rate 79 Respiratory Rate Blood Pressure 100/49 L 100/49 L Pulse Oximetry Oxygen Delivery Method BMI result Body Mass Index 31.2 Labs 09/08/24 18:02 09/08/24 18:02 Medications Medications Current Medications Acetaminophen (Acetaminophen 325 Mg Tablet) 650 mg PO Q6H PRN PRN Reason: Headache/Pain Mild Scale (1-3) Last Admin: 09/21/24 14:56 Dose: 650 mg Al Hydroxide/Mg Hydroxide (Magnesium Hydrox/Alum Hydrox 30 Ml Oral.Susp) 30 ml PO Q6H PRN PRN Reason: Heartburn/Nausea Albuterol Sulfate (Albuterol Sulfate 90 Mcg 8 Gm Inhaler) 1 puff INHALE RQ4H PRN PRN Reason: Shortness of Breath Last Admin: 09/12/24 20:35 Dose: 1 puff Apixaban (Apixaban 5 Mg Tablet) 5 mg PO BID ROB Last Admin: 09/21/24 09:20 Dose: 5 mg Atorvastatin Calcium (Atorvastatin Calcium 10 Mg Tablet) 10 mg PO BEDTIME ROB Last Admin: 09/20/24 20:02 Dose: 10 mg Benztropine Mesylate (Benztropine Mesylate 0.5 Mg Tablet) 0.5 mg PO BID [facility] Last Admin: 09/21/24 09:20 Dose: 0.5 mg Carvedilol (Carvedilol 25 Mg Tablet) 25 mg PO BID [facility]; Protocol Last Admin: 09/21/24 09:20 Dose: 25 mg Clonazepam (Clonazepam 0.5 Mg Tablet) 0.5 mg PO BID [facility] Last Admin: 09/21/24 09:19 Dose: 0.5 mg Clonazepam (Clonazepam 0.125 Mg Tab.Rapdis) 0.25 mg PO BID PRN PRN Reason: mod-severe anxiety Last Admin: 09/19/24 00:02 Dose: 0.25 mg Divalproex Sodium (Divalproex Sodium 500 Mg Tablet.Dr) 500 mg PO BEDTIME [facility] Last Admin: 09/20/24 20:02 Dose: 500 mg Divalproex Sodium (Divalproex Sodium 250 Mg Tablet.Dr) 250 mg PO DAILY [facility] Last Admin: 09/21/24 09:20 Dose: 250 mg Fluphenazine HCl (Fluphenazine Hcl 5 Mg Tablet) 5 mg PO DAILY PRN PRN Reason: aggresssion/psychosis Last Admin: 09/14/24 14:38 Dose: 5 mg Fluphenazine HCl (Fluphenazine Hcl 5 Mg Tablet) 10 mg PO BID [facility] Last Admin: 09/21/24 09:19 Dose: 10 mg Fluphenazine HCl (Fluphenazine Hcl 2.5 Mg Tablet) 2.5 mg PO QID PRN PRN Reason: psychosis Gabapentin (Gabapentin 100 Mg Capsule) 200 mg PO TID [facility] Last Admin: 09/21/24 14:59 Dose: 200 mg Hydrochlorothiazide (Hydrochlorothiazide 25 Mg Tablet) 25 mg PO DAILY [facility]; Protocol Last Admin: 09/21/24 09:18 Dose: 25 mg Lidocaine (Lidocaine 4 % Patch Adh..Patch) 1 patch TRANSDERMA DAILY [facility]; Protocol Last Admin: 09/21/24 11:55 Dose: 1 patch Lidocaine (Lidocaine 4 % Patch Adh..Patch) 1 patch TRANSDERMA DAILY [facility]; Protocol Last Admin: 09/21/24 12:01 Dose: Not Given Lisinopril (Lisinopril 40 Mg Tablet) 40 mg PO DAILY [facility]; Protocol Last Admin: 09/21/24 08:00 Dose: 40 mg Magnesium Hydroxide (Milk Of Magnesia 30 Ml Oral.Susp) 30 ml PO DAILY PRN PRN Reason: Constipation Nystatin (Nystatin Powder 15 Gm Bottle) 1 appl TOPICAL BID ROB; Protocol Last Admin: 09/20/24 22:29 Dose: 1 appl Olanzapine (Olanzapine Odt 10 Mg Tab.Rapdis) 10 mg TRANSLINGU Q6H PRN PRN Reason: agitation Last Admin: 09/19/24 12:13 Dose: 10 mg Tamsulosin HCl (Tamsulosin Hcl 0.4 Mg Capsule) 0.4 mg PO BEDTIME ROB Last Admin: 09/20/24 20:01 Dose: 0.4 mg Trazodone HCl (Trazodone Hcl 50 Mg Tablet) 50 mg PO BEDTIME MRX1 PRN PRN Reason: Insomnia Last Admin: 09/16/24 21:04 Dose: 50 mg Valacyclovir HCl (Valacyclovir Hcl 500 Mg Tablet) 500 mg PO DAILY [facility] Last Admin: 09/21/24 09:18 Dose: 500 mg Allergies Allergies Allergy/AdvReac Type Severity Reaction Status Date / Time Penicillins [PCN] Allergy Severe Anaphylaxis Verified 08/22/24 04:12 bee venom protein (honey bee) Allergy Anaphylaxis Verified 08/22/24 04:04 codeine Allergy Unknown Verified 08/22/24 04:07 Iodinated Contrast Media Allergy Numbness Verified 08/22/24 04:11 [Contrast Dye] lanolin Allergy Rash Verified 08/22/24 04:11 latex Allergy Rash Verified 08/22/24 04:11 Sulfa (Sulfonamide Allergy Unknown Verified 08/22/24 04:11 Antibiotics) tramadol AdvReac Nausea and Verified 08/22/24 04:11 Vomiting Assessment & Plan Assessment & Plan (1) Schizoaffective disorder: Status: Acute Code(s): F25.9 - Schizoaffective disorder, unspecified Plan HOSPITAL COURSE: 08/22: continue medications from [facility]. hospitalist consult. observation, supportive care. 08/23: continue current mgmt. PRNs for anxiety. hospitalist consult pending. 08/24: psychotic, aggressive. add haldol 5 QHS and haldol 2 mg PRNs. medical consult appreciated. collateral from family. 10/15 pt presents with paranoid/persecutory delusions, auditory hallucinations and some grandiose delusions of having special power. will dc wellbutrin as it exacerbates psychosis. will increase haldol 5mg po qhs and will add 2.5mg po daily. increase abilify 20mg po daily. seems like amantadine for parkinsonian symptoms-wih higher potency antipsychotic like haldol will add low dose cogentin. Noted UA- shows UTI, will start ceftin 250mg po BID x 7 days. Pending collateral information. 08/26- pt with significant bilat cogwheel and rigidity with haldol. will d/c haldol, although risperidone also high potency antipsychotic will switch to risperidone. will continue abilify for now. 08/27 increased risperidone 2mg po BID. continue abilify 20mg po daily. 08/29 we are going to increase Risperdal to 2 mg in the morning and 3 mg at night we will assess for EPS tomorrow morning. 08/30 continue same treatment 08/31/24 isolated withdrawn would consider mcneal 09/01/2024 d/c abilify, continue risperidone, add depakote 250mg po daily and 500mg po qhs. 09/03 switch risperidone to prolixin 5mg po BID, continue depakote. will check depakote level in few days with ammonia and lft. 09/07 hospitalist consult- edema venous statis. 09/08 continue tx. 09/09 pt sitting outside; she says she's having a good day today, but that yesterday she was upset, anxious. Pt said she is still having a lot of worries today. She reiterated that yesterday was a bad day but when mentioned that patient did not take a medication yesterday she was able to say maybe that was the reason. Patient otherwise kind of rambling to herself and to others at the same time -continue tx plan 09/11 pt very agitated today, with paranoid delusions that people are trying to hurt her; both AH and [facility]H (of shadows). Pt threatened to kill her roommate, thinking her roommate was persecuting her. Pt later had only vague memories of event and was tearful, apologetic, but confused whether or not she was really been persecuted; she said it helped when staff did reality testing. Pt agreed to prn Fluphenazine. -check labs and recent Depakote level WNL; ammonia WNL -patient on fluphenazine; will add p.r.n. to see if it helps with agitation, psychosis; if so and if she needs consistently, will consider increasing scheduled dose -patient moved a single 11/12?not?agitated?or?threatening?today?but?remains?with?AH?and?paranoid?delusions ?that?she?is?being?persecuted F luphenazine?p.r.n.?seem?to?help?yesterday?so?would?like?to?increase.??Patient?ag garth 09/13 Patient?less?agitated;?not?expressing?paranoid?delusions?as?much.??Seems?to?be?m ore?calm.??Slept?at?night Nurse?reports?bilateral?lower?limb?edema;?will?add?Hospitalist consult 11/14?more?paranoid?delusions?and?AH?today;?will?continue?with?current?regimen?as? fluphenazine?just?increase.? -hospitalist?order?Steve?stockings 11/15?no?expressed?paranoid?delusions,?no?AH?today;?more?calm.??Perhaps?increased? fluphenazine?dose?is?working.?? Continue?current?regimen 11/16?again?no?paranoid?delusions?are?AH;?in?good?behavioral/impulse?control;?cont inue?current?treatment?plan 09/17 continue tx. still residual paranoid delusions 09/21 remains without paranoid delusions following increaesed Fluphenazine. C/o neck pain which is chronic; typically relieved w/ tylenol Plan: -Patient moved to single room Continue fluphenazine 10mg BID continue fluphenazine 5 mg daily p.r.n. for agitation/psychosis continue clonazepam 0.25 mg b.i.d. p.r.n. for agitation/anxiety Continue clonazepam 0.5 mg b.i.d. Continue Depakote 500 mg q.h.s. Continue Depakote 250 mg daily Continue Gabapentin 200 mg t.i.d. Continue Cogentin 0.5 mg b.i.d. Patient educated on: diagnosis and medical condition Informed Consent: understands, does not understand and further education needed Reason for continued inpatient stay Substantial Risk for: rapid decompensation Time Spent With Patient Time: Total time managing care of this patient today ____ minutes.
[2024-09-21 20:00] VITALS: BP 95/57; PULSE 74; RESP 16; TEMP 36.3; O2SAT 96
[2024-09-21] MEDS: Tamsulosin HCL 0.4 MG CAPSULE PO (20:27)
[2024-09-21] MEDS: Divalproex Sodium 500 MG TABLET.DR PO (20:27)
[2024-09-21] MEDS: Atorvastatin Calcium 10 MG TABLET PO (20:27)
[2024-09-21] MEDS: traZODone HCL 50 MG TABLET PO (20:41)
[2024-09-22 08:00] VITALS: BP 108/57; PULSE 74; RESP 18; TEMP 37.1; O2SAT 94
[2024-09-22] MEDS: Lidocaine 4 % Patch ADH..PATCH 1 PATCH TRANSDERMA ×2 (09:23)
[2024-09-22] MEDS: hydroCHLOROthiazide 25 MG TABLET PO (09:24)
[2024-09-22] MEDS: Benztropine Mesylate 0.5 MG TABLET PO ×2 (09:24→22:17)
[2024-09-22] MEDS: Apixaban 5 MG TABLET PO ×2 (09:24→22:17)
[2024-09-22] MEDS: lisinopriL 40 MG TABLET PO (09:24)
[2024-09-22] MEDS: clonazePAM 0.5 MG TABLET PO ×2 (09:24→22:16)
[2024-09-22] MEDS: Divalproex Sodium 250 MG TABLET.DR PO (09:24)
[2024-09-22] MEDS: Gabapentin 100 MG CAPSULE 200 MG PO ×3 (09:25→22:15)
[2024-09-22] MEDS: Acetaminophen 325 MG TABLET 650 MG PO ×2 (09:25→15:26)
[2024-09-22] MEDS: carvediloL 25 MG TABLET PO ×2 (09:26→22:16)
[2024-09-22] MEDS: fluPHENAZine HCl 5 MG TABLET 10 MG PO ×2 (09:26→22:17)
[2024-09-22] MEDS: valACYclovir HCL 500 MG TABLET PO (09:26)
[2024-09-22] MEDS: oxyCODONE HCl Immed Release 5 MG TABLET PO (16:48)
[2024-09-22 20:00] VITALS: BP 104/58; PULSE 67; RESP 18; TEMP 36.2; O2SAT 94
[2024-09-22 22:16] VITALS: BP 104/58; PULSE 67
[2024-09-22] MEDS: Atorvastatin Calcium 10 MG TABLET PO (22:16)
[2024-09-22] MEDS: Tamsulosin HCL 0.4 MG CAPSULE PO (22:16)
[2024-09-22] MEDS: Divalproex Sodium 500 MG TABLET.DR PO (22:17)
[2024-09-22] MEDS: Nystatin Powder 15 GM BOTTLE 1 APPL TOPICAL (22:19)
--- NOTE | 2024-09-22 22:59 | P.PNPSI_ITS ---
Subjective Subjective Date of Service: 09/22/24 Reason For Visit: Unspecified Psychosis Interim History: met with patient; discussed with team pt remains w/out paranoid delusions but c/o increased pain which is she says makes it hard to sleep. procedure writer agrees to add Oxcodone, which she's tolerated before Mental Status Exam Mental Status Exam Narrative: Appearance: wearing casual attire, unkempt but fair hygiene Behavior: Calm, cooperative Psychomotor: bilat cogwheel and rigidity; uses walker. Speech: clear, normal rate/rhythm/volume, spontaneous TP: mostly goal oriented and linear but wanders often to tangential as well TC: neck pain; otherwise remains without expressed?paranoid?delusions Mood: ok Affect: constricted SI: denies HI: ?None VH/AH: ?Currently?no?AH; Delusion: ?Currently?no?paranoid/persecutory?delusions Insight/judgment: limited. Diagnostics Vital Signs (24Hr): Vital Signs - 24 hr 09/22/24 08:00 09/22/24 20:00 09/22/24 22:16 Temperature 98.8 F 97.1 F Pulse Rate 74 67 67 Respiratory Rate 18 18 Blood Pressure 108/57 L 104/58 L 104/58 L Pulse Oximetry 94 94 Oxygen Delivery Method Room Air Room Air BMI result Body Mass Index 31.2 Labs 09/08/24 18:02 09/08/24 18:02 Medications Medications Current Medications Acetaminophen (Acetaminophen 325 Mg Tablet) 650 mg PO Q6H PRN PRN Reason: Headache/Pain Mild Scale (1-3) Last Admin: 09/22/24 15:26 Dose: 650 mg Al Hydroxide/Mg Hydroxide (Magnesium Hydrox/Alum Hydrox 30 Ml Oral.Susp) 30 ml PO Q6H PRN PRN Reason: Heartburn/Nausea Albuterol Sulfate (Albuterol Sulfate 90 Mcg 8 Gm Inhaler) 1 puff INHALE RQ4H PRN PRN Reason: Shortness of Breath Last Admin: 09/12/24 20:35 Dose: 1 puff Apixaban (Apixaban 5 Mg Tablet) 5 mg PO BID ROB Last Admin: 09/22/24 22:17 Dose: 5 mg Atorvastatin Calcium (Atorvastatin Calcium 10 Mg Tablet) 10 mg PO BEDTIME ROB Last Admin: 09/22/24 22:16 Dose: 10 mg Benztropine Mesylate (Benztropine Mesylate 0.5 Mg Tablet) 0.5 mg PO BID [facility] Last Admin: 09/22/24 22:17 Dose: 0.5 mg Carvedilol (Carvedilol 25 Mg Tablet) 25 mg PO BID [facility]; Protocol Last Admin: 09/22/24 22:16 Dose: 25 mg Clonazepam (Clonazepam 0.5 Mg Tablet) 0.5 mg PO BID [facility] Last Admin: 09/22/24 22:16 Dose: 0.5 mg Clonazepam (Clonazepam 0.125 Mg Tab.Rapdis) 0.25 mg PO BID PRN PRN Reason: mod-severe anxiety Last Admin: 09/19/24 00:02 Dose: 0.25 mg Divalproex Sodium (Divalproex Sodium 500 Mg Tablet.Dr) 500 mg PO BEDTIME [facility] Last Admin: 09/22/24 22:17 Dose: 500 mg Divalproex Sodium (Divalproex Sodium 250 Mg Tablet.Dr) 250 mg PO DAILY [facility] Last Admin: 09/22/24 09:24 Dose: 250 mg Fluphenazine HCl (Fluphenazine Hcl 5 Mg Tablet) 5 mg PO DAILY PRN PRN Reason: aggresssion/psychosis Last Admin: 09/14/24 14:38 Dose: 5 mg Fluphenazine HCl (Fluphenazine Hcl 5 Mg Tablet) 10 mg PO BID [facility] Last Admin: 09/22/24 22:17 Dose: 10 mg Fluphenazine HCl (Fluphenazine Hcl 2.5 Mg Tablet) 2.5 mg PO QID PRN PRN Reason: psychosis Gabapentin (Gabapentin 100 Mg Capsule) 200 mg PO TID [facility] Last Admin: 09/22/24 22:15 Dose: 200 mg Hydrochlorothiazide (Hydrochlorothiazide 25 Mg Tablet) 25 mg PO DAILY [facility]; Protocol Last Admin: 09/22/24 09:24 Dose: 25 mg Lidocaine (Lidocaine 4 % Patch Adh..Patch) 1 patch TRANSDERMA DAILY [facility]; Protocol Last Admin: 09/22/24 09:23 Dose: 1 patch Lidocaine (Lidocaine 4 % Patch Adh..Patch) 1 patch TRANSDERMA DAILY [facility]; Protocol Last Admin: 09/22/24 09:23 Dose: 1 patch Lisinopril (Lisinopril 40 Mg Tablet) 40 mg PO DAILY [facility]; Protocol Last Admin: 09/22/24 09:24 Dose: 40 mg Magnesium Hydroxide (Milk Of Magnesia 30 Ml Oral.Susp) 30 ml PO DAILY PRN PRN Reason: Constipation Nystatin (Nystatin Powder 15 Gm Bottle) 1 appl TOPICAL BID [facility]; Protocol Last Admin: 09/22/24 22:19 Dose: 1 appl Olanzapine (Olanzapine Odt 10 Mg Tab.Rapdis) 10 mg TRANSLINGU Q6H PRN PRN Reason: agitation Last Admin: 09/19/24 12:13 Dose: 10 mg Oxycodone HCl (Oxycodone Hcl Immed Release 5 Mg Tablet) 5 mg PO BID PRN PRN Reason: breakthrough neck/back pain Tamsulosin HCl (Tamsulosin Hcl 0.4 Mg Capsule) 0.4 mg PO BEDTIME ROB Last Admin: 09/22/24 22:16 Dose: 0.4 mg Trazodone HCl (Trazodone Hcl 50 Mg Tablet) 50 mg PO BEDTIME MRX1 PRN PRN Reason: Insomnia Last Admin: 09/21/24 20:41 Dose: 50 mg Valacyclovir HCl (Valacyclovir Hcl 500 Mg Tablet) 500 mg PO DAILY [facility] Last Admin: 09/22/24 09:26 Dose: 500 mg Allergies Allergies Allergy/AdvReac Type Severity Reaction Status Date / Time Penicillins [PCN] Allergy Severe Anaphylaxis Verified 08/22/24 04:12 bee venom protein (honey bee) Allergy Anaphylaxis Verified 08/22/24 04:04 codeine Allergy Unknown Verified 08/22/24 04:07 Iodinated Contrast Media Allergy Numbness Verified 08/22/24 04:11 [Contrast Dye] lanolin Allergy Rash Verified 08/22/24 04:11 latex Allergy Rash Verified 08/22/24 04:11 Sulfa (Sulfonamide Allergy Unknown Verified 08/22/24 04:11 Antibiotics) tramadol AdvReac Nausea and Verified 08/22/24 04:11 Vomiting Assessment & Plan Assessment & Plan (1) Schizoaffective disorder: Status: Acute Code(s): F25.9 - Schizoaffective disorder, unspecified Plan HOSPITAL COURSE: 08/22: continue medications from [facility]. hospitalist consult. observation, supportive care. 08/23: continue current mgmt. PRNs for anxiety. hospitalist consult pending. 08/24: psychotic, aggressive. add haldol 5 QHS and haldol 2 mg PRNs. medical consult appreciated. collateral from family. 08/25 pt presents with paranoid/persecutory delusions, auditory hallucinations and some grandiose delusions of having special power. will dc wellbutrin as it exacerbates psychosis. will increase haldol 5mg po qhs and will add 2.5mg po daily. increase abilify 20mg po daily. seems like amantadine for parkinsonian symptoms-wih higher potency antipsychotic like haldol will add low dose cogentin. Noted UA- shows UTI, will start ceftin 250mg po BID x 7 days. Pending collateral information. 08/26- pt with significant bilat cogwheel and rigidity with haldol. will d/c haldol, although risperidone also high potency antipsychotic will switch to risperidone. will continue abilify for now. 08/27 increased risperidone 2mg po BID. continue abilify 20mg po daily. 08/29 we are going to increase Risperdal to 2 mg in the morning and 3 mg at night we will assess for EPS tomorrow morning. 08/30 continue same treatment 08/31/24 isolated withdrawn would consider mcneal 09/01/2024 d/c abilify, continue risperidone, add depakote 250mg po daily and 500mg po qhs. 09/03 switch risperidone to prolixin 5mg po BID, continue depakote. will check depakote level in few days with ammonia and lft. 09/07 hospitalist consult- edema venous statis. 09/08 continue tx. 09/09 pt sitting outside; she says she's having a good day today, but that yesterday she was upset, anxious. Pt said she is still having a lot of worries today. She reiterated that yesterday was a bad day but when mentioned that patient did not take a medication yesterday she was able to say maybe that was the reason. Patient otherwise kind of rambling to herself and to others at the same time -continue tx plan 09/11 pt very agitated today, with paranoid delusions that people are trying to hurt her; both AH and [facility]H (of shadows). Pt threatened to kill her roommate, thinking her roommate was persecuting her. Pt later had only vague memories of event and was tearful, apologetic, but confused whether or not she was really been persecuted; she said it helped when staff did reality testing. Pt agreed to prn Fluphenazine. -check labs and recent Depakote level WNL; ammonia WNL -patient on fluphenazine; will add p.r.n. to see if it helps with agitation, psychosis; if so and if she needs consistently, will consider increasing scheduled dose -patient moved a single 11/12?not?agitated?or?threatening?today?but?remains?with?AH?and?paranoid?delusions ?that?she?is?being?persecuted F luphenazine?p.r.n.?seem?to?help?yesterday?so?would?like?to?increase.??Patient?ag garth 09/13 Patient?less?agitated;?not?expressing?paranoid?delusions?as?much.??Seems?to?be?m ore?calm.??Slept?at?night Nurse?reports?bilateral?lower?limb?edema;?will?add?Hospitalist consult 11/14?more?paranoid?delusions?and?AH?today;?will?continue?with?current?regimen?as? fluphenazine?just?increase.? -hospitalist?order?Steve?stockings 11/15?no?expressed?paranoid?delusions,?no?AH?today;?more?calm.??Perhaps?increased? fluphenazine?dose?is?working.?? Continue?current?regimen 11/16?again?no?paranoid?delusions?are?AH;?in?good?behavioral/impulse?control;?cont inue?current?treatment?plan 09/17 continue tx. still residual paranoid delusions 09/18 continue tx. 09/21 remains without paranoid delusions following increaesed Fluphenazine. C/o neck pain which is chronic; typically relieved w/ tylenol 09/22 pt remains w/out paranoid delusions but c/o increased pain which is she says makes it hard to sleep. procedure writer agrees to add Oxcodone, which she's tolerated before Plan: -Patient moved to single room Start Oxycodone 5mg BID prn for breakthrough neck pain Continue fluphenazine 10mg BID continue fluphenazine 5 mg daily p.r.n. for agitation/psychosis continue clonazepam 0.25 mg b.i.d. p.r.n. for agitation/anxiety Continue clonazepam 0.5 mg b.i.d. Continue Depakote 500 mg q.h.s. Continue Depakote 250 mg daily Continue Gabapentin 200 mg t.i.d. Continue Cogentin 0.5 mg b.i.d. Patient educated on: diagnosis and medical condition Informed Consent: understands Reason for continued inpatient stay Substantial Risk for: inability to function Time Spent With Patient Time: Total time managing care of this patient today ____ minutes.
[2024-09-23 07:11] LABS: Glucose, Whole Blood 83 mg/dL (60-115)
[2024-09-23 08:00] VITALS: BP 110/54; PULSE 71; RESP 18; TEMP 37; O2SAT 95
[2024-09-23] MEDS: oxyCODONE HCl Immed Release 5 MG TABLET PO ×2 (08:30→20:47)
[2024-09-23] MEDS: carvediloL 25 MG TABLET PO ×2 (08:31→20:37)
[2024-09-23] MEDS: Apixaban 5 MG TABLET PO ×2 (08:31→20:39)
[2024-09-23] MEDS: valACYclovir HCL 500 MG TABLET PO (08:31)
[2024-09-23] MEDS: Benztropine Mesylate 0.5 MG TABLET PO ×2 (08:31→20:38)
[2024-09-23] MEDS: Divalproex Sodium 250 MG TABLET.DR PO (08:31)
[2024-09-23] MEDS: Gabapentin 100 MG CAPSULE 200 MG PO ×3 (08:31→20:38)
[2024-09-23] MEDS: clonazePAM 0.5 MG TABLET PO ×2 (08:31→20:47)
[2024-09-23] MEDS: hydroCHLOROthiazide 25 MG TABLET PO (08:32)
[2024-09-23] MEDS: fluPHENAZine HCl 5 MG TABLET 10 MG PO ×2 (08:32→20:37)
[2024-09-23] MEDS: lisinopriL 40 MG TABLET PO (08:32)
[2024-09-23] MEDS: Lidocaine 4 % Patch ADH..PATCH 1 PATCH TRANSDERMA ×2 (08:32)
[2024-09-23] MEDS: Acetaminophen 325 MG TABLET 650 MG PO ×2 (16:44→23:28)
[2024-09-23 20:00] VITALS: BP 110/60; PULSE 68; RESP 16; TEMP 36.6; O2SAT 96
[2024-09-23] MEDS: Tamsulosin HCL 0.4 MG CAPSULE PO (20:38)
[2024-09-23] MEDS: Atorvastatin Calcium 10 MG TABLET PO (20:38)
--- NOTE | 2024-09-23 21:44 | HO.PSYCHPN ---
Subjective Subjective Date of Service: 09/23/24 Reason For Visit: Unspecified Psychosis Interim History: met with patient; discussed with team pt reports pain is better with Oxy; no other complaints Mental Status Exam Mental Status Exam Narrative: Appearance: wearing casual attire, unkempt but fair hygiene Behavior: Calm, cooperative Psychomotor: bilat cogwheel and rigidity; uses walker. Speech: clear, normal rate/rhythm/volume, spontaneous TP: mostly goal oriented and linear but wanders often to tangential as well TC: neck pain; otherwise remains without expressed?paranoid?delusions Mood: good Affect: constricted SI: denies HI: ?None VH/AH: ?Currently?no?AH; Delusion: ?Currently?no?paranoid/persecutory?delusions Insight/judgment: limited. Diagnostics Vital Signs (24Hr): Vital Signs - 24 hr 09/22/24 22:16 09/23/24 08:00 Temperature 98.6 F Pulse Rate 67 71 Respiratory Rate 18 Blood Pressure 104/58 L 110/54 L Pulse Oximetry 95 Oxygen Delivery Method Room Air BMI result Body Mass Index 31.2 Labs 09/08/24 18:02 09/08/24 18:02 Labs: Laboratory Results - last 48 hr 09/23/24 06:45 POC Glucose 83 Medications Medications Current Medications Acetaminophen (Acetaminophen 325 Mg Tablet) 650 mg PO Q6H PRN PRN Reason: Headache/Pain Mild Scale (1-3) Last Admin: 09/23/24 16:44 Dose: 650 mg Al Hydroxide/Mg Hydroxide (Magnesium Hydrox/Alum Hydrox 30 Ml Oral.Susp) 30 ml PO Q6H PRN PRN Reason: Heartburn/Nausea Albuterol Sulfate (Albuterol Sulfate 90 Mcg 8 Gm Inhaler) 1 puff INHALE RQ4H PRN PRN Reason: Shortness of Breath Last Admin: 09/12/24 20:35 Dose: 1 puff Apixaban (Apixaban 5 Mg Tablet) 5 mg PO BID [facility] Last Admin: 09/23/24 20:39 Dose: 5 mg Atorvastatin Calcium (Atorvastatin Calcium 10 Mg Tablet) 10 mg PO BEDTIME [facility] Last Admin: 09/23/24 20:38 Dose: 10 mg Benztropine Mesylate (Benztropine Mesylate 0.5 Mg Tablet) 0.5 mg PO BID [facility] Last Admin: 11/13/24 20:38 Dose: 0.5 mg Carvedilol (Carvedilol 25 Mg Tablet) 25 mg PO BID [facility]; Protocol Last Admin: 09/23/24 20:37 Dose: 25 mg Clonazepam (Clonazepam 0.5 Mg Tablet) 0.5 mg PO BID [facility] Last Admin: 09/23/24 20:47 Dose: 0.5 mg Clonazepam (Clonazepam 0.125 Mg Tab.Rapdis) 0.25 mg PO BID PRN PRN Reason: mod-severe anxiety Last Admin: 09/19/24 00:02 Dose: 0.25 mg Divalproex Sodium (Divalproex Sodium 500 Mg Tablet.Dr) 500 mg PO BEDTIME [facility] Last Admin: 09/22/24 22:17 Dose: 500 mg Divalproex Sodium (Divalproex Sodium 250 Mg Tablet.Dr) 250 mg PO DAILY [facility] Last Admin: 09/23/24 08:31 Dose: 250 mg Fluphenazine HCl (Fluphenazine Hcl 5 Mg Tablet) 5 mg PO DAILY PRN PRN Reason: aggresssion/psychosis Last Admin: 09/14/24 14:38 Dose: 5 mg Fluphenazine HCl (Fluphenazine Hcl 5 Mg Tablet) 10 mg PO BID [facility] Last Admin: 09/23/24 20:37 Dose: 10 mg Fluphenazine HCl (Fluphenazine Hcl 2.5 Mg Tablet) 2.5 mg PO QID PRN PRN Reason: psychosis Gabapentin (Gabapentin 100 Mg Capsule) 200 mg PO TID [facility] Last Admin: 09/23/24 20:38 Dose: 200 mg Hydrochlorothiazide (Hydrochlorothiazide 25 Mg Tablet) 25 mg PO DAILY [facility]; Protocol Last Admin: 09/23/24 08:32 Dose: 25 mg Lidocaine (Lidocaine 4 % Patch Adh..Patch) 1 patch TRANSDERMA DAILY [facility]; Protocol Last Admin: 09/23/24 08:32 Dose: 1 patch Lidocaine (Lidocaine 4 % Patch Adh..Patch) 1 patch TRANSDERMA DAILY [facility]; Protocol Last Admin: 09/23/24 08:32 Dose: 1 patch Lisinopril (Lisinopril 40 Mg Tablet) 40 mg PO DAILY [facility]; Protocol Last Admin: 09/23/24 08:32 Dose: 40 mg Magnesium Hydroxide (Milk Of Magnesia 30 Ml Oral.Susp) 30 ml PO DAILY PRN PRN Reason: Constipation Nystatin (Nystatin Powder 15 Gm Bottle) 1 appl TOPICAL BID [facility]; Protocol Last Admin: 09/23/24 08:33 Dose: Not Given Olanzapine (Olanzapine Odt 10 Mg Tab.Rapdis) 10 mg TRANSLINGU Q6H PRN PRN Reason: agitation Last Admin: 09/19/24 12:13 Dose: 10 mg Oxycodone HCl (Oxycodone Hcl Immed Release 5 Mg Tablet) 5 mg PO Q6H PRN PRN Reason: breakthrough neck/back pain Last Admin: 09/23/24 20:47 Dose: 5 mg Tamsulosin HCl (Tamsulosin Hcl 0.4 Mg Capsule) 0.4 mg PO BEDTIME [facility] Last Admin: 09/23/24 20:38 Dose: 0.4 mg Trazodone HCl (Trazodone Hcl 50 Mg Tablet) 50 mg PO BEDTIME MRX1 PRN PRN Reason: Insomnia Last Admin: 09/21/24 20:41 Dose: 50 mg Valacyclovir HCl (Valacyclovir Hcl 500 Mg Tablet) 500 mg PO DAILY [facility] Last Admin: 09/23/24 08:31 Dose: 500 mg Allergies Allergies Allergy/AdvReac Type Severity Reaction Status Date / Time Penicillins [PCN] Allergy Severe Anaphylaxis Verified 08/22/24 04:12 bee venom protein (honey bee) Allergy Anaphylaxis Verified 08/22/24 04:04 codeine Allergy Unknown Verified 08/22/24 04:07 Iodinated Contrast Media Allergy Numbness Verified 08/22/24 04:11 [Contrast Dye] lanolin Allergy Rash Verified 08/22/24 04:11 latex Allergy Rash Verified 08/22/24 04:11 Sulfa (Sulfonamide Allergy Unknown Verified 08/22/24 04:11 Antibiotics) tramadol AdvReac Nausea and Verified 08/22/24 04:11 Vomiting Assessment & Plan Assessment & Plan (1) Schizoaffective disorder: Status: Acute Code(s): F25.9 - Schizoaffective disorder, unspecified Plan HOSPITAL COURSE: 08/22: continue medications from [facility]. hospitalist consult. observation, supportive care. 08/23: continue current mgmt. PRNs for anxiety. hospitalist consult pending. 08/24: psychotic, aggressive. add haldol 5 QHS and haldol 2 mg PRNs. medical consult appreciated. collateral from family. 08/25 pt presents with paranoid/persecutory delusions, auditory hallucinations and some grandiose delusions of having special power. will dc wellbutrin as it exacerbates psychosis. will increase haldol 5mg po qhs and will add 2.5mg po daily. increase abilify 20mg po daily. seems like amantadine for parkinsonian symptoms-wih higher potency antipsychotic like haldol will add low dose cogentin. Noted UA- shows UTI, will start ceftin 250mg po BID x 7 days. Pending collateral information. 08/26- pt with significant bilat cogwheel and rigidity with haldol. will d/c haldol, although risperidone also high potency antipsychotic will switch to risperidone. will continue abilify for now. 08/27 increased risperidone 2mg po BID. continue abilify 20mg po daily. 08/29 we are going to increase Risperdal to 2 mg in the morning and 3 mg at night we will assess for EPS tomorrow morning. 08/30 continue same treatment 08/31/24 isolated withdrawn would consider mcneal 09/01/2024 d/c abilify, continue risperidone, add depakote 250mg po daily and 500mg po qhs. 09/03 switch risperidone to prolixin 5mg po BID, continue depakote. will check depakote level in few days with ammonia and lft. 09/07 hospitalist consult- edema venous statis. 09/08 continue tx. 09/09 pt sitting outside; she says she's having a good day today, but that yesterday she was upset, anxious. Pt said she is still having a lot of worries today. She reiterated that yesterday was a bad day but when mentioned that patient did not take a medication yesterday she was able to say maybe that was the reason. Patient otherwise kind of rambling to herself and to others at the same time -continue tx plan 09/11 pt very agitated today, with paranoid delusions that people are trying to hurt her; both AH and VH (of shadows). Pt threatened to kill her roommate, thinking her roommate was persecuting her. Pt later had only vague memories of event and was tearful, apologetic, but confused whether or not she was really been persecuted; she said it helped when staff did reality testing. Pt agreed to prn Fluphenazine. -check labs and recent Depakote level WNL; ammonia WNL -patient on fluphenazine; will add p.r.n. to see if it helps with agitation, psychosis; if so and if she needs consistently, will consider increasing scheduled dose -patient moved a single 09/12?not?agitated?or?threatening?today?but?remains?with?AH?and?paranoid?delusions?that?she?is?being?persecuted Fluphenazine?p.r.n.?seem?to?help?yesterday?so?would?like?to?increase.??Patient?agrees 09/13 Patient?less?agitated;?not?expressing?paranoid?delusions?as?much.??Seems?to?be?more?calm.??Slept?at?night Nurse?reports?bilateral?lower?limb?edema;?will?add?Hospitalist consult 09/14?more?paranoid?delusions?and?AH?today;?will?continue?with?current?regimen?as?fluphenazine?just?increase.? -hospitalist?order?Steve?stockings 09/15?no?expressed?paranoid?delusions,?no?AH?today;?more?calm.??Perhaps?increased?fluphenazine?dose?is?working.?? Continue?current?regimen 09/16?again?no?paranoid?delusions?are?AH;?in?good?behavioral/impulse?control;?continue?current?treatment?plan 09/17 continue tx. still residual paranoid delusions 09/18 continue tx. 09/21 remains without paranoid delusions following increaesed Fluphenazine. C/o neck pain which is chronic; typically relieved w/ tylenol 09/22 pt remains w/out paranoid delusions but c/o increased pain which is she says makes it hard to sleep. bond underwriter agrees to add Oxcodone, which she's tolerated before 09/23 pt reports pain is better with Oxy; no other complaints Plan: Continue Oxycodone 5mg BID prn for breakthrough neck pain Continue fluphenazine 10mg BID continue fluphenazine 5 mg daily p.r.n. for agitation/psychosis continue clonazepam 0.25 mg b.i.d. p.r.n. for agitation/anxiety Continue clonazepam 0.5 mg b.i.d. Continue Depakote 500 mg q.h.s. Continue Depakote 250 mg daily Continue Gabapentin 200 mg t.i.d. Continue Cogentin 0.5 mg b.i.d. Patient educated on: diagnosis and medication risk/benefits Informed Consent: understands Reason for continued inpatient stay Substantial Risk for: inability to function Time Spent With Patient Time: Total time managing care of this patient today ____ minutes.
[2024-09-23] MEDS: Divalproex Sodium 500 MG TABLET.DR PO (22:28)
[2024-09-24 08:00] VITALS: BP 103/54; PULSE 68; RESP 18; TEMP 36.6; O2SAT 93
[2024-09-24] MEDS: lisinopriL 40 MG TABLET PO (08:31)
[2024-09-24] MEDS: hydroCHLOROthiazide 25 MG TABLET PO (08:31)
[2024-09-24] MEDS: Divalproex Sodium 250 MG TABLET.DR PO (08:31)
[2024-09-24] MEDS: Benztropine Mesylate 0.5 MG TABLET PO ×2 (08:32→20:26)
[2024-09-24] MEDS: Gabapentin 100 MG CAPSULE 200 MG PO ×3 (08:32→20:26)
[2024-09-24] MEDS: Apixaban 5 MG TABLET PO ×2 (08:32→20:26)
[2024-09-24] MEDS: carvediloL 25 MG TABLET PO ×2 (08:32→20:24)
[2024-09-24] MEDS: valACYclovir HCL 500 MG TABLET PO (08:32)
[2024-09-24] MEDS: fluPHENAZine HCl 5 MG TABLET 10 MG PO ×2 (08:32→20:24)
[2024-09-24] MEDS: clonazePAM 0.5 MG TABLET PO ×2 (08:33→20:25)
[2024-09-24 15:28] VITALS: BMI 31.1
[2024-09-24 20:00] VITALS: BP 136/94; PULSE 88; RESP 16; TEMP 36.3; O2SAT 92
[2024-09-24] MEDS: Tamsulosin HCL 0.4 MG CAPSULE PO (20:23)
[2024-09-24] MEDS: oxyCODONE HCl Immed Release 5 MG TABLET PO (20:23)
[2024-09-24 20:24] VITALS: BP 136/94; PULSE 88
[2024-09-24] MEDS: Divalproex Sodium 500 MG TABLET.DR PO (20:24)
[2024-09-24] MEDS: Atorvastatin Calcium 10 MG TABLET PO (20:26)
[2024-09-24] MEDS: traZODone HCL 50 MG TABLET PO (22:08)
--- NOTE | 2024-09-24 23:15 | P.PNPSI_ITS ---
Subjective Subjective Date of Service: 09/24/24 Reason For Visit: Unspecified Psychosis Interim History: met with patient; discussed with team pt says she's good; pain remains intermittently but she feels it's much better w/ oxy Mental Status Exam Mental Status Exam Narrative: Appearance: wearing casual attire, unkempt but fair hygiene Behavior: Calm, cooperative Psychomotor: bilat cogwheel and rigidity; uses walker. Speech: clear, normal rate/rhythm/volume, spontaneous TP: mostly goal oriented and linear but wanders often to tangential as well TC: neck pain; otherwise remains without expressed?paranoid?delusions Mood: good Affect: constricted SI: denies HI: ?None VH/AH: ?Currently?no?AH; Delusion: ?Currently?no?paranoid/persecutory?delusions Insight/judgment: limited. Diagnostics Vital Signs (24Hr): Vital Signs - 24 hr 09/24/24 08:00 09/24/24 20:00 09/24/24 20:24 Temperature 97.8 F 97.4 F Pulse Rate 68 88 88 Respiratory Rate 18 16 Blood Pressure 103/54 L 136/94 H 136/94 H Pulse Oximetry 93 92 Oxygen Delivery Method Room Air Room Air BMI result Body Mass Index 31.1 Labs 09/08/24 18:02 09/08/24 18:02 Labs: Laboratory Results - last 48 hr 09/23/24 06:45 POC Glucose 83 Medications Medications Current Medications Acetaminophen (Acetaminophen 325 Mg Tablet) 650 mg PO Q6H PRN PRN Reason: Headache/Pain Mild Scale (1-3) Last Admin: 09/23/24 23:28 Dose: 650 mg Al Hydroxide/Mg Hydroxide (Magnesium Hydrox/Alum Hydrox 30 Ml Oral.Susp) 30 ml PO Q6H PRN PRN Reason: Heartburn/Nausea Albuterol Sulfate (Albuterol Sulfate 90 Mcg 8 Gm Inhaler) 1 puff INHALE RQ4H PRN PRN Reason: Shortness of Breath Last Admin: 09/12/24 20:35 Dose: 1 puff Apixaban (Apixaban 5 Mg Tablet) 5 mg PO BID [facility] Last Admin: 09/24/24 20:26 Dose: 5 mg Atorvastatin Calcium (Atorvastatin Calcium 10 Mg Tablet) 10 mg PO BEDTIME [facility] Last Admin: 09/24/24 20:26 Dose: 10 mg Benztropine Mesylate (Benztropine Mesylate 0.5 Mg Tablet) 0.5 mg PO BID [facility] Last Admin: 09/24/24 20:26 Dose: 0.5 mg Carvedilol (Carvedilol 25 Mg Tablet) 25 mg PO BID [facility]; Protocol Last Admin: 09/24/24 20:24 Dose: 25 mg Clonazepam (Clonazepam 0.5 Mg Tablet) 0.5 mg PO BID [facility] Last Admin: 09/24/24 20:25 Dose: 0.5 mg Clonazepam (Clonazepam 0.125 Mg Tab.Rapdis) 0.25 mg PO BID PRN PRN Reason: mod-severe anxiety Last Admin: 09/24/24 22:09 Dose: 0.25 mg Divalproex Sodium (Divalproex Sodium 500 Mg Tablet.) 500 mg PO BEDTIME [facility] Last Admin: 09/24/24 20:24 Dose: 500 mg Divalproex Sodium (Divalproex Sodium 250 Mg Tablet.) 250 mg PO DAILY [facility] Last Admin: 09/24/24 08:31 Dose: 250 mg Fluphenazine HCl (Fluphenazine Hcl 5 Mg Tablet) 5 mg PO DAILY PRN PRN Reason: aggresssion/psychosis Last Admin: 09/14/24 14:38 Dose: 5 mg Fluphenazine HCl (Fluphenazine Hcl 5 Mg Tablet) 10 mg PO BID [facility] Last Admin: 09/24/24 20:24 Dose: 10 mg Fluphenazine HCl (Fluphenazine Hcl 2.5 Mg Tablet) 2.5 mg PO QID PRN PRN Reason: psychosis Gabapentin (Gabapentin 100 Mg Capsule) 200 mg PO TID [facility] Last Admin: 09/24/24 20:26 Dose: 200 mg Hydrochlorothiazide (Hydrochlorothiazide 25 Mg Tablet) 25 mg PO DAILY [facility]; Protocol Last Admin: 09/24/24 08:31 Dose: 25 mg Lidocaine (Lidocaine 4 % Patch Adh..Patch) 1 patch TRANSDERMA DAILY [facility]; Protocol Last Admin: 09/24/24 12:03 Dose: Not Given Lidocaine (Lidocaine 4 % Patch Adh..Patch) 1 patch TRANSDERMA DAILY [facility]; Protocol Last Admin: 09/24/24 12:04 Dose: Not Given Lisinopril (Lisinopril 40 Mg Tablet) 40 mg PO DAILY [facility]; Protocol Last Admin: 09/24/24 08:31 Dose: 40 mg Magnesium Hydroxide (Milk Of Magnesia 30 Ml Oral.Susp) 30 ml PO DAILY PRN PRN Reason: Constipation Nystatin (Nystatin Powder 15 Gm Bottle) 1 appl TOPICAL BID [facility]; Protocol Last Admin: 09/24/24 22:26 Dose: Not Given Olanzapine (Olanzapine Odt 10 Mg Tab.Rapdis) 10 mg TRANSLINGU Q6H PRN PRN Reason: agitation Last Admin: 09/19/24 12:13 Dose: 10 mg Oxycodone HCl (Oxycodone Hcl Immed Release 5 Mg Tablet) 5 mg PO Q6H PRN PRN Reason: breakthrough neck/back pain Last Admin: 09/24/24 20:23 Dose: 5 mg Tamsulosin HCl (Tamsulosin Hcl 0.4 Mg Capsule) 0.4 mg PO BEDTIME [facility] Last Admin: 09/24/24 20:23 Dose: 0.4 mg Trazodone HCl (Trazodone Hcl 50 Mg Tablet) 50 mg PO BEDTIME MRX1 PRN PRN Reason: Insomnia Last Admin: 09/24/24 22:08 Dose: 50 mg Valacyclovir HCl (Valacyclovir Hcl 500 Mg Tablet) 500 mg PO DAILY [facility] Last Admin: 09/24/24 08:32 Dose: 500 mg Allergies Allergies Allergy/AdvReac Type Severity Reaction Status Date / Time Penicillins [PCN] Allergy Severe Anaphylaxis Verified 08/22/24 04:12 bee venom protein (honey bee) Allergy Anaphylaxis Verified 08/22/24 04:04 codeine Allergy Unknown Verified 08/22/24 04:07 Iodinated Contrast Media Allergy Numbness Verified 08/22/24 04:11 [Contrast Dye] lanolin Allergy Rash Verified 08/22/24 04:11 latex Allergy Rash Verified 08/22/24 04:11 Sulfa (Sulfonamide Allergy Unknown Verified 08/22/24 04:11 Antibiotics) tramadol AdvReac Nausea and Verified 08/22/24 04:11 Vomiting Assessment & Plan Assessment & Plan (1) Schizoaffective disorder: Status: Acute Code(s): F25.9 - Schizoaffective disorder, unspecified Plan HOSPITAL COURSE: 08/22: continue medications from [facility]. hospitalist consult. observation, supportive care. 08/23: continue current mgmt. PRNs for anxiety. hospitalist consult pending. 08/24: psychotic, aggressive. add haldol 5 QHS and haldol 2 mg PRNs. medical consult appreciated. collateral from family. 08/25 pt presents with paranoid/persecutory delusions, auditory hallucinations and some grandiose delusions of having special power. will dc wellbutrin as it exacerbates psychosis. will increase haldol 5mg po qhs and will add 2.5mg po daily. increase abilify 20mg po daily. seems like amantadine for parkinsonian symptoms-wih higher potency antipsychotic like haldol will add low dose cogentin. Noted UA- shows UTI, will start ceftin 250mg po BID x 7 days. Pending collateral information. 08/26- pt with significant bilat cogwheel and rigidity with haldol. will d/c haldol, although risperidone also high potency antipsychotic will switch to risperidone. will continue abilify for now. 08/27 increased risperidone 2mg po BID. continue abilify 20mg po daily. 08/29 we are going to increase Risperdal to 2 mg in the morning and 3 mg at night we will assess for EPS tomorrow morning. 08/30 continue same treatment 08/31/24 isolated withdrawn would consider mcneal 09/01/2024 d/c abilify, continue risperidone, add depakote 250mg po daily and 500mg po qhs. 09/03 switch risperidone to prolixin 5mg po BID, continue depakote. will check depakote level in few days with ammonia and lft. 09/07 hospitalist consult- edema venous statis. 09/08 continue tx. 09/09 pt sitting outside; she says she's having a good day today, but that yesterday she was upset, anxious. Pt said she is still having a lot of worries today. She reiterated that yesterday was a bad day but when mentioned that patient did not take a medication yesterday she was able to say maybe that was the reason. Patient otherwise kind of rambling to herself and to others at the same time -continue tx plan 09/11 pt very agitated today, with paranoid delusions that people are trying to hurt her; both AH and VH (of shadows). Pt threatened to kill her roommate, thinking her roommate was persecuting her. Pt later had only vague memories of event and was tearful, apologetic, but confused whether or not she was really been persecuted; she said it helped when staff did reality testing. Pt agreed to prn Fluphenazine. -check labs and recent Depakote level WNL; ammonia WNL -patient on fluphenazine; will add p.r.n. to see if it helps with agitation, psychosis; if so and if she needs consistently, will consider increasing scheduled dose -patient moved a single 11/12?not?agitated?or?threatening?today?but?remains?with?AH?and?paranoid?delusions ?that?she?is?being?persecuted F luphenazine?p.r.n.?seem?to?help?yesterday?so?would?like?to?increase.??Patient?ag garth 09/13 Patient?less?agitated;?not?expressing?paranoid?delusions?as?much.??Seems?to?be?m ore?calm.??Slept?at?night Nurse?reports?bilateral?lower?limb?edema;?will?add?Hospitalist consult 11/14?more?paranoid?delusions?and?AH?today;?will?continue?with?current?regimen?as? fluphenazine?just?increase.? -hospitalist?order?Steve?stockings 11/15?no?expressed?paranoid?delusions,?no?AH?today;?more?calm.??Perhaps?increased? fluphenazine?dose?is?working.?? Continue?current?regimen 11/16?again?no?paranoid?delusions?are?AH;?in?good?behavioral/impulse?control;?cont inue?current?treatment?plan 09/17 continue tx. still residual paranoid delusions 09/18 continue tx. 09/21 remains without paranoid delusions following increaesed Fluphenazine. C/o neck pain which is chronic; typically relieved w/ tylenol 09/22 pt remains w/out paranoid delusions but c/o increased pain which is she says makes it hard to sleep. 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 for agitation/psychosis continue clonazepam 0.25 mg b.i.d. p.r.n. for agitation/anxiety Continue clonazepam 0.5 mg b.i.d. Continue Depakote 500 mg q.h.s. Continue Depakote 250 mg daily Continue Gabapentin 200 mg t.i.d. Continue Cogentin 0.5 mg b.i.d. Patient educated on: diagnosis Informed Consent: understands, does not understand and further education needed Reason for continued inpatient stay Substantial Risk for: inability to function Time Spent With Patient Time: Total time managing care of this patient today ____ minutes.
[2024-09-25 08:00] VITALS: BP 114/81; PULSE 71; RESP 18; TEMP 36.3; O2SAT 91
[2024-09-25] MEDS: lisinopriL 40 MG TABLET PO (08:48)
[2024-09-25] MEDS: Apixaban 5 MG TABLET PO ×2 (08:48→20:21)
[2024-09-25] MEDS: clonazePAM 0.5 MG TABLET PO ×2 (08:48→20:21)
[2024-09-25] MEDS: fluPHENAZine HCl 5 MG TABLET 10 MG PO ×2 (08:49→20:21)
[2024-09-25] MEDS: carvediloL 25 MG TABLET PO ×2 (08:49→20:21)
[2024-09-25] MEDS: valACYclovir HCL 500 MG TABLET PO (08:49)
[2024-09-25] MEDS: Divalproex Sodium 250 MG TABLET.DR PO (08:49)
[2024-09-25] MEDS: hydroCHLOROthiazide 25 MG TABLET PO (08:49)
[2024-09-25] MEDS: Gabapentin 100 MG CAPSULE 200 MG PO ×3 (08:49→20:21)
[2024-09-25] MEDS: Benztropine Mesylate 0.5 MG TABLET PO ×2 (09:15→20:21)
[2024-09-25 20:00] VITALS: BP 98/52; PULSE 67; RESP 18; TEMP 36.6; O2SAT 95
[2024-09-25] MEDS: Atorvastatin Calcium 10 MG TABLET PO (20:21)
[2024-09-25] MEDS: Divalproex Sodium 500 MG TABLET.DR PO (20:21)
[2024-09-25] MEDS: Tamsulosin HCL 0.4 MG CAPSULE PO (20:21)
[2024-09-26 07:54] VITALS: BP 109/55; PULSE 65; RESP 18; TEMP 36.3; O2SAT 95
[2024-09-26] MEDS: lisinopriL 40 MG TABLET PO (08:21)
[2024-09-26] MEDS: Divalproex Sodium 250 MG TABLET.DR PO (08:21)
[2024-09-26] MEDS: hydroCHLOROthiazide 25 MG TABLET PO (08:21)
[2024-09-26] MEDS: fluPHENAZine HCl 5 MG TABLET 10 MG PO ×2 (08:21→20:27)
[2024-09-26] MEDS: Apixaban 5 MG TABLET PO ×2 (08:22→20:20)
[2024-09-26] MEDS: Gabapentin 100 MG CAPSULE 200 MG PO ×3 (08:22→20:20)
[2024-09-26] MEDS: Benztropine Mesylate 0.5 MG TABLET PO ×2 (08:22→20:20)
[2024-09-26] MEDS: carvediloL 25 MG TABLET PO ×2 (08:22→20:21)
[2024-09-26] MEDS: clonazePAM 0.5 MG TABLET PO ×2 (08:22→20:24)
[2024-09-26] MEDS: valACYclovir HCL 500 MG TABLET PO (08:22)
[2024-09-26] MEDS: Lidocaine 4 % Patch ADH..PATCH 1 PATCH TRANSDERMA ×2 (08:46→08:48)
[2024-09-26] MEDS: Nystatin Powder 15 GM BOTTLE 1 APPL TOPICAL (08:57)
--- NOTE | 2024-09-26 12:12 | HO.PSYCHPN ---
Subjective Subjective Date of Service: 09/26/24 Reason For Visit: Unspecified Psychosis Subjective Notes: Conditional Voluntary Interim History: Patient was seen and discussed in rounds today. Records and plans were reviewed. She continues to complain of leg pain and shoulder pain which has been a chronic issue. Current medications reviewed. Oxycodone was raised to 7.5 mg q.6 hours p.r.n.. Eating adequately but sleeping is interrupted because of pain. No other changes were made today Review of Systems Review of Systems Musculoskeletal pain Yes all other systems are reviewed and are negative Mental Status Exam Mental Status Exam Narrative: In today's visit she is alert, pleasant and interactive. Normal speech. Moderate eye contact. Affect is constricted. No acute signs of psychosis. No paranoia or delusions. No SI. Cognitively is having slow thought processes. No gross deficits. Judgment is intact Diagnostics Vital Signs (24Hr): Vital Signs - 24 hr 09/25/24 20:00 09/26/24 07:54 Temperature 97.9 F 97.4 F Pulse Rate 67 65 Respiratory Rate 18 18 Blood Pressure 98/52 L 109/55 L Pulse Oximetry 95 95 Oxygen Delivery Method Room Air Room Air BMI result Body Mass Index 31.1 Labs 09/08/24 18:02 09/08/24 18:02 Medications Medications Current Medications Acetaminophen (Acetaminophen 325 Mg Tablet) 650 mg PO Q6H PRN PRN Reason: Headache/Pain Mild Scale (1-3) Last Admin: 09/23/24 23:28 Dose: 650 mg Al Hydroxide/Mg Hydroxide (Magnesium Hydrox/Alum Hydrox 30 Ml Oral.Susp) 30 ml PO Q6H PRN PRN Reason: Heartburn/Nausea Albuterol Sulfate (Albuterol Sulfate 90 Mcg 8 Gm Inhaler) 1 puff INHALE RQ4H PRN PRN Reason: Shortness of Breath Last Admin: 09/12/24 20:35 Dose: 1 puff Apixaban (Apixaban 5 Mg Tablet) 5 mg PO BID [facility] Last Admin: 09/26/24 08:22 Dose: 5 mg Atorvastatin Calcium (Atorvastatin Calcium 10 Mg Tablet) 10 mg PO BEDTIME [facility] Last Admin: 09/25/24 20:21 Dose: 10 mg Benztropine Mesylate (Benztropine Mesylate 0.5 Mg Tablet) 0.5 mg PO BID [facility] Last Admin: 11/16/24 08:22 Dose: 0.5 mg Carvedilol (Carvedilol 25 Mg Tablet) 25 mg PO BID ROB; Protocol Last Admin: 09/26/24 08:22 Dose: 25 mg Clonazepam (Clonazepam 0.5 Mg Tablet) 0.5 mg PO BID ROB Last Admin: 09/26/24 08:22 Dose: 0.5 mg Divalproex Sodium (Divalproex Sodium 500 Mg Tablet.Dr) 500 mg PO BEDTIME ROB Last Admin: 09/25/24 20:21 Dose: 500 mg Divalproex Sodium (Divalproex Sodium 250 Mg Tablet.Dr) 250 mg PO DAILY ROB Last Admin: 09/26/24 08:21 Dose: 250 mg Fluphenazine HCl (Fluphenazine Hcl 5 Mg Tablet) 5 mg PO DAILY PRN PRN Reason: aggresssion/psychosis Last Admin: 09/14/24 14:38 Dose: 5 mg Fluphenazine HCl (Fluphenazine Hcl 5 Mg Tablet) 10 mg PO BID [facility] Last Admin: 09/26/24 08:21 Dose: 10 mg Fluphenazine HCl (Fluphenazine Hcl 2.5 Mg Tablet) 2.5 mg PO QID PRN PRN Reason: psychosis Gabapentin (Gabapentin 100 Mg Capsule) 200 mg PO TID [facility] Last Admin: 09/26/24 08:22 Dose: 200 mg Hydrochlorothiazide (Hydrochlorothiazide 25 Mg Tablet) 25 mg PO DAILY [facility]; Protocol Last Admin: 09/26/24 08:21 Dose: 25 mg Lidocaine (Lidocaine 4 % Patch Adh..Patch) 1 patch TRANSDERMA DAILY [facility]; Protocol Last Admin: 09/26/24 08:46 Dose: 1 patch Lidocaine (Lidocaine 4 % Patch Adh..Patch) 1 patch TRANSDERMA DAILY [facility]; Protocol Last Admin: 09/26/24 08:48 Dose: 1 patch Lisinopril (Lisinopril 40 Mg Tablet) 40 mg PO DAILY ROB; Protocol Last Admin: 09/26/24 08:21 Dose: 40 mg Magnesium Hydroxide (Milk Of Magnesia 30 Ml Oral.Susp) 30 ml PO DAILY PRN PRN Reason: Constipation Nystatin (Nystatin Powder 15 Gm Bottle) 1 appl TOPICAL BID ROB; Protocol Last Admin: 09/26/24 08:57 Dose: 1 appl Olanzapine (Olanzapine Odt 10 Mg Tab.Rapdis) 10 mg TRANSLINGU Q6H PRN PRN Reason: agitation Last Admin: 09/19/24 12:13 Dose: 10 mg Oxycodone HCl (Oxycodone Hcl Immed Release 5 Mg Tablet) 5 mg PO Q6H PRN PRN Reason: breakthrough neck/back pain Last Admin: 09/24/24 20:23 Dose: 5 mg Tamsulosin HCl (Tamsulosin Hcl 0.4 Mg Capsule) 0.4 mg PO BEDTIME ROB Last Admin: 09/25/24 20:21 Dose: 0.4 mg Trazodone HCl (Trazodone Hcl 50 Mg Tablet) 50 mg PO BEDTIME MRX1 PRN PRN Reason: Insomnia Last Admin: 09/24/24 22:08 Dose: 50 mg Valacyclovir HCl (Valacyclovir Hcl 500 Mg Tablet) 500 mg PO DAILY [facility] Last Admin: 09/26/24 08:22 Dose: 500 mg Allergies Allergies Allergy/AdvReac Type Severity Reaction Status Date / Time Penicillins [PCN] Allergy Severe Anaphylaxis Verified 08/22/24 04:12 bee venom protein (honey bee) Allergy Anaphylaxis Verified 08/22/24 04:04 codeine Allergy Unknown Verified 08/22/24 04:07 Iodinated Contrast Media Allergy Numbness Verified 08/22/24 04:11 [Contrast Dye] lanolin Allergy Rash Verified 08/22/24 04:11 latex Allergy Rash Verified 08/22/24 04:11 Sulfa (Sulfonamide Allergy Unknown Verified 08/22/24 04:11 Antibiotics) tramadol AdvReac Nausea and Verified 08/22/24 04:11 Vomiting Assessment & Plan Assessment & Plan (1) Schizoaffective disorder: Status: Acute Code(s): F25.9 - Schizoaffective disorder, unspecified Plan HOSPITAL COURSE: 08/22: continue medications from [facility]. hospitalist consult. observation, supportive care. 08/23: continue current mgmt. PRNs for anxiety. hospitalist consult pending. 08/24: psychotic, aggressive. add haldol 5 QHS and haldol 2 mg PRNs. medical consult appreciated. collateral from family. 08/25 pt presents with paranoid/persecutory delusions, auditory hallucinations and some grandiose delusions of having special power. will dc wellbutrin as it exacerbates psychosis. will increase haldol 5mg po qhs and will add 2.5mg po daily. increase abilify 20mg po daily. seems like amantadine for parkinsonian symptoms-wi higher potency antipsychotic like haldol will add low dose cogentin. Noted UA- shows UTI, will start ceftin 250mg po BID x 7 days. Pending collateral information. 08/26- pt with significant bilat cogwheel and rigidity with haldol. will d/c haldol, although risperidone also high potency antipsychotic will switch to risperidone. will continue abilify for now. 08/27 increased risperidone 2mg po BID. continue abilify 20mg po daily. 08/29 we are going to increase Risperdal to 2 mg in the morning and 3 mg at night we will assess for EPS tomorrow morning. 08/30 continue same treatment 08/31/24 isolated withdrawn would consider mcneal 09/01/2024 d/c abilify, continue risperidone, add depakote 250mg po daily and 500mg po qhs. 09/03 switch risperidone to prolixin 5mg po BID, continue depakote. will check depakote level in few days with ammonia and lft. 09/07 hospitalist consult- edema venous statis. 09/08 continue tx. 09/09 pt sitting outside; she says she's having a good day today, but that yesterday she was upset, anxious. Pt said she is still having a lot of worries today. She reiterated that yesterday was a bad day but when mentioned that patient did not take a medication yesterday she was able to say maybe that was the reason. Patient otherwise kind of rambling to herself and to others at the same time -continue tx plan 09/11 pt very agitated today, with paranoid delusions that people are trying to hurt her; both AH and [facility] (of shadows). Pt threatened to kill her roommate, thinking her roommate was persecuting her. Pt later had only vague memories of event and was tearful, apologetic, but confused whether or not she was really been persecuted; she said it helped when staff did reality testing. Pt agreed to prn Fluphenazine. -check labs and recent Depakote level WNL; ammonia WNL -patient on fluphenazine; will add p.r.n. to see if it helps with agitation, psychosis; if so and if she needs consistently, will consider increasing scheduled dose -patient moved a single 09/12?not?agitated?or?threatening?today?but?remains?with?AH?and?paranoid?delusions?that?she?is?being?persecuted Fluphenazine?p.r.n.?seem?to?help?yesterday?so?would?like?to?increase.??Patient?agrees 09/13 Patient?less?agitated;?not?expressing?paranoid?delusions?as?much.??Seems?to?be?more?calm.??Slept?at?night Nurse?reports?bilateral?lower?limb?edema;?will?add?Hospitalist consult 09/14?more?paranoid?delusions?and?AH?today;?will?continue?with?current?regimen?as?fluphenazine?just?increase.? -hospitalist?order?Steve?stockings 09/15?no?expressed?paranoid?delusions,?no?AH?today;?more?calm.??Perhaps?increased?fluphenazine?dose?is?working.?? Continue?current?regimen 09/16?again?no?paranoid?delusions?are?AH;?in?good?behavioral/impulse?control;?continue?current?treatment?plan 09/17 continue tx. still residual paranoid delusions 09/18 continue tx. 09/26: Continue current regimen and plans for stabilization and medication management. Increase oxycodone to 7.5 mg q.6 hours p.r.n. Plan: -Patient moved to single room Continue fluphenazine 10mg BID continue fluphenazine 5 mg daily p.r.n. for agitation/psychosis continue clonazepam 0.25 mg b.i.d. p.r.n. for agitation/anxiety Continue clonazepam 0.5 mg b.i.d. Continue Depakote 500 mg q.h.s. Continue Depakote 250 mg daily Continue Gabapentin 200 mg t.i.d. Continue Cogentin 0.5 mg b.i.d. Reason for continued inpatient stay Substantial Risk for: med/psych decompensation Time Spent With Patient Time: Total time managing care of this patient today ____ minutes.
--- NOTE | 2024-09-26 12:27 | PC.NURSE ---
ACLS/MoCA scores: Pt scored a 3.4 on the Guzman Cognitive Level Screen indicating severe cognitive impairment and the need for 24 hour supervision; 54% cognitive assistance for basic ADLs. Assistance needed for all IADLs. Pt scored a 10/30 on the MoCA indicating severe cognitive impairment with deficits in all domains except naming pictured animals (3/3) and only oriented 2/6.
[2024-09-26 19:54] VITALS: BP 149/70; PULSE 80; RESP 18; TEMP 36.6; O2SAT 95
[2024-09-26] MEDS: traZODone HCL 50 MG TABLET PO (20:19)
[2024-09-26] MEDS: oxyCODONE HCl Immed Release 5 MG TABLET 7.5 MG PO (20:19)
[2024-09-26] MEDS: Atorvastatin Calcium 10 MG TABLET PO (20:20)
[2024-09-26] MEDS: OLANZapine ODT 10 MG TAB.RAPDIS TRANSLINGU (20:20)
[2024-09-26] MEDS: Tamsulosin HCL 0.4 MG CAPSULE PO (20:20)
[2024-09-26] MEDS: Divalproex Sodium 500 MG TABLET.DR PO (20:21)
[2024-09-27 08:55] VITALS: BP 127/62; PULSE 65; RESP 14; TEMP 36.3; O2SAT 93
[2024-09-27] MEDS: lisinopriL 40 MG TABLET PO (08:59)
[2024-09-27] MEDS: Apixaban 5 MG TABLET PO (08:59)
[2024-09-27] MEDS: clonazePAM 0.5 MG TABLET PO (08:59)
[2024-09-27] MEDS: Divalproex Sodium 250 MG TABLET.DR PO (08:59)
[2024-09-27] MEDS: hydroCHLOROthiazide 25 MG TABLET PO (08:59)
[2024-09-27] MEDS: carvediloL 25 MG TABLET PO (08:59)
[2024-09-27] MEDS: valACYclovir HCL 500 MG TABLET PO (09:00)
[2024-09-27] MEDS: Benztropine Mesylate 0.5 MG TABLET PO (09:00)
[2024-09-27] MEDS: Gabapentin 100 MG CAPSULE 200 MG PO (09:00)
[2024-09-27] MEDS: Lidocaine 4 % Patch ADH..PATCH 1 PATCH TRANSDERMA ×2 (09:00→09:01)
[2024-09-27] MEDS: fluPHENAZine HCl 5 MG TABLET 10 MG PO (09:00)
--- NOTE | 2024-09-27 10:51 | P.PNPSI_ITS ---
Subjective Subjective Date of Service: 09/27/24 Reason For Visit: Unspecified Psychosis Subjective Notes: Conditional Voluntary Interim History: Patient was seen and discussed in rounds today. Records and plans were reviewed. She has been doing a little better and her pain has decreased with increase of the oxycodone. No complaints or side effects. No AVH. No episodes of yelling. She has been complaining of having some nightmares. No changes were made today Mental Status Exam Mental Status Exam Narrative: In today's visit she is alert, pleasant and interactive. Normal speech. Moderate eye contact. Affect is constricted. No acute signs of psychosis. No paranoia or delusions. Able to move all limbs. Walking and gait not observed. No SI. Cognitively is having slow thought processes. No gross deficits. Judgment is intact Diagnostics Vital Signs (24Hr): Vital Signs - 24 hr 09/26/24 19:54 09/27/24 08:55 Temperature 97.8 F 97.4 F Pulse Rate 80 65 Respiratory Rate 18 14 Blood Pressure 149/70 H 127/62 Pulse Oximetry 95 93 Oxygen Delivery Method Room Air BMI result Body Mass Index 31.1 Labs 09/08/24 18:02 09/08/24 18:02 Medications Medications Current Medications Acetaminophen (Acetaminophen 325 Mg Tablet) 650 mg PO Q6H PRN PRN Reason: Headache/Pain Mild Scale (1-3) Last Admin: 09/23/24 23:28 Dose: 650 mg Al Hydroxide/Mg Hydroxide (Magnesium Hydrox/Alum Hydrox 30 Ml Oral.Susp) 30 ml PO Q6H PRN PRN Reason: Heartburn/Nausea Albuterol Sulfate (Albuterol Sulfate 90 Mcg 8 Gm Inhaler) 1 puff INHALE RQ4H PRN PRN Reason: Shortness of Breath Last Admin: 09/12/24 20:35 Dose: 1 puff Apixaban (Apixaban 5 Mg Tablet) 5 mg PO BID [facility] Last Admin: 09/27/24 08:59 Dose: 5 mg Atorvastatin Calcium (Atorvastatin Calcium 10 Mg Tablet) 10 mg PO BEDTIME [facility] Last Admin: 09/26/24 20:20 Dose: 10 mg Benztropine Mesylate (Benztropine Mesylate 0.5 Mg Tablet) 0.5 mg PO BID [facility] Last Admin: 09/27/24 09:00 Dose: 0.5 mg Carvedilol (Carvedilol 25 Mg Tablet) 25 mg PO BID [facility]; Protocol Last Admin: 09/27/24 08:59 Dose: 25 mg Clonazepam (Clonazepam 0.5 Mg Tablet) 0.5 mg PO BID [facility] Last Admin: 09/27/24 08:59 Dose: 0.5 mg Divalproex Sodium (Divalproex Sodium 500 Mg Tablet.Dr) 500 mg PO BEDTIME [facility] Last Admin: 09/26/24 20:21 Dose: 500 mg Divalproex Sodium (Divalproex Sodium 250 Mg Tablet.Dr) 250 mg PO DAILY [facility] Last Admin: 09/27/24 08:59 Dose: 250 mg Fluphenazine HCl (Fluphenazine Hcl 5 Mg Tablet) 5 mg PO DAILY PRN PRN Reason: aggresssion/psychosis Last Admin: 09/14/24 14:38 Dose: 5 mg Fluphenazine HCl (Fluphenazine Hcl 5 Mg Tablet) 10 mg PO BID [facility] Last Admin: 09/27/24 09:00 Dose: 10 mg Fluphenazine HCl (Fluphenazine Hcl 2.5 Mg Tablet) 2.5 mg PO QID PRN PRN Reason: psychosis Gabapentin (Gabapentin 100 Mg Capsule) 200 mg PO TID [facility] Last Admin: 09/27/24 09:00 Dose: 200 mg Hydrochlorothiazide (Hydrochlorothiazide 25 Mg Tablet) 25 mg PO DAILY [facility]; Protocol Last Admin: 09/27/24 08:59 Dose: 25 mg Lidocaine (Lidocaine 4 % Patch Adh..Patch) 1 patch TRANSDERMA DAILY [facility]; Protocol Last Admin: 09/27/24 09:00 Dose: 1 patch Lidocaine (Lidocaine 4 % Patch Adh..Patch) 1 patch TRANSDERMA DAILY [facility]; Protocol Last Admin: 09/27/24 09:01 Dose: 1 patch Lisinopril (Lisinopril 40 Mg Tablet) 40 mg PO DAILY [facility]; Protocol Last Admin: 09/27/24 08:59 Dose: 40 mg Magnesium Hydroxide (Milk Of Magnesia 30 Ml Oral.Susp) 30 ml PO DAILY PRN PRN Reason: Constipation Nystatin (Nystatin Powder 15 Gm Bottle) 1 appl TOPICAL BID [facility]; Protocol Last Admin: 09/26/24 20:29 Dose: Not Given Olanzapine (Olanzapine Odt 10 Mg Tab.Rapdis) 10 mg TRANSLINGU Q6H PRN PRN Reason: agitation Last Admin: 09/26/24 20:20 Dose: 10 mg Oxycodone HCl (Oxycodone Hcl Immed Release 5 Mg Tablet) 7.5 mg PO Q6H PRN PRN Reason: breakthrough neck/back pain Last Admin: 09/26/24 20:19 Dose: 7.5 mg Tamsulosin HCl (Tamsulosin Hcl 0.4 Mg Capsule) 0.4 mg PO BEDTIME [facility] Last Admin: 09/26/24 20:20 Dose: 0.4 mg Trazodone HCl (Trazodone Hcl 50 Mg Tablet) 50 mg PO BEDTIME MRX1 PRN PRN Reason: Insomnia Last Admin: 09/26/24 20:19 Dose: 50 mg Valacyclovir HCl (Valacyclovir Hcl 500 Mg Tablet) 500 mg PO DAILY [facility] Last Admin: 09/27/24 09:00 Dose: 500 mg Allergies Allergies Allergy/AdvReac Type Severity Reaction Status Date / Time Penicillins [PCN] Allergy Severe Anaphylaxis Verified 08/22/24 04:12 bee venom protein (honey bee) Allergy Anaphylaxis Verified 08/22/24 04:04 codeine Allergy Unknown Verified 08/22/24 04:07 Iodinated Contrast Media Allergy Numbness Verified 08/22/24 04:11 [Contrast Dye] lanolin Allergy Rash Verified 08/22/24 04:11 latex Allergy Rash Verified 08/22/24 04:11 Sulfa (Sulfonamide Allergy Unknown Verified 08/22/24 04:11 Antibiotics) tramadol AdvReac Nausea and Verified 08/22/24 04:11 Vomiting Assessment & Plan Assessment & Plan (1) Schizoaffective disorder: Status: Acute Code(s): F25.9 - Schizoaffective disorder, unspecified Plan HOSPITAL COURSE: 08/22: continue medications from [facility]. hospitalist consult. observation, supportive care. 08/23: continue current mgmt. PRNs for anxiety. hospitalist consult pending. 08/24: psychotic, aggressive. add haldol 5 QHS and haldol 2 mg PRNs. medical consult appreciated. collateral from family. 08/25 pt presents with paranoid/persecutory delusions, auditory hallucinations and some grandiose delusions of having special power. will dc wellbutrin as it exacerbates psychosis. will increase haldol 5mg po qhs and will add 2.5mg po daily. increase abilify 20mg po daily. seems like amantadine for parkinsonian symptoms-wih higher potency antipsychotic like haldol will add low dose cogentin. Noted UA- shows UTI, will start ceftin 250mg po BID x 7 days. Pending collateral information. 08/26- pt with significant bilat cogwheel and rigidity with haldol. will d/c haldol, although risperidone also high potency antipsychotic will switch to risperidone. will continue abilify for now. 08/27 increased risperidone 2mg po BID. continue abilify 20mg po daily. 08/29 we are going to increase Risperdal to 2 mg in the morning and 3 mg at night we will assess for EPS tomorrow morning. 08/30 continue same treatment 08/31/24 isolated withdrawn would consider mcneal 09/01/2024 d/c abilify, continue risperidone, add depakote 250mg po daily and 500mg po qhs. 09/03 switch risperidone to prolixin 5mg po BID, continue depakote. will check depakote level in few days with ammonia and lft. 09/07 hospitalist consult- edema venous statis. 09/08 continue tx. 09/09 pt sitting outside; she says she's having a good day today, but that yesterday she was upset, anxious. Pt said she is still having a lot of worries today. She reiterated that yesterday was a bad day but when mentioned that patient did not take a medication yesterday she was able to say maybe that was the reason. Patient otherwise kind of rambling to herself and to others at the same time -continue tx plan 09/11 pt very agitated today, with paranoid delusions that people are trying to hurt her; both AH and [facility] (of shadows). Pt threatened to kill her roommate, thinking her roommate was persecuting her. Pt later had only vague memories of event and was tearful, apologetic, but confused whether or not she was really been persecuted; she said it helped when staff did reality testing. Pt agreed to prn Fluphenazine. -check labs and recent Depakote level WNL; ammonia WNL -patient on fluphenazine; will add p.r.n. to see if it helps with agitation, psychosis; if so and if she needs consistently, will consider increasing scheduled dose -patient moved a single 11/12?not?agitated?or?threatening?today?but?remains?with?AH?and?paranoid?delusions ?that?she?is?being?persecuted F luphenazine?p.r.n.?seem?to?help?yesterday?so?would?like?to?increase.??Patient?ag garth 09/13 Patient?less?agitated;?not?expressing?paranoid?delusions?as?much.??Seems?to?be?m ore?calm.??Slept?at?night Nurse?reports?bilateral?lower?limb?edema;?will?add?Hospitalist consult 11/14?more?paranoid?delusions?and?AH?today;?will?continue?with?current?regimen?as? fluphenazine?just?increase.? -hospitalist?order?Steve?stockings 11/15?no?expressed?paranoid?delusions,?no?AH?today;?more?calm.??Perhaps?increased? fluphenazine?dose?is?working.?? Continue?current?regimen 11/16?again?no?paranoid?delusions?are?AH;?in?good?behavioral/impulse?control;?cont inue?current?treatment?plan 09/17 continue tx. still residual paranoid delusions 09/18 continue tx. 09/26: Continue current regimen and plans for stabilization and medication management. Increase oxycodone to 7.5 mg q.6 hours p.r.n. 09/27: Continue current regimen and plans for stabilization and medication management -Patient moved to single room Continue fluphenazine 10mg BID continue fluphenazine 5 mg daily p.r.n. for agitation/psychosis continue clonazepam 0.25 mg b.i.d. p.r.n. for agitation/anxiety Continue clonazepam 0.5 mg b.i.d. Continue Depakote 500 mg q.h.s. Continue Depakote 250 mg daily Continue Gabapentin 200 mg t.i.d. Continue Cogentin 0.5 mg b.i.d. Reason for continued inpatient stay Substantial Risk for: med/psych decompensation Time Spent With Patient Time: Total time managing care of this patient today ____ minutes.
[2024-09-27 14:50] LABS: Appearance Urine Cloudy; Color Urine Dark Yellow; Glucose Urine UA Negative (Negative); Leukocyte Esterase Urine Moderate (2+) (Negative); Nitrite Urine Negative (Negative); PH 5.5 (5.0-9.0); UMIC TRIGGER UACC YES; Urine Blood Large (3+) (Negative); Urine Ketones Trace mg/dL (Negative); Urine Protein 30 (1+) mg/dL (Neg-Trace)
[2024-09-27 15:05] LABS: Bacteria Urine None Seen (None Seen); RBC Urine >20 /HPF (0-2); Squamous Epithelial Cell Urine 0-2 /HPF (0-2); UACC Culture Trigger YES; WBC Urine >50 /HPF (0-5)
[2024-09-27] MEDS: Nystatin Powder 15 GM BOTTLE 1 APPL TOPICAL (16:04)
[2024-09-27 20:00] VITALS: BP 102/55; PULSE 68; RESP 18; TEMP 36.7; O2SAT 94
--- NOTE | 2024-09-27 23:04 | HO.PSYCHPN ---
Subjective Subjective Date of Service: 09/25/24 Reason For Visit: Unspecified Psychosis Interim History: late entry note for patient seen on 09/25 no change; says doing good. Staff informed radio news writer that pt has and thickened part of her gluteal fold; discussed with patient who is aware. Mental Status Exam Mental Status Exam Narrative: Appearance: wearing casual attire, unkempt but fair hygiene Behavior: Calm, cooperative Psychomotor: bilat cogwheel and rigidity; uses walker. Speech: clear, normal rate/rhythm/volume, spontaneous TP: mostly goal oriented and linear but wanders often to tangential as well TC: neck pain; otherwise remains without expressed?paranoid?delusions Mood: good Affect: constricted SI: denies HI: ?None VH/AH: ?Currently?no?AH; Delusion: ?Currently?no?paranoid/persecutory?delusions Insight/judgment: limited. Diagnostics Vital Signs (24Hr): Vital Signs - 24 hr 09/27/24 08:55 09/27/24 20:00 Temperature 97.4 F 98.0 F Pulse Rate 65 68 Respiratory Rate 14 18 Blood Pressure 127/62 102/55 L Pulse Oximetry 93 94 Oxygen Delivery Method Room Air BMI result Body Mass Index 31.1 Labs 09/08/24 18:02 09/08/24 18:02 Labs: Laboratory Results - last 48 hr 09/27/24 14:40 Urine Color Dark Yellow Urine Appearance Cloudy Urine pH 5.5 Ur Specific [place] 1.020 Urine Protein 30 (1+) H Urine Glucose (UA) Negative Urine Ketones Trace Urine Blood Large (3+) H Urine Nitrite Negative Ur Leukocyte Esterase Moderate (2+) H Urine RBC >20 H Urine WBC >50 H Ur Squamous Epith Cells 0-2 Urine Bacteria None Seen Hyaline Casts 11-20 Medications Medications Current Medications Acetaminophen (Acetaminophen 325 Mg Tablet) 650 mg PO Q6H PRN PRN Reason: Headache/Pain Mild Scale (1-3) Last Admin: 09/23/24 23:28 Dose: 650 mg Al Hydroxide/Mg Hydroxide (Magnesium Hydrox/Alum Hydrox 30 Ml Oral.Susp) 30 ml PO Q6H PRN PRN Reason: Heartburn/Nausea Albuterol Sulfate (Albuterol Sulfate 90 Mcg 8 Gm Inhaler) 1 puff INHALE RQ4H PRN PRN Reason: Shortness of Breath Last Admin: 09/12/24 20:35 Dose: 1 puff Apixaban (Apixaban 5 Mg Tablet) 5 mg PO BID [facility] Last Admin: 09/27/24 22:09 Dose: Not Given Atorvastatin Calcium (Atorvastatin Calcium 10 Mg Tablet) 10 mg PO BEDTIME [facility] Last Admin: 09/27/24 22:10 Dose: Not Given Benztropine Mesylate (Benztropine Mesylate 0.5 Mg Tablet) 0.5 mg PO BID [facility] Last Admin: 09/27/24 22:10 Dose: Not Given Carvedilol (Carvedilol 25 Mg Tablet) 25 mg PO BID [facility]; Protocol Last Admin: 09/27/24 22:10 Dose: Not Given Clonazepam (Clonazepam 0.5 Mg Tablet) 0.5 mg PO BID [facility] Last Admin: 09/27/24 22:10 Dose: Not Given Divalproex Sodium (Divalproex Sodium 500 Mg Tablet.) 500 mg PO BEDTIME [facility] Last Admin: 09/27/24 22:10 Dose: Not Given Divalproex Sodium (Divalproex Sodium 250 Mg Tablet.) 250 mg PO DAILY [facility] Last Admin: 09/27/24 08:59 Dose: 250 mg Fluphenazine HCl (Fluphenazine Hcl 5 Mg Tablet) 5 mg PO DAILY PRN PRN Reason: aggresssion/psychosis Last Admin: 09/14/24 14:38 Dose: 5 mg Fluphenazine HCl (Fluphenazine Hcl 5 Mg Tablet) 10 mg PO BID [facility] Last Admin: 09/27/24 22:10 Dose: Not Given Fluphenazine HCl (Fluphenazine Hcl 2.5 Mg Tablet) 2.5 mg PO QID PRN PRN Reason: psychosis Gabapentin (Gabapentin 100 Mg Capsule) 200 mg PO TID [facility] Last Admin: 09/27/24 22:11 Dose: Not Given Hydrochlorothiazide (Hydrochlorothiazide 25 Mg Tablet) 25 mg PO DAILY [facility]; Protocol Last Admin: 09/27/24 08:59 Dose: 25 mg Lidocaine (Lidocaine 4 % Patch Adh..Patch) 1 patch TRANSDERMA DAILY [facility]; Protocol Last Admin: 09/27/24 09:00 Dose: 1 patch Lidocaine (Lidocaine 4 % Patch Adh..Patch) 1 patch TRANSDERMA DAILY [facility]; Protocol Last Admin: 09/27/24 09:01 Dose: 1 patch Lisinopril (Lisinopril 40 Mg Tablet) 40 mg PO DAILY [facility]; Protocol Last Admin: 09/27/24 08:59 Dose: 40 mg Magnesium Hydroxide (Milk Of Magnesia 30 Ml Oral.Susp) 30 ml PO DAILY PRN PRN Reason: Constipation Nystatin (Nystatin Powder 15 Gm Bottle) 1 appl TOPICAL BID [facility]; Protocol Last Admin: 09/27/24 22:11 Dose: Not Given Olanzapine (Olanzapine Odt 10 Mg Tab.Rapdis) 10 mg TRANSLINGU Q6H PRN PRN Reason: agitation Last Admin: 09/26/24 20:20 Dose: 10 mg Oxycodone HCl (Oxycodone Hcl Immed Release 5 Mg Tablet) 7.5 mg PO Q6H PRN PRN Reason: breakthrough neck/back pain Last Admin: 09/26/24 20:19 Dose: 7.5 mg Tamsulosin HCl (Tamsulosin Hcl 0.4 Mg Capsule) 0.4 mg PO BEDTIME [facility] Last Admin: 09/27/24 22:11 Dose: Not Given Trazodone HCl (Trazodone Hcl 50 Mg Tablet) 50 mg PO BEDTIME MRX1 PRN PRN Reason: Insomnia Last Admin: 09/26/24 20:19 Dose: 50 mg Valacyclovir HCl (Valacyclovir Hcl 500 Mg Tablet) 500 mg PO DAILY [facility] Last Admin: 09/27/24 09:00 Dose: 500 mg Allergies Allergies Allergy/AdvReac Type Severity Reaction Status Date / Time Penicillins [PCN] Allergy Severe Anaphylaxis Verified 08/22/24 04:12 bee venom protein (honey bee) Allergy Anaphylaxis Verified 08/22/24 04:04 codeine Allergy Unknown Verified 08/22/24 04:07 Iodinated Contrast Media Allergy Numbness Verified 08/22/24 04:11 [Contrast Dye] lanolin Allergy Rash Verified 08/22/24 04:11 latex Allergy Rash Verified 08/22/24 04:11 Sulfa (Sulfonamide Allergy Unknown Verified 08/22/24 04:11 Antibiotics) tramadol AdvReac Nausea and Verified 08/22/24 04:11 Vomiting Assessment & Plan Assessment & Plan (1) Schizoaffective disorder: Status: Acute Code(s): F25.9 - Schizoaffective disorder, unspecified Plan HOSPITAL COURSE: 08/22: continue medications from [facility]. hospitalist consult. observation, supportive care. 08/23: continue current mgmt. PRNs for anxiety. hospitalist consult pending. 08/24: psychotic, aggressive. add haldol 5 QHS and haldol 2 mg PRNs. medical consult appreciated. collateral from family. 08/25 pt presents with paranoid/persecutory delusions, auditory hallucinations and some grandiose delusions of having special power. will dc wellbutrin as it exacerbates psychosis. will increase haldol 5mg po qhs and will add 2.5mg po daily. increase abilify 20mg po daily. seems like amantadine for parkinsonian symptoms-wih higher potency antipsychotic like haldol will add low dose cogentin. Noted UA- shows UTI, will start ceftin 250mg po BID x 7 days. Pending collateral information. 08/26- pt with significant bilat cogwheel and rigidity with haldol. will d/c haldol, although risperidone also high potency antipsychotic will switch to risperidone. will continue abilify for now. 08/27 increased risperidone 2mg po BID. continue abilify 20mg po daily. 08/29 we are going to increase Risperdal to 2 mg in the morning and 3 mg at night we will assess for EPS tomorrow morning. 08/30 continue same treatment 08/31/24 isolated withdrawn would consider mcneal 09/01/2024 d/c abilify, continue risperidone, add depakote 250mg po daily and 500mg po qhs. 09/03 switch risperidone to prolixin 5mg po BID, continue depakote. will check depakote level in few days with ammonia and lft. 09/07 hospitalist consult- edema venous statis. 09/08 continue tx. 09/09 pt sitting outside; she says she's having a good day today, but that yesterday she was upset, anxious. Pt said she is still having a lot of worries today. She reiterated that yesterday was a bad day but when mentioned that patient did not take a medication yesterday she was able to say maybe that was the reason. Patient otherwise kind of rambling to herself and to others at the same time -continue tx plan 09/11 pt very agitated today, with paranoid delusions that people are trying to hurt her; both AH and [facility]H (of shadows). Pt threatened to kill her roommate, thinking her roommate was persecuting her. Pt later had only vague memories of event and was tearful, apologetic, but confused whether or not she was really been persecuted; she said it helped when staff did reality testing. Pt agreed to prn Fluphenazine. -check labs and recent Depakote level WNL; ammonia WNL -patient on fluphenazine; will add p.r.n. to see if it helps with agitation, psychosis; if so and if she needs consistently, will consider increasing scheduled dose -patient moved a single 09/12?not?agitated?or?threatening?today?but?remains?with?AH?and?paranoid?delusions?that?she?is?being?persecuted Fluphenazine?p.r.n.?seem?to?help?yesterday?so?would?like?to?increase.??Patient?agrees 09/13 Patient?less?agitated;?not?expressing?paranoid?delusions?as?much.??Seems?to?be?more?calm.??Slept?at?night Nurse?reports?bilateral?lower?limb?edema;?will?add?Hospitalist consult 09/14?more?paranoid?delusions?and?AH?today;?will?continue?with?current?regimen?as?fluphenazine?just?increase.? -hospitalist?order?Steve?stockings 09/15?no?expressed?paranoid?delusions,?no?AH?today;?more?calm.??Perhaps?increased?fluphenazine?dose?is?working.?? Continue?current?regimen 09/16?again?no?paranoid?delusions?are?AH;?in?good?behavioral/impulse?control;?continue?current?treatment?plan 09/17 continue tx. still residual paranoid delusions 09/18 continue tx. 09/21 remains without paranoid delusions following increaesed Fluphenazine. C/o neck pain which is chronic; typically relieved w/ tylenol 09/22 pt remains w/out paranoid delusions but c/o increased pain which is she says makes it hard to sleep. radio news writer agrees to add Oxcodone, which she's tolerated before 09/23 pt reports pain is better with Oxy; no other complaints 09/25 no change; says doing good. Staff informed radio news writer that pt has and thickened part of her gluteal fold; discussed with patient who is aware. -Wound consult ordered Plan: Continue Oxycodone 5mg BID prn for breakthrough neck pain Continue fluphenazine 10mg BID continue fluphenazine 5 mg daily p.r.n. for agitation/psychosis continue clonazepam 0.25 mg b.i.d. p.r.n. for agitation/anxiety Continue clonazepam 0.5 mg b.i.d. Continue Depakote 500 mg q.h.s. Continue Depakote 250 mg daily Continue Gabapentin 200 mg t.i.d. Continue Cogentin 0.5 mg b.i.d. Patient educated on: diagnosis, medication risk/benefits and medical condition Informed Consent: understands Reason for continued inpatient stay Substantial Risk for: inability to function Time Spent With Patient Time: Total time managing care of this patient today ____ minutes.
[2024-09-28] MEDS: oxyCODONE HCl Immed Release 5 MG TABLET 7.5 MG PO ×2 (00:54→12:29)
[2024-09-28] MEDS: traZODone HCL 50 MG TABLET PO (00:54)
[2024-09-28] MEDS: Apixaban 5 MG TABLET PO ×2 (08:46→21:23)
[2024-09-28] MEDS: Gabapentin 100 MG CAPSULE 200 MG PO ×3 (08:46→21:23)
[2024-09-28] MEDS: lisinopriL 40 MG TABLET PO (08:46)
[2024-09-28] MEDS: Benztropine Mesylate 0.5 MG TABLET PO ×2 (08:46→21:23)
[2024-09-28] MEDS: clonazePAM 0.5 MG TABLET PO ×2 (08:46→21:23)
[2024-09-28] MEDS: fluPHENAZine HCl 5 MG TABLET 10 MG PO ×2 (08:47→21:22)
[2024-09-28] MEDS: valACYclovir HCL 500 MG TABLET PO (08:47)
[2024-09-28] MEDS: Divalproex Sodium 250 MG TABLET.DR PO (08:47)
[2024-09-28] MEDS: hydroCHLOROthiazide 25 MG TABLET PO (08:47)
[2024-09-28] MEDS: carvediloL 25 MG TABLET PO ×2 (08:47→21:23)
[2024-09-28] MEDS: Lidocaine 4 % Patch ADH..PATCH 1 PATCH TRANSDERMA ×2 (08:52)
[2024-09-28 09:30] VITALS: BP 137/66; PULSE 77; RESP 18; TEMP 36.6; O2SAT 93
--- NOTE | 2024-09-28 09:46 | HO.PSYCHPN ---
Subjective Subjective Date of Service: 09/28/24 Reason For Visit: Unspecified Psychosis Subjective Notes: Conditional Voluntary Interim History: Pt sleeping through the night. She denies hearing voices, appeared much improved from psychosis and delusion stand point. Her MOCA 10/30 and ACL 3.4 does show significant cognitive impairment. She is taking medications as prescribed. No behavioral concerns. pending coordination for discharge with family Mental Status Exam Mental Status Exam Narrative: Appearance: wearing casual attire, unkempt but fair hygiene Behavior: Calm, cooperative Psychomotor: bilat cogwheel and rigidity; uses walker. Speech: clear, normal rate/rhythm/volume, spontaneous TP: mostly goal oriented and linear but wanders often to tangential as well TC: neck pain; otherwise remains without expressed?paranoid?delusions Mood: good Affect: constricted SI: denies HI: ?None VH/AH: ?Currently?no?AH; Delusion: ?Currently?no?paranoid/persecutory?delusions Insight/judgment: limited. Diagnostics Vital Signs (24Hr): Vital Signs - 24 hr 09/27/24 20:00 09/28/24 09:30 Temperature 98.0 F 97.8 F Pulse Rate 68 77 Respiratory Rate 18 18 Blood Pressure 102/55 L 137/66 Pulse Oximetry 94 93 Oxygen Delivery Method Room Air Room Air BMI result Body Mass Index 31.1 Labs 09/08/24 18:02 09/08/24 18:02 Labs: Laboratory Results - last 48 hr 09/27/24 14:40 Urine Color Dark Yellow Urine Appearance Cloudy Urine pH 5.5 Ur Specific [place] 1.020 Urine Protein 30 (1+) H Urine Glucose (UA) Negative Urine Ketones Trace Urine Blood Large (3+) H Urine Nitrite Negative Ur Leukocyte Esterase Moderate (2+) H Urine RBC >20 H Urine WBC >50 H Ur Squamous Epith Cells 0-2 Urine Bacteria None Seen Hyaline Casts 11-20 Medications Medications Current Medications Acetaminophen (Acetaminophen 325 Mg Tablet) 650 mg PO Q6H PRN PRN Reason: Headache/Pain Mild Scale (1-3) Last Admin: 09/23/24 23:28 Dose: 650 mg Al Hydroxide/Mg Hydroxide (Magnesium Hydrox/Alum Hydrox 30 Ml Oral.Susp) 30 ml PO Q6H PRN PRN Reason: Heartburn/Nausea Albuterol Sulfate (Albuterol Sulfate 90 Mcg 8 Gm Inhaler) 1 puff INHALE RQ4H PRN PRN Reason: Shortness of Breath Last Admin: 09/12/24 20:35 Dose: 1 puff Apixaban (Apixaban 5 Mg Tablet) 5 mg PO BID [facility] Last Admin: 09/28/24 08:46 Dose: 5 mg Atorvastatin Calcium (Atorvastatin Calcium 10 Mg Tablet) 10 mg PO BEDTIME [facility] Last Admin: 09/27/24 22:10 Dose: Not Given Benztropine Mesylate (Benztropine Mesylate 0.5 Mg Tablet) 0.5 mg PO BID [facility] Last Admin: 09/28/24 08:46 Dose: 0.5 mg Carvedilol (Carvedilol 25 Mg Tablet) 25 mg PO BID [facility]; Protocol Last Admin: 09/28/24 08:47 Dose: 25 mg Clonazepam (Clonazepam 0.5 Mg Tablet) 0.5 mg PO BID [facility] Last Admin: 09/28/24 08:46 Dose: 0.5 mg Divalproex Sodium (Divalproex Sodium 500 Mg Tablet.) 500 mg PO BEDTIME [facility] Last Admin: 09/27/24 22:10 Dose: Not Given Divalproex Sodium (Divalproex Sodium 250 Mg Tablet.) 250 mg PO DAILY [facility] Last Admin: 09/28/24 08:47 Dose: 250 mg Fluphenazine HCl (Fluphenazine Hcl 5 Mg Tablet) 5 mg PO DAILY PRN PRN Reason: aggresssion/psychosis Last Admin: 09/14/24 14:38 Dose: 5 mg Fluphenazine HCl (Fluphenazine Hcl 5 Mg Tablet) 10 mg PO BID [facility] Last Admin: 09/28/24 08:47 Dose: 10 mg Fluphenazine HCl (Fluphenazine Hcl 2.5 Mg Tablet) 2.5 mg PO QID PRN PRN Reason: psychosis Gabapentin (Gabapentin 100 Mg Capsule) 200 mg PO TID [facility] Last Admin: 09/28/24 08:46 Dose: 200 mg Hydrochlorothiazide (Hydrochlorothiazide 25 Mg Tablet) 25 mg PO DAILY [facility]; Protocol Last Admin: 09/28/24 08:47 Dose: 25 mg Lidocaine (Lidocaine 4 % Patch Adh..Patch) 1 patch TRANSDERMA DAILY [facility]; Protocol Last Admin: 09/28/24 08:52 Dose: 1 patch Lidocaine (Lidocaine 4 % Patch Adh..Patch) 1 patch TRANSDERMA DAILY [facility]; Protocol Last Admin: 09/28/24 08:52 Dose: 1 patch Lisinopril (Lisinopril 40 Mg Tablet) 40 mg PO DAILY [facility]; Protocol Last Admin: 09/28/24 08:46 Dose: 40 mg Magnesium Hydroxide (Milk Of Magnesia 30 Ml Oral.Susp) 30 ml PO DAILY PRN PRN Reason: Constipation Nystatin (Nystatin Powder 15 Gm Bottle) 1 appl TOPICAL BID [facility]; Protocol Last Admin: 09/27/24 22:11 Dose: Not Given Olanzapine (Olanzapine Odt 10 Mg Tab.Rapdis) 10 mg TRANSLINGU Q6H PRN PRN Reason: agitation Last Admin: 09/26/24 20:20 Dose: 10 mg Oxycodone HCl (Oxycodone Hcl Immed Release 5 Mg Tablet) 7.5 mg PO Q6H PRN PRN Reason: breakthrough neck/back pain Last Admin: 09/28/24 00:54 Dose: 7.5 mg Tamsulosin HCl (Tamsulosin Hcl 0.4 Mg Capsule) 0.4 mg PO BEDTIME [facility] Last Admin: 09/27/24 22:11 Dose: Not Given Trazodone HCl (Trazodone Hcl 50 Mg Tablet) 50 mg PO BEDTIME MRX1 PRN PRN Reason: Insomnia Last Admin: 09/28/24 00:54 Dose: 50 mg Valacyclovir HCl (Valacyclovir Hcl 500 Mg Tablet) 500 mg PO DAILY [facility] Last Admin: 09/28/24 08:47 Dose: 500 mg Allergies Allergies Allergy/AdvReac Type Severity Reaction Status Date / Time Penicillins [PCN] Allergy Severe Anaphylaxis Verified 08/22/24 04:12 bee venom protein (honey bee) Allergy Anaphylaxis Verified 08/22/24 04:04 codeine Allergy Unknown Verified 08/22/24 04:07 Iodinated Contrast Media Allergy Numbness Verified 08/22/24 04:11 [Contrast Dye] lanolin Allergy Rash Verified 08/22/24 04:11 latex Allergy Rash Verified 08/22/24 04:11 Sulfa (Sulfonamide Allergy Unknown Verified 08/22/24 04:11 Antibiotics) tramadol AdvReac Nausea and Verified 08/22/24 04:11 Vomiting Assessment & Plan Assessment & Plan (1) Schizoaffective disorder: Status: Acute Code(s): F25.9 - Schizoaffective disorder, unspecified Plan HOSPITAL COURSE: 08/22: continue medications from [facility]. hospitalist consult. observation, supportive care. 08/23: continue current mgmt. PRNs for anxiety. hospitalist consult pending. 08/24: psychotic, aggressive. add haldol 5 QHS and haldol 2 mg PRNs. medical consult appreciated. collateral from family. 08/25 pt presents with paranoid/persecutory delusions, auditory hallucinations and some grandiose delusions of having special power. will dc wellbutrin as it exacerbates psychosis. will increase haldol 5mg po qhs and will add 2.5mg po daily. increase abilify 20mg po daily. seems like amantadine for parkinsonian symptoms-wih higher potency antipsychotic like haldol will add low dose cogentin. Noted UA- shows UTI, will start ceftin 250mg po BID x 7 days. Pending collateral information. 08/26- pt with significant bilat cogwheel and rigidity with haldol. will d/c haldol, although risperidone also high potency antipsychotic will switch to risperidone. will continue abilify for now. 08/27 increased risperidone 2mg po BID. continue abilify 20mg po daily. 08/29 we are going to increase Risperdal to 2 mg in the morning and 3 mg at night we will assess for EPS tomorrow morning. 08/30 continue same treatment 08/31/24 isolated withdrawn would consider mcneal 09/01/2024 d/c abilify, continue risperidone, add depakote 250mg po daily and 500mg po qhs. 09/03 switch risperidone to prolixin 5mg po BID, continue depakote. will check depakote level in few days with ammonia and lft. 09/07 hospitalist consult- edema venous statis. 09/08 continue tx. 09/09 pt sitting outside; she says she's having a good day today, but that yesterday she was upset, anxious. Pt said she is still having a lot of worries today. She reiterated that yesterday was a bad day but when mentioned that patient did not take a medication yesterday she was able to say maybe that was the reason. Patient otherwise kind of rambling to herself and to others at the same time -continue tx plan 09/11 pt very agitated today, with paranoid delusions that people are trying to hurt her; both AH and [facility] (of shadows). Pt threatened to kill her roommate, thinking her roommate was persecuting her. Pt later had only vague memories of event and was tearful, apologetic, but confused whether or not she was really been persecuted; she said it helped when staff did reality testing. Pt agreed to prn Fluphenazine. -check labs and recent Depakote level WNL; ammonia WNL -patient on fluphenazine; will add p.r.n. to see if it helps with agitation, psychosis; if so and if she needs consistently, will consider increasing scheduled dose -patient moved a single 09/12?not?agitated?or?threatening?today?but?remains?with?AH?and?paranoid?delusions?that?she?is?being?persecuted Fluphenazine?p.r.n.?seem?to?help?yesterday?so?would?like?to?increase.??Patient?agrees 09/13 Patient?less?agitated;?not?expressing?paranoid?delusions?as?much.??Seems?to?be?more?calm.??Slept?at?night Nurse?reports?bilateral?lower?limb?edema;?will?add?Hospitalist consult 09/14?more?paranoid?delusions?and?AH?today;?will?continue?with?current?regimen?as?fluphenazine?just?increase.? -hospitalist?order?Steve?stockings 09/15?no?expressed?paranoid?delusions,?no?AH?today;?more?calm.??Perhaps?increased?fluphenazine?dose?is?working.?? Continue?current?regimen 09/16?again?no?paranoid?delusions?are?AH;?in?good?behavioral/impulse?control;?continue?current?treatment?plan 09/17 continue tx. still residual paranoid delusions 09/18 continue tx. 09/21 remains without paranoid delusions following increaesed Fluphenazine. C/o neck pain which is chronic; typically relieved w/ tylenol 09/22 pt remains w/out paranoid delusions but c/o increased pain which is she says makes it hard to sleep. engineering technical writer agrees to add Oxcodone, which she's tolerated before 09/23 pt reports pain is better with Oxy; no other complaints 09/25 no change; says doing good. Staff informed engineering technical writer that pt has and thickened part of her gluteal fold; discussed with patient who is aware. -Wound consult ordered 09/28 continue tx. Plan: Continue Oxycodone 5mg BID prn for breakthrough neck pain Continue fluphenazine 10mg BID continue fluphenazine 5 mg daily p.r.n. for agitation/psychosis continue clonazepam 0.25 mg b.i.d. p.r.n. for agitation/anxiety Continue clonazepam 0.5 mg b.i.d. Continue Depakote 500 mg q.h.s. Continue Depakote 250 mg daily Continue Gabapentin 200 mg t.i.d. Continue Cogentin 0.5 mg b.i.d. Reason for continued inpatient stay Substantial Risk for: inability to function Time Spent With Patient Time: Total time managing care of this patient today ____ minutes.
[2024-09-28 19:06] VITALS: BP 133/68; PULSE 80; RESP 18; TEMP 36.4; O2SAT 94
--- NOTE | 2024-09-28 19:07 | PC.NURSE ---
Linette brought herself down in the bathroom in the presence of [facility]. Vital signs obtained which are stable.
[2024-09-28 20:35] VITALS: BP 101/53; PULSE 65; RESP 16; TEMP 36.2; O2SAT 93
[2024-09-28] MEDS: Tamsulosin HCL 0.4 MG CAPSULE PO (21:23)
[2024-09-28] MEDS: Divalproex Sodium 500 MG TABLET.DR PO (21:23)
[2024-09-28] MEDS: Atorvastatin Calcium 10 MG TABLET PO (21:23)
[2024-09-29 08:07] VITALS: BP 99/54; PULSE 78; RESP 16; TEMP 36.8; O2SAT 92
[2024-09-29] MEDS: Lidocaine 4 % Patch ADH..PATCH 1 PATCH TRANSDERMA ×2 (08:09→08:10)
[2024-09-29] MEDS: carvediloL 25 MG TABLET PO ×2 (08:12→21:27)
[2024-09-29] MEDS: valACYclovir HCL 500 MG TABLET PO (08:12)
[2024-09-29] MEDS: clonazePAM 0.5 MG TABLET PO (08:13)
[2024-09-29] MEDS: Benztropine Mesylate 0.5 MG TABLET PO ×2 (08:13→21:28)
[2024-09-29] MEDS: lisinopriL 40 MG TABLET PO (08:13)
[2024-09-29] MEDS: Gabapentin 100 MG CAPSULE 200 MG PO ×3 (08:13→21:28)
[2024-09-29] MEDS: fluPHENAZine HCl 5 MG TABLET 10 MG PO ×2 (08:13→21:27)
[2024-09-29] MEDS: Apixaban 5 MG TABLET PO ×2 (08:13→21:28)
[2024-09-29] MEDS: Divalproex Sodium 250 MG TABLET.DR PO (08:13)
--- NOTE | 2024-09-29 08:40 | P.PNPSI_ITS ---
Subjective Subjective Date of Service: 09/29/24 Reason For Visit: Unspecified Psychosis Subjective Notes: Conditional Voluntary Interim History: Pt slept through the night. She reports much less psychosis and delusions. She reports feeling tired. She was nodding at times. We had family meeting- family has noted that pt seems more somnolent during the day and asked about her medications contributing to this. Will d/c clonazepam, now that she is doing much better in terms of psychosis and delusions and associated agitation. We could try without depakote, monitor sedation. We also discussed results of MOCA 09/09, ACL 3.4 I do not suspect this will improved even if pt less sedated, as when they were completed pt was not sedated, nor somnolent, and psychosis and delusions have significantly improved. We will aim for d/c next Saturday. Medications have to be sent to [facility]. Review of Systems Review of Systems Musculoskeletal pain Yes all other systems are reviewed and are negative and Unobtainable due to mental status Constitutional: Denies chills, Denies fatigue, Reports headache(s) and Denies weakness Eyes: Denies change in vision Reports headache(s), Reports nasal discharge and Reports sore throat Cardiovascular: Denies rapid heart rate, Reports leg edema and Denies dyspnea Respiratory: Denies cough, Denies dyspnea and Denies wheezing Gastrointestinal: Denies constipation, Denies diarrhea, Denies nausea and Denies vomiting Skin/Breast: Denies rash Reports headache(s) and Denies weakness Endocrine: Denies fatigue Allergic/Immunologic: Denies wheezing Mental Status Exam Mental Status Exam Narrative: Appearance: wearing casual attire, unkempt but fair hygiene Behavior: Calm, cooperative Psychomotor: bilat cogwheel and rigidity; uses walker. Speech: clear, normal rate/rhythm/volume, spontaneous TP: mostly goal oriented and linear but wanders often to tangential as well TC: neck pain; otherwise remains without expressed?paranoid?delusions Mood: good Affect: constricted SI: denies HI: ?None VH/AH: ?Currently?no?AH; Delusion: ?Currently?no?paranoid/persecutory?delusions Insight/judgment: limited. Diagnostics Vital Signs (24Hr): Vital Signs - 24 hr 09/28/24 09:30 09/28/24 19:06 09/28/24 20:35 Temperature 97.8 F 97.5 F 97.2 F Pulse Rate 77 80 65 Respiratory Rate 18 18 16 Blood Pressure 137/66 133/68 101/53 L Pulse Oximetry 93 94 93 Oxygen Delivery Method Room Air Room Air Room Air 09/29/24 08:07 Temperature 98.2 F Pulse Rate 78 Respiratory Rate 16 Blood Pressure 99/54 L Pulse Oximetry 92 Oxygen Delivery Method Room Air BMI result Body Mass Index 31.1 Labs 09/08/24 18:02 09/08/24 18:02 Labs: Laboratory Results - last 48 hr 09/27/24 14:40 Urine Color Dark Yellow Urine Appearance Cloudy Urine pH 5.5 Ur Specific Tracy 1.020 Urine Protein 30 (1+) H Urine Glucose (UA) Negative Urine Ketones Trace Urine Blood Large (3+) H Urine Nitrite Negative Ur Leukocyte Esterase Moderate (2+) H Urine RBC >20 H Urine WBC >50 H Ur Squamous Epith Cells 0-2 Urine Bacteria None Seen Hyaline Casts 11-20 Medications Medications Current Medications Acetaminophen (Acetaminophen 325 Mg Tablet) 650 mg PO Q6H PRN PRN Reason: Headache/Pain Mild Scale (1-3) Last Admin: 09/23/24 23:28 Dose: 650 mg Al Hydroxide/Mg Hydroxide (Magnesium Hydrox/Alum Hydrox 30 Ml Oral.Susp) 30 ml PO Q6H PRN PRN Reason: Heartburn/Nausea Albuterol Sulfate (Albuterol Sulfate 90 Mcg 8 Gm Inhaler) 1 puff INHALE RQ4H PRN PRN Reason: Shortness of Breath Last Admin: 09/12/24 20:35 Dose: 1 puff Apixaban (Apixaban 5 Mg Tablet) 5 mg PO BID [facility] Last Admin: 09/29/24 08:13 Dose: 5 mg Atorvastatin Calcium (Atorvastatin Calcium 10 Mg Tablet) 10 mg PO BEDTIME [facility] Last Admin: 09/28/24 21:23 Dose: 10 mg Benztropine Mesylate (Benztropine Mesylate 0.5 Mg Tablet) 0.5 mg PO BID [facility] Last Admin: 09/29/24 08:13 Dose: 0.5 mg Carvedilol (Carvedilol 25 Mg Tablet) 25 mg PO BID [facility]; Protocol Last Admin: 09/29/24 08:12 Dose: 25 mg Clonazepam (Clonazepam 0.5 Mg Tablet) 0.5 mg PO BID [facility] Last Admin: 09/29/24 08:13 Dose: 0.5 mg Divalproex Sodium (Divalproex Sodium 500 Mg Tablet.Dr) 500 mg PO BEDTIME [facility] Last Admin: 09/28/24 21:23 Dose: 500 mg Divalproex Sodium (Divalproex Sodium 250 Mg Tablet.Dr) 250 mg PO DAILY [facility] Last Admin: 09/29/24 08:13 Dose: 250 mg Fluphenazine HCl (Fluphenazine Hcl 5 Mg Tablet) 5 mg PO DAILY PRN PRN Reason: aggresssion/psychosis Last Admin: 09/14/24 14:38 Dose: 5 mg Fluphenazine HCl (Fluphenazine Hcl 5 Mg Tablet) 10 mg PO BID [facility] Last Admin: 09/29/24 08:13 Dose: 10 mg Fluphenazine HCl (Fluphenazine Hcl 2.5 Mg Tablet) 2.5 mg PO QID PRN PRN Reason: psychosis Gabapentin (Gabapentin 100 Mg Capsule) 200 mg PO TID [facility] Last Admin: 09/29/24 08:13 Dose: 200 mg Hydrochlorothiazide (Hydrochlorothiazide 25 Mg Tablet) 25 mg PO DAILY [facility]; Protocol Last Admin: 09/28/24 08:47 Dose: 25 mg Lidocaine (Lidocaine 4 % Patch Adh..Patch) 1 patch TRANSDERMA DAILY [facility]; Protocol Last Admin: 09/29/24 08:09 Dose: 1 patch Lidocaine (Lidocaine 4 % Patch Adh..Patch) 1 patch TRANSDERMA DAILY [facility]; Protocol Last Admin: 09/29/24 08:10 Dose: 1 patch Lisinopril (Lisinopril 40 Mg Tablet) 40 mg PO DAILY [facility]; Protocol Last Admin: 09/29/24 08:13 Dose: 40 mg Magnesium Hydroxide (Milk Of Magnesia 30 Ml Oral.Susp) 30 ml PO DAILY PRN PRN Reason: Constipation Nystatin (Nystatin Powder 15 Gm Bottle) 1 appl TOPICAL BID [facility]; Protocol Last Admin: 09/28/24 21:56 Dose: Not Given Olanzapine (Olanzapine Odt 10 Mg Tab.Rapdis) 10 mg TRANSLINGU Q6H PRN PRN Reason: agitation Last Admin: 09/26/24 20:20 Dose: 10 mg Oxycodone HCl (Oxycodone Hcl Immed Release 5 Mg Tablet) 7.5 mg PO Q6H PRN PRN Reason: breakthrough neck/back pain Last Admin: 09/28/24 12:29 Dose: 7.5 mg Tamsulosin HCl (Tamsulosin Hcl 0.4 Mg Capsule) 0.4 mg PO BEDTIME [facility] Last Admin: 09/28/24 21:23 Dose: 0.4 mg Trazodone HCl (Trazodone Hcl 50 Mg Tablet) 50 mg PO BEDTIME MRX1 PRN PRN Reason: Insomnia Last Admin: 09/28/24 00:54 Dose: 50 mg Valacyclovir HCl (Valacyclovir Hcl 500 Mg Tablet) 500 mg PO DAILY [facility] Last Admin: 09/29/24 08:12 Dose: 500 mg Allergies Allergies Allergy/AdvReac Type Severity Reaction Status Date / Time Penicillins [PCN] Allergy Severe Anaphylaxis Verified 08/22/24 04:12 bee venom protein (honey bee) Allergy Anaphylaxis Verified 08/22/24 04:04 codeine Allergy Unknown Verified 08/22/24 04:07 Iodinated Contrast Media Allergy Numbness Verified 08/22/24 04:11 [Contrast Dye] lanolin Allergy Rash Verified 08/22/24 04:11 latex Allergy Rash Verified 08/22/24 04:11 Sulfa (Sulfonamide Allergy Unknown Verified 08/22/24 04:11 Antibiotics) tramadol AdvReac Nausea and Verified 08/22/24 04:11 Vomiting Assessment & Plan Assessment & Plan (1) Schizoaffective disorder: Status: Acute Code(s): F25.9 - Schizoaffective disorder, unspecified Plan HOSPITAL COURSE: 08/22: continue medications from [facility]. hospitalist consult. observation, supportive care. 08/23: continue current mgmt. PRNs for anxiety. hospitalist consult pending. 08/24: psychotic, aggressive. add haldol 5 QHS and haldol 2 mg PRNs. medical consult appreciated. collateral from family. 08/25 pt presents with paranoid/persecutory delusions, auditory hallucinations and some grandiose delusions of having special power. will dc wellbutrin as it exacerbates psychosis. will increase haldol 5mg po qhs and will add 2.5mg po daily. increase abilify 20mg po daily. seems like amantadine for parkinsonian symptoms-wih higher potency antipsychotic like haldol will add low dose cogentin. Noted UA- shows UTI, will start ceftin 250mg po BID x 7 days. Pending collateral information. 08/26- pt with significant bilat cogwheel and rigidity with haldol. will d/c haldol, although risperidone also high potency antipsychotic will switch to risperidone. will continue abilify for now. 08/27 increased risperidone 2mg po BID. continue abilify 20mg po daily. 08/29 we are going to increase Risperdal to 2 mg in the morning and 3 mg at night we will assess for EPS tomorrow morning. 08/30 continue same treatment 08/31/24 isolated withdrawn would consider mcneal 09/01/2024 d/c abilify, continue risperidone, add depakote 250mg po daily and 500mg po qhs. 09/03 switch risperidone to prolixin 5mg po BID, continue depakote. will check depakote level in few days with ammonia and lft. 09/07 hospitalist consult- edema venous statis. 09/08 continue tx. 09/09 pt sitting outside; she says she's having a good day today, but that yesterday she was upset, anxious. Pt said she is still having a lot of worries today. She reiterated that yesterday was a bad day but when mentioned that patient did not take a medication yesterday she was able to say maybe that was the reason. Patient otherwise kind of rambling to herself and to others at the same time -continue tx plan 09/11 pt very agitated today, with paranoid delusions that people are trying to hurt her; both AH and VH (of shadows). Pt threatened to kill her roommate, thinking her roommate was persecuting her. Pt later had only vague memories of event and was tearful, apologetic, but confused whether or not she was really been persecuted; she said it helped when staff did reality testing. Pt agreed to prn Fluphenazine. -check labs and recent Depakote level WNL; ammonia WNL -patient on fluphenazine; will add p.r.n. to see if it helps with agitation, psychosis; if so and if she needs consistently, will consider increasing scheduled dose -patient moved a single 11/12?not?agitated?or?threatening?today?but?remains?with?AH?and?paranoid?delusions ?that?she?is?being?persecuted F luphenazine?p.r.n.?seem?to?help?yesterday?so?would?like?to?increase.??Patient?ag garth 09/13 Patient?less?agitated;?not?expressing?paranoid?delusions?as?much.??Seems?to?be?m ore?calm.??Slept?at?night Nurse?reports?bilateral?lower?limb?edema;?will?add?Hospitalist consult 11/14?more?paranoid?delusions?and?AH?today;?will?continue?with?current?regimen?as? fluphenazine?just?increase.? -hospitalist?order?Steve?stockings 11/15?no?expressed?paranoid?delusions,?no?AH?today;?more?calm.??Perhaps?increased? fluphenazine?dose?is?working.?? Continue?current?regimen 11/16?again?no?paranoid?delusions?are?AH;?in?good?behavioral/impulse?control;?cont inue?current?treatment?plan 09/17 continue tx. still residual paranoid delusions 09/18 continue tx. 09/21 remains without paranoid delusions following increaesed Fluphenazine. C/o neck pain which is chronic; typically relieved w/ tylenol 09/22 pt remains w/out paranoid delusions but c/o increased pain which is she says makes it hard to sleep. specifications writer agrees to add Oxcodone, which she's tolerated before 09/23 pt reports pain is better with Oxy; no other complaints 09/25 no change; says doing good. Staff informed specifications writer that pt has and thickened part of her gluteal fold; discussed with patient who is aware. -Wound consult ordered 09/28 continue tx. 09/29- some sedation noted. not only due to oxycodone as she has not had it and still presents somnolent during the day. I will dc clonazepam. will try without depakote. continue prolixin 10mg po BID. Reason for continued inpatient stay Substantial Risk for: inability to function Time Spent With Patient Time: Total time managing care of this patient today ____ minutes.
[2024-09-29] MEDS: cefuroxime axetiL 250 MG TABLET PO ×2 (09:47→21:28)
--- NOTE | 2024-09-29 16:09 | HO.WOUND ---
Wound Consult: Initial 69yr old?female admitted to [facility] on 08/21/24 - See progress notes and H&P for detailed history.? Wound consult placed for Gluteal fold.? Patient agreeable to assessment and photo documentation.? Patient is incontinent at times brief in use. Gluteal Fold / coccyx Etiology: MASD (Moisture Associated Skin Damage) Measurements: 2cm x 1cm Wound Bed: dry maroon blanchable tissue not consistent with pressure as it remains blanchable and within skin fold not consistent with fungal dermatitis Drainage / Odor: none noted Edges: ? well defined and irregular pattern consistent with scratching noted below the wound - however patient denies itching she reports burning sensation Estella wound: ? Intact No Induration, Fluctuance or Warmth noted Pain: burning sensation reported Goals of Treatment: ? Barrier cream to protect from moisture and friction Recommendations: 1. Turn and Reposition every 2 hours and as needed for patient comfort.? Use pillows or wedges to support off loading positions. 2. Off Load all bony prominences with use of pillows and heel boots if needed.? Apply Preventative foams where needed. ? 3. Monitor for incontinence and moisture control, use barrier creams when needed for prevention and treatment. 4. Provide adequate and supplemental nutrition.? 5. When applicable maintain blood glucose levels per Providers order. 6. Gluteal Fold - Cleanse with Ph balanced wipes or spray, pat dry. Apply barrier cream twice a day and PRN for incontinence and comfort. Re-consult wound care Nurse for wound deterioration or wound changes.
[2024-09-29 20:00] VITALS: BP 105/53; PULSE 75; RESP 17; TEMP 36.3; O2SAT 92
[2024-09-29 21:27] VITALS: BP 105/53; PULSE 75
[2024-09-29] MEDS: Tamsulosin HCL 0.4 MG CAPSULE PO (21:28)
[2024-09-29] MEDS: Atorvastatin Calcium 10 MG TABLET PO (21:28)
[2024-09-29] MEDS: traZODone HCL 50 MG TABLET PO (21:28)
[2024-09-29] MEDS: Nystatin Powder 15 GM BOTTLE 1 APPL TOPICAL (21:28)
[2024-09-30 09:06] VITALS: BP 116/59; PULSE 68; RESP 16; TEMP 36.4; O2SAT 94
[2024-09-30] MEDS: Benztropine Mesylate 0.5 MG TABLET PO ×2 (09:08→20:58)
[2024-09-30] MEDS: Apixaban 5 MG TABLET PO ×2 (09:08→20:56)
[2024-09-30] MEDS: lisinopriL 40 MG TABLET PO (09:08)
[2024-09-30] MEDS: hydroCHLOROthiazide 25 MG TABLET PO (09:08)
[2024-09-30] MEDS: carvediloL 25 MG TABLET PO ×2 (09:08→20:58)
[2024-09-30] MEDS: Gabapentin 100 MG CAPSULE 200 MG PO ×3 (09:08→20:57)
[2024-09-30] MEDS: valACYclovir HCL 500 MG TABLET PO (09:08)
[2024-09-30] MEDS: fluPHENAZine HCl 5 MG TABLET 10 MG PO ×2 (09:08→20:55)
[2024-09-30] MEDS: cefuroxime axetiL 250 MG TABLET PO ×2 (09:09→20:57)
--- NOTE | 2024-09-30 15:49 | P.PNPSI_ITS ---
Subjective Subjective Date of Service: 09/30/24 Reason For Visit: Unspecified Psychosis Subjective Notes: Conditional Voluntary Healthcare Proxy: Yes Interim History: Pt reports some pain at night affecting her sleep. Some suspiciousness towards staff but much less paranoid and persecutory delusions. She does report somnolence, we discussed that it may take few days after d/c of clonazepam and depakote to feel more awake. She reports neck pain- chronic, does take lower doses of oxy which she still reports helpful. Will keep lower dose to avoid oversedation. She is visible on the unit, but did take nap after lunch. Review of Systems Review of Systems Musculoskeletal pain Yes all other systems are reviewed and are negative and Unobtainable due to mental status Constitutional: Denies chills, Denies fatigue, Reports headache(s) and Denies weakness Eyes: Denies change in vision Reports headache(s), Reports nasal discharge and Reports sore throat Cardiovascular: Denies rapid heart rate, Reports leg edema and Denies dyspnea Respiratory: Denies cough, Denies dyspnea and Denies wheezing Gastrointestinal: Denies constipation, Denies diarrhea, Denies nausea and Denies vomiting Skin/Breast: Denies rash Reports headache(s) and Denies weakness Endocrine: Denies fatigue Allergic/Immunologic: Denies wheezing Mental Status Exam Mental Status Exam Narrative: Appearance: wearing casual attire, unkempt but fair hygiene Behavior: Calm, cooperative Psychomotor: bilat cogwheel and rigidity; uses walker. Speech: clear, normal rate/rhythm/volume, spontaneous TP: mostly goal oriented and linear but wanders often to tangential as well TC: neck pain; otherwise remains without expressed?paranoid?delusions Mood: good Affect: constricted SI: denies HI: ?None VH/AH: ?Currently?no?AH; Delusion: ?Currently?no?paranoid/persecutory?delusions Insight/judgment: limited. Diagnostics Vital Signs (24Hr): Vital Signs - 24 hr 09/29/24 20:00 09/29/24 21:27 09/30/24 09:06 Temperature 97.4 F 97.6 F Pulse Rate 75 75 68 Respiratory Rate 17 16 Blood Pressure 105/53 L 105/53 L 116/59 L Pulse Oximetry 92 94 Oxygen Delivery Method Room Air Room Air BMI result Body Mass Index 31.1 Labs 09/08/24 18:02 09/08/24 18:02 Medications Medications Current Medications Acetaminophen (Acetaminophen 325 Mg Tablet) 650 mg PO Q6H PRN PRN Reason: Headache/Pain Mild Scale (1-3) Last Admin: 09/23/24 23:28 Dose: 650 mg Al Hydroxide/Mg Hydroxide (Magnesium Hydrox/Alum Hydrox 30 Ml Oral.Susp) 30 ml PO Q6H PRN PRN Reason: Heartburn/Nausea Albuterol Sulfate (Albuterol Sulfate 90 Mcg 8 Gm Inhaler) 1 puff INHALE RQ4H PRN PRN Reason: Shortness of Breath Last Admin: 09/12/24 20:35 Dose: 1 puff Apixaban (Apixaban 5 Mg Tablet) 5 mg PO BID [facility] Last Admin: 09/30/24 09:08 Dose: 5 mg Atorvastatin Calcium (Atorvastatin Calcium 10 Mg Tablet) 10 mg PO BEDTIME [facility] Last Admin: 09/29/24 21:28 Dose: 10 mg Benztropine Mesylate (Benztropine Mesylate 0.5 Mg Tablet) 0.5 mg PO BID [facility] Last Admin: 09/30/24 09:08 Dose: 0.5 mg Carvedilol (Carvedilol 25 Mg Tablet) 25 mg PO BID [facility]; Protocol Last Admin: 09/30/24 09:08 Dose: 25 mg Cefuroxime Axetil (Cefuroxime Axetil 250 Mg Tablet) 250 mg PO Q12H [facility] Stop: 10/05/24 21:01 Last Admin: 09/30/24 09:09 Dose: 250 mg Fluphenazine HCl (Fluphenazine Hcl 5 Mg Tablet) 10 mg PO BID [facility] Last Admin: 09/30/24 09:08 Dose: 10 mg Fluphenazine HCl (Fluphenazine Hcl 2.5 Mg Tablet) 2.5 mg PO QID PRN PRN Reason: psychosis Gabapentin (Gabapentin 100 Mg Capsule) 200 mg PO TID [facility] Last Admin: 09/30/24 15:13 Dose: 200 mg Hydrochlorothiazide (Hydrochlorothiazide 25 Mg Tablet) 25 mg PO DAILY [facility]; Protocol Last Admin: 09/30/24 09:08 Dose: 25 mg Lidocaine (Lidocaine 4 % Patch Adh..Patch) 1 patch TRANSDERMA DAILY [facility]; Protocol Last Admin: 09/30/24 09:09 Dose: Not Given Lidocaine (Lidocaine 4 % Patch Adh..Patch) 1 patch TRANSDERMA DAILY [facility]; Protocol Last Admin: 09/30/24 09:09 Dose: Not Given Lisinopril (Lisinopril 40 Mg Tablet) 40 mg PO DAILY [facility]; Protocol Last Admin: 09/30/24 09:08 Dose: 40 mg Magnesium Hydroxide (Milk Of Magnesia 30 Ml Oral.Susp) 30 ml PO DAILY PRN PRN Reason: Constipation Nystatin (Nystatin Powder 15 Gm Bottle) 1 appl TOPICAL BID [facility]; Protocol Last Admin: 09/29/24 21:28 Dose: 1 appl Olanzapine (Olanzapine Odt 10 Mg Tab.Rapdis) 10 mg TRANSLINGU Q6H PRN PRN Reason: agitation Last Admin: 09/26/24 20:20 Dose: 10 mg Oxycodone HCl (Oxycodone Hcl Immed Release 5 Mg Tablet) 2.5 mg PO BID PRN PRN Reason: breakthrough neck/back pain Tamsulosin HCl (Tamsulosin Hcl 0.4 Mg Capsule) 0.4 mg PO BEDTIME [facility] Last Admin: 09/29/24 21:28 Dose: 0.4 mg Trazodone HCl (Trazodone Hcl 50 Mg Tablet) 50 mg PO BEDTIME MRX1 PRN PRN Reason: Insomnia Last Admin: 09/29/24 21:28 Dose: 50 mg Valacyclovir HCl (Valacyclovir Hcl 500 Mg Tablet) 500 mg PO DAILY [facility] Last Admin: 09/30/24 09:08 Dose: 500 mg Allergies Allergies Allergy/AdvReac Type Severity Reaction Status Date / Time Penicillins [PCN] Allergy Severe Anaphylaxis Verified 08/22/24 04:12 bee venom protein (honey bee) Allergy Anaphylaxis Verified 08/22/24 04:04 codeine Allergy Unknown Verified 08/22/24 04:07 Iodinated Contrast Media Allergy Numbness Verified 08/22/24 04:11 [Contrast Dye] lanolin Allergy Rash Verified 08/22/24 04:11 latex Allergy Rash Verified 08/22/24 04:11 Sulfa (Sulfonamide Allergy Unknown Verified 08/22/24 04:11 Antibiotics) tramadol AdvReac Nausea and Verified 08/22/24 04:11 Vomiting Assessment & Plan Assessment & Plan (1) Schizoaffective disorder: Status: Acute Code(s): F25.9 - Schizoaffective disorder, unspecified Plan HOSPITAL COURSE: 08/22: continue medications from [facility]. hospitalist consult. observation, supportive care. 08/23: continue current mgmt. PRNs for anxiety. hospitalist consult pending. 08/24: psychotic, aggressive. add haldol 5 QHS and haldol 2 mg PRNs. medical consult appreciated. collateral from family. 08/25 pt presents with paranoid/persecutory delusions, auditory hallucinations and some grandiose delusions of having special power. will dc wellbutrin as it exacerbates psychosis. will increase haldol 5mg po qhs and will add 2.5mg po daily. increase abilify 20mg po daily. seems like amantadine for parkinsonian symptoms-wih higher potency antipsychotic like haldol will add low dose cogentin. Noted UA- shows UTI, will start ceftin 250mg po BID x 7 days. Pending collateral information. 08/26- pt with significant bilat cogwheel and rigidity with haldol. will d/c haldol, although risperidone also high potency antipsychotic will switch to risperidone. will continue abilify for now. 08/27 increased risperidone 2mg po BID. continue abilify 20mg po daily. 08/29 we are going to increase Risperdal to 2 mg in the morning and 3 mg at night we will assess for EPS tomorrow morning. 08/30 continue same treatment 08/31/24 isolated withdrawn would consider mcneal 09/01/2024 d/c abilify, continue risperidone, add depakote 250mg po daily and 500mg po qhs. 09/03 switch risperidone to prolixin 5mg po BID, continue depakote. will check depakote level in few days with ammonia and lft. 09/07 hospitalist consult- edema venous statis. 09/08 continue tx. 09/09 pt sitting outside; she says she's having a good day today, but that yesterday she was upset, anxious. Pt said she is still having a lot of worries today. She reiterated that yesterday was a bad day but when mentioned that patient did not take a medication yesterday she was able to say maybe that was the reason. Patient otherwise kind of rambling to herself and to others at the same time -continue tx plan 09/11 pt very agitated today, with paranoid delusions that people are trying to hurt her; both AH and VH (of shadows). Pt threatened to kill her roommate, thinking her roommate was persecuting her. Pt later had only vague memories of event and was tearful, apologetic, but confused whether or not she was really been persecuted; she said it helped when staff did reality testing. Pt agreed to prn Fluphenazine. -check labs and recent Depakote level WNL; ammonia WNL -patient on fluphenazine; will add p.r.n. to see if it helps with agitation, psychosis; if so and if she needs consistently, will consider increasing scheduled dose -patient moved a single 11/12?not?agitated?or?threatening?today?but?remains?with?AH?and?paranoid?delusions ?that?she?is?being?persecuted F luphenazine?p.r.n.?seem?to?help?yesterday?so?would?like?to?increase.??Patient?ag garth 09/13 Patient?less?agitated;?not?expressing?paranoid?delusions?as?much.??Seems?to?be?m ore?calm.??Slept?at?night Nurse?reports?bilateral?lower?limb?edema;?will?add?Hospitalist consult 11/14?more?paranoid?delusions?and?AH?today;?will?continue?with?current?regimen?as? fluphenazine?just?increase.? -hospitalist?order?Steve?stockings 11/15?no?expressed?paranoid?delusions,?no?AH?today;?more?calm.??Perhaps?increased? fluphenazine?dose?is?working.?? Continue?current?regimen 11/16?again?no?paranoid?delusions?are?AH;?in?good?behavioral/impulse?control;?cont inue?current?treatment?plan 09/17 continue tx. still residual paranoid delusions 09/18 continue tx. 09/21 remains without paranoid delusions following increaesed Fluphenazine. C/o neck pain which is chronic; typically relieved w/ tylenol 09/22 pt remains w/out paranoid delusions but c/o increased pain which is she says makes it hard to sleep. press writer agrees to add Oxcodone, which she's tolerated before 09/23 pt reports pain is better with Oxy; no other complaints 09/25 no change; says doing good. Staff informed press writer that pt has and thickened part of her gluteal fold; discussed with patient who is aware. -Wound consult ordered 09/28 continue tx. 09/29- some sedation noted. not only due to oxycodone as she has not had it and still presents somnolent during the day. I will dc clonazepam. will try without depakote. continue prolixin 10mg po BID. 09/30 continue tx. Reason for continued inpatient stay Substantial Risk for: inability to function Time Spent With Patient Time: Total time managing care of this patient today ____ minutes.
[2024-09-30 20:00] VITALS: BP 110/56; PULSE 72; RESP 17; TEMP 36.3; O2SAT 93
[2024-09-30] MEDS: Atorvastatin Calcium 10 MG TABLET PO (20:56)
[2024-09-30] MEDS: traZODone HCL 50 MG TABLET PO (20:57)
[2024-09-30 20:58] VITALS: BP 106/57; PULSE 75
[2024-09-30] MEDS: Tamsulosin HCL 0.4 MG CAPSULE PO (20:59)
[2024-10-01 08:00] VITALS: BP 101/51; PULSE 73; RESP 18; TEMP 36.6; O2SAT 93
[2024-10-01] MEDS: Gabapentin 100 MG CAPSULE 200 MG PO ×3 (08:50→21:04)
[2024-10-01] MEDS: cefuroxime axetiL 250 MG TABLET PO ×2 (08:52→21:04)
[2024-10-01] MEDS: hydroCHLOROthiazide 25 MG TABLET PO (08:53)
[2024-10-01] MEDS: valACYclovir HCL 500 MG TABLET PO (08:53)
[2024-10-01] MEDS: carvediloL 25 MG TABLET PO ×2 (08:54→21:03)
[2024-10-01] MEDS: fluPHENAZine HCl 5 MG TABLET 10 MG PO ×2 (08:54→21:04)
[2024-10-01] MEDS: Benztropine Mesylate 0.5 MG TABLET PO ×2 (08:54→21:03)
[2024-10-01] MEDS: Apixaban 5 MG TABLET PO ×2 (08:54→21:03)
[2024-10-01] MEDS: Lidocaine 4 % Patch ADH..PATCH 1 PATCH TRANSDERMA ×2 (08:57→08:58)
[2024-10-01 09:02] VITALS: BMI 30.1
[2024-10-01] MEDS: lisinopriL 40 MG TABLET PO (09:46)
[2024-10-01] MEDS: Nystatin Powder 15 GM BOTTLE 1 APPL TOPICAL (09:47)
--- NOTE | 2024-10-01 14:06 | P.PNPSI_ITS ---
Subjective Subjective Date of Service: 10/01/24 Reason For Visit: Unspecified Psychosis Subjective Notes: Conditional Voluntary Interim History: Pt reports some pain at night, which affected her sleep. She reports the issue sometimes is falling asleep but later able to sleep through the night. In terms of sedation and somnolence during the day, the pt reports I finally feel like myself. She reports current pain management helpful- we did lower dose of oxy due to sedation. No overt psychosis or delusions. She is looking forward to be discharged next Saturday. Review of Systems Review of Systems Musculoskeletal pain Yes all other systems are reviewed and are negative and Unobtainable due to mental status Constitutional: Denies chills, Denies fatigue, Reports headache(s) and Denies weakness Eyes: Denies change in vision Reports headache(s), Reports nasal discharge and Reports sore throat Cardiovascular: Denies rapid heart rate, Reports leg edema and Denies dyspnea Respiratory: Denies cough, Denies dyspnea and Denies wheezing Gastrointestinal: Denies constipation, Denies diarrhea, Denies nausea and Denies vomiting Skin/Breast: Denies rash Reports headache(s) and Denies weakness Endocrine: Denies fatigue Allergic/Immunologic: Denies wheezing Mental Status Exam Mental Status Exam Narrative: Appearance: wearing casual attire, unkempt but fair hygiene Behavior: Calm, cooperative Psychomotor: bilat cogwheel and rigidity; uses walker. Speech: clear, normal rate/rhythm/volume, spontaneous TP: mostly goal oriented and linear but wanders often to tangential as well TC: neck pain; otherwise remains without expressed?paranoid?delusions Mood: good Affect: constricted SI: denies HI: ?None VH/AH: ?Currently?no?AH; Delusion: ?Currently?no?paranoid/persecutory?delusions Insight/judgment: limited. Diagnostics Vital Signs (24Hr): Vital Signs - 24 hr 09/30/24 20:00 09/30/24 20:58 10/01/24 08:00 Temperature 97.3 F 98 F Pulse Rate 72 75 73 Respiratory Rate 17 18 Blood Pressure 110/56 L 106/57 L 101/51 L Pulse Oximetry 93 93 Oxygen Delivery Method Room Air Room Air BMI result Body Mass Index 30.1 Labs 09/08/24 18:02 09/08/24 18:02 Medications Medications Current Medications Acetaminophen (Acetaminophen 325 Mg Tablet) 650 mg PO Q6H PRN PRN Reason: Headache/Pain Mild Scale (1-3) Last Admin: 09/23/24 23:28 Dose: 650 mg Al Hydroxide/Mg Hydroxide (Magnesium Hydrox/Alum Hydrox 30 Ml Oral.Susp) 30 ml PO Q6H PRN PRN Reason: Heartburn/Nausea Albuterol Sulfate (Albuterol Sulfate 90 Mcg 8 Gm Inhaler) 1 puff INHALE RQ4H PRN PRN Reason: Shortness of Breath Last Admin: 09/12/24 20:35 Dose: 1 puff Apixaban (Apixaban 5 Mg Tablet) 5 mg PO BID COUNTS INCLUDE 234 BEDS AT THE [facility] Last Admin: 10/01/24 08:54 Dose: 5 mg Atorvastatin Calcium (Atorvastatin Calcium 10 Mg Tablet) 10 mg PO BEDTIME COUNTS INCLUDE 234 BEDS AT THE [facility] Last Admin: 09/30/24 20:56 Dose: 10 mg Benztropine Mesylate (Benztropine Mesylate 0.5 Mg Tablet) 0.5 mg PO BID COUNTS INCLUDE 234 BEDS AT THE [facility] Last Admin: 10/01/24 08:54 Dose: 0.5 mg Carvedilol (Carvedilol 25 Mg Tablet) 25 mg PO BID COUNTS INCLUDE 234 BEDS AT THE [facility]; Protocol Last Admin: 10/01/24 08:54 Dose: 25 mg Cefuroxime Axetil (Cefuroxime Axetil 250 Mg Tablet) 250 mg PO Q12H COUNTS INCLUDE 234 BEDS AT THE [facility] Stop: 10/05/24 21:01 Last Admin: 10/01/24 08:52 Dose: 250 mg Fluphenazine HCl (Fluphenazine Hcl 5 Mg Tablet) 10 mg PO BID COUNTS INCLUDE 234 BEDS AT THE [facility] Last Admin: 10/01/24 08:54 Dose: 10 mg Fluphenazine HCl (Fluphenazine Hcl 2.5 Mg Tablet) 2.5 mg PO QID PRN PRN Reason: psychosis Gabapentin (Gabapentin 100 Mg Capsule) 200 mg PO TID COUNTS INCLUDE 234 BEDS AT THE [facility] Last Admin: 10/01/24 08:50 Dose: 200 mg Hydrochlorothiazide (Hydrochlorothiazide 25 Mg Tablet) 25 mg PO DAILY COUNTS INCLUDE 234 BEDS AT THE [facility]; Protocol Last Admin: 10/01/24 08:53 Dose: 25 mg Lidocaine (Lidocaine 4 % Patch Adh..Patch) 1 patch TRANSDERMA DAILY COUNTS INCLUDE 234 BEDS AT THE [facility]; Protocol Last Admin: 10/01/24 08:57 Dose: 1 patch Lidocaine (Lidocaine 4 % Patch Adh..Patch) 1 patch TRANSDERMA DAILY COUNTS INCLUDE 234 BEDS AT THE [facility]; Protocol Last Admin: 10/01/24 08:58 Dose: 1 patch Lisinopril (Lisinopril 40 Mg Tablet) 40 mg PO DAILY COUNTS INCLUDE 234 BEDS AT THE [facility]; Protocol Last Admin: 10/01/24 09:46 Dose: 40 mg Magnesium Hydroxide (Milk Of Magnesia 30 Ml Oral.Susp) 30 ml PO DAILY PRN PRN Reason: Constipation Nystatin (Nystatin Powder 15 Gm Bottle) 1 appl TOPICAL BID ROB; Protocol Last Admin: 10/01/24 09:47 Dose: 1 appl Olanzapine (Olanzapine Odt 10 Mg Tab.Rapdis) 10 mg TRANSLINGU Q6H PRN PRN Reason: agitation Last Admin: 09/26/24 20:20 Dose: 10 mg Oxycodone HCl (Oxycodone Hcl Immed Release 5 Mg Tablet) 2.5 mg PO BID PRN PRN Reason: breakthrough neck/back pain Tamsulosin HCl (Tamsulosin Hcl 0.4 Mg Capsule) 0.4 mg PO BEDTIME ROB Last Admin: 09/30/24 20:59 Dose: 0.4 mg Trazodone HCl (Trazodone Hcl 50 Mg Tablet) 50 mg PO BEDTIME MRX1 PRN PRN Reason: Insomnia Last Admin: 09/30/24 20:57 Dose: 50 mg Valacyclovir HCl (Valacyclovir Hcl 500 Mg Tablet) 500 mg PO DAILY COUNTS INCLUDE 234 BEDS AT THE [facility] Last Admin: 10/01/24 08:53 Dose: 500 mg Allergies Allergies Allergy/AdvReac Type Severity Reaction Status Date / Time Penicillins [PCN] Allergy Severe Anaphylaxis Verified 08/22/24 04:12 bee venom protein (honey bee) Allergy Anaphylaxis Verified 08/22/24 04:04 codeine Allergy Unknown Verified 08/22/24 04:07 Iodinated Contrast Media Allergy Numbness Verified 08/22/24 04:11 [Contrast Dye] lanolin Allergy Rash Verified 08/22/24 04:11 latex Allergy Rash Verified 08/22/24 04:11 Sulfa (Sulfonamide Allergy Unknown Verified 08/22/24 04:11 Antibiotics) tramadol AdvReac Nausea and Verified 08/22/24 04:11 Vomiting Assessment & Plan Assessment & Plan (1) Schizoaffective disorder: Status: Acute Code(s): F25.9 - Schizoaffective disorder, unspecified Plan HOSPITAL COURSE: 08/22: continue medications from [facility]. hospitalist consult. observation, supportive care. 08/23: continue current mgmt. PRNs for anxiety. hospitalist consult pending. 08/24: psychotic, aggressive. add haldol 5 QHS and haldol 2 mg PRNs. medical consult appreciated. collateral from family. 08/25 pt presents with paranoid/persecutory delusions, auditory hallucinations and some grandiose delusions of having special power. will dc wellbutrin as it exacerbates psychosis. will increase haldol 5mg po qhs and will add 2.5mg po daily. increase abilify 20mg po daily. seems like amantadine for parkinsonian symptoms-wih higher potency antipsychotic like haldol will add low dose cogentin. Noted UA- shows UTI, will start ceftin 250mg po BID x 7 days. Pending collateral information. 08/26- pt with significant bilat cogwheel and rigidity with haldol. will d/c haldol, although risperidone also high potency antipsychotic will switch to risperidone. will continue abilify for now. 08/27 increased risperidone 2mg po BID. continue abilify 20mg po daily. 08/29 we are going to increase Risperdal to 2 mg in the morning and 3 mg at night we will assess for EPS tomorrow morning. 08/30 continue same treatment 08/31/24 isolated withdrawn would consider mcneal 09/01/2024 d/c abilify, continue risperidone, add depakote 250mg po daily and 500mg po qhs. 09/03 switch risperidone to prolixin 5mg po BID, continue depakote. will check depakote level in few days with ammonia and lft. 09/07 hospitalist consult- edema venous statis. 09/08 continue tx. 09/09 pt sitting outside; she says she's having a good day today, but that yesterday she was upset, anxious. Pt said she is still having a lot of worries today. She reiterated that yesterday was a bad day but when mentioned that patient did not take a medication yesterday she was able to say maybe that was the reason. Patient otherwise kind of rambling to herself and to others at the same time -continue tx plan 09/11 pt very agitated today, with paranoid delusions that people are trying to hurt her; both AH and VH (of shadows). Pt threatened to kill her roommate, thinking her roommate was persecuting her. Pt later had only vague memories of event and was tearful, apologetic, but confused whether or not she was really been persecuted; she said it helped when staff did reality testing. Pt agreed to prn Fluphenazine. -check labs and recent Depakote level WNL; ammonia WNL -patient on fluphenazine; will add p.r.n. to see if it helps with agitation, psychosis; if so and if she needs consistently, will consider increasing scheduled dose -patient moved a single 11/12?not?agitated?or?threatening?today?but?remains?with?AH?and?paranoid?delusions ?that?she?is?being?persecuted F luphenazine?p.r.n.?seem?to?help?yesterday?so?would?like?to?increase.??Patient?ag garth 09/13 Patient?less?agitated;?not?expressing?paranoid?delusions?as?much.??Seems?to?be?m ore?calm.??Slept?at?night Nurse?reports?bilateral?lower?limb?edema;?will?add?Hospitalist consult 11/14?more?paranoid?delusions?and?AH?today;?will?continue?with?current?regimen?as? fluphenazine?just?increase.? -hospitalist?order?Steve?stockings 11/15?no?expressed?paranoid?delusions,?no?AH?today;?more?calm.??Perhaps?increased? fluphenazine?dose?is?working.?? Continue?current?regimen 11/16?again?no?paranoid?delusions?are?AH;?in?good?behavioral/impulse?control;?cont inue?current?treatment?plan 09/17 continue tx. still residual paranoid delusions 09/18 continue tx. 09/21 remains without paranoid delusions following increaesed Fluphenazine. C/o neck pain which is chronic; typically relieved w/ tylenol 09/22 pt remains w/out paranoid delusions but c/o increased pain which is she says makes it hard to sleep. rfp writer agrees to add Oxcodone, which she's tolerated before 09/23 pt reports pain is better with Oxy; no other complaints 09/25 no change; says doing good. Staff informed rfp writer that pt has and thickened part of her gluteal fold; discussed with patient who is aware. -Wound consult ordered 09/28 continue tx. 09/29- some sedation noted. not only due to oxycodone as she has not had it and still presents somnolent during the day. I will dc clonazepam. will try without depakote. continue prolixin 10mg po BID. 09/30 continue tx. 10/01 continue tx. Reason for continued inpatient stay Substantial Risk for: inability to function Time Spent With Patient Time: Total time managing care of this patient today ____ minutes.
[2024-10-01 20:00] VITALS: BP 103/54; PULSE 70; RESP 18; TEMP 37.1; O2SAT 97
[2024-10-01] MEDS: Atorvastatin Calcium 10 MG TABLET PO (21:03)
[2024-10-01] MEDS: Tamsulosin HCL 0.4 MG CAPSULE PO (21:05)
[2024-10-02 08:00] VITALS: BP 112/55; PULSE 70; RESP 18; TEMP 36.8; O2SAT 93
[2024-10-02] MEDS: fluPHENAZine HCl 5 MG TABLET 10 MG PO ×2 (08:26→20:43)
[2024-10-02] MEDS: Gabapentin 100 MG CAPSULE 200 MG PO ×3 (08:27→20:42)
[2024-10-02] MEDS: Benztropine Mesylate 0.5 MG TABLET PO ×2 (08:27→20:42)
[2024-10-02] MEDS: cefuroxime axetiL 250 MG TABLET PO ×2 (08:27→20:42)
[2024-10-02] MEDS: carvediloL 25 MG TABLET PO ×2 (08:27→20:42)
[2024-10-02] MEDS: hydroCHLOROthiazide 25 MG TABLET PO (08:27)
[2024-10-02] MEDS: lisinopriL 20 MG TABLET PO (08:27)
[2024-10-02] MEDS: Apixaban 5 MG TABLET PO ×2 (08:27→20:42)
[2024-10-02] MEDS: valACYclovir HCL 500 MG TABLET PO (08:27)
[2024-10-02] MEDS: Lidocaine 4 % Patch ADH..PATCH 1 PATCH TRANSDERMA ×2 (08:32→08:35)
[2024-10-02] MEDS: Nystatin Powder 15 GM BOTTLE 1 APPL TOPICAL ×2 (10:20→20:43)
--- NOTE | 2024-10-02 12:29 | P.PNPSI_ITS ---
Subjective Subjective Date of Service: 10/02/24 Reason For Visit: Unspecified Psychosis Interim History: Met with patient; discussed with team Patient says she is doing a lot better... No anxiety... No depression patient appears less confused and is noticeably brighter, more engaged; she is cooperative and attending to ADLs. Mental Status Exam Mental Status Exam Narrative: Appearance: wearing casual attire, unkempt but fair hygiene Behavior: Calm, cooperative Psychomotor: bilat cogwheel and rigidity; uses walker. Speech: clear, normal rate/rhythm/volume, spontaneous TP: mostly goal oriented and linear but wanders often to tangential as well TC: neck pain; otherwise remains without expressed?paranoid?delusions Mood: a lot better Affect: congruent, brighter SI: denies HI: ?None VH/AH: ?Currently?no?AH; Delusion: ?Currently?no?paranoid/persecutory?delusions Insight/judgment: limited but improved. Diagnostics Vital Signs (24Hr): Vital Signs - 24 hr 10/01/24 20:00 10/02/24 08:00 Temperature 98.7 F 98.2 F Pulse Rate 70 70 Respiratory Rate 18 18 Blood Pressure 103/54 L 112/55 L Pulse Oximetry 97 93 Oxygen Delivery Method Room Air Room Air BMI result Body Mass Index 30.1 Labs 09/08/24 18:02 09/08/24 18:02 Medications Medications Current Medications Acetaminophen (Acetaminophen 325 Mg Tablet) 650 mg PO Q6H PRN PRN Reason: Headache/Pain Mild Scale (1-3) Last Admin: 09/23/24 23:28 Dose: 650 mg Al Hydroxide/Mg Hydroxide (Magnesium Hydrox/Alum Hydrox 30 Ml Oral.Susp) 30 ml PO Q6H PRN PRN Reason: Heartburn/Nausea Albuterol Sulfate (Albuterol Sulfate 90 Mcg 8 Gm Inhaler) 1 puff INHALE RQ4H PRN PRN Reason: Shortness of Breath Last Admin: 09/12/24 20:35 Dose: 1 puff Apixaban (Apixaban 5 Mg Tablet) 5 mg PO BID [facility] Last Admin: 10/02/24 08:27 Dose: 5 mg Atorvastatin Calcium (Atorvastatin Calcium 10 Mg Tablet) 10 mg PO BEDTIME ROB Last Admin: 10/01/24 21:03 Dose: 10 mg Benztropine Mesylate (Benztropine Mesylate 0.5 Mg Tablet) 0.5 mg PO BID [facility] Last Admin: 10/02/24 08:27 Dose: 0.5 mg Carvedilol (Carvedilol 25 Mg Tablet) 25 mg PO BID ROB; Protocol Last Admin: 10/02/24 08:27 Dose: 25 mg Cefuroxime Axetil (Cefuroxime Axetil 250 Mg Tablet) 250 mg PO Q12H ROB Stop: 10/05/24 21:01 Last Admin: 10/02/24 08:27 Dose: 250 mg Fluphenazine HCl (Fluphenazine Hcl 5 Mg Tablet) 10 mg PO BID ROB Last Admin: 10/02/24 08:26 Dose: 10 mg Fluphenazine HCl (Fluphenazine Hcl 2.5 Mg Tablet) 2.5 mg PO QID PRN PRN Reason: psychosis Gabapentin (Gabapentin 100 Mg Capsule) 200 mg PO TID [facility] Last Admin: 10/02/24 08:27 Dose: 200 mg Hydrochlorothiazide (Hydrochlorothiazide 25 Mg Tablet) 25 mg PO DAILY [facility]; Protocol Last Admin: 10/02/24 08:27 Dose: 25 mg Lidocaine (Lidocaine 4 % Patch Adh..Patch) 1 patch TRANSDERMA DAILY [facility]; Protocol Last Admin: 10/02/24 08:32 Dose: 1 patch Lidocaine (Lidocaine 4 % Patch Adh..Patch) 1 patch TRANSDERMA DAILY ROB; Protocol Last Admin: 10/02/24 08:35 Dose: 1 patch Lisinopril (Lisinopril 20 Mg Tablet) 20 mg PO DAILY ROB; Protocol Last Admin: 10/02/24 08:27 Dose: 20 mg Magnesium Hydroxide (Milk Of Magnesia 30 Ml Oral.Susp) 30 ml PO DAILY PRN PRN Reason: Constipation Nystatin (Nystatin Powder 15 Gm Bottle) 1 appl TOPICAL BID [facility]; Protocol Last Admin: 10/02/24 10:20 Dose: 1 appl Olanzapine (Olanzapine Odt 10 Mg Tab.Rapdis) 10 mg TRANSLINGU Q6H PRN PRN Reason: agitation Last Admin: 09/26/24 20:20 Dose: 10 mg Oxycodone HCl (Oxycodone Hcl Immed Release 5 Mg Tablet) 2.5 mg PO BID PRN PRN Reason: breakthrough neck/back pain Tamsulosin HCl (Tamsulosin Hcl 0.4 Mg Capsule) 0.4 mg PO BEDTIME [facility] Last Admin: 10/01/24 21:05 Dose: 0.4 mg Trazodone HCl (Trazodone Hcl 50 Mg Tablet) 50 mg PO BEDTIME MRX1 PRN PRN Reason: Insomnia Last Admin: 09/30/24 20:57 Dose: 50 mg Valacyclovir HCl (Valacyclovir Hcl 500 Mg Tablet) 500 mg PO DAILY [facility] Last Admin: 10/02/24 08:27 Dose: 500 mg Allergies Allergies Allergy/AdvReac Type Severity Reaction Status Date / Time Penicillins [PCN] Allergy Severe Anaphylaxis Verified 08/22/24 04:12 bee venom protein (honey bee) Allergy Anaphylaxis Verified 08/22/24 04:04 codeine Allergy Unknown Verified 08/22/24 04:07 Iodinated Contrast Media Allergy Numbness Verified 08/22/24 04:11 [Contrast Dye] lanolin Allergy Rash Verified 08/22/24 04:11 latex Allergy Rash Verified 08/22/24 04:11 Sulfa (Sulfonamide Allergy Unknown Verified 08/22/24 04:11 Antibiotics) tramadol AdvReac Nausea and Verified 08/22/24 04:11 Vomiting Assessment & Plan Assessment & Plan (1) Schizoaffective disorder: Status: Acute Code(s): F25.9 - Schizoaffective disorder, unspecified Plan HOSPITAL COURSE: 08/22: continue medications from [facility]. hospitalist consult. observation, supportive care. 08/23: continue current mgmt. PRNs for anxiety. hospitalist consult pending. 08/24: psychotic, aggressive. add haldol 5 QHS and haldol 2 mg PRNs. medical consult appreciated. collateral from family. 08/25 pt presents with paranoid/persecutory delusions, auditory hallucinations and some grandiose delusions of having special power. will dc wellbutrin as it exacerbates psychosis. will increase haldol 5mg po qhs and will add 2.5mg po daily. increase abilify 20mg po daily. seems like amantadine for parkinsonian symptoms-wih higher potency antipsychotic like haldol will add low dose cogentin. Noted UA- shows UTI, will start ceftin 250mg po BID x 7 days. Pending collateral information. 08/26- pt with significant bilat cogwheel and rigidity with haldol. will d/c haldol, although risperidone also high potency antipsychotic will switch to risperidone. will continue abilify for now. 08/27 increased risperidone 2mg po BID. continue abilify 20mg po daily. 08/29 we are going to increase Risperdal to 2 mg in the morning and 3 mg at night we will assess for EPS tomorrow morning. 08/30 continue same treatment 08/31/24 isolated withdrawn would consider mcneal 09/01/2024 d/c abilify, continue risperidone, add depakote 250mg po daily and 500mg po qhs. 09/03 switch risperidone to prolixin 5mg po BID, continue depakote. will check depakote level in few days with ammonia and lft. 09/07 hospitalist consult- edema venous statis. 09/08 continue tx. 09/09 pt sitting outside; she says she's having a good day today, but that yesterday she was upset, anxious. Pt said she is still having a lot of worries today. She reiterated that yesterday was a bad day but when mentioned that patient did not take a medication yesterday she was able to say maybe that was the reason. Patient otherwise kind of rambling to herself and to others at the same time -continue tx plan 09/11 pt very agitated today, with paranoid delusions that people are trying to hurt her; both AH and [facility]H (of shadows). Pt threatened to kill her roommate, thinking her roommate was persecuting her. Pt later had only vague memories of event and was tearful, apologetic, but confused whether or not she was really been persecuted; she said it helped when staff did reality testing. Pt agreed to prn Fluphenazine. -check labs and recent Depakote level WNL; ammonia WNL -patient on fluphenazine; will add p.r.n. to see if it helps with agitation, psychosis; if so and if she needs consistently, will consider increasing scheduled dose -patient moved a single 11/12?not?agitated?or?threatening?today?but?remains?with?AH?and?paranoid?delusions ?that?she?is?being?persecuted F luphenazine?p.r.n.?seem?to?help?yesterday?so?would?like?to?increase.??Patient?ag garth 09/13 Patient?less?agitated;?not?expressing?paranoid?delusions?as?much.??Seems?to?be?m ore?calm.??Slept?at?night Nurse?reports?bilateral?lower?limb?edema;?will?add?Hospitalist consult 11/14?more?paranoid?delusions?and?AH?today;?will?continue?with?current?regimen?as? fluphenazine?just?increase.? -hospitalist?order?Steve?stockings 1 11/15?no?expressed?paranoid?delusions,?no?AH?today;?more?calm.??Perhaps?increased? fluphenazine?dose?is?working.?? Continue?current?regimen 11/16?again?no?paranoid?delusions?are?AH;?in?good?behavioral/impulse?control;?cont inue?current?treatment?plan 09/17 continue tx. still residual paranoid delusions 09/18 continue tx. 09/21 remains without paranoid delusions following increaesed Fluphenazine. C/o neck pain which is chronic; typically relieved w/ tylenol 09/22 pt remains w/out paranoid delusions but c/o increased pain which is she says makes it hard to sleep. conventional mortgage underwriter agrees to add Oxcodone, which she's tolerated before 09/23 pt reports pain is better with Oxy; no other complaints 09/25 no change; says doing good. Staff informed conventional mortgage underwriter that pt has and thickened part of her gluteal fold; discussed with patient who is aware. -Wound consult ordered 09/28 continue tx. 09/29- some sedation noted. not only due to oxycodone as she has not had it and still presents somnolent during the day. I will dc clonazepam. will try without depakote. continue prolixin 10mg po BID. 09/30 continue tx. 10/01 continue tx. 10/02 remains doing much better; continue current tx plan Patient educated on: diagnosis and medication risk/benefits Informed Consent: understands Reason for continued inpatient stay Substantial Risk for: stable for discharge Time Spent With Patient Time: Total time managing care of this patient today ____ minutes.
[2024-10-02] MEDS: oxyCODONE HCl Immed Release 5 MG TABLET 2.5 MG PO (15:58)
[2024-10-02 20:00] VITALS: BP 143/96; PULSE 80; RESP 18; TEMP 36.4; O2SAT 94
[2024-10-02] MEDS: Atorvastatin Calcium 10 MG TABLET PO (20:42)
[2024-10-02] MEDS: Tamsulosin HCL 0.4 MG CAPSULE PO (20:43)
[2024-10-03 08:15] VITALS: BP 128/64; PULSE 75; RESP 18; TEMP 36.4; O2SAT 95
[2024-10-03] MEDS: Apixaban 5 MG TABLET PO ×2 (08:31→20:26)
[2024-10-03] MEDS: hydroCHLOROthiazide 25 MG TABLET PO (08:31)
[2024-10-03] MEDS: fluPHENAZine HCl 5 MG TABLET 10 MG PO ×2 (08:31→20:26)
[2024-10-03] MEDS: Benztropine Mesylate 0.5 MG TABLET PO ×2 (08:31→20:26)
[2024-10-03] MEDS: valACYclovir HCL 500 MG TABLET PO (08:31)
[2024-10-03] MEDS: Lidocaine 4 % Patch ADH..PATCH 1 PATCH TRANSDERMA ×2 (08:32→08:34)
[2024-10-03] MEDS: cefuroxime axetiL 250 MG TABLET PO ×2 (08:32→20:26)
[2024-10-03] MEDS: carvediloL 25 MG TABLET PO ×2 (08:32→20:26)
[2024-10-03] MEDS: Gabapentin 100 MG CAPSULE 200 MG PO ×3 (08:32→20:27)
[2024-10-03] MEDS: lisinopriL 20 MG TABLET PO (08:32)
[2024-10-03] MEDS: Nystatin Powder 15 GM BOTTLE 1 APPL TOPICAL ×2 (08:40→20:27)
--- NOTE | 2024-10-03 11:05 | P.PNPSI_ITS ---
Subjective Subjective Date of Service: 10/03/24 Reason For Visit: Unspecified Psychosis Interim History: c/o poor sleep last night, no request for change in mgmt. states she is trying to nap now to catch up. no other complaints or requests. per staff, doing well, no issues. Mental Status Exam Mental Status Exam Narrative: Appearance: wearing casual attire, unkempt but fair hygiene Behavior: Calm, cooperative Speech: clear, normal rate/rhythm/volume, spontaneous TP: mostly goal oriented and linear but wanders often to tangential as well TC: without expressed?paranoid?delusions Mood: good Affect: constricted Insight/judgment: limited. Diagnostics Vital Signs (24Hr): Vital Signs - 24 hr 10/02/24 20:00 10/03/24 08:15 Temperature 97.5 F 97.6 F Pulse Rate 80 75 Respiratory Rate 18 18 Blood Pressure 143/96 H 128/64 Pulse Oximetry 94 95 Oxygen Delivery Method Room Air Room Air BMI result Body Mass Index 30.1 Labs 09/08/24 18:02 09/08/24 18:02 Medications Medications Current Medications Acetaminophen (Acetaminophen 325 Mg Tablet) 650 mg PO Q6H PRN PRN Reason: Headache/Pain Mild Scale (1-3) Last Admin: 09/23/24 23:28 Dose: 650 mg Al Hydroxide/Mg Hydroxide (Magnesium Hydrox/Alum Hydrox 30 Ml Oral.Susp) 30 ml PO Q6H PRN PRN Reason: Heartburn/Nausea Albuterol Sulfate (Albuterol Sulfate 90 Mcg 8 Gm Inhaler) 1 puff INHALE RQ4H PRN PRN Reason: Shortness of Breath Last Admin: 09/12/24 20:35 Dose: 1 puff Apixaban (Apixaban 5 Mg Tablet) 5 mg PO BID [facility] Last Admin: 10/03/24 08:31 Dose: 5 mg Atorvastatin Calcium (Atorvastatin Calcium 10 Mg Tablet) 10 mg PO BEDTIME [facility] Last Admin: 10/02/24 20:42 Dose: 10 mg Benztropine Mesylate (Benztropine Mesylate 0.5 Mg Tablet) 0.5 mg PO BID [facility] Last Admin: 10/03/24 08:31 Dose: 0.5 mg Carvedilol (Carvedilol 25 Mg Tablet) 25 mg PO BID [facility]; Protocol Last Admin: 10/03/24 08:32 Dose: 25 mg Cefuroxime Axetil (Cefuroxime Axetil 250 Mg Tablet) 250 mg PO Q12H [facility] Stop: 10/05/24 21:01 Last Admin: 10/03/24 08:32 Dose: 250 mg Fluphenazine HCl (Fluphenazine Hcl 5 Mg Tablet) 10 mg PO BID [facility] Last Admin: 10/03/24 08:31 Dose: 10 mg Fluphenazine HCl (Fluphenazine Hcl 2.5 Mg Tablet) 2.5 mg PO QID PRN PRN Reason: psychosis Gabapentin (Gabapentin 100 Mg Capsule) 200 mg PO TID [facility] Last Admin: 10/03/24 08:32 Dose: 200 mg Hydrochlorothiazide (Hydrochlorothiazide 25 Mg Tablet) 25 mg PO DAILY [facility]; Protocol Last Admin: 10/03/24 08:31 Dose: 25 mg Lidocaine (Lidocaine 4 % Patch Adh..Patch) 1 patch TRANSDERMA DAILY [facility]; Protocol Last Admin: 10/03/24 08:32 Dose: 1 patch Lidocaine (Lidocaine 4 % Patch Adh..Patch) 1 patch TRANSDERMA DAILY [facility]; Protocol Last Admin: 10/03/24 08:34 Dose: 1 patch Lisinopril (Lisinopril 20 Mg Tablet) 20 mg PO DAILY [facility]; Protocol Last Admin: 10/03/24 08:32 Dose: 20 mg Magnesium Hydroxide (Milk Of Magnesia 30 Ml Oral.Susp) 30 ml PO DAILY PRN PRN Reason: Constipation Nystatin (Nystatin Powder 15 Gm Bottle) 1 appl TOPICAL BID [facility]; Protocol Last Admin: 10/03/24 08:40 Dose: 1 appl Olanzapine (Olanzapine Odt 10 Mg Tab.Rapdis) 10 mg TRANSLINGU Q6H PRN PRN Reason: agitation Last Admin: 09/26/24 20:20 Dose: 10 mg Oxycodone HCl (Oxycodone Hcl Immed Release 5 Mg Tablet) 2.5 mg PO BID PRN PRN Reason: breakthrough neck/back pain Last Admin: 10/02/24 15:58 Dose: 2.5 mg Tamsulosin HCl (Tamsulosin Hcl 0.4 Mg Capsule) 0.4 mg PO BEDTIME [facility] Last Admin: 10/02/24 20:43 Dose: 0.4 mg Trazodone HCl (Trazodone Hcl 50 Mg Tablet) 50 mg PO BEDTIME MRX1 PRN PRN Reason: Insomnia Last Admin: 09/30/24 20:57 Dose: 50 mg Valacyclovir HCl (Valacyclovir Hcl 500 Mg Tablet) 500 mg PO DAILY [facility] Last Admin: 10/03/24 08:31 Dose: 500 mg Allergies Allergies Allergy/AdvReac Type Severity Reaction Status Date / Time Penicillins [PCN] Allergy Severe Anaphylaxis Verified 08/22/24 04:12 bee venom protein (honey bee) Allergy Anaphylaxis Verified 08/22/24 04:04 codeine Allergy Unknown Verified 08/22/24 04:07 Iodinated Contrast Media Allergy Numbness Verified 08/22/24 04:11 [Contrast Dye] lanolin Allergy Rash Verified 08/22/24 04:11 latex Allergy Rash Verified 08/22/24 04:11 Sulfa (Sulfonamide Allergy Unknown Verified 08/22/24 04:11 Antibiotics) tramadol AdvReac Nausea and Verified 08/22/24 04:11 Vomiting Assessment & Plan Assessment & Plan (1) Schizoaffective disorder: Status: Acute Code(s): F25.9 - Schizoaffective disorder, unspecified Plan HOSPITAL COURSE: 08/22: continue medications from [facility]. hospitalist consult. observation, supportive care. 08/23: continue current mgmt. PRNs for anxiety. hospitalist consult pending. 08/24: psychotic, aggressive. add haldol 5 QHS and haldol 2 mg PRNs. medical consult appreciated. collateral from family. 08/25 pt presents with paranoid/persecutory delusions, auditory hallucinations and some grandiose delusions of having special power. will dc wellbutrin as it exacerbates psychosis. will increase haldol 5mg po qhs and will add 2.5mg po daily. increase abilify 20mg po daily. seems like amantadine for parkinsonian symptoms-wih higher potency antipsychotic like haldol will add low dose cogentin. Noted UA- shows UTI, will start ceftin 250mg po BID x 7 days. Pending collateral information. 08/26- pt with significant bilat cogwheel and rigidity with haldol. will d/c haldol, although risperidone also high potency antipsychotic will switch to risperidone. will continue abilify for now. 08/27 increased risperidone 2mg po BID. continue abilify 20mg po daily. 08/29 we are going to increase Risperdal to 2 mg in the morning and 3 mg at night we will assess for EPS tomorrow morning. 08/30 continue same treatment 08/31/24 isolated withdrawn would consider mcneal 09/01/2024 d/c abilify, continue risperidone, add depakote 250mg po daily and 500mg po qhs. 09/03 switch risperidone to prolixin 5mg po BID, continue depakote. will check depakote level in few days with ammonia and lft. 09/07 hospitalist consult- edema venous statis. 09/08 continue tx. 09/09 pt sitting outside; she says she's having a good day today, but that yesterday she was upset, anxious. Pt said she is still having a lot of worries today. She reiterated that yesterday was a bad day but when mentioned that patient did not take a medication yesterday she was able to say maybe that was the reason. Patient otherwise kind of rambling to herself and to others at the same time -continue tx plan 09/11 pt very agitated today, with paranoid delusions that people are trying to hurt her; both AH and [facility]H (of shadows). Pt threatened to kill her roommate, thinking her roommate was persecuting her. Pt later had only vague memories of event and was tearful, apologetic, but confused whether or not she was really been persecuted; she said it helped when staff did reality testing. Pt agreed to prn Fluphenazine. -check labs and recent Depakote level WNL; ammonia WNL -patient on fluphenazine; will add p.r.n. to see if it helps with agitation, psychosis; if so and if she needs consistently, will consider increasing scheduled dose -patient moved a single 11/12?not?agitated?or?threatening?today?but?remains?with?AH?and?paranoid?delusions ?that?she?is?being?persecuted F luphenazine?p.r.n.?seem?to?help?yesterday?so?would?like?to?increase.??Patient?ag garth 09/13 Patient?less?agitated;?not?expressing?paranoid?delusions?as?much.??Seems?to?be?m ore?calm.??Slept?at?night Nurse?reports?bilateral?lower?limb?edema;?will?add?Hospitalist consult 11/14?more?paranoid?delusions?and?AH?today;?will?continue?with?current?regimen?as? fluphenazine?just?increase.? -hospitalist?order?Steve?stockings 11/15?no?expressed?paranoid?delusions,?no?AH?today;?more?calm.??Perhaps?increased? fluphenazine?dose?is?working.?? Continue?current?regimen 11/16?again?no?paranoid?delusions?are?AH;?in?good?behavioral/impulse?control;?cont inue?current?treatment?plan 09/17 continue tx. still residual paranoid delusions 09/18 continue tx. 09/21 remains without paranoid delusions following increaesed Fluphenazine. C/o neck pain which is chronic; typically relieved w/ tylenol 09/22 pt remains w/out paranoid delusions but c/o increased pain which is she says makes it hard to sleep. commercial lines underwriter agrees to add Oxcodone, which she's tolerated before 09/23 pt reports pain is better with Oxy; no other complaints 09/25 no change; says doing good. Staff informed commercial lines underwriter that pt has and thickened part of her gluteal fold; discussed with patient who is aware. -Wound consult ordered 09/28 continue tx. 09/29- some sedation noted. not only due to oxycodone as she has not had it and still presents somnolent during the day. I will dc clonazepam. will try without depakote. continue prolixin 10mg po BID. 09/30 continue tx. 10/01 continue tx. 10/02 remains doing much better; continue current tx plan 10/03: stable. continue current mgmt. Reason for continued inpatient stay Substantial Risk for: inability to function and rapid decompensation Time Spent With Patient Time: Total time managing care of this patient today ____ minutes.
[2024-10-03] MEDS: OLANZapine ODT 10 MG TAB.RAPDIS TRANSLINGU (17:29)
[2024-10-03 20:00] VITALS: BP 113/57; PULSE 63; RESP 16; TEMP 36.6; O2SAT 95
[2024-10-03] MEDS: Tamsulosin HCL 0.4 MG CAPSULE PO (20:26)
[2024-10-03] MEDS: Atorvastatin Calcium 10 MG TABLET PO (20:26)
[2024-10-04 08:00] VITALS: BP 113/57; PULSE 58; RESP 18; TEMP 36.4; O2SAT 94
[2024-10-04] MEDS: cefuroxime axetiL 250 MG TABLET PO ×2 (08:58→20:42)
[2024-10-04] MEDS: fluPHENAZine HCl 5 MG TABLET 10 MG PO ×2 (08:58→20:47)
[2024-10-04] MEDS: Gabapentin 100 MG CAPSULE 200 MG PO ×3 (08:58→20:43)
[2024-10-04] MEDS: carvediloL 25 MG TABLET PO ×2 (08:58→20:41)
[2024-10-04] MEDS: hydroCHLOROthiazide 25 MG TABLET PO (08:58)
[2024-10-04] MEDS: valACYclovir HCL 500 MG TABLET PO (08:58)
[2024-10-04] MEDS: Benztropine Mesylate 0.5 MG TABLET PO ×2 (08:59→20:41)
[2024-10-04] MEDS: lisinopriL 20 MG TABLET PO (08:59)
[2024-10-04] MEDS: Lidocaine 4 % Patch ADH..PATCH 1 PATCH TRANSDERMA ×2 (08:59→10:07)
[2024-10-04] MEDS: Apixaban 5 MG TABLET PO ×2 (08:59→20:41)
[2024-10-04] MEDS: Nystatin Powder 15 GM BOTTLE 1 APPL TOPICAL (10:09)
[2024-10-04] MEDS: Acetaminophen 325 MG TABLET 650 MG PO (15:38)
--- NOTE | 2024-10-04 17:24 | PC.NURSE ---
Patient calm and cooperative, compliant with medication, c/o neck pain, Tylenol offered and administered with good effect. Patient also c/o pain and itchiness to R eye, upon examination mild redness noted to sclera, complain reported to provider and eye drops requested. Patient ambulates with walker, compression stocking worn most of the day. At dinner patient stated she was unable to have restful night as her roommate was loudly chanting in a different language. Patient asked to be moved to different room and was advised that there was no rooms available and that staff will have a conversation with roommate about loud chanting at night.
--- NOTE | 2024-10-04 18:28 | P.PNPSI_ITS ---
Subjective Subjective Date of Service: 10/04/24 Reason For Visit: Unspecified Psychosis Interim History: c/o right eye pain. reporting improved AH, only once today. per staff, right eye pain, asking for drops. taking meds. no problematic behaviors. Mental Status Exam Mental Status Exam Narrative: Appearance: wearing casual attire, fair hygiene Behavior: Calm, cooperative Speech: clear, normal rate/rhythm/volume, spontaneous TP: mostly goal oriented and linear but wanders often to tangential as well TC: without expressed?paranoid?delusions Mood: good Affect: constricted Insight/judgment: limited. Diagnostics Vital Signs (24Hr): Vital Signs - 24 hr 10/03/24 20:00 10/04/24 08:00 Temperature 97.8 F 97.5 F Pulse Rate 63 58 Respiratory Rate 16 18 Blood Pressure 113/57 L 113/57 L Pulse Oximetry 95 94 Oxygen Delivery Method Room Air Room Air BMI result Body Mass Index 30.1 Labs 09/08/24 18:02 09/08/24 18:02 Medications Medications Current Medications Acetaminophen (Acetaminophen 325 Mg Tablet) 650 mg PO Q6H PRN PRN Reason: Headache/Pain Mild Scale (1-3) Last Admin: 10/04/24 15:38 Dose: 650 mg Al Hydroxide/Mg Hydroxide (Magnesium Hydrox/Alum Hydrox 30 Ml Oral.Susp) 30 ml PO Q6H PRN PRN Reason: Heartburn/Nausea Albuterol Sulfate (Albuterol Sulfate 90 Mcg 8 Gm Inhaler) 1 puff INHALE RQ4H PRN PRN Reason: Shortness of Breath Last Admin: 09/12/24 20:35 Dose: 1 puff Apixaban (Apixaban 5 Mg Tablet) 5 mg PO BID [facility] Last Admin: 10/04/24 08:59 Dose: 5 mg Artificial Tears (Artificial Tears 15 Ml Drops) 2 drop EYE-RIGHT Q4H PRN PRN Reason: eye irritation Atorvastatin Calcium (Atorvastatin Calcium 10 Mg Tablet) 10 mg PO BEDTIME [facility] Last Admin: 10/03/24 20:26 Dose: 10 mg Benztropine Mesylate (Benztropine Mesylate 0.5 Mg Tablet) 0.5 mg PO BID [facility] Last Admin: 10/04/24 08:59 Dose: 0.5 mg Carvedilol (Carvedilol 25 Mg Tablet) 25 mg PO BID [facility]; Protocol Last Admin: 10/04/24 08:58 Dose: 25 mg Cefuroxime Axetil (Cefuroxime Axetil 250 Mg Tablet) 250 mg PO Q12H [facility] Stop: 10/05/24 21:01 Last Admin: 10/04/24 08:58 Dose: 250 mg Fluphenazine HCl (Fluphenazine Hcl 5 Mg Tablet) 10 mg PO BID [facility] Last Admin: 10/04/24 08:58 Dose: 10 mg Fluphenazine HCl (Fluphenazine Hcl 2.5 Mg Tablet) 2.5 mg PO QID PRN PRN Reason: psychosis Gabapentin (Gabapentin 100 Mg Capsule) 200 mg PO TID [facility] Last Admin: 10/04/24 15:38 Dose: 200 mg Hydrochlorothiazide (Hydrochlorothiazide 25 Mg Tablet) 25 mg PO DAILY [facility]; Protocol Last Admin: 10/04/24 08:58 Dose: 25 mg Lidocaine (Lidocaine 4 % Patch Adh..Patch) 1 patch TRANSDERMA DAILY [facility]; Protocol Last Admin: 10/04/24 08:59 Dose: 1 patch Lidocaine (Lidocaine 4 % Patch Adh..Patch) 1 patch TRANSDERMA DAILY [facility]; Protocol Last Admin: 10/04/24 10:07 Dose: 1 patch Lisinopril (Lisinopril 20 Mg Tablet) 20 mg PO DAILY [facility]; Protocol Last Admin: 10/04/24 08:59 Dose: 20 mg Magnesium Hydroxide (Milk Of Magnesia 30 Ml Oral.Susp) 30 ml PO DAILY PRN PRN Reason: Constipation Nystatin (Nystatin Powder 15 Gm Bottle) 1 appl TOPICAL BID [facility]; Protocol Last Admin: 10/04/24 10:09 Dose: 1 appl Olanzapine (Olanzapine Odt 10 Mg Tab.Rapdis) 10 mg TRANSLINGU Q6H PRN PRN Reason: agitation Last Admin: 10/03/24 17:29 Dose: 10 mg Oxycodone HCl (Oxycodone Hcl Immed Release 5 Mg Tablet) 2.5 mg PO BID PRN PRN Reason: breakthrough neck/back pain Last Admin: 10/02/24 15:58 Dose: 2.5 mg Tamsulosin HCl (Tamsulosin Hcl 0.4 Mg Capsule) 0.4 mg PO BEDTIME [facility] Last Admin: 10/03/24 20:26 Dose: 0.4 mg Trazodone HCl (Trazodone Hcl 50 Mg Tablet) 50 mg PO BEDTIME MRX1 PRN PRN Reason: Insomnia Last Admin: 09/30/24 20:57 Dose: 50 mg Valacyclovir HCl (Valacyclovir Hcl 500 Mg Tablet) 500 mg PO DAILY [facility] Last Admin: 10/04/24 08:58 Dose: 500 mg Allergies Allergies Allergy/AdvReac Type Severity Reaction Status Date / Time Penicillins [PCN] Allergy Severe Anaphylaxis Verified 08/22/24 04:12 bee venom protein (honey bee) Allergy Anaphylaxis Verified 08/22/24 04:04 codeine Allergy Unknown Verified 08/22/24 04:07 Iodinated Contrast Media Allergy Numbness Verified 08/22/24 04:11 [Contrast Dye] lanolin Allergy Rash Verified 08/22/24 04:11 latex Allergy Rash Verified 08/22/24 04:11 Sulfa (Sulfonamide Allergy Unknown Verified 08/22/24 04:11 Antibiotics) tramadol AdvReac Nausea and Verified 08/22/24 04:11 Vomiting Assessment & Plan Assessment & Plan (1) Schizoaffective disorder: Status: Acute Code(s): F25.9 - Schizoaffective disorder, unspecified Plan HOSPITAL COURSE: 08/22: continue medications from [facility]. hospitalist consult. observation, supportive care. 08/23: continue current mgmt. PRNs for anxiety. hospitalist consult pending. 08/24: psychotic, aggressive. add haldol 5 QHS and haldol 2 mg PRNs. medical consult appreciated. collateral from family. 08/25 pt presents with paranoid/persecutory delusions, auditory hallucinations and some grandiose delusions of having special power. will dc wellbutrin as it exacerbates psychosis. will increase haldol 5mg po qhs and will add 2.5mg po daily. increase abilify 20mg po daily. seems like amantadine for parkinsonian symptoms-wih higher potency antipsychotic like haldol will add low dose cogentin. Noted UA- shows UTI, will start ceftin 250mg po BID x 7 days. Pending collateral information. 08/26- pt with significant bilat cogwheel and rigidity with haldol. will d/c haldol, although risperidone also high potency antipsychotic will switch to risperidone. will continue abilify for now. 08/27 increased risperidone 2mg po BID. continue abilify 20mg po daily. 08/29 we are going to increase Risperdal to 2 mg in the morning and 3 mg at night we will assess for EPS tomorrow morning. 08/30 continue same treatment 08/31/24 isolated withdrawn would consider mcneal 09/01/2024 d/c abilify, continue risperidone, add depakote 250mg po daily and 500mg po qhs. 09/03 switch risperidone to prolixin 5mg po BID, continue depakote. will check depakote level in few days with ammonia and lft. 09/07 hospitalist consult- edema venous statis. 09/08 continue tx. 09/09 pt sitting outside; she says she's having a good day today, but that yesterday she was upset, anxious. Pt said she is still having a lot of worries today. She reiterated that yesterday was a bad day but when mentioned that patient did not take a medication yesterday she was able to say maybe that was the reason. Patient otherwise kind of rambling to herself and to others at the same time -continue tx plan 09/11 pt very agitated today, with paranoid delusions that people are trying to hurt her; both AH and [facility] (of shadows). Pt threatened to kill her roommate, thinking her roommate was persecuting her. Pt later had only vague memories of event and was tearful, apologetic, but confused whether or not she was really been persecuted; she said it helped when staff did reality testing. Pt agreed to prn Fluphenazine. -check labs and recent Depakote level WNL; ammonia WNL -patient on fluphenazine; will add p.r.n. to see if it helps with agitation, psychosis; if so and if she needs consistently, will consider increasing scheduled dose -patient moved a single 11/12?not?agitated?or?threatening?today?but?remains?with?AH?and?paranoid?delusions ?that?she?is?being?persecuted F luphenazine?p.r.n.?seem?to?help?yesterday?so?would?like?to?increase.??Patient?ag garth 09/13 Patient?less?agitated;?not?expressing?paranoid?delusions?as?much.??Seems?to?be?m ore?calm.??Slept?at?night Nurse?reports?bilateral?lower?limb?edema;?will?add?Hospitalist consult 11/14?more?paranoid?delusions?and?AH?today;?will?continue?with?current?regimen?as? fluphenazine?just?increase.? -hospitalist?order?Steve?stockings 11/15?no?expressed?paranoid?delusions,?no?AH?today;?more?calm.??Perhaps?increased? fluphenazine?dose?is?working.?? Continue?current?regimen 11/16?again?no?paranoid?delusions?are?AH;?in?good?behavioral/impulse?control;?cont inue?current?treatment?plan 09/17 continue tx. still residual paranoid delusions 09/18 continue tx. 09/21 remains without paranoid delusions following increaesed Fluphenazine. C/o neck pain which is chronic; typically relieved w/ tylenol 09/22 pt remains w/out paranoid delusions but c/o increased pain which is she says makes it hard to sleep. conventional mortgage underwriter agrees to add Oxcodone, which she's tolerated before 09/23 pt reports pain is better with Oxy; no other complaints 09/25 no change; says doing good. Staff informed conventional mortgage underwriter that pt has and thickened part of her gluteal fold; discussed with patient who is aware. -Wound consult ordered 09/28 continue tx. 09/29- some sedation noted. not only due to oxycodone as she has not had it and still presents somnolent during the day. I will dc clonazepam. will try without depakote. continue prolixin 10mg po BID. 09/30 continue tx. 10/01 continue tx. 10/02 remains doing much better; continue current tx plan 10/03: stable. continue current mgmt. 10/04: artificial tears for right eye pain, otherwise continue current mgmt. reporting reduced AH. Reason for continued inpatient stay Substantial Risk for: inability to function Time Spent With Patient Time: Total time managing care of this patient today ____ minutes.
[2024-10-04 20:00] VITALS: BP 124/58; PULSE 69; RESP 16; TEMP 36.5; O2SAT 96
[2024-10-04] MEDS: Atorvastatin Calcium 10 MG TABLET PO (20:41)
[2024-10-04] MEDS: Tamsulosin HCL 0.4 MG CAPSULE PO (20:42)
[2024-10-04] MEDS: oxyCODONE HCl Immed Release 5 MG TABLET 2.5 MG PO (20:49)
[2024-10-05] MEDS: traZODone HCL 50 MG TABLET PO ×2 (02:16→21:25)
[2024-10-05] MEDS: Acetaminophen 325 MG TABLET 650 MG PO ×3 (03:50→21:46)
[2024-10-05] MEDS: oxyCODONE HCl Immed Release 5 MG TABLET 2.5 MG PO (06:55)
[2024-10-05 08:00] VITALS: BP 104/52; PULSE 61; RESP 17; TEMP 35.8; O2SAT 93
[2024-10-05] MEDS: cefuroxime axetiL 250 MG TABLET PO ×2 (08:42→21:29)
[2024-10-05] MEDS: hydroCHLOROthiazide 25 MG TABLET PO (08:42)
[2024-10-05] MEDS: Gabapentin 100 MG CAPSULE 200 MG PO ×3 (08:42→21:27)
[2024-10-05] MEDS: valACYclovir HCL 500 MG TABLET PO (08:42)
[2024-10-05] MEDS: fluPHENAZine HCl 5 MG TABLET 10 MG PO ×2 (08:42→21:26)
[2024-10-05] MEDS: Benztropine Mesylate 0.5 MG TABLET PO ×2 (08:43→21:28)
[2024-10-05] MEDS: carvediloL 25 MG TABLET PO ×2 (08:43→21:27)
[2024-10-05] MEDS: lisinopriL 20 MG TABLET PO (08:43)
[2024-10-05] MEDS: Apixaban 5 MG TABLET PO ×2 (08:43→21:30)
[2024-10-05] MEDS: Lidocaine 4 % Patch ADH..PATCH 1 PATCH TRANSDERMA ×2 (08:47)
--- NOTE | 2024-10-05 10:47 | HO.PSYCHPN ---
Subjective Subjective Date of Service: 10/05/24 Reason For Visit: Unspecified Psychosis Subjective Notes: Conditional Voluntary Interim History: Pt slept through the night. She reports neck pain- chronic, manageable with current medications. She also reports pain on right eye, mildly red, no discharge. Much more awake. She also denies VH/AH. No overt delusional content noted or reported. Diagnostics Vital Signs (24Hr): Vital Signs - 24 hr 10/04/24 20:00 10/05/24 08:00 Temperature 97.7 F 96.5 F L Pulse Rate 69 61 Respiratory Rate 16 17 Blood Pressure 124/58 L 104/52 L Pulse Oximetry 96 93 Oxygen Delivery Method Room Air Room Air BMI result Body Mass Index 30.1 Labs 09/08/24 18:02 10/05/24 12:30 Medications Medications Current Medications Acetaminophen (Acetaminophen 325 Mg Tablet) 650 mg PO Q6H PRN PRN Reason: Headache/Pain Mild Scale (1-3) Last Admin: 10/05/24 03:50 Dose: 650 mg Al Hydroxide/Mg Hydroxide (Magnesium Hydrox/Alum Hydrox 30 Ml Oral.Susp) 30 ml PO Q6H PRN PRN Reason: Heartburn/Nausea Albuterol Sulfate (Albuterol Sulfate 90 Mcg 8 Gm Inhaler) 1 puff INHALE RQ4H PRN PRN Reason: Shortness of Breath Last Admin: 09/12/24 20:35 Dose: 1 puff Apixaban (Apixaban 5 Mg Tablet) 5 mg PO BID [facility] Last Admin: 10/05/24 08:43 Dose: 5 mg Artificial Tears (Artificial Tears 15 Ml Drops) 2 drop EYE-RIGHT Q4H PRN PRN Reason: eye irritation Atorvastatin Calcium (Atorvastatin Calcium 10 Mg Tablet) 10 mg PO BEDTIME [facility] Last Admin: 10/04/24 20:41 Dose: 10 mg Benztropine Mesylate (Benztropine Mesylate 0.5 Mg Tablet) 0.5 mg PO BID [facility] Last Admin: 10/05/24 08:43 Dose: 0.5 mg Carvedilol (Carvedilol 25 Mg Tablet) 25 mg PO BID [facility]; Protocol Last Admin: 10/05/24 08:43 Dose: 25 mg Cefuroxime Axetil (Cefuroxime Axetil 250 Mg Tablet) 250 mg PO Q12H [facility] Stop: 10/05/24 21:01 Last Admin: 10/05/24 08:42 Dose: 250 mg Fluphenazine HCl (Fluphenazine Hcl 5 Mg Tablet) 10 mg PO BID [facility] Last Admin: 10/05/24 08:42 Dose: 10 mg Fluphenazine HCl (Fluphenazine Hcl 2.5 Mg Tablet) 2.5 mg PO QID PRN PRN Reason: psychosis Gabapentin (Gabapentin 100 Mg Capsule) 200 mg PO TID [facility] Last Admin: 10/05/24 08:42 Dose: 200 mg Hydrochlorothiazide (Hydrochlorothiazide 25 Mg Tablet) 25 mg PO DAILY [facility]; Protocol Last Admin: 10/05/24 08:42 Dose: 25 mg Lidocaine (Lidocaine 4 % Patch Adh..Patch) 1 patch TRANSDERMA DAILY [facility]; Protocol Last Admin: 10/05/24 08:47 Dose: 1 patch Lidocaine (Lidocaine 4 % Patch Adh..Patch) 1 patch TRANSDERMA DAILY [facility]; Protocol Last Admin: 10/05/24 08:47 Dose: 1 patch Lisinopril (Lisinopril 20 Mg Tablet) 20 mg PO DAILY [facility]; Protocol Last Admin: 10/05/24 08:43 Dose: 20 mg Magnesium Hydroxide (Milk Of Magnesia 30 Ml Oral.Susp) 30 ml PO DAILY PRN PRN Reason: Constipation Nystatin (Nystatin Powder 15 Gm Bottle) 1 appl TOPICAL BID [facility]; Protocol Last Admin: 10/05/24 10:26 Dose: Not Given Olanzapine (Olanzapine Odt 10 Mg Tab.Rapdis) 10 mg TRANSLINGU Q6H PRN PRN Reason: agitation Last Admin: 10/03/24 17:29 Dose: 10 mg Oxycodone HCl (Oxycodone Hcl Immed Release 5 Mg Tablet) 2.5 mg PO BID PRN PRN Reason: breakthrough neck/back pain Last Admin: 10/05/24 06:55 Dose: 2.5 mg Tamsulosin HCl (Tamsulosin Hcl 0.4 Mg Capsule) 0.4 mg PO BEDTIME [facility] Last Admin: 10/04/24 20:42 Dose: 0.4 mg Trazodone HCl (Trazodone Hcl 50 Mg Tablet) 50 mg PO BEDTIME MRX1 PRN PRN Reason: Insomnia Last Admin: 10/05/24 02:16 Dose: 50 mg Valacyclovir HCl (Valacyclovir Hcl 500 Mg Tablet) 500 mg PO DAILY [facility] Last Admin: 10/05/24 08:42 Dose: 500 mg Allergies Allergies Allergy/AdvReac Type Severity Reaction Status Date / Time Penicillins [PCN] Allergy Severe Anaphylaxis Verified 08/22/24 04:12 bee venom protein (honey bee) Allergy Anaphylaxis Verified 08/22/24 04:04 codeine Allergy Unknown Verified 08/22/24 04:07 Iodinated Contrast Media Allergy Numbness Verified 08/22/24 04:11 [Contrast Dye] lanolin Allergy Rash Verified 08/22/24 04:11 latex Allergy Rash Verified 08/22/24 04:11 Sulfa (Sulfonamide Allergy Unknown Verified 08/22/24 04:11 Antibiotics) tramadol AdvReac Nausea and Verified 08/22/24 04:11 Vomiting Assessment & Plan Assessment & Plan (1) Schizoaffective disorder: Status: Acute Code(s): F25.9 - Schizoaffective disorder, unspecified Plan HOSPITAL COURSE: 08/22: continue medications from [facility]. hospitalist consult. observation, supportive care. 08/23: continue current mgmt. PRNs for anxiety. hospitalist consult pending. 08/24: psychotic, aggressive. add haldol 5 QHS and haldol 2 mg PRNs. medical consult appreciated. collateral from family. 08/25 pt presents with paranoid/persecutory delusions, auditory hallucinations and some grandiose delusions of having special power. will dc wellbutrin as it exacerbates psychosis. will increase haldol 5mg po qhs and will add 2.5mg po daily. increase abilify 20mg po daily. seems like amantadine for parkinsonian symptoms-wih higher potency antipsychotic like haldol will add low dose cogentin. Noted UA- shows UTI, will start ceftin 250mg po BID x 7 days. Pending collateral information. 08/26- pt with significant bilat cogwheel and rigidity with haldol. will d/c haldol, although risperidone also high potency antipsychotic will switch to risperidone. will continue abilify for now. 08/27 increased risperidone 2mg po BID. continue abilify 20mg po daily. 08/29 we are going to increase Risperdal to 2 mg in the morning and 3 mg at night we will assess for EPS tomorrow morning. 08/30 continue same treatment 08/31/24 isolated withdrawn would consider mcneal 09/01/2024 d/c abilify, continue risperidone, add depakote 250mg po daily and 500mg po qhs. 09/03 switch risperidone to prolixin 5mg po BID, continue depakote. will check depakote level in few days with ammonia and lft. 09/07 hospitalist consult- edema venous statis. 09/08 continue tx. 09/09 pt sitting outside; she says she's having a good day today, but that yesterday she was upset, anxious. Pt said she is still having a lot of worries today. She reiterated that yesterday was a bad day but when mentioned that patient did not take a medication yesterday she was able to say maybe that was the reason. Patient otherwise kind of rambling to herself and to others at the same time -continue tx plan 09/11 pt very agitated today, with paranoid delusions that people are trying to hurt her; both AH and VH (of shadows). Pt threatened to kill her roommate, thinking her roommate was persecuting her. Pt later had only vague memories of event and was tearful, apologetic, but confused whether or not she was really been persecuted; she said it helped when staff did reality testing. Pt agreed to prn Fluphenazine. -check labs and recent Depakote level WNL; ammonia WNL -patient on fluphenazine; will add p.r.n. to see if it helps with agitation, psychosis; if so and if she needs consistently, will consider increasing scheduled dose -patient moved a single 09/12?not?agitated?or?threatening?today?but?remains?with?AH?and?paranoid?delusions?that?she?is?being?persecuted Fluphenazine?p.r.n.?seem?to?help?yesterday?so?would?like?to?increase.??Patient?agrees 09/13 Patient?less?agitated;?not?expressing?paranoid?delusions?as?much.??Seems?to?be?more?calm.??Slept?at?night Nurse?reports?bilateral?lower?limb?edema;?will?add?Hospitalist consult 09/14?more?paranoid?delusions?and?AH?today;?will?continue?with?current?regimen?as?fluphenazine?just?increase.? -hospitalist?order?Steve?stockings 09/15?no?expressed?paranoid?delusions,?no?AH?today;?more?calm.??Perhaps?increased?fluphenazine?dose?is?working.?? Continue?current?regimen 09/16?again?no?paranoid?delusions?are?AH;?in?good?behavioral/impulse?control;?continue?current?treatment?plan 09/17 continue tx. still residual paranoid delusions 09/18 continue tx. 09/21 remains without paranoid delusions following increaesed Fluphenazine. C/o neck pain which is chronic; typically relieved w/ tylenol 09/22 pt remains w/out paranoid delusions but c/o increased pain which is she says makes it hard to sleep. teletypewriter operator agrees to add Oxcodone, which she's tolerated before 09/23 pt reports pain is better with Oxy; no other complaints 09/25 no change; says doing good. Staff informed teletypewriter operator that pt has and thickened part of her gluteal fold; discussed with patient who is aware. -Wound consult ordered 09/28 continue tx. 09/29- some sedation noted. not only due to oxycodone as she has not had it and still presents somnolent during the day. I will dc clonazepam. will try without depakote. continue prolixin 10mg po BID. 09/30 continue tx. 10/01 continue tx. 10/02 remains doing much better; continue current tx plan 10/05- much more alert, no overt psychosis or delusions. mildly red eye, pain, no discharge, will consult hospitalist. Reason for continued inpatient stay Substantial Risk for: inability to function Time Spent With Patient Time: Total time managing care of this patient today ____ minutes.
[2024-10-05 12:55] LABS: Alanine Aminotransferase 15 U/L (0-31); Albumin Level 3.5 g/dL (3.5-5.0); Alkaline Phosphatase 61 U/L (39-117); Anion Gap 13 (12-20); Aspartate Amino Transferase 28 U/L (5-31); Bilirubin Total 0.3 mg/dL (0.0-1.0); Blood Urea Nitrogen 15 mg/dL (9-16); Calcium 9.4 mg/dL (8.4-10.2); Carbon Dioxide 31 mmol/L (22-29); Chloride 97 mmol/L (96-108); Creatinine Clr Calc Pharmacy 60.4; Estimated Glomerular Filt Rate 58; Glucose Random 114 mg/dL (60-115); Potassium 3.3 mmol/L (3.3-5.1); Sodium 138 mmol/L (135-145); Total Protein 6.8 g/dL (6.5-8.0)
[2024-10-05] MEDS: Artificial Tears 15 ML DROPS 2 DROP EYE-RIGHT ×2 (15:58→21:30)
--- NOTE | 2024-10-05 17:52 | PM.EVENT ---
Event Note Date of Service: 10/05/24 Event Note: Patient is a 6-year-old female admitted to [facility] with hospitalist consult for painful and red right eye. Patient states symptoms began earlier this morning upon waking. No crusting or purulent discharge. Reports pain is ?painful but not really . Patient has difficult time describing symptoms. However, states no itching. Physical exam notable for mild erythematous injection in right eye. No discharge. Patient already receiving artificial tears, reports immediate relief with eyedrops. Plan is to continue artificial eyedrops p.r.n.. If patient develops pruritus without discharge, can add ketotifen eye drops. If patient develops crusting or purulent discharge, then and erythromycin ointment. Will sign off for now. Time Spent With Patient Time: Total time managing care of this patient today ____ minutes.
[2024-10-05 20:00] VITALS: BP 118/58; PULSE 68; RESP 16; TEMP 36.1; O2SAT 95
[2024-10-05] MEDS: Atorvastatin Calcium 10 MG TABLET PO (21:28)
[2024-10-05] MEDS: Tamsulosin HCL 0.4 MG CAPSULE PO (21:29)
[2024-10-06 08:00] VITALS: BP 126/58; PULSE 65; RESP 18; TEMP 36.3; O2SAT 94
[2024-10-06] MEDS: carvediloL 25 MG TABLET PO ×2 (08:21→20:50)
[2024-10-06] MEDS: Gabapentin 100 MG CAPSULE 200 MG PO ×3 (08:21→20:50)
[2024-10-06] MEDS: Apixaban 5 MG TABLET PO ×2 (08:21→20:50)
[2024-10-06] MEDS: fluPHENAZine HCl 5 MG TABLET 10 MG PO ×2 (08:21→20:49)
[2024-10-06] MEDS: hydroCHLOROthiazide 25 MG TABLET PO (08:22)
[2024-10-06] MEDS: Benztropine Mesylate 0.5 MG TABLET PO ×2 (08:22→20:50)
[2024-10-06] MEDS: valACYclovir HCL 500 MG TABLET PO (08:22)
[2024-10-06] MEDS: Lidocaine 4 % Patch ADH..PATCH 1 PATCH TRANSDERMA (08:25)
[2024-10-06] MEDS: Artificial Tears 15 ML DROPS 2 DROP EYE-RIGHT ×2 (09:05→21:50)
[2024-10-06] MEDS: Nystatin Powder 15 GM BOTTLE 1 APPL TOPICAL (09:05)
[2024-10-06] MEDS: Acetaminophen 325 MG TABLET 650 MG PO ×2 (10:54→20:50)
--- NOTE | 2024-10-06 16:05 | P.PNPSI_ITS ---
Subjective Subjective Date of Service: 10/06/24 Reason For Visit: Unspecified Psychosis Interim History: Pt slept through the night. She reports neck pain- chronic, manageable with current medications. She also reports pain on right eye, mildly red, no discharge. Much more awake. She also denies VH/AH. No overt delusional content noted or reported. Review of Systems Review of Systems Musculoskeletal pain Yes all other systems are reviewed and are negative and Unobtainable due to mental status Constitutional: Denies chills, Denies fatigue, Reports headache(s) and Denies weakness Eyes: Denies change in vision Reports headache(s), Reports nasal discharge and Reports sore throat Cardiovascular: Denies rapid heart rate, Reports leg edema and Denies dyspnea Respiratory: Denies cough, Denies dyspnea and Denies wheezing Gastrointestinal: Denies constipation, Denies diarrhea, Denies nausea and Denies vomiting Skin/Breast: Denies rash Reports headache(s) and Denies weakness Endocrine: Denies fatigue Allergic/Immunologic: Denies wheezing Mental Status Exam Mental Status Exam Narrative: Appearance: wearing casual attire, unkempt but fair hygiene Behavior: Calm, cooperative Psychomotor:resting tremors on both hands; uses walker. Speech: clear, normal rate/rhythm/volume, spontaneous TP: mostly goal oriented and linear but wanders often to tangential as well TC: neck pain; otherwise remains without expressed?paranoid?delusions Mood: a lot better Affect: congruent, brighter SI: denies HI: ?None VH/AH: ?Currently?no?AH; Delusion: ?Currently?no?paranoid/persecutory?delusions Insight/judgment: limited but improved. Diagnostics Vital Signs (24Hr): Vital Signs - 24 hr 10/05/24 20:00 10/06/24 08:00 Temperature 97 F 97.4 F Pulse Rate 68 65 Respiratory Rate 16 18 Blood Pressure 118/58 L 126/58 L Pulse Oximetry 95 94 Oxygen Delivery Method Room Air Room Air BMI result Body Mass Index 30.1 Labs 09/08/24 18:02 10/05/24 12:30 Labs: Laboratory Results - last 48 hr 10/05/24 12:30 Sodium 138 Potassium 3.3 Chloride 97 Carbon Dioxide 31 H Anion Gap 13 BUN 15 Creatinine 0.95 Estim Creat Clear Calc 60.4 Estimated GFR 58 Random Glucose 114 Calcium 9.4 Total Bilirubin 0.3 AST 28 ALT 15 Alkaline Phosphatase 61 Total Protein 6.8 Albumin 3.5 Medications Medications Current Medications Acetaminophen (Acetaminophen 325 Mg Tablet) 650 mg PO Q6H PRN PRN Reason: Headache/Pain Mild Scale (1-3) Last Admin: 10/06/24 10:54 Dose: 650 mg Al Hydroxide/Mg Hydroxide (Magnesium Hydrox/Alum Hydrox 30 Ml Oral.Susp) 30 ml PO Q6H PRN PRN Reason: Heartburn/Nausea Albuterol Sulfate (Albuterol Sulfate 90 Mcg 8 Gm Inhaler) 1 puff INHALE RQ4H PRN PRN Reason: Shortness of Breath Last Admin: 09/12/24 20:35 Dose: 1 puff Apixaban (Apixaban 5 Mg Tablet) 5 mg PO BID [facility] Last Admin: 10/06/24 08:21 Dose: 5 mg Artificial Tears (Artificial Tears 15 Ml Drops) 2 drop EYE-RIGHT Q4H PRN PRN Reason: eye irritation Last Admin: 10/06/24 09:05 Dose: 2 drop Atorvastatin Calcium (Atorvastatin Calcium 10 Mg Tablet) 10 mg PO BEDTIME [facility] Last Admin: 10/05/24 21:28 Dose: 10 mg Benztropine Mesylate (Benztropine Mesylate 0.5 Mg Tablet) 0.5 mg PO BID [facility] Last Admin: 10/06/24 08:22 Dose: 0.5 mg Carvedilol (Carvedilol 25 Mg Tablet) 25 mg PO BID [facility]; Protocol Last Admin: 10/06/24 08:21 Dose: 25 mg Fluphenazine HCl (Fluphenazine Hcl 5 Mg Tablet) 10 mg PO BID [facility] Last Admin: 10/06/24 08:21 Dose: 10 mg Fluphenazine HCl (Fluphenazine Hcl 2.5 Mg Tablet) 2.5 mg PO QID PRN PRN Reason: psychosis Gabapentin (Gabapentin 100 Mg Capsule) 200 mg PO TID [facility] Last Admin: 10/06/24 15:20 Dose: 200 mg Hydrochlorothiazide (Hydrochlorothiazide 25 Mg Tablet) 25 mg PO DAILY [facility]; Protocol Last Admin: 10/06/24 08:22 Dose: 25 mg Lidocaine (Lidocaine 4 % Patch Adh..Patch) 1 patch TRANSDERMA DAILY [facility]; Protocol Last Admin: 10/06/24 08:25 Dose: 1 patch Lidocaine (Lidocaine 4 % Patch Adh..Patch) 1 patch TRANSDERMA DAILY [facility]; Protocol Last Admin: 10/06/24 08:25 Dose: 1 patch Magnesium Hydroxide (Milk Of Magnesia 30 Ml Oral.Susp) 30 ml PO DAILY PRN PRN Reason: Constipation Nystatin (Nystatin Powder 15 Gm Bottle) 1 appl TOPICAL BID [facility]; Protocol Last Admin: 10/06/24 09:05 Dose: 1 appl Olanzapine (Olanzapine Odt 10 Mg Tab.Rapdis) 10 mg TRANSLINGU Q6H PRN PRN Reason: agitation Last Admin: 10/03/24 17:29 Dose: 10 mg Oxycodone HCl (Oxycodone Hcl Immed Release 5 Mg Tablet) 2.5 mg PO BID PRN PRN Reason: breakthrough neck/back pain Last Admin: 10/05/24 06:55 Dose: 2.5 mg Tamsulosin HCl (Tamsulosin Hcl 0.4 Mg Capsule) 0.4 mg PO BEDTIME [facility] Last Admin: 10/05/24 21:29 Dose: 0.4 mg Trazodone HCl (Trazodone Hcl 50 Mg Tablet) 50 mg PO BEDTIME MRX1 PRN PRN Reason: Insomnia Last Admin: 10/05/24 21:25 Dose: 50 mg Valacyclovir HCl (Valacyclovir Hcl 500 Mg Tablet) 500 mg PO DAILY [facility] Last Admin: 10/06/24 08:22 Dose: 500 mg Allergies Allergies Allergy/AdvReac Type Severity Reaction Status Date / Time Penicillins [PCN] Allergy Severe Anaphylaxis Verified 08/22/24 04:12 bee venom protein (honey bee) Allergy Anaphylaxis Verified 08/22/24 04:04 codeine Allergy Unknown Verified 08/22/24 04:07 Iodinated Contrast Media Allergy Numbness Verified 08/22/24 04:11 [Contrast Dye] lanolin Allergy Rash Verified 08/22/24 04:11 latex Allergy Rash Verified 08/22/24 04:11 Sulfa (Sulfonamide Allergy Unknown Verified 08/22/24 04:11 Antibiotics) tramadol AdvReac Nausea and Verified 08/22/24 04:11 Vomiting Assessment & Plan Assessment & Plan (1) Schizoaffective disorder: Status: Acute Code(s): F25.9 - Schizoaffective disorder, unspecified Plan HOSPITAL COURSE: 08/22: continue medications from [facility]. hospitalist consult. observation, supportive care. 08/23: continue current mgmt. PRNs for anxiety. hospitalist consult pending. 08/24: psychotic, aggressive. add haldol 5 QHS and haldol 2 mg PRNs. medical consult appreciated. collateral from family. 08/25 pt presents with paranoid/persecutory delusions, auditory hallucinations and some grandiose delusions of having special power. will dc wellbutrin as it exacerbates psychosis. will increase haldol 5mg po qhs and will add 2.5mg po daily. increase abilify 20mg po daily. seems like amantadine for parkinsonian symptoms-wih higher potency antipsychotic like haldol will add low dose cogentin. Noted UA- shows UTI, will start ceftin 250mg po BID x 7 days. Pending collateral information. 08/26- pt with significant bilat cogwheel and rigidity with haldol. will d/c haldol, although risperidone also high potency antipsychotic will switch to risperidone. will continue abilify for now. 08/27 increased risperidone 2mg po BID. continue abilify 20mg po daily. 08/29 we are going to increase Risperdal to 2 mg in the morning and 3 mg at night we will assess for EPS tomorrow morning. 08/30 continue same treatment 08/31/24 isolated withdrawn would consider mcneal 09/01/2024 d/c abilify, continue risperidone, add depakote 250mg po daily and 500mg po qhs. 09/03 switch risperidone to prolixin 5mg po BID, continue depakote. will check depakote level in few days with ammonia and lft. 09/07 hospitalist consult- edema venous statis. 09/08 continue tx. 09/09 pt sitting outside; she says she's having a good day today, but that yesterday she was upset, anxious. Pt said she is still having a lot of worries today. She reiterated that yesterday was a bad day but when mentioned that patient did not take a medication yesterday she was able to say maybe that was the reason. Patient otherwise kind of rambling to herself and to others at the same time -continue tx plan 09/11 pt very agitated today, with paranoid delusions that people are trying to hurt her; both AH and VH (of shadows). Pt threatened to kill her roommate, thinking her roommate was persecuting her. Pt later had only vague memories of event and was tearful, apologetic, but confused whether or not she was really been persecuted; she said it helped when staff did reality testing. Pt agreed to prn Fluphenazine. -check labs and recent Depakote level WNL; ammonia WNL -patient on fluphenazine; will add p.r.n. to see if it helps with agitation, psychosis; if so and if she needs consistently, will consider increasing scheduled dose -patient moved a single 11/12?not?agitated?or?threatening?today?but?remains?with?AH?and?paranoid?delusions ?that?she?is?being?persecuted F luphenazine?p.r.n.?seem?to?help?yesterday?so?would?like?to?increase.??Patient?ag garth 09/13 Patient?less?agitated;?not?expressing?paranoid?delusions?as?much.??Seems?to?be?m ore?calm.??Slept?at?night Nurse?reports?bilateral?lower?limb?edema;?will?add?Hospitalist consult 11/14?more?paranoid?delusions?and?AH?today;?will?continue?with?current?regimen?as? fluphenazine?just?increase.? -hospitalist?order?Steve?stockings 11/15?no?expressed?paranoid?delusions,?no?AH?today;?more?calm.??Perhaps?increased? fluphenazine?dose?is?working.?? Continue?current?regimen 11/16?again?no?paranoid?delusions?are?AH;?in?good?behavioral/impulse?control;?cont inue?current?treatment?plan 09/17 continue tx. still residual paranoid delusions 09/18 continue tx. 09/21 remains without paranoid delusions following increaesed Fluphenazine. C/o neck pain which is chronic; typically relieved w/ tylenol 09/22 pt remains w/out paranoid delusions but c/o increased pain which is she says makes it hard to sleep. senior medical writer agrees to add Oxcodone, which she's tolerated before 09/23 pt reports pain is better with Oxy; no other complaints 09/25 no change; says doing good. Staff informed senior medical writer that pt has and thickened part of her gluteal fold; discussed with patient who is aware. -Wound consult ordered 09/28 continue tx. 09/29- some sedation noted. not only due to oxycodone as she has not had it and still presents somnolent during the day. I will dc clonazepam. will try without depakote. continue prolixin 10mg po BID. 09/30 continue tx. 10/01 continue tx. 10/02 remains doing much better; continue current tx plan 10/05- much more alert, no overt psychosis or delusions. mildly red eye, pain, no discharge, will consult hospitalist. 10/06 continue tx. much more alert. Reason for continued inpatient stay Substantial Risk for: inability to function Time Spent With Patient Time: Total time managing care of this patient today ____ minutes.
[2024-10-06 20:00] VITALS: BP 149/68; PULSE 74; RESP 18; TEMP 36.3; O2SAT 95
[2024-10-06] MEDS: Tamsulosin HCL 0.4 MG CAPSULE PO (20:50)
[2024-10-06] MEDS: traZODone HCL 50 MG TABLET PO (20:50)
[2024-10-06] MEDS: Atorvastatin Calcium 10 MG TABLET PO (20:50)
[2024-10-07] MEDS: Acetaminophen 325 MG TABLET 650 MG PO ×2 (03:07→12:25)
[2024-10-07] MEDS: OLANZapine ODT 10 MG TAB.RAPDIS TRANSLINGU (03:08)
[2024-10-07 08:00] VITALS: BP 134/60; PULSE 73; RESP 16; TEMP 36.6; O2SAT 96
[2024-10-07 08:18] VITALS: BP 134/60
[2024-10-07] MEDS: Apixaban 5 MG TABLET PO ×2 (08:18→20:33)
[2024-10-07] MEDS: hydroCHLOROthiazide 25 MG TABLET PO (08:18)
[2024-10-07] MEDS: Gabapentin 100 MG CAPSULE 200 MG PO ×3 (08:18→20:36)
[2024-10-07 08:19] VITALS: BP 134/60; PULSE 73
[2024-10-07] MEDS: valACYclovir HCL 500 MG TABLET PO (08:19)
[2024-10-07] MEDS: fluPHENAZine HCl 5 MG TABLET 10 MG PO ×2 (08:19→20:34)
[2024-10-07] MEDS: Benztropine Mesylate 0.5 MG TABLET PO ×2 (08:19→20:34)
[2024-10-07] MEDS: carvediloL 25 MG TABLET PO ×2 (08:19→20:34)
[2024-10-07] MEDS: Lidocaine 4 % Patch ADH..PATCH 1 PATCH TRANSDERMA ×2 (08:23)
[2024-10-07] MEDS: Artificial Tears 15 ML DROPS 2 DROP EYE-RIGHT ×3 (08:47→21:09)
--- NOTE | 2024-10-07 16:53 | HO.PSYCHPN ---
Subjective Subjective Date of Service: 10/07/24 Reason For Visit: Unspecified Psychosis Interim History: Pt slept through the night. She reports neck pain- chronic, manageable with current medications. She also reports pain on right eye, mildly red, no discharge. Much more awake. She also denies VH/AH. No overt delusional content noted or reported. Review of Systems Review of Systems Musculoskeletal pain Yes all other systems are reviewed and are negative and Unobtainable due to mental status Constitutional: Denies chills, Denies fatigue, Reports headache(s) and Denies weakness Eyes: Denies change in vision Reports headache(s), Reports nasal discharge and Reports sore throat Cardiovascular: Denies rapid heart rate, Reports leg edema and Denies dyspnea Respiratory: Denies cough, Denies dyspnea and Denies wheezing Gastrointestinal: Denies constipation, Denies diarrhea, Denies nausea and Denies vomiting Skin/Breast: Denies rash Reports headache(s) and Denies weakness Endocrine: Denies fatigue Allergic/Immunologic: Denies wheezing Mental Status Exam Mental Status Exam Narrative: Appearance: wearing casual attire, unkempt but fair hygiene Behavior: Calm, cooperative Psychomotor:resting tremors on both hands; uses walker. Speech: clear, normal rate/rhythm/volume, spontaneous TP: mostly goal oriented and linear but wanders often to tangential as well TC: neck pain; otherwise remains without expressed?paranoid?delusions Mood: a lot better Affect: congruent, brighter SI: denies HI: ?None VH/AH: ?Currently?no?AH; Delusion: ?Currently?no?paranoid/persecutory?delusions Insight/judgment: limited but improved. Diagnostics Vital Signs (24Hr): Vital Signs - 24 hr 10/06/24 20:00 10/07/24 08:00 10/07/24 08:18 Temperature 97.3 F 97.8 F Pulse Rate 74 73 Respiratory Rate 18 16 Blood Pressure 149/68 H 134/60 134/60 Pulse Oximetry 95 96 Oxygen Delivery Method Room Air Room Air 10/07/24 08:19 Temperature Pulse Rate 73 Respiratory Rate Blood Pressure 134/60 Pulse Oximetry Oxygen Delivery Method BMI result Body Mass Index 30.1 Labs 09/08/24 18:02 10/05/24 12:30 Medications Medications Current Medications Acetaminophen (Acetaminophen 325 Mg Tablet) 650 mg PO Q6H PRN PRN Reason: Headache/Pain Mild Scale (1-3) Last Admin: 10/07/24 12:25 Dose: 650 mg Al Hydroxide/Mg Hydroxide (Magnesium Hydrox/Alum Hydrox 30 Ml Oral.Susp) 30 ml PO Q6H PRN PRN Reason: Heartburn/Nausea Albuterol Sulfate (Albuterol Sulfate 90 Mcg 8 Gm Inhaler) 1 puff INHALE RQ4H PRN PRN Reason: Shortness of Breath Last Admin: 09/12/24 20:35 Dose: 1 puff Apixaban (Apixaban 5 Mg Tablet) 5 mg PO BID [facility] Last Admin: 10/07/24 08:18 Dose: 5 mg Artificial Tears (Artificial Tears 15 Ml Drops) 2 drop EYE-RIGHT Q4H PRN PRN Reason: eye irritation Last Admin: 10/07/24 14:34 Dose: 2 drop Atorvastatin Calcium (Atorvastatin Calcium 10 Mg Tablet) 10 mg PO BEDTIME [facility] Last Admin: 10/06/24 20:50 Dose: 10 mg Benztropine Mesylate (Benztropine Mesylate 0.5 Mg Tablet) 0.5 mg PO BID [facility] Last Admin: 10/07/24 08:19 Dose: 0.5 mg Carvedilol (Carvedilol 25 Mg Tablet) 25 mg PO BID [facility]; Protocol Last Admin: 10/07/24 08:19 Dose: 25 mg Fluphenazine HCl (Fluphenazine Hcl 5 Mg Tablet) 10 mg PO BID [facility] Last Admin: 10/07/24 08:19 Dose: 10 mg Fluphenazine HCl (Fluphenazine Hcl 2.5 Mg Tablet) 2.5 mg PO QID PRN PRN Reason: psychosis Gabapentin (Gabapentin 100 Mg Capsule) 200 mg PO TID [facility] Last Admin: 10/07/24 14:34 Dose: 200 mg Hydrochlorothiazide (Hydrochlorothiazide 25 Mg Tablet) 25 mg PO DAILY [facility]; Protocol Last Admin: 10/07/24 08:18 Dose: 25 mg Lidocaine (Lidocaine 4 % Patch Adh..Patch) 1 patch TRANSDERMA DAILY [facility]; Protocol Last Admin: 10/07/24 08:23 Dose: 1 patch Lidocaine (Lidocaine 4 % Patch Adh..Patch) 1 patch TRANSDERMA DAILY [facility]; Protocol Last Admin: 10/07/24 08:23 Dose: 1 patch Magnesium Hydroxide (Milk Of Magnesia 30 Ml Oral.Susp) 30 ml PO DAILY PRN PRN Reason: Constipation Nystatin (Nystatin Powder 15 Gm Bottle) 1 appl TOPICAL BID [facility]; Protocol Last Admin: 10/07/24 08:25 Dose: Not Given Olanzapine (Olanzapine Odt 10 Mg Tab.Rapdis) 10 mg TRANSLINGU Q6H PRN PRN Reason: agitation Last Admin: 10/07/24 03:08 Dose: 10 mg Oxycodone HCl (Oxycodone Hcl Immed Release 5 Mg Tablet) 2.5 mg PO BID PRN PRN Reason: breakthrough neck/back pain Last Admin: 10/05/24 06:55 Dose: 2.5 mg Tamsulosin HCl (Tamsulosin Hcl 0.4 Mg Capsule) 0.4 mg PO BEDTIME [facility] Last Admin: 10/06/24 20:50 Dose: 0.4 mg Trazodone HCl (Trazodone Hcl 50 Mg Tablet) 50 mg PO BEDTIME MRX1 PRN PRN Reason: Insomnia Last Admin: 10/06/24 20:50 Dose: 50 mg Valacyclovir HCl (Valacyclovir Hcl 500 Mg Tablet) 500 mg PO DAILY [facility] Last Admin: 10/07/24 08:19 Dose: 500 mg Allergies Allergies Allergy/AdvReac Type Severity Reaction Status Date / Time Penicillins [PCN] Allergy Severe Anaphylaxis Verified 08/22/24 04:12 bee venom protein (honey bee) Allergy Anaphylaxis Verified 08/22/24 04:04 codeine Allergy Unknown Verified 08/22/24 04:07 Iodinated Contrast Media Allergy Numbness Verified 08/22/24 04:11 [Contrast Dye] lanolin Allergy Rash Verified 08/22/24 04:11 latex Allergy Rash Verified 08/22/24 04:11 Sulfa (Sulfonamide Allergy Unknown Verified 08/22/24 04:11 Antibiotics) tramadol AdvReac Nausea and Verified 08/22/24 04:11 Vomiting Assessment & Plan Assessment & Plan (1) Schizoaffective disorder: Status: Acute Code(s): F25.9 - Schizoaffective disorder, unspecified Plan HOSPITAL COURSE: 08/22: continue medications from [facility]. hospitalist consult. observation, supportive care. 08/23: continue current mgmt. PRNs for anxiety. hospitalist consult pending. 08/24: psychotic, aggressive. add haldol 5 QHS and haldol 2 mg PRNs. medical consult appreciated. collateral from family. 08/25 pt presents with paranoid/persecutory delusions, auditory hallucinations and some grandiose delusions of having special power. will dc wellbutrin as it exacerbates psychosis. will increase haldol 5mg po qhs and will add 2.5mg po daily. increase abilify 20mg po daily. seems like amantadine for parkinsonian symptoms-wih higher potency antipsychotic like haldol will add low dose cogentin. Noted UA- shows UTI, will start ceftin 250mg po BID x 7 days. Pending collateral information. 08/26- pt with significant bilat cogwheel and rigidity with haldol. will d/c haldol, although risperidone also high potency antipsychotic will switch to risperidone. will continue abilify for now. 08/27 increased risperidone 2mg po BID. continue abilify 20mg po daily. 08/29 we are going to increase Risperdal to 2 mg in the morning and 3 mg at night we will assess for EPS tomorrow morning. 08/30 continue same treatment 08/31/24 isolated withdrawn would consider mcneal 09/01/2024 d/c abilify, continue risperidone, add depakote 250mg po daily and 500mg po qhs. 09/03 switch risperidone to prolixin 5mg po BID, continue depakote. will check depakote level in few days with ammonia and lft. 09/07 hospitalist consult- edema venous statis. 09/08 continue tx. 09/09 pt sitting outside; she says she's having a good day today, but that yesterday she was upset, anxious. Pt said she is still having a lot of worries today. She reiterated that yesterday was a bad day but when mentioned that patient did not take a medication yesterday she was able to say maybe that was the reason. Patient otherwise kind of rambling to herself and to others at the same time -continue tx plan 09/11 pt very agitated today, with paranoid delusions that people are trying to hurt her; both AH and VH (of shadows). Pt threatened to kill her roommate, thinking her roommate was persecuting her. Pt later had only vague memories of event and was tearful, apologetic, but confused whether or not she was really been persecuted; she said it helped when staff did reality testing. Pt agreed to prn Fluphenazine. -check labs and recent Depakote level WNL; ammonia WNL -patient on fluphenazine; will add p.r.n. to see if it helps with agitation, psychosis; if so and if she needs consistently, will consider increasing scheduled dose -patient moved a single 09/12?not?agitated?or?threatening?today?but?remains?with?AH?and?paranoid?delusions?that?she?is?being?persecuted Fluphenazine?p.r.n.?seem?to?help?yesterday?so?would?like?to?increase.??Patient?agrees 09/13 Patient?less?agitated;?not?expressing?paranoid?delusions?as?much.??Seems?to?be?more?calm.??Slept?at?night Nurse?reports?bilateral?lower?limb?edema;?will?add?Hospitalist consult 09/14?more?paranoid?delusions?and?AH?today;?will?continue?with?current?regimen?as?fluphenazine?just?increase.? -hospitalist?order?Steve?stockings 09/15?no?expressed?paranoid?delusions,?no?AH?today;?more?calm.??Perhaps?increased?fluphenazine?dose?is?working.?? Continue?current?regimen 09/16?again?no?paranoid?delusions?are?AH;?in?good?behavioral/impulse?control;?continue?current?treatment?plan 09/17 continue tx. still residual paranoid delusions 09/18 continue tx. 09/21 remains without paranoid delusions following increaesed Fluphenazine. C/o neck pain which is chronic; typically relieved w/ tylenol 09/22 pt remains w/out paranoid delusions but c/o increased pain which is she says makes it hard to sleep. ticket writer agrees to add Oxcodone, which she's tolerated before 09/23 pt reports pain is better with Oxy; no other complaints 09/25 no change; says doing good. Staff informed ticket writer that pt has and thickened part of her gluteal fold; discussed with patient who is aware. -Wound consult ordered 09/28 continue tx. 09/29- some sedation noted. not only due to oxycodone as she has not had it and still presents somnolent during the day. I will dc clonazepam. will try without depakote. continue prolixin 10mg po BID. 09/30 continue tx. 10/01 continue tx. 10/02 remains doing much better; continue current tx plan 10/05- much more alert, no overt psychosis or delusions. mildly red eye, pain, no discharge, will consult hospitalist. 10/06 continue tx. much more alert. 10/07 continue tx. Reason for continued inpatient stay Substantial Risk for: inability to function Time Spent With Patient Time: Total time managing care of this patient today ____ minutes.
[2024-10-07 20:00] VITALS: BP 142/65; PULSE 69; RESP 18; TEMP 36; O2SAT 95
[2024-10-07] MEDS: Atorvastatin Calcium 10 MG TABLET PO (20:34)
[2024-10-07] MEDS: Tamsulosin HCL 0.4 MG CAPSULE PO (20:34)
[2024-10-08 07:00] VITALS: BMI 29.9
[2024-10-08 08:16] VITALS: BP 146/72; PULSE 73; RESP 18; TEMP 36.8; O2SAT 95
[2024-10-08] MEDS: Benztropine Mesylate 0.5 MG TABLET PO ×2 (08:17→20:13)
[2024-10-08] MEDS: hydroCHLOROthiazide 25 MG TABLET PO (08:17)
[2024-10-08] MEDS: Apixaban 5 MG TABLET PO ×2 (08:18→20:13)
[2024-10-08] MEDS: carvediloL 25 MG TABLET PO ×2 (08:18→20:11)
[2024-10-08] MEDS: fluPHENAZine HCl 5 MG TABLET 10 MG PO ×2 (08:18→20:12)
[2024-10-08] MEDS: Gabapentin 100 MG CAPSULE 200 MG PO ×3 (08:18→20:12)
[2024-10-08] MEDS: valACYclovir HCL 500 MG TABLET PO (08:18)
[2024-10-08] MEDS: Lidocaine 4 % Patch ADH..PATCH 1 PATCH TRANSDERMA ×2 (08:34)
[2024-10-08] MEDS: Artificial Tears 15 ML DROPS 2 DROP EYE-RIGHT ×2 (12:17→20:14)
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
[2024-10-08 20:00] VITALS: BP 153/72; PULSE 71; RESP 16; TEMP 36.9; O2SAT 95
[2024-10-08 20:11] VITALS: BP 153/72; PULSE 71
[2024-10-08] MEDS: Tamsulosin HCL 0.4 MG CAPSULE PO (20:12)
[2024-10-08] MEDS: Acetaminophen 325 MG TABLET 650 MG PO (20:13)
[2024-10-08] MEDS: Atorvastatin Calcium 10 MG TABLET PO (20:13)
[2024-10-09 08:00] VITALS: BP 153/72; PULSE 71; RESP 16; TEMP 36.9; O2SAT 95
[2024-10-09] MEDS: fluPHENAZine HCl 5 MG TABLET 10 MG PO (09:09)
[2024-10-09] MEDS: Apixaban 5 MG TABLET PO (09:09)
[2024-10-09] MEDS: valACYclovir HCL 500 MG TABLET PO (09:09)
[2024-10-09 09:10] VITALS: BP 153/72
[2024-10-09] MEDS: Gabapentin 100 MG CAPSULE 200 MG PO ×2 (09:10→14:36)
[2024-10-09] MEDS: hydroCHLOROthiazide 25 MG TABLET PO (09:10)
[2024-10-09 09:11] VITALS: BP 153/72; PULSE 71
[2024-10-09] MEDS: carvediloL 25 MG TABLET PO (09:11)
[2024-10-09] MEDS: Lidocaine 4 % Patch ADH..PATCH 1 PATCH TRANSDERMA ×2 (09:12→09:13)
[2024-10-09] MEDS: Benztropine Mesylate 0.5 MG TABLET PO (09:12)
[2024-10-09] MEDS: Artificial Tears 15 ML DROPS 2 DROP EYE-RIGHT (10:09)
[2024-10-09] MEDS: OLANZapine ODT 10 MG TAB.RAPDIS TRANSLINGU (13:06)
[2024-10-09] MEDS: Acetaminophen 325 MG TABLET 650 MG PO (13:07)
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
== END 2024-10-09 15:40 | disposition home or self-care (01) | DRG 885 ==
PROVIDERS: Physician Assistant; Psychiatry & Neurology Psychiatry; Admitting Provider Social Worker; PCP Internal Medicine; Visit Provider Social Worker
DX: F25.0 Schizoaffective disorder, bipolar type (principal); E87.1 Hypo-osmolality and hyponatremia; I25.10 Atherosclerotic heart disease of native coronary artery without angina pectoris; J44.9 Chronic obstructive pulmonary disease, unspecified; M54.2 Cervicalgia; G89.29 Other chronic pain; I48.0 Paroxysmal atrial fibrillation; D64.9 Anemia, unspecified; Z20.822 Contact with and (suspected) exposure to COVID-19; Z87.891 Personal history of nicotine dependence; Z79.01 Long term (current) use of anticoagulants; Z79.899 Other long term (current) drug therapy
CPT/HCPCS: 0241U; 36415; 80053; 80061; 80076; 80164; 81001; 82140; 82306; 82607; 82746; 82947; 83036; 83970; 84439; 84443; 85025; 87086; 87635

== ENCOUNTER → 2024-08-21 20:14 | Outpatient (BNV) | payer MEDICARE, SELFPAY | PROVIDERS: Admitting Provider Social Worker; PCP Internal Medicine; Visit Provider Physician Assistant | DX: R60.0 Localized edema (principal); J02.9 Acute pharyngitis, unspecified; R51.9 Headache, unspecified | CPT/HCPCS: 99222; 99232; 99499 ==

== ENCOUNTER → 2024-08-21 20:14 | Outpatient (BNV) | payer MEDICARE, SELFPAY | PROVIDERS: Admitting Provider Social Worker; PCP Internal Medicine; Visit Provider Psychiatry & Neurology Psychiatry | DX: F25.0 Schizoaffective disorder, bipolar type (principal) | CPT/HCPCS: 99231 ==

== ENCOUNTER → 2024-08-21 20:14 | Outpatient (BNV) | payer MEDICARE, SELFPAY | PROVIDERS: Admitting Provider Social Worker; PCP Internal Medicine; Visit Provider Psychiatry & Neurology Psychiatry | DX: F25.0 Schizoaffective disorder, bipolar type (principal) | CPT/HCPCS: 90792; 99231; 99232; 99239 ==